=== PATIENT | female | born 1940 | race Caucasian/White ===

== ENCOUNTER 2021-02-10 08:44 | Emergency (ER) | payer MEDICARE, SELFPAY ==
--- NOTE | ~2021-02-10 | XR_ITS ---
EXAMINATION: XR CHEST CLINICAL INFORMATION: Diffuse myalgia COMPARISON: None TECHNIQUE: Frontal view of the chest was obtained. FINDINGS: The cardiac and mediastinal contours are normal. The lungs are clear. There is no pleural effusion or pneumothorax. There is a stent in the left upper arm. 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 There are degenerative changes of the spine. XR/XR chest 1V IMPRESSION: No evidence for acute disease in the chest.
[2021-02-10 08:51] VITALS: BP 113/39; BP 138/72; PULSE 72; PULSE 81; RESP 18; TEMP 36.9; O2SAT 99; BMI 31.6
--- NOTE | 2021-02-10 09:43 | ECG_ITS ---
Test Reason : WEAKNESS Blood Pressure : / mmHG Vent. Rate : 079 BPM Atrial Rate : 079 BPM P-R Int : 182 ms QRS Dur : 120 ms QT Int : 442 ms P-R-T Axes : 065 -13 -12 degrees QTc Int : 506 ms Normal sinus rhythm Right bundle branch block Possible Lateral infarct , age undetermined Abnormal ECG When compared with ECG of 21-AUG-2009 14:21, Borderline criteria for Lateral infarct are now Present Minimal criteria for Inferior infarct are no longer Present Referred By: Ana Duenas Electronically Signed By:Luis Durant
--- NOTE | 2021-02-10 10:01 | ED_ITS ---
HPI - Weakness General Chief complaint: Weakness Stated complaint: WEAKNESS Time Seen by Provider: 02/10/21 08:57 Source: patient and EMS Mode of arrival: EMS History of Present Illness HPI Narrative: 80-year-old female with a past medical history of diabetes, HTN, CKD on HD (/Mon/Mon) last received HD yesterday, presenting to the ED c omplaining of diffuse myalgias, generalized fatigue/weakness, and acute on chronic right buttock pain radiating down RLE x weeks. Patient was discharged from [facility] yesterday after rehabbing for this pain. At baseline patient ambulates with walker, reports this pain is unchanged since original onset just unbearable, took prescribed oxycodone this morning without relief. Denies new injury/fall or trauma. Also reports bilateral lower extremity wounds x months. Denies fever, chills, CP/SOB, abdominal pain, nausea/vomiting, tingling, urinary incontinence/retention, fever/chills. MD Complaint: generalized weakness and lack of energy Related Data Home Medications Medication Instructions Recorded Confirmed acetaminophen 325 mg tablet 325 mg PO TID PRN 02/10/21 02/10/21 diclofenac sodium 1 % topical gel 2 g TOPICAL 0900,1300,199902/10/21 02/10/21 furosemide 40 mg tablet 1 tab PO 0900,1300,199902/10/21 02/10/21 gabapentin 100 mg capsule 100 mg PO BID@0900,1700 02/10/21 02/10/21 insulin NPH isoph U-100 human 100 16 unit SUBCUT BEDTIME 02/10/21 02/10/21 unit/mL subcutaneous suspension (Novolin N NPH U-100 Insulin isophane) levothyroxine 88 mcg tablet 1 tab PO DAILY@0600 02/10/21 02/10/21 metoprolol tartrate 25 mg tablet 1 tab PO BID 02/10/21 02/10/21 omeprazole 20 mg capsule,delayed 1 cap PO DAILY@0600 02/10/21 02/10/21 release ondansetron 4 mg disintegrating 4 mg PO Q6H PRN MDD N 02/10/21 02/10/21 tablet oxycodone 10 mg tablet 1 tab PO QID PRN 02/10/21 02/10/21 polyethylene glycol 3350 17 gram 17 g PO DAILY 02/10/21 02/10/21 oral powder packet (Miralax) pravastatin 40 mg tablet 1 tab PO BEDTIME 02/10/21 02/10/21 sertraline 50 mg tablet 1 tab PO DAILY 02/10/21 02/10/21 Previous Rx's Medication Instructions Recorded oxycodone 5 mg tablet 5 mg PO Q8H PRN #9 tab 02/10/21 Allergies Allergy/AdvReac Type Severity Reaction Status Date / Time Sulfa (Sulfonamide Allergy Unknown RASH Unverified 03/26/20 16:06 Antibiotics) Review of Systems Review of Systems: Constitutional: No Fever, No Chills, No Night Sweats, + Fatigue, + Malaise ENT/Mouth: No Ear Pain, No Nasal Congestion, No Hoarseness, No sore throat, No Swallowing Difficulty Eyes: No Eye Pain, No Vision Changes Cardiovascular: No Chest Pain, No SOB, No Edema, No Palpitations Respiratory: No Cough, No Sputum, No Dyspnea Gastrointestinal: No Nausea, No Vomiting, No Diarrhea, No Abdominal pain Genitourinary: No Dysuria, No Urinary Frequency, No Hematuria, No Flank Pain Musculoskeletal: + joint pain, + Myalgias, No Joint Swelling Skin: No Skin Lesions, No rash Neuro: + Weakness, No Numbness, No Paresthesias, No Dizziness, No Headache Yes all other systems are reviewed and are negative [facility] Past Medical History Attestation statement: The following information was validated with the patient. Medical History (Updated 02/10/21 @ 15:50 by YULI Lu) Diabetes mellitus Hypertension Kidney disease Physical Exam Vital Signs: Vital Signs: Last Vital Signs Temp 98.4 F 02/10/21 08:51 Pulse 86 02/10/21 14:35 Resp 16 02/10/21 14:35 BP 150/47 H 02/10/21 14:35 Pulse Ox 99 02/10/21 14:35 Body Mass Index 31.6 Const: General: cooperative, alert and awake Limitations: no limitations HENMT: Head: Yes normal to inspection and Yes atraumatic Ears: hearing delvin ssly normal bilaterally General nose exam: Normal external nose present Face and sinus: Yes normal facial exam Eyes: General: appearance normal, both eyes and all related structures EOM: EOMs intact bilaterally Neck: Neck: Yes normal visual inspection and Yes no meningeal signs Resp: Effort & Inspection: normal respiratory effort Auscultation: clear to auscultation bilaterally, no rhonchi and no wheezes Cardio: Rate: regular rate Heart sounds: S1 normal heart sound present and S2 normal heart sound present GI: Inspection: Yes normal to inspection Palpation (GI): Soft to palpation, nontender, no guarding and not rigid Back/Spine/Pelvis: Other: No midline thoracic/lumbar spinous tenderness or st ep-offs/deformity. + right-sided lower lumbar/buttock tenderness to palpation Skin: Other: RLE: 2 open dry wounds with scaling and surrounding erythema extending up to mid tib-fib. Warm to touch. No streaking. NV intact. LLE: 1 bullous blister noted to volar aspect of left foot. No surrounding erythema/cellulitis, no streaking Neuro: General: tone normal, moves all extremities, no meningeal signs and no focal motor deficits Extrem: General: Yes normal to inspection Course Course Course Narrative: Received records/progress notes from Matt Moran patient was admitted for abdominal pain/back pain noted to have UTI & CT brain, abdomen/pelvis that were unremarkable was treated with IV Rocephin. Right hip j oint pain consulted for hip injections for pain and patient was receiving gabapentin/topical diclofenac. Venous stasis ulcers to bilateral lower extremities were being assessed/treated with moist to dry dressings and dry protective dressing >> no need for repeat imaging at this time as patient denies new or recent falls since original complaint just constant/unremitting pain -no leukocytosis. H&H at patient's baseline (chronic anemia from CKD), renal dysfunction at patient's baseline, BNP 262 XR chest 1V IMPRESSION: No evidence for acute disease in the chest -UA infected >> initiated Keflex 500 p.o. daily and Doxy 100 p.o. q.12 for RLE cellulitis and UTI (Keflex should be given after dialysis on dialysis days) -patient placed in physician observation as needs more time for case management placement, physical therapy evaluated patient and recommends STR -patient will be going to [facility] for STR at 6PM MDM - Weakness MDM Narrative Medical decision making narrative: 80-year-old female with a past medical history of diabetes, HTN, CKD on HD (/Mon/Mon) last received HD yesterday, presenting to the ED complaining of diffuse myalgias, generalized fatigue/weakness, and acute on chronic right buttock pain radiating down RLE x weeks. On exam VSS, NAD/well-appearing, physical exam as above. Concern for acute on chronic pain/deconditioning. Rule out metabolic/infectious etiology. RLE consistent with early onset cellulitis. Low concern for severe sepsis at this time. Low concern for cauda equina/cord compression or intra-abdominal pathology Plan: EKG, labs, UA, CXR, lactic/blood cultures, PT/CM consult Medical Records Attestation: I reviewed the patient's medical records. Lab Data Attestation: I reviewed the patient's lab results. Result diagrams: 02/10/21 10:55 02/10/21 10:55 Labs: Lab Results 02/10/21 02/10/21 02/10/21 Range/Units 10:14 10:55 10:55 WBC 9.1 (4.8-10.8) X10*3/uL RBC 2.39 L (4.20-5.50) X10*6/uL Hgb 7.8 L (12.0-16.0) g/dl Hct 24.3 L (37-47) % MCV 101.7 H (80-98) fL MCH 32.6 (27.0-33.0) pg MCHC 32.1 (31.0-35.0) g/dl RDW 13.5 (11.0-16.0) % Plt Count 299 (160-400) X10*3/uL MPV 9.0 L (9.4-12.3) fL Immature Gran % (Auto) 1.6 H (0.0-0.4) % Neut % (Auto) 73.4 H (45-73) % Lymph % (Auto) 10.1 L (20-40) % [place] % (Auto) 10.3 (2-11) % Eos % (Auto) 4.2 H (0-4) % Baso % (Auto) 0.4 (0-2) % Lymph # (Auto) 0.9 L (1.2-4.9) X10*3/uL [place] # (Auto) 0.9 (0.1-1.2) X10*3/uL Eos # (Auto) 0.4 (0.0-0.4) X10*3/uL Baso # (Auto) 0.0 (0.0-0.2) X10*3/uL Abs Immat Gran (auto) 0.15 H (0.00-0.03) X10*3/uL Absolute Neuts (auto) 6.7 (2.0-8.3) X10*3/uL Absolute Nucleated RBC 0.000 (0.0-0.012) X10*3/uL Nucleated RBC % (auto) 0.0 (0.0-0.2) /100WBC Sodium 139 (135-145) mmol/L Potassium 4.4 (3.3-5.1) mmol/L Chloride 94 L (96-108) mmol/L Carbon Dioxide 32 H (22-29) mmol/L Anion Gap 17 (12-20) BUN 32 H (9-16) mg/dL Creatinine 4.51 H* (0.5-1.4) mg/dL Estim Creat Clear Calc 9.3 Estimated GFR 9 Random Glucose 104 D (60-115) mg/dL Lactic Acid (0.5-2.0) mmol/L Calcium 8.7 (8.4-10.2) mg/dL Magnesium 1.9 (1.6-2.6) mg/dL Total Bilirubin 0.5 (0.0-1.0) mg/dL Direct Bilirubin 0.2 (0.0-0.5) mg/dL AST 10 (5-31) U/L ALT 8 (0-31) U/L Alkaline Phosphatase 95 D (39-117) U/L Total Creatine Kinase 61 (26-140) U/L B-Natriuretic Peptide (<100) pg/mL Total Protein 5.8 L (6.5-8.0) g/dL Albumin 3.6 (3.5-5.0) g/dL Urine Color Urine Appearance Urine pH (5.0-8.0) Ur Specific [place] (1.005-1.025) Urine Protein (NEG-TRACE) MG/DL Urine Glucose (UA) (NEG) MG/DL Urine Ketones (NEG) MG/DL Urine Blood (NEG) Urine Nitrite (NEG) Ur Leukocyte Esterase (NEG) Urine RBC (0) /HPF Urine WBC (0-4) /HPF Ur Squamous Epith Cells /LPF Urine Bacteria /LPF COVID-19 (YANNA) Negative (Negative) COVID-19 Clin Com See Note 02/10/21 02/10/21 02/10/21 Range/Units 10:55 10:55 15:05 WBC (4.8-10.8) X10*3/uL RBC (4.20-5.50) X10*6/uL Hgb (12.0-16.0) g/dl Hct (37-47) % MCV (80-98) fL MCH (27.0-33.0) pg MCHC (31.0-35.0) g/dl RDW (11.0-16.0) % Plt Count (160-400) X10*3/uL MPV (9.4-12.3) fL Immature Gran % (Auto) (0.0-0.4) % Neut % (Auto) (45-73) % Lymph % (Auto) (20-40) % [place] % (Auto) (2-11) % Eos % (Auto) (0-4) % Baso % (Auto) (0-2) % Lymph # (Auto) (1.2-4.9) X10*3/uL [place] # (Auto) (0.1-1.2) X10*3/uL Eos # (Auto) (0.0-0.4) X10*3/uL Baso # (Auto) (0.0-0.2) X10*3/uL Abs Immat Gran (auto) (0.00-0.03) X10*3/uL Absolute Neuts (auto) (2.0-8.3) X10*3/uL Absolute Nucleated RBC (0.0-0.012) X10*3/uL Nucleated RBC % (auto) (0.0-0.2) /100WBC Sodium (135-145) mmol/L Potassium (3.3-5.1) mmol/L Chloride (96-108) mmol/L Carbon Dioxide (22-29) mmol/L Anion Gap (12-20) BUN (9-16) mg/dL Creatinine (0.5-1.4) mg/dL Estim Creat Clear Calc Estimated GFR Random Glucose (60-115) mg/dL Lactic Acid 1.7 (0.5-2.0) mmol/L Calcium (8.4-10.2) mg/dL Magnesium (1.6-2.6) mg/dL Total Bilirubin (0.0-1.0) mg/dL Direct Bilirubin (0.0-0.5) mg/dL AST (5-31) U/L ALT (0-31) U/L Alkaline Phosphatase (39-117) U/L Total Creatine Kinase (26-140) U/L B-Natriuretic Peptide 262 H (<100) pg/mL Total Protein (6.5-8.0) g/dL Albumin (3.5-5.0) g/dL Urine Color YELLOW Urine Appearance HAZY Urine pH 7.0 (5.0-8.0) Ur Specific [place] <= 1.005 (1.005-1.025) Urine Protein 1+ H (NEG-TRACE) MG/DL Urine Glucose (UA) NEG (NEG) MG/DL Urine Ketones NEG (NEG) MG/DL Urine Blood NEG (NEG) Urine Nitrite NEG (NEG) Ur Leukocyte Esterase 3+ H (NEG) Urine RBC 0-2 (0) /HPF Urine WBC 5-9 H (0-4) /HPF Ur Squamous Epith Cells TRACE /LPF Urine Bacteria 2+ /LPF COVID-19 (YANNA) (Negative) COVID-19 Clin Com ECG Data Attestation: I personally reviewed and interpreted this ECG as follows: ECG interpretation date: 02/10/21 ECG interpretation time: 10:45 Interpretation: EKG normal sinus rhythm with RBBB. Nonischemic/no STEMI Discharge Plan Discharge Clinical Impression: Cellulitis of right lower extremity, Myalgia, Acute UTI Patient Disposition: Xfer [facility] Instructions: Cellulitis (ED), Urinary Tract Infection in Older Adults (ED) Additional Instructions: You have an infection to right lower leg, dressings and to be changed daily You also have a urinary tract infection Keflex and doxycycline should treat both of these infections You to continue on her dialysis Follow-up with her doctor Oxycodone will help with severe pain, take as needed Prescriptions: New oxycodone 5 mg tablet 5 mg PO Q8H PRN (Reason: pain) Qty: 9 RF: 0 No Action furosemide 40 mg tablet 1 tab PO 0900,1300,2000 RF: 0 pravastatin 40 mg tablet 1 tab PO BEDTIME RF: 0 levothyroxine 88 mcg tablet 1 tab PO DAILY@0600 RF: 0 Novolin N NPH U-100 Insulin 100 unit/mL suspension 16 unit subcut BEDTIME RF: 0 omeprazole 20 mg capsule,delayed release(DR/EC) 1 cap PO DAILY@0600 RF: 0 sertraline 50 mg tablet 1 tab PO DAILY RF: 0 metoprolol tartrate 25 mg tablet 1 tab PO BID RF: 0 oxycodone 10 mg tablet 1 tab PO QID PRN (Reason: pain) RF: 0 polyethylene glycol 3350 [Miralax] 17 gram Powder In Packet 17 g PO DAILY RF: 0 gabapentin 100 mg Capsule 100 mg PO BID@0900,1700 RF: 0 ondansetron [Zofran ODT] 4 mg Tablet,Disintegrating 4 mg PO Q6H MDD N PRN (Reason: Nausea And Vomiting) RF: 0 diclofenac sodium 1 % Gel 2 g TOPICAL 0900,1300,2000 RF: 0 acetaminophen 325 mg Tablet 325 mg PO TID PRN (Reason: Pain) RF: 0 Referrals: [facility] [Outside] - 2 days
[2021-02-10 10:41] LABS: COVID-19 Test Negative (Negative)
[2021-02-10 11:07] LABS: MANUAL DIFF FLAG NO
[2021-02-10 11:08] LABS: Basophils Percent Auto 0.4 % (0-2); Eosinophils Absolute Auto 0.4 X10*3/uL (0.0-0.4); Eosinophils Percent Auto 4.2 % (0-4); Hematocrit 24.3 % (37-47); Hemoglobin 7.8 g/dl (12.0-16.0); Imm Gran Abs Auto 0.15 X10*3/uL (0.00-0.03); Imm Gran Pct Auto 1.6 % (0.0-0.4); Lymphocytes Absolute Auto 0.9 X10*3/uL (1.2-4.9); Lymphocytes Percent Auto 10.1 % (20-40); Mean Corpuscular HGB Conc 32.1 g/dl (31.0-35.0); Mean Corpuscular Hemoglobin 32.6 pg (27.0-33.0); Mean Corpuscular Volume 101.7 fL (80-98); Monocytes Absolute Auto 0.9 X10*3/uL (0.1-1.2); Monocytes Percent Auto 10.3 % (2-11); Neutrophils Absolute Auto 6.7 X10*3/uL (2.0-8.3); Neutrophils Percent Auto 73.4 % (45-73); Platelet Count 299 X10*3/uL (160-400); Red Blood Count 2.39 X10*6/uL (4.20-5.50); Red Cell Distribution Width 13.5 % (11.0-16.0); White Blood Count 9.1 X10*3/uL (4.8-10.8)
[2021-02-10 11:25] LABS: Lactic Acid 1.7 mmol/L (0.5-2.0)
[2021-02-10] MEDS: Lidocaine 4 % Patch ADH..PATCH 1 PATCH TRANSDERMA (11:25)
[2021-02-10] MEDS: traMADoL HCL 50 MG TABLET PO (11:34)
[2021-02-10 11:40] LABS: B Type Natriuretic Peptide 262 pg/mL (<100)
[2021-02-10] MEDS: oxyCODONE HCl Immed Release 5 MG TABLET PO (12:06)
[2021-02-10 12:27] LABS: Alanine Aminotransferase 8 U/L (0-31); Albumin Level 3.6 g/dL (3.5-5.0); Alkaline Phosphatase 95 U/L (39-117); Anion Gap 17 (12-20); Aspartate Amino Transferase 10 U/L (5-31); Bilirubin Direct 0.2 mg/dL (0.0-0.5); Bilirubin Total 0.5 mg/dL (0.0-1.0); Blood Urea Nitrogen 32 mg/dL (9-16); Calcium 8.7 mg/dL (8.4-10.2); Carbon Dioxide 32 mmol/L (22-29); Chloride 94 mmol/L (96-108); Creatinine Clr Calc Pharmacy 9.3; Estimated Glomerular Filt Rate 9; Glucose Random 104 mg/dL (60-115); Magnesium 1.9 mg/dL (1.6-2.6); Potassium 4.4 mmol/L (3.3-5.1); Sodium 139 mmol/L (135-145); Total Protein 5.8 g/dL (6.5-8.0)
--- NOTE | 2021-02-10 13:00 | PC.NURSE ---
Per family members, they believe patient is unsafe at home due to pain and would benefit from short term rehab.
--- NOTE | 2021-02-10 13:07 | PC.NURSE ---
Patient moved to hospital bed. PT at bedside for eval.
--- NOTE | 2021-02-10 13:32 | HE.PHANOTE ---
Med Rec has been completed based on list from [facility].
[2021-02-10 13:38] VITALS: BP 113/39; PULSE 81; O2SAT 99
[2021-02-10] MEDS: oxyCODONE HCl Immed Release 5 MG TABLET 10 MG PO (14:32)
[2021-02-10 14:35] VITALS: BP 150/47; PULSE 86; RESP 16; O2SAT 99
[2021-02-10] MEDS: Doxycycline Hyclate 100 MG in 0.9 % Sodium Chloride 250 ML 166.67 MG IV (14:59)
[2021-02-10 15:16] LABS: Glucose Urine UA NEG (NEG); Leukocyte Esterase Urine 3+ (NEG); Nitrite Urine NEG (NEG); Specific Gravity - Urine <= 1.005 (1.005-1.025); UACC Culture Trigger YES; Urine Blood NEG (NEG); Urine Ketones NEG (NEG); Urine Protein 1+ MG/DL (NEG-TRACE)
[2021-02-10 15:17] LABS: Appearance Urine HAZY; Color Urine YELLOW
--- NOTE | 2021-02-10 15:23 | MHC.CM.ED ---
Addendum entered by Tamara Suarez 02/10/21 15:26: Patient received 2nd Moderna vaccine. Original Note: Received case management consult from Ana ROLDAN. Patient was d/c'd from [facility] last night. Brad HERRING was supposed to visit today. However patient was too weak and came to the ER. Patient hoes to dialysis , and Monday. Work up essentially negative. Physical therapy eval completed and short term rehab is recommended. Patient agreeable to return to [facility] because of the need for HD. Per [facility], patient can leave at 6pm. [facility] BLS booked. Med nec with chart. Patient and Ana ROLDAN aware. Continue to monitor for d/c needs.
[2021-02-10 15:41] LABS: Bacteria Urine 2+ /LPF; RBC Urine 0-2 /HPF (0); Squamous Epithelial Cell Urine TRACE /LPF
[2021-02-10] MEDS: cephALEXin 500 MG CAPSULE PO (16:34)
[2021-02-10] MEDS: Gabapentin 100 MG CAPSULE PO (16:37)
--- NOTE | 2021-02-10 17:00 | PC.NURSE ---
Report given to [facility]. Patient to be transferred at 1800.
== END 2021-02-10 18:48 | disposition skilled nursing facility (03) ==
PROVIDERS: Physician Assistant; Emergency Provider Emergency Medicine; PCP Internal Medicine Endocrinology, Diabetes & Metabolism
DX: N39.0 Urinary tract infection, site not specified (principal); L03.115 Cellulitis of right lower limb; M79.10 Myalgia, unspecified site; Z20.822 Contact with and (suspected) exposure to COVID-19; R53.1 Weakness; E11.22 Type 2 diabetes mellitus with diabetic chronic kidney disease; I12.0 Hypertensive chronic kidney disease with stage 5 chronic kidney disease or end stage renal disease; N18.6 End stage renal disease; Z99.2 Dependence on renal dialysis; D63.1 Anemia in chronic kidney disease; Z79.4 Long term (current) use of insulin; Z79.899 Other long term (current) drug therapy
CPT/HCPCS: 36415; 71045; 80048; 80076; 81001; 82550; 83605; 83735; 83880; 85025; 87040; 87086; 87635; 93005; 96374; 97162; 99285

== ENCOUNTER 2021-03-11 05:47 | Outpatient (REF) | payer MEDICARE, SELFPAY ==
[2021-03-11 05:52] LABS: MANUAL DIFF FLAG NO
[2021-03-11 06:01] LABS: Basophils Absolute Auto 0.1 X10*3/uL (0.0-0.2); Basophils Percent Auto 0.5 % (0-2); Eosinophils Absolute Auto 0.6 X10*3/uL (0.0-0.4); Eosinophils Percent Auto 6.3 % (0-4); Hematocrit 23.5 % (37-47); Hemoglobin 7.4 g/dl (12.0-16.0); Imm Gran Abs Auto 0.12 X10*3/uL (0.00-0.03); Imm Gran Pct Auto 1.2 % (0.0-0.4); Lymphocytes Absolute Auto 1.1 X10*3/uL (1.2-4.9); Lymphocytes Percent Auto 11.2 % (20-40); Mean Corpuscular HGB Conc 31.5 g/dl (31.0-35.0); Mean Corpuscular Hemoglobin 31.5 pg (27.0-33.0); Mean Platelet Volume 9.2 fL (9.4-12.3); Monocytes Percent Auto 10.6 % (2-11); NRBC Pct Auto 0.2 /100WBC (0.0-0.2); Neutrophils Absolute Auto 6.7 X10*3/uL (2.0-8.3); Neutrophils Percent Auto 70.2 % (45-73); Platelet Count 243 X10*3/uL (160-400); Red Blood Count 2.35 X10*6/uL (4.20-5.50); Red Cell Distribution Width 18.5 % (11.0-16.0); White Blood Count 9.6 X10*3/uL (4.8-10.8)
[2021-03-11 06:40] LABS: Alanine Aminotransferase 9 U/L (0-31); Albumin Level 2.8 g/dL (3.5-5.0); Alkaline Phosphatase 72 U/L (39-117); Anion Gap 14 (12-20); Aspartate Amino Transferase 13 U/L (5-31); Bilirubin Total 0.5 mg/dL (0.0-1.0); Blood Urea Nitrogen 38 mg/dL (9-16); Calcium 7.8 mg/dL (8.4-10.2); Carbon Dioxide 28 mmol/L (22-29); Chloride 97 mmol/L (96-108); Estimated Glomerular Filt Rate 7; Glucose Random 61 mg/dL (60-115); Sodium 135 mmol/L (135-145); Total Protein 4.5 g/dL (6.5-8.0)
== END 2021-03-11 05:48 | disposition home or self-care (01) ==
LOC: HO.MMNH2L 05:47
PROVIDERS: Visit Provider Family Medicine
DX: Z02.2 Encounter for examination for admission to residential institution (principal)
CPT/HCPCS: 36415; 80053; 85025

== ENCOUNTER 2021-03-24 06:36 | Outpatient (REF) | payer SELFPAY ==
[2021-03-24 06:58] LABS: Hematocrit 21.1 % (37-47); Mean Corpuscular HGB Conc 32.2 g/dl (31.0-35.0); Mean Corpuscular Hemoglobin 30.9 pg (27.0-33.0); Mean Corpuscular Volume 95.9 fL (80-98); Mean Platelet Volume 10.2 fL (9.4-12.3); Platelet Count 159 X10*3/uL (160-400); Red Cell Distribution Width 16.4 % (11.0-16.0); White Blood Count 7.6 X10*3/uL (4.8-10.8)
[2021-03-24 07:26] LABS: Alanine Aminotransferase < 6 U/L (0-31); Albumin Level 2.9 g/dL (3.5-5.0); Alkaline Phosphatase 65 U/L (39-117); Anion Gap 15 (12-20); Aspartate Amino Transferase 16 U/L (5-31); Bilirubin Total 2.4 mg/dL (0.0-1.0); Blood Urea Nitrogen 27 mg/dL (9-16); Carbon Dioxide 25 mmol/L (22-29); Chloride 104 mmol/L (96-108); Estimated Glomerular Filt Rate 10; Glucose Random 97 mg/dL (60-115); Potassium 4.1 mmol/L (3.3-5.1); Sodium 140 mmol/L (135-145); Total Protein 4.6 g/dL (6.5-8.0)
[2021-03-24 07:28] LABS: Hemoglobin 6.8 g/dl (12.0-16.0)
== END 2021-03-24 06:37 | disposition home or self-care (01) ==
LOC: HO.MMNH2L 06:36
PROVIDERS: Visit Provider Family Medicine
DX: R41.82 Altered mental status, unspecified (principal)
CPT/HCPCS: 36415; 80053; 85027

== ENCOUNTER 2021-05-03 00:17 | Outpatient (REF) | payer MEDICARE, SELFPAY ==
[2021-05-03 06:57] LABS: Hematocrit 26.5 % (37-47); Hemoglobin 8.1 g/dl (12.0-16.0); Mean Corpuscular HGB Conc 30.6 g/dl (31.0-35.0); Mean Corpuscular Hemoglobin 31.3 pg (27.0-33.0); Mean Corpuscular Volume 102.3 fL (80-98); Mean Platelet Volume 10.4 fL (9.4-12.3); Platelet Count 218 X10*3/uL (160-400); Red Blood Count 2.59 X10*6/uL (4.20-5.50); White Blood Count 5.7 X10*3/uL (4.8-10.8)
[2021-05-03 07:53] LABS: Anion Gap 15 (12-20); Blood Urea Nitrogen 26 mg/dL (9-16); Calcium 8.3 mg/dL (8.4-10.2); Carbon Dioxide 31 mmol/L (22-29); Chloride 101 mmol/L (96-108); Estimated Glomerular Filt Rate 10; Glucose Random 71 mg/dL (60-115); Potassium 4.8 mmol/L (3.3-5.1); Sodium 142 mmol/L (135-145)
== END 2021-05-03 00:18 | disposition home or self-care (01) ==
LOC: HO.MMNH2L 00:17
PROVIDERS: Visit Provider Family Medicine
DX: I50.9 Heart failure, unspecified (principal); N18.6 End stage renal disease; M62.511 Muscle wasting and atrophy, not elsewhere classified, right shoulder
CPT/HCPCS: 36415; 80048; 85027

== ENCOUNTER 2021-05-10 07:50 | Outpatient (REF) | payer MEDICARE, SELFPAY ==
[2021-05-10 07:23] LABS: Hematocrit 27.3 % (37.0-47.0); Hemoglobin 8.5 g/dl (12.0-16.0); Mean Corpuscular HGB Conc 31.1 g/dl (31.0-35.0); Mean Corpuscular Hemoglobin 30.8 pg (27.0-33.0); Mean Corpuscular Volume 98.9 fL (80.0-98.0); Mean Platelet Volume 10.2 fL (9.4-12.3); Platelet Count 237 X10*3/uL (160-400); Red Blood Count 2.76 X10*6/uL (4.20-5.50); Red Cell Distribution Width 15.6 % (11.0-16.0); White Blood Count 6.6 X10*3/uL (4.8-10.8)
[2021-05-10 07:53] LABS: Anion Gap 19 (12-20); Blood Urea Nitrogen 27 mg/dL (9-16); Calcium 8.2 mg/dL (8.4-10.2); Carbon Dioxide 28 mmol/L (22-29); Chloride 99 mmol/L (96-108); Glucose Random 62 mg/dL (60-115); Potassium 3.8 mmol/L (3.3-5.1); Sodium 142 mmol/L (135-145)
[2021-05-10 08:09] LABS: Estimated Glomerular Filt Rate 10
== END 2021-05-10 07:51 | disposition home or self-care (01) ==
LOC: HO.MMNH2L 07:50
PROVIDERS: Visit Provider Family Medicine
DX: I50.9 Heart failure, unspecified (principal); N18.6 End stage renal disease; M62.511 Muscle wasting and atrophy, not elsewhere classified, right shoulder
CPT/HCPCS: 36415; 80048; 85027

== ENCOUNTER 2021-05-17 00:34 | Outpatient (REF) | payer MEDICARE, SELFPAY ==
[2021-05-17 06:53] LABS: Hematocrit 26.7 % (37.0-47.0); Hemoglobin 8.4 g/dl (12.0-16.0); Mean Corpuscular HGB Conc 31.5 g/dl (31.0-35.0); Mean Corpuscular Volume 98.5 fL (80.0-98.0); Mean Platelet Volume 10.2 fL (9.4-12.3); Platelet Count 231 X10*3/uL (160-400); Red Blood Count 2.71 X10*6/uL (4.20-5.50); Red Cell Distribution Width 15.6 % (11.0-16.0); White Blood Count 6.5 X10*3/uL (4.8-10.8)
[2021-05-17 07:54] LABS: Anion Gap 16 (12-20); Blood Urea Nitrogen 25 mg/dL (9-16); Calcium 8.1 mg/dL (8.4-10.2); Carbon Dioxide 33 mmol/L (22-29); Chloride 98 mmol/L (96-108); Estimated Glomerular Filt Rate 9; Glucose Random 61 mg/dL (60-115); Potassium 3.3 mmol/L (3.3-5.1); Sodium 144 mmol/L (135-145)
== END 2021-05-17 00:35 | disposition home or self-care (01) ==
LOC: HO.MMNH2L 00:34
PROVIDERS: Visit Provider Family Medicine
DX: I50.9 Heart failure, unspecified (principal); N18.6 End stage renal disease; M62.511 Muscle wasting and atrophy, not elsewhere classified, right shoulder
CPT/HCPCS: 36415; 80048; 85027

== ENCOUNTER 2021-05-24 00:34 | Outpatient (REF) | payer MEDICARE, SELFPAY ==
[2021-05-24 07:33] LABS: Hematocrit 29.2 % (37.0-47.0); Mean Corpuscular HGB Conc 30.8 g/dl (31.0-35.0); Mean Corpuscular Hemoglobin 30.6 pg (27.0-33.0); Mean Corpuscular Volume 99.3 fL (80.0-98.0); Mean Platelet Volume 10.4 fL (9.4-12.3); Platelet Count 174 X10*3/uL (160-400); Red Blood Count 2.94 X10*6/uL (4.20-5.50); Red Cell Distribution Width 16.1 % (11.0-16.0); White Blood Count 6.1 X10*3/uL (4.8-10.8)
[2021-05-24 08:57] LABS: Anion Gap 15 (12-20); Blood Urea Nitrogen 24 mg/dL (9-16); Calcium 8.1 mg/dL (8.4-10.2); Carbon Dioxide 33 mmol/L (22-29); Chloride 97 mmol/L (96-108); Estimated Glomerular Filt Rate 9; Glucose Random 106 mg/dL (60-115); Potassium 3.7 mmol/L (3.3-5.1); Sodium 141 mmol/L (135-145)
== END 2021-05-24 00:35 | disposition home or self-care (01) ==
LOC: HO.MMNH2L 00:34
PROVIDERS: Visit Provider Family Medicine
DX: I50.9 Heart failure, unspecified (principal); N18.6 End stage renal disease; M62.511 Muscle wasting and atrophy, not elsewhere classified, right shoulder
CPT/HCPCS: 36415; 80048; 85027

== ENCOUNTER 2021-05-31 22:08 | Outpatient (REF) | payer MEDICARE, SELFPAY ==
[2021-05-31 07:09] LABS: Hemoglobin 10.3 g/dl (12.0-16.0); Mean Corpuscular HGB Conc 31.2 g/dl (31.0-35.0); Mean Corpuscular Hemoglobin 30.8 pg (27.0-33.0); Mean Corpuscular Volume 98.8 fL (80.0-98.0); Mean Platelet Volume 10.2 fL (9.4-12.3); Platelet Count 256 X10*3/uL (160-400); Red Blood Count 3.34 X10*6/uL (4.20-5.50); Red Cell Distribution Width 15.6 % (11.0-16.0); White Blood Count 6.5 X10*3/uL (4.8-10.8)
[2021-05-31 07:33] LABS: Anion Gap 18 (12-20); Blood Urea Nitrogen 18 mg/dL (9-16); Calcium 8.5 mg/dL (8.4-10.2); Carbon Dioxide 30 mmol/L (22-29); Chloride 98 mmol/L (96-108); Glucose Random 121 mg/dL (60-115); Potassium 3.7 mmol/L (3.3-5.1); Sodium 142 mmol/L (135-145)
[2021-05-31 08:07] LABS: Estimated Glomerular Filt Rate 10
== END 2021-05-31 22:09 | disposition home or self-care (01) ==
LOC: HO.MMNH2L 22:08
PROVIDERS: Visit Provider Family Medicine
DX: I50.9 Heart failure, unspecified (principal); N18.6 End stage renal disease; M62.511 Muscle wasting and atrophy, not elsewhere classified, right shoulder
CPT/HCPCS: 36415; 80048; 85027

== ENCOUNTER 2021-06-07 00:58 | Outpatient (REF) | payer MEDICARE, SELFPAY ==
[2021-06-07 07:00] LABS: Hematocrit 33.9 % (37.0-47.0); Hemoglobin 10.5 g/dl (12.0-16.0); Mean Corpuscular Hemoglobin 30.5 pg (27.0-33.0); Mean Corpuscular Volume 98.5 fL (80.0-98.0); Mean Platelet Volume 10.2 fL (9.4-12.3); Platelet Count 216 X10*3/uL (160-400); Red Blood Count 3.44 X10*6/uL (4.20-5.50); Red Cell Distribution Width 15.8 % (11.0-16.0); White Blood Count 7.4 X10*3/uL (4.8-10.8)
[2021-06-07 07:56] LABS: Anion Gap 19 (12-20); Blood Urea Nitrogen 24 mg/dL (9-16); Calcium 8.4 mg/dL (8.4-10.2); Carbon Dioxide 31 mmol/L (22-29); Chloride 95 mmol/L (96-108); Estimated Glomerular Filt Rate 8; Glucose Random 84 mg/dL (60-115); Potassium 3.8 mmol/L (3.3-5.1); Sodium 141 mmol/L (135-145)
== END 2021-06-07 00:59 | disposition home or self-care (01) ==
LOC: HO.MMNH2L 00:58
PROVIDERS: Visit Provider Family Medicine
DX: M62.511 Muscle wasting and atrophy, not elsewhere classified, right shoulder (principal); I50.9 Heart failure, unspecified; N18.6 End stage renal disease
CPT/HCPCS: 36415; 80048; 85027

== ENCOUNTER 2021-06-14 00:21 | Outpatient (REF) | payer MEDICARE, SELFPAY ==
[2021-06-14 08:01] LABS: Mean Corpuscular HGB Conc 30.3 g/dl (31.0-35.0); Mean Corpuscular Hemoglobin 29.2 pg (27.0-33.0); Mean Corpuscular Volume 96.5 fL (80.0-98.0); Mean Platelet Volume 10.5 fL (9.4-12.3); Platelet Count 226 X10*3/uL (160-400); Red Blood Count 3.42 X10*6/uL (4.20-5.50); Red Cell Distribution Width 14.8 % (11.0-16.0); White Blood Count 6.3 X10*3/uL (4.8-10.8)
[2021-06-14 08:52] LABS: Anion Gap 16 (12-20); Blood Urea Nitrogen 31 mg/dL (9-16); Calcium 8.3 mg/dL (8.4-10.2); Carbon Dioxide 30 mmol/L (22-29); Chloride 100 mmol/L (96-108); Estimated Glomerular Filt Rate 10; Glucose Random 48 mg/dL (60-115); Potassium 3.6 mmol/L (3.3-5.1); Sodium 142 mmol/L (135-145)
== END 2021-06-14 00:22 | disposition home or self-care (01) ==
LOC: HO.MMNH2L 00:21
PROVIDERS: Visit Provider Family Medicine
DX: I50.9 Heart failure, unspecified (principal); N18.6 End stage renal disease; M62.511 Muscle wasting and atrophy, not elsewhere classified, right shoulder
CPT/HCPCS: 36415; 80048; 85027

== ENCOUNTER 2021-06-21 00:18 | Outpatient (REF) | payer MEDICARE, SELFPAY ==
[2021-06-21 07:03] LABS: Hematocrit 31.6 % (37.0-47.0); Hemoglobin 9.8 g/dl (12.0-16.0); Mean Corpuscular Hemoglobin 29.6 pg (27.0-33.0); Mean Corpuscular Volume 95.5 fL (80.0-98.0); Mean Platelet Volume 10.7 fL (9.4-12.3); Platelet Count 211 X10*3/uL (160-400); Red Blood Count 3.31 X10*6/uL (4.20-5.50); Red Cell Distribution Width 14.6 % (11.0-16.0); White Blood Count 6.3 X10*3/uL (4.8-10.8)
[2021-06-21 07:38] LABS: Anion Gap 14 (12-20); Blood Urea Nitrogen 25 mg/dL (9-16); Calcium 8.7 mg/dL (8.4-10.2); Carbon Dioxide 31 mmol/L (22-29); Chloride 99 mmol/L (96-108); Glucose Random 70 mg/dL (60-115); Sodium 140 mmol/L (135-145)
[2021-06-21 08:04] LABS: Estimated Glomerular Filt Rate 9
== END 2021-06-21 00:19 | disposition home or self-care (01) ==
LOC: HO.MMNH2L 00:18
PROVIDERS: Visit Provider Family Medicine
DX: I50.9 Heart failure, unspecified (principal); N18.9 Chronic kidney disease, unspecified; M62.511 Muscle wasting and atrophy, not elsewhere classified, right shoulder
CPT/HCPCS: 36415; 80048; 85027

== ENCOUNTER 2021-06-28 01:29 | Outpatient (REF) | payer MEDICARE, SELFPAY ==
[2021-06-28 07:56] LABS: Anion Gap 14 (12-20); Blood Urea Nitrogen 26 mg/dL (9-16); Calcium 8.6 mg/dL (8.4-10.2); Carbon Dioxide 33 mmol/L (22-29); Chloride 99 mmol/L (96-108); Estimated Glomerular Filt Rate 8; Glucose Random 67 mg/dL (60-115); Potassium 4.1 mmol/L (3.3-5.1); Sodium 142 mmol/L (135-145)
[2021-06-28 08:51] LABS: Hematocrit 31.6 % (37.0-47.0); Hemoglobin 9.9 g/dl (12.0-16.0); Mean Corpuscular HGB Conc 31.3 g/dl (31.0-35.0); Mean Corpuscular Hemoglobin 29.7 pg (27.0-33.0); Mean Corpuscular Volume 94.9 fL (80.0-98.0); Mean Platelet Volume 11.1 fL (9.4-12.3); Platelet Count 215 X10*3/uL (160-400); Red Blood Count 3.33 X10*6/uL (4.20-5.50); Red Cell Distribution Width 14.6 % (11.0-16.0); White Blood Count 6.9 X10*3/uL (4.8-10.8)
== END 2021-06-28 01:30 | disposition home or self-care (01) ==
LOC: HO.MMNH2L 01:29
PROVIDERS: Visit Provider Family Medicine
DX: I50.9 Heart failure, unspecified (principal); N18.6 End stage renal disease; M62.511 Muscle wasting and atrophy, not elsewhere classified, right shoulder
CPT/HCPCS: 36415; 80048; 85027

== ENCOUNTER 2021-07-05 00:51 | Outpatient (REF) | payer MEDICARE, SELFPAY ==
[2021-07-05 07:24] LABS: Hematocrit 36.8 % (37.0-47.0); Hemoglobin 11.1 g/dl (12.0-16.0); Mean Corpuscular HGB Conc 30.2 g/dl (31.0-35.0); Mean Corpuscular Hemoglobin 29.4 pg (27.0-33.0); Mean Corpuscular Volume 97.6 fL (80.0-98.0); Mean Platelet Volume 11.1 fL (9.4-12.3); Platelet Count 202 X10*3/uL (160-400); Red Blood Count 3.77 X10*6/uL (4.20-5.50); White Blood Count 8.2 X10*3/uL (4.8-10.8)
[2021-07-05 08:10] LABS: Anion Gap 17 (12-20); Blood Urea Nitrogen 16 mg/dL (9-16); Calcium 8.9 mg/dL (8.4-10.2); Carbon Dioxide 28 mmol/L (22-29); Chloride 99 mmol/L (96-108); Estimated Glomerular Filt Rate 12; Glucose Random 41 mg/dL (60-115); Potassium 4.9 mmol/L (3.3-5.1); Sodium 139 mmol/L (135-145)
== END 2021-07-05 00:52 | disposition home or self-care (01) ==
LOC: HO.MMNH2L 00:51
PROVIDERS: Visit Provider Family Medicine
DX: M62.511 Muscle wasting and atrophy, not elsewhere classified, right shoulder (principal); I50.9 Heart failure, unspecified; N18.6 End stage renal disease
CPT/HCPCS: 36415; 80048; 85027

== ENCOUNTER 2021-07-12 00:22 | Outpatient (REF) | payer MEDICARE, SELFPAY ==
[2021-07-12 07:17] LABS: Mean Corpuscular Hemoglobin 30.1 pg (27.0-33.0); Mean Corpuscular Volume 94.1 fL (80.0-98.0); Mean Platelet Volume 10.8 fL (9.4-12.3); Platelet Count 188 X10*3/uL (160-400); Red Blood Count 2.86 X10*6/uL (4.20-5.50); Red Cell Distribution Width 14.9 % (11.0-16.0); White Blood Count 7.1 X10*3/uL (4.8-10.8)
[2021-07-12 07:34] LABS: Hematocrit 26.9 % (37.0-47.0); Hemoglobin 8.6 g/dl (12.0-16.0)
[2021-07-12 07:40] LABS: Anion Gap 15 (12-20); Carbon Dioxide 30 mmol/L (22-29); Chloride 99 mmol/L (96-108); Glucose Random 75 mg/dL (60-115); Potassium 3.9 mmol/L (3.3-5.1); Sodium 140 mmol/L (135-145)
[2021-07-12 07:41] LABS: Blood Urea Nitrogen 24 mg/dL (9-16); Calcium 8.3 mg/dL (8.4-10.2)
[2021-07-12 08:13] LABS: Estimated Glomerular Filt Rate 9
== END 2021-07-12 00:23 | disposition home or self-care (01) ==
LOC: HO.MMNH2L 00:22
PROVIDERS: Visit Provider Family Medicine
DX: M62.511 Muscle wasting and atrophy, not elsewhere classified, right shoulder (principal); N18.6 End stage renal disease; I50.9 Heart failure, unspecified
CPT/HCPCS: 36415; 80048; 85027

== ENCOUNTER 2021-07-19 00:51 | Outpatient (REF) | payer MEDICARE, SELFPAY ==
[2021-07-19 07:14] LABS: Hematocrit 27.7 % (37.0-47.0); Hemoglobin 8.8 g/dl (12.0-16.0); Mean Corpuscular HGB Conc 31.8 g/dl (31.0-35.0); Mean Corpuscular Volume 94.5 fL (80.0-98.0); Mean Platelet Volume 10.9 fL (9.4-12.3); Platelet Count 184 X10*3/uL (160-400); Red Blood Count 2.93 X10*6/uL (4.20-5.50); Red Cell Distribution Width 15.2 % (11.0-16.0); White Blood Count 7.2 X10*3/uL (4.8-10.8)
[2021-07-19 07:40] LABS: Anion Gap 14 (12-20); Blood Urea Nitrogen 31 mg/dL (9-16); Calcium 8.7 mg/dL (8.4-10.2); Carbon Dioxide 33 mmol/L (22-29); Chloride 97 mmol/L (96-108); Estimated Glomerular Filt Rate 9; Glucose Random 61 mg/dL (60-115); Potassium 4.2 mmol/L (3.3-5.1); Sodium 140 mmol/L (135-145)
== END 2021-07-19 00:52 | disposition home or self-care (01) ==
LOC: HO.MMNH2L 00:51
PROVIDERS: Visit Provider Family Medicine
DX: I50.9 Heart failure, unspecified (principal); N18.6 End stage renal disease; M62.511 Muscle wasting and atrophy, not elsewhere classified, right shoulder
CPT/HCPCS: 36415; 80048; 85027

== ENCOUNTER 2021-07-26 | Outpatient (REF) | payer MEDICARE, SELFPAY ==
[2021-07-26 07:53] LABS: Hematocrit 25.6 % (37.0-47.0); Hemoglobin 8.1 g/dl (12.0-16.0); Mean Corpuscular HGB Conc 31.6 g/dl (31.0-35.0); Mean Corpuscular Hemoglobin 29.8 pg (27.0-33.0); Mean Corpuscular Volume 94.1 fL (80.0-98.0); Mean Platelet Volume 10.3 fL (9.4-12.3); Platelet Count 242 X10*3/uL (160-400); Red Blood Count 2.72 X10*6/uL (4.20-5.50); Red Cell Distribution Width 15.6 % (11.0-16.0); White Blood Count 14.2 X10*3/uL (4.8-10.8)
[2021-07-26 08:40] LABS: Anion Gap 24 (12-20); Blood Urea Nitrogen 81 mg/dL (9-16); Calcium 7.5 mg/dL (8.4-10.2); Carbon Dioxide 22 mmol/L (22-29); Chloride 98 mmol/L (96-108); Estimated Glomerular Filt Rate 4; Glucose Random 112 mg/dL (60-115); Potassium 6.4 mmol/L (3.3-5.1); Sodium 138 mmol/L (135-145)
== END 2021-07-26 00:01 | disposition home or self-care (01) ==
LOC: HO.MMNH2L
PROVIDERS: Visit Provider Family Medicine
DX: I50.9 Heart failure, unspecified (principal); N18.6 End stage renal disease; M62.511 Muscle wasting and atrophy, not elsewhere classified, right shoulder
CPT/HCPCS: 36415; 80048; 85027

== ENCOUNTER 2021-07-30 06:21 | Outpatient (REF) | payer MEDICARE, SELFPAY ==
[2021-07-30 06:25] LABS: MANUAL DIFF FLAG NO
[2021-07-30 06:48] LABS: Basophils Percent Auto 0.6 % (0-2); Eosinophils Absolute Auto 0.4 X10*3/uL (0.0-0.4); Eosinophils Percent Auto 6.3 % (0-4); Hematocrit 22.4 % (37.0-47.0); Hemoglobin 7.1 g/dl (12.0-16.0); Imm Gran Abs Auto 0.07 X10*3/uL (0.00-0.03); Imm Gran Pct Auto 1.1 % (0.0-0.4); Lymphocytes Absolute Auto 0.6 X10*3/uL (1.2-4.9); Lymphocytes Percent Auto 10.1 % (20-40); Mean Corpuscular HGB Conc 31.7 g/dl (31.0-35.0); Mean Corpuscular Volume 94.5 fL (80.0-98.0); Mean Platelet Volume 10.5 fL (9.4-12.3); Monocytes Absolute Auto 0.8 X10*3/uL (0.1-1.2); Monocytes Percent Auto 12.8 % (2-11); Neutrophils Absolute Auto 4.3 x10*3/uL (2.0-8.3); Neutrophils Percent Auto 69.1 % (45-73); Platelet Count 201 X10*3/uL (160-400); Red Blood Count 2.37 X10*6/uL (4.20-5.50); Red Cell Distribution Width 15.9 % (11.0-16.0); White Blood Count 6.2 X10*3/uL (4.8-10.8)
[2021-07-30 07:05] LABS: Alanine Aminotransferase < 6 U/L (0-31); Albumin Level 3.3 g/dL (3.5-5.0); Alkaline Phosphatase 64 U/L (39-117); Anion Gap 15 (12-20); Aspartate Amino Transferase 10 U/L (5-31); Bilirubin Total 0.5 mg/dL (0.0-1.0); Blood Urea Nitrogen 21 mg/dL (9-16); Calcium 7.8 mg/dL (8.4-10.2); Carbon Dioxide 28 mmol/L (22-29); Chloride 99 mmol/L (96-108); Estimated Glomerular Filt Rate 11; Glucose Random 123 mg/dL (60-115); Potassium 3.9 mmol/L (3.3-5.1); Sodium 138 mmol/L (135-145); Total Protein 5.3 g/dL (6.5-8.0)
== END 2021-07-30 06:22 | disposition home or self-care (01) ==
LOC: HO.MMNH1L 06:21
PROVIDERS: Visit Provider Family Medicine
DX: N18.9 Chronic kidney disease, unspecified (principal)
CPT/HCPCS: 36415; 80053; 85025

== ENCOUNTER 2021-08-02 01:04 | Outpatient (REF) | payer SELFPAY ==
[2021-08-02 06:55] LABS: Hematocrit 22.9 % (37.0-47.0); Hemoglobin 7.4 g/dl (12.0-16.0); Mean Corpuscular HGB Conc 32.3 g/dl (31.0-35.0); Mean Corpuscular Hemoglobin 31.2 pg (27.0-33.0); Mean Corpuscular Volume 96.6 fL (80.0-98.0); Mean Platelet Volume 10.2 fL (9.4-12.3); Platelet Count 230 X10*3/uL (160-400); Red Blood Count 2.37 X10*6/uL (4.20-5.50); Red Cell Distribution Width 16.5 % (11.0-16.0); White Blood Count 7.7 X10*3/uL (4.8-10.8)
[2021-08-02 07:26] LABS: Anion Gap 15 (12-20); Blood Urea Nitrogen 22 mg/dL (9-16); Calcium 7.8 mg/dL (8.4-10.2); Carbon Dioxide 31 mmol/L (22-29); Chloride 97 mmol/L (96-108); Glucose Random 74 mg/dL (60-115); Potassium 3.6 mmol/L (3.3-5.1); Sodium 139 mmol/L (135-145)
[2021-08-02 07:50] LABS: Estimated Glomerular Filt Rate 9
== END 2021-08-02 01:05 | disposition home or self-care (01) ==
LOC: HO.MMNH2L 01:04
PROVIDERS: Visit Provider Family Medicine
DX: I50.9 Heart failure, unspecified (principal); N18.6 End stage renal disease; M62.511 Muscle wasting and atrophy, not elsewhere classified, right shoulder
CPT/HCPCS: 36415; 80048; 85027

== ENCOUNTER 2021-08-09 00:42 | Outpatient (REF) | payer MEDICARE, SELFPAY ==
[2021-08-09 07:55] LABS: Hematocrit 23.8 % (37.0-47.0); Hemoglobin 7.2 g/dl (12.0-16.0); Mean Corpuscular HGB Conc 30.3 g/dl (31.0-35.0); Mean Corpuscular Hemoglobin 29.3 pg (27.0-33.0); Mean Corpuscular Volume 96.7 fL (80.0-98.0); Platelet Count 224 X10*3/uL (160-400); Red Blood Count 2.46 X10*6/uL (4.20-5.50); Red Cell Distribution Width 16.5 % (11.0-16.0); White Blood Count 7.3 X10*3/uL (4.8-10.8)
[2021-08-09 08:33] LABS: Anion Gap 18 (12-20); Blood Urea Nitrogen 20 mg/dL (9-16); Carbon Dioxide 29 mmol/L (22-29); Chloride 98 mmol/L (96-108); Estimated Glomerular Filt Rate 9; Glucose Random 81 mg/dL (60-115); Potassium 3.7 mmol/L (3.3-5.1); Sodium 141 mmol/L (135-145)
== END 2021-08-09 00:43 | disposition home or self-care (01) ==
LOC: HO.MMNH2L 00:42
PROVIDERS: Visit Provider Family Medicine
DX: I50.9 Heart failure, unspecified (principal); N18.6 End stage renal disease; M62.511 Muscle wasting and atrophy, not elsewhere classified, right shoulder
CPT/HCPCS: 36415; 80048; 85027

== ENCOUNTER 2021-08-16 | Outpatient (REF) | payer SELFPAY ==
[2021-08-16 07:36] LABS: Hematocrit 23.3 % (37.0-47.0); Hemoglobin 7.2 g/dl (12.0-16.0); Mean Corpuscular HGB Conc 30.9 g/dl (31.0-35.0); Mean Corpuscular Hemoglobin 30.4 pg (27.0-33.0); Mean Corpuscular Volume 98.3 fL (80.0-98.0); Mean Platelet Volume 10.1 fL (9.4-12.3); Platelet Count 258 X10*3/uL (160-400); Red Blood Count 2.37 X10*6/uL (4.20-5.50); Red Cell Distribution Width 16.2 % (11.0-16.0); White Blood Count 6.9 X10*3/uL (4.8-10.8)
[2021-08-16 08:49] LABS: Anion Gap 15 (12-20); Blood Urea Nitrogen 25 mg/dL (9-16); Calcium 8.1 mg/dL (8.4-10.2); Carbon Dioxide 33 mmol/L (22-29); Chloride 98 mmol/L (96-108); Estimated Glomerular Filt Rate 10; Glucose Random 68 mg/dL (60-115); Potassium 3.9 mmol/L (3.3-5.1); Sodium 142 mmol/L (135-145)
== END 2021-08-16 00:01 | disposition home or self-care (01) ==
LOC: HO.MMNH2L
PROVIDERS: Visit Provider Family Medicine
DX: I50.9 Heart failure, unspecified (principal); N18.6 End stage renal disease; M62.511 Muscle wasting and atrophy, not elsewhere classified, right shoulder
CPT/HCPCS: 36415; 80048; 85027

== ENCOUNTER 2021-08-23 | Outpatient (REF) | payer MEDICARE, SELFPAY ==
[2021-08-23 07:47] LABS: Mean Corpuscular HGB Conc 31.1 g/dl (31.0-35.0); Mean Corpuscular Hemoglobin 31.3 pg (27.0-33.0); Mean Corpuscular Volume 100.5 fL (80.0-98.0); Mean Platelet Volume 10.3 fL (9.4-12.3); NRBC Pct Auto 0.6 /100WBC (0.0-0.2); Platelet Count 260 X10*3/uL (160-400); Red Blood Count 1.92 X10*6/uL (4.20-5.50); Red Cell Distribution Width 16.7 % (11.0-16.0); White Blood Count 6.4 X10*3/uL (4.8-10.8)
[2021-08-23 08:14] LABS: Anion Gap 15 (12-20); Blood Urea Nitrogen 22 mg/dL (9-16); Calcium 8.3 mg/dL (8.4-10.2); Carbon Dioxide 32 mmol/L (22-29); Chloride 97 mmol/L (96-108); Estimated Glomerular Filt Rate 10; Glucose Random 101 mg/dL (60-115); Potassium 3.6 mmol/L (3.3-5.1); Sodium 140 mmol/L (135-145)
[2021-08-23 08:23] LABS: Hematocrit 19.3 % (37.0-47.0)
[2021-08-23 08:55] LABS: OBS Int Ctl Valid YES; OBS1 POSITIVE (NEGATIVE)
== END 2021-08-23 00:01 | disposition home or self-care (01) ==
LOC: HO.MMNH2L
PROVIDERS: Family Medicine; Visit Provider Family Medicine
DX: I50.9 Heart failure, unspecified (principal); N18.6 End stage renal disease; M62.511 Muscle wasting and atrophy, not elsewhere classified, right shoulder
CPT/HCPCS: 36415; 80048; 82272; 85027

== ENCOUNTER 2021-08-26 07:13 | Outpatient (REF) | payer MEDICARE, SELFPAY ==
[2021-08-26 07:17] LABS: MANUAL DIFF FLAG NO
[2021-08-26 07:38] LABS: Basophils Percent Auto 0.3 % (0-2); Eosinophils Absolute Auto 0.2 X10*3/uL (0.0-0.4); Eosinophils Percent Auto 2.1 % (0-4); Hemoglobin 7.5 g/dl (12.0-16.0); Imm Gran Abs Auto 0.05 X10*3/uL (0.00-0.03); Imm Gran Pct Auto 0.6 % (0.0-0.4); Lymphocytes Absolute Auto 0.7 X10*3/uL (1.2-4.9); Lymphocytes Percent Auto 8.4 % (20-40); Mean Corpuscular HGB Conc 31.3 g/dl (31.0-35.0); Mean Platelet Volume 9.9 fL (9.4-12.3); Monocytes Absolute Auto 0.6 X10*3/uL (0.1-1.2); Monocytes Percent Auto 7.3 % (2-11); NRBC Pct Auto 0.3 /100WBC (0.0-0.2); Neutrophils Absolute Auto 6.3 x10*3/uL (2.0-8.3); Neutrophils Percent Auto 81.3 % (45-73); Platelet Count 200 X10*3/uL (160-400); Red Cell Distribution Width 20.8 % (11.0-16.0); White Blood Count 7.8 X10*3/uL (4.8-10.8)
[2021-08-26 08:17] LABS: Alanine Aminotransferase < 6 U/L (0-31); Albumin Level 3.5 g/dL (3.5-5.0); Alkaline Phosphatase 233 U/L (39-117); Anion Gap 15 (12-20); Aspartate Amino Transferase 9 U/L (5-31); Bilirubin Total 0.5 mg/dL (0.0-1.0); Blood Urea Nitrogen 34 mg/dL (9-16); Calcium 8.4 mg/dL (8.4-10.2); Carbon Dioxide 28 mmol/L (22-29); Chloride 99 mmol/L (96-108); Estimated Glomerular Filt Rate 7; Glucose Random 164 mg/dL (60-115); Potassium 5.3 mmol/L (3.3-5.1); Sodium 137 mmol/L (135-145); Total Protein 5.5 g/dL (6.5-8.0)
== END 2021-08-26 07:14 | disposition home or self-care (01) ==
LOC: HO.MMNH2L 07:13
PROVIDERS: Visit Provider Family Medicine
DX: D64.9 Anemia, unspecified (principal)
CPT/HCPCS: 36415; 80053; 85025

== ENCOUNTER 2021-08-30 | Outpatient (REF) | payer MEDICARE, SELFPAY ==
[2021-08-30 07:04] LABS: Hematocrit 26.6 % (37.0-47.0); Hemoglobin 8.1 g/dl (12.0-16.0); Mean Corpuscular HGB Conc 30.5 g/dl (31.0-35.0); Mean Corpuscular Hemoglobin 30.2 pg (27.0-33.0); Mean Corpuscular Volume 99.3 fL (80.0-98.0); Mean Platelet Volume 10.5 fL (9.4-12.3); Platelet Count 160 X10*3/uL (160-400); Red Blood Count 2.68 X10*6/uL (4.20-5.50); Red Cell Distribution Width 21.1 % (11.0-16.0); White Blood Count 6.8 X10*3/uL (4.8-10.8)
[2021-08-30 07:28] LABS: Anion Gap 17 (12-20); Blood Urea Nitrogen 37 mg/dL (9-16); Calcium 7.9 mg/dL (8.4-10.2); Carbon Dioxide 31 mmol/L (22-29); Chloride 97 mmol/L (96-108); Estimated Glomerular Filt Rate 9; Glucose Fasting 127 mg/dL (60-99); Potassium 4.7 mmol/L (3.3-5.1); Sodium 140 mmol/L (135-145)
== END 2021-08-30 00:01 | disposition home or self-care (01) ==
LOC: HO.MMNH2L
PROVIDERS: Visit Provider Family Medicine
DX: D64.9 Anemia, unspecified (principal)
CPT/HCPCS: 36415; 80048; 85027

== ENCOUNTER 2021-09-06 05:39 | Outpatient (REF) | payer MEDICARE, SELFPAY ==
[2021-09-06 07:27] LABS: Hematocrit 31.4 % (37.0-47.0); Hemoglobin 9.5 g/dl (12.0-16.0); Mean Corpuscular HGB Conc 30.3 g/dl (31.0-35.0); Mean Corpuscular Hemoglobin 31.3 pg (27.0-33.0); Mean Corpuscular Volume 103.3 fL (80.0-98.0); Mean Platelet Volume 10.1 fL (9.4-12.3); NRBC Pct Auto 0.2 /100WBC (0.0-0.2); Platelet Count 203 X10*3/uL (160-400); Red Blood Count 3.04 X10*6/uL (4.20-5.50); Red Cell Distribution Width 20.7 % (11.0-16.0); White Blood Count 8.3 X10*3/uL (4.8-10.8)
[2021-09-06 07:35] LABS: Anion Gap 19 (12-20); Blood Urea Nitrogen 37 mg/dL (9-16); Calcium 7.5 mg/dL (8.4-10.2); Carbon Dioxide 31 mmol/L (22-29); Chloride 97 mmol/L (96-108); Estimated Glomerular Filt Rate 9; Glucose Random 123 mg/dL (60-115); Potassium 4.6 mmol/L (3.3-5.1); Sodium 142 mmol/L (135-145)
== END 2021-09-06 05:40 | disposition home or self-care (01) ==
LOC: HO.MMNH2L 05:39
PROVIDERS: Visit Provider Family Medicine
DX: D64.9 Anemia, unspecified (principal)
CPT/HCPCS: 36415; 80048; 85027

== ENCOUNTER 2021-09-13 21:33 | Outpatient (REF) | payer MEDICARE, SELFPAY ==
[2021-09-13 07:03] LABS: Hematocrit 32.3 % (37.0-47.0); Hemoglobin 9.5 g/dl (12.0-16.0); Mean Corpuscular HGB Conc 29.4 g/dl (31.0-35.0); Mean Corpuscular Hemoglobin 31.1 pg (27.0-33.0); Mean Corpuscular Volume 105.9 fL (80.0-98.0); Red Blood Count 3.05 X10*6/uL (4.20-5.50); Red Cell Distribution Width 19.9 % (11.0-16.0); White Blood Count 6.3 X10*3/uL (4.8-10.8)
[2021-09-13 07:22] LABS: Anion Gap 21 (12-20); Blood Urea Nitrogen 45 mg/dL (9-16); Calcium 7.1 mg/dL (8.4-10.2); Carbon Dioxide 28 mmol/L (22-29); Chloride 99 mmol/L (96-108); Estimated Glomerular Filt Rate 8; Glucose Random 75 mg/dL (60-115); Potassium 5.2 mmol/L (3.3-5.1); Sodium 143 mmol/L (135-145)
[2021-09-13 07:26] LABS: Platelet Count 134 X10*3/uL (160-400)
== END 2021-09-13 21:34 | disposition home or self-care (01) ==
LOC: HO.MMNH2L 21:33
PROVIDERS: Visit Provider Family Medicine
DX: D64.9 Anemia, unspecified (principal)
CPT/HCPCS: 36415; 80048; 85027

== ENCOUNTER 2021-09-20 00:43 | Outpatient (REF) | payer MEDICARE, SELFPAY ==
[2021-09-20 07:09] LABS: Hematocrit 36.9 % (37.0-47.0); Mean Corpuscular HGB Conc 29.8 g/dl (31.0-35.0); Mean Corpuscular Volume 103.9 fL (80.0-98.0); Mean Platelet Volume 10.1 fL (9.4-12.3); Platelet Count 172 X10*3/uL (160-400); Red Blood Count 3.55 X10*6/uL (4.20-5.50); Red Cell Distribution Width 17.9 % (11.0-16.0); White Blood Count 5.9 X10*3/uL (4.8-10.8)
[2021-09-20 07:25] LABS: Anion Gap 21 (12-20); Blood Urea Nitrogen 40 mg/dL (9-16); Calcium 7.5 mg/dL (8.4-10.2); Carbon Dioxide 30 mmol/L (22-29); Chloride 97 mmol/L (96-108); Estimated Glomerular Filt Rate 9; Glucose Random 77 mg/dL (60-115); Potassium 5.5 mmol/L (3.3-5.1); Sodium 142 mmol/L (135-145)
== END 2021-09-20 00:44 | disposition home or self-care (01) ==
LOC: HO.MMNH2L 00:43
PROVIDERS: Visit Provider Family Medicine
DX: D64.9 Anemia, unspecified (principal)
CPT/HCPCS: 36415; 80048; 85027

== ENCOUNTER 2021-09-27 00:35 | Outpatient (REF) | payer MEDICARE, SELFPAY ==
[2021-09-27 07:12] LABS: Hematocrit 40.3 % (37.0-47.0); Hemoglobin 11.9 g/dl (12.0-16.0); Mean Corpuscular HGB Conc 29.5 g/dl (31.0-35.0); Mean Corpuscular Hemoglobin 30.3 pg (27.0-33.0); Mean Corpuscular Volume 102.5 fL (80.0-98.0); Mean Platelet Volume 10.2 fL (9.4-12.3); Platelet Count 155 X10*3/uL (160-400); Red Blood Count 3.93 X10*6/uL (4.20-5.50); Red Cell Distribution Width 17.2 % (11.0-16.0)
[2021-09-27 08:29] LABS: Anion Gap 22 (12-20); Blood Urea Nitrogen 61 mg/dL (9-16); Calcium 7.6 mg/dL (8.4-10.2); Carbon Dioxide 25 mmol/L (22-29); Chloride 95 mmol/L (96-108); Estimated Glomerular Filt Rate 8; Glucose Random 57 mg/dL (60-115); Potassium 5.5 mmol/L (3.3-5.1); Sodium 136 mmol/L (135-145)
== END 2021-09-27 00:36 | disposition home or self-care (01) ==
LOC: HO.MMNH2L 00:35
PROVIDERS: Visit Provider Family Medicine
DX: D64.9 Anemia, unspecified (principal)
CPT/HCPCS: 36415; 80048; 85027

== ENCOUNTER 2021-10-04 00:38 | Outpatient (REF) | payer MEDICARE, SELFPAY ==
[2021-10-04 07:00] LABS: Hematocrit 41.4 % (37.0-47.0); Hemoglobin 12.4 g/dl (12.0-16.0); Mean Corpuscular Hemoglobin 30.5 pg (27.0-33.0); Mean Corpuscular Volume 101.7 fL (80.0-98.0); Mean Platelet Volume 10.5 fL (9.4-12.3); Platelet Count 178 X10*3/uL (160-400); Red Blood Count 4.07 X10*6/uL (4.20-5.50); Red Cell Distribution Width 16.9 % (11.0-16.0); White Blood Count 6.9 X10*3/uL (4.8-10.8)
[2021-10-04 07:26] LABS: Anion Gap 19 (12-20); Blood Urea Nitrogen 54 mg/dL (9-16); Calcium 8.1 mg/dL (8.4-10.2); Carbon Dioxide 28 mmol/L (22-29); Chloride 98 mmol/L (96-108); Estimated Glomerular Filt Rate 7; Glucose Random 96 mg/dL (60-115); Potassium 5.2 mmol/L (3.3-5.1); Sodium 140 mmol/L (135-145)
== END 2021-10-04 00:39 | disposition home or self-care (01) ==
LOC: HO.MMNH2L 00:38
PROVIDERS: Visit Provider Family Medicine
DX: D64.9 Anemia, unspecified (principal)
CPT/HCPCS: 36415; 80048; 85027

== ENCOUNTER 2021-10-11 | Outpatient (REF) | payer MEDICARE, SELFPAY ==
[2021-10-11 06:56] LABS: Hematocrit 43.5 % (37.0-47.0); Mean Corpuscular HGB Conc 29.9 g/dl (31.0-35.0); Mean Corpuscular Hemoglobin 30.7 pg (27.0-33.0); Mean Corpuscular Volume 102.6 fL (80.0-98.0); Mean Platelet Volume 9.7 fL (9.4-12.3); Platelet Count 147 X10*3/uL (160-400); Red Blood Count 4.24 X10*6/uL (4.20-5.50); Red Cell Distribution Width 17.2 % (11.0-16.0); White Blood Count 6.6 X10*3/uL (4.8-10.8)
[2021-10-11 07:26] LABS: Anion Gap 23 (12-20); Blood Urea Nitrogen 64 mg/dL (9-16); Calcium 7.8 mg/dL (8.4-10.2); Carbon Dioxide 24 mmol/L (22-29); Chloride 97 mmol/L (96-108); Estimated Glomerular Filt Rate 7; Glucose Random 60 mg/dL (60-115); Potassium 5.8 mmol/L (3.3-5.1); Sodium 138 mmol/L (135-145)
== END 2021-10-11 00:01 ==
LOC: HO.MMNH2L
PROVIDERS: Visit Provider Family Medicine
DX: D64.9 Anemia, unspecified (principal)
CPT/HCPCS: 36415; 80048; 85027

== ENCOUNTER 2021-10-18 | Outpatient (REF) | payer MEDICARE, MEDICAID, SELFPAY ==
[2021-10-18 06:46] LABS: Hematocrit 41.8 % (37.0-47.0); Hemoglobin 12.5 g/dl (12.0-16.0); Mean Corpuscular HGB Conc 29.9 g/dl (31.0-35.0); Mean Corpuscular Hemoglobin 30.1 pg (27.0-33.0); Mean Corpuscular Volume 100.7 fL (80.0-98.0); Mean Platelet Volume 10.9 fL (9.4-12.3); Platelet Count 129 X10*3/uL (160-400); Red Blood Count 4.15 X10*6/uL (4.20-5.50); Red Cell Distribution Width 16.4 % (11.0-16.0); White Blood Count 5.5 X10*3/uL (4.8-10.8)
[2021-10-18 07:52] LABS: Anion Gap 21 (12-20); Blood Urea Nitrogen 56 mg/dL (9-16); Calcium 7.4 mg/dL (8.4-10.2); Carbon Dioxide 28 mmol/L (22-29); Chloride 95 mmol/L (96-108); Estimated Glomerular Filt Rate 7; Glucose Random 85 mg/dL (60-115); Potassium 6.1 mmol/L (3.3-5.1); Sodium 138 mmol/L (135-145)
== END 2021-10-18 00:01 | disposition home or self-care (01) ==
LOC: HO.MMNH2L
PROVIDERS: Visit Provider Family Medicine
DX: D64.9 Anemia, unspecified (principal)
CPT/HCPCS: 36415; 80048; 85027

== ENCOUNTER 2021-10-25 | Outpatient (REF) | payer MEDICARE, MEDICAID, SELFPAY ==
[2021-10-25 06:55] LABS: MANUAL DIFF FLAG NO
[2021-10-25 07:06] LABS: Basophils Absolute Auto 0.1 X10*3/uL (0.0-0.2); Basophils Percent Auto 0.9 % (0-2); Eosinophils Absolute Auto 0.6 X10*3/uL (0.0-0.4); Eosinophils Percent Auto 8.7 % (0-4); Hematocrit 40.5 % (37.0-47.0); Hemoglobin 12.2 g/dl (12.0-16.0); Imm Gran Abs Auto 0.05 X10*3/uL (0.00-0.03); Imm Gran Pct Auto 0.8 % (0.0-0.4); Lymphocytes Absolute Auto 0.8 X10*3/uL (1.2-4.9); Lymphocytes Percent Auto 11.9 % (20-40); Mean Corpuscular HGB Conc 30.1 g/dl (31.0-35.0); Mean Corpuscular Hemoglobin 29.6 pg (27.0-33.0); Mean Corpuscular Volume 98.3 fL (80.0-98.0); Mean Platelet Volume 10.8 fL (9.4-12.3); Monocytes Absolute Auto 0.9 X10*3/uL (0.1-1.2); Monocytes Percent Auto 13.9 % (2-11); Neutrophils Absolute Auto 4.1 x10*3/uL (2.0-8.3); Neutrophils Percent Auto 63.8 % (45-73); Platelet Count 147 X10*3/uL (160-400); Red Blood Count 4.12 X10*6/uL (4.20-5.50); Red Cell Distribution Width 15.5 % (11.0-16.0); White Blood Count 6.4 X10*3/uL (4.8-10.8)
[2021-10-25 07:30] LABS: Anion Gap 23 (12-20); Blood Urea Nitrogen 68 mg/dL (9-16); Calcium 7.5 mg/dL (8.4-10.2); Carbon Dioxide 26 mmol/L (22-29); Chloride 95 mmol/L (96-108); Estimated Glomerular Filt Rate 7; Glucose Random 79 mg/dL (60-115); Potassium 4.7 mmol/L (3.3-5.1); Sodium 139 mmol/L (135-145)
== END 2021-10-25 00:01 | disposition home or self-care (01) ==
LOC: HO.MMNH2L
PROVIDERS: Visit Provider Family Medicine
DX: D64.9 Anemia, unspecified (principal)
CPT/HCPCS: 36415; 80048; 85025

== ENCOUNTER 2021-11-01 | Outpatient (REF) | payer MEDICARE, MEDICAID, SELFPAY ==
[2021-11-01 07:07] LABS: MANUAL DIFF FLAG NO
[2021-11-01 07:26] LABS: Basophils Absolute Auto 0.1 X10*3/uL (0.0-0.2); Basophils Percent Auto 1.1 % (0-2); Eosinophils Percent Auto 13.4 % (0-4); Hematocrit 41.5 % (37.0-47.0); Hemoglobin 12.6 g/dl (12.0-16.0); Imm Gran Abs Auto 0.05 X10*3/uL (0.00-0.03); Imm Gran Pct Auto 0.7 % (0.0-0.4); Lymphocytes Absolute Auto 1.1 X10*3/uL (1.2-4.9); Lymphocytes Percent Auto 14.5 % (20-40); Mean Corpuscular HGB Conc 30.4 g/dl (31.0-35.0); Mean Corpuscular Hemoglobin 29.7 pg (27.0-33.0); Mean Corpuscular Volume 97.9 fL (80.0-98.0); Mean Platelet Volume 10.6 fL (9.4-12.3); Monocytes Absolute Auto 0.9 X10*3/uL (0.1-1.2); Monocytes Percent Auto 11.7 % (2-11); Neutrophils Absolute Auto 4.3 x10*3/uL (2.0-8.3); Neutrophils Percent Auto 58.6 % (45-73); Platelet Count 173 X10*3/uL (160-400); Red Blood Count 4.24 X10*6/uL (4.20-5.50); Red Cell Distribution Width 15.1 % (11.0-16.0); White Blood Count 7.3 X10*3/uL (4.8-10.8)
[2021-11-01 07:38] LABS: Blood Urea Nitrogen 70 mg/dL (9-16); Calcium 7.8 mg/dL (8.4-10.2); Estimated Glomerular Filt Rate 7; Glucose Random 80 mg/dL (60-115)
[2021-11-01 08:03] LABS: Anion Gap 22 (12-20); Carbon Dioxide 29 mmol/L (22-29); Chloride 95 mmol/L (96-108); Potassium 6.1 mmol/L (3.3-5.1); Sodium 140 mmol/L (135-145)
== END 2021-11-01 00:01 | disposition home or self-care (01) ==
LOC: HO.MMNH2L
PROVIDERS: Visit Provider Family Medicine
DX: D64.9 Anemia, unspecified (principal)
CPT/HCPCS: 36415; 80048; 85025

== ENCOUNTER 2021-11-08 | Outpatient (REF) | payer MEDICARE, MEDICAID, SELFPAY ==
[2021-11-08 06:59] LABS: Hematocrit 36.1 % (37.0-47.0); Hemoglobin 11.2 g/dl (12.0-16.0); Mean Corpuscular Hemoglobin 29.9 pg (27.0-33.0); Mean Corpuscular Volume 96.3 fL (80.0-98.0); Mean Platelet Volume 10.4 fL (9.4-12.3); Platelet Count 147 X10*3/uL (160-400); Red Blood Count 3.75 X10*6/uL (4.20-5.50); Red Cell Distribution Width 14.7 % (11.0-16.0); White Blood Count 7.2 X10*3/uL (4.8-10.8)
[2021-11-08 07:26] LABS: Anion Gap 22 (12-20); Blood Urea Nitrogen 82 mg/dL (9-16); Calcium 7.5 mg/dL (8.4-10.2); Carbon Dioxide 23 mmol/L (22-29); Chloride 97 mmol/L (96-108); Estimated Glomerular Filt Rate 7; Glucose Random 79 mg/dL (60-115); Potassium 5.4 mmol/L (3.3-5.1); Sodium 137 mmol/L (135-145)
== END 2021-11-08 00:01 ==
LOC: HO.MMNH2L
PROVIDERS: Visit Provider Family Medicine
DX: D64.9 Anemia, unspecified (principal)
CPT/HCPCS: 36415; 80048; 85027

== ENCOUNTER 2021-11-15 | Outpatient (REF) | payer MEDICARE, MEDICAID, SELFPAY ==
[2021-11-15 04:40] LABS: MANUAL DIFF FLAG NO
[2021-11-15 04:55] LABS: Basophils Percent Auto 0.3 % (0-2); Eosinophils Absolute Auto 0.2 X10*3/uL (0.0-0.4); Eosinophils Percent Auto 1.8 % (0-4); Hematocrit 25.4 % (37.0-47.0); Imm Gran Abs Auto 0.09 X10*3/uL (0.00-0.03); Imm Gran Pct Auto 0.8 % (0.0-0.4); Lymphocytes Absolute Auto 0.8 X10*3/uL (1.2-4.9); Lymphocytes Percent Auto 6.7 % (20-40); Mean Corpuscular HGB Conc 31.9 g/dl (31.0-35.0); Mean Corpuscular Hemoglobin 29.9 pg (27.0-33.0); Mean Corpuscular Volume 93.7 fL (80.0-98.0); Mean Platelet Volume 10.6 fL (9.4-12.3); Monocytes Absolute Auto 0.9 X10*3/uL (0.1-1.2); Monocytes Percent Auto 7.8 % (2-11); Neutrophils Absolute Auto 9.4 x10*3/uL (2.0-8.3); Neutrophils Percent Auto 82.6 % (45-73); Platelet Count 182 X10*3/uL (160-400); Red Blood Count 2.71 X10*6/uL (4.20-5.50); Red Cell Distribution Width 14.7 % (11.0-16.0); White Blood Count 11.4 X10*3/uL (4.8-10.8)
[2021-11-15 05:05] LABS: Anion Gap 23 (12-20); Blood Urea Nitrogen 66 mg/dL (9-16); Calcium 7.4 mg/dL (8.4-10.2); Carbon Dioxide 21 mmol/L (22-29); Chloride 98 mmol/L (96-108); Estimated Glomerular Filt Rate 7; Glucose Random 154 mg/dL (60-115); Potassium 4.5 mmol/L (3.3-5.1); Sodium 137 mmol/L (135-145)
[2021-11-15 05:22] LABS: Hemoglobin 8.1 g/dl (12.0-16.0)
== END 2021-11-15 00:01 ==
LOC: HO.MMNH2L
PROVIDERS: Visit Provider Family Medicine
DX: N18.6 End stage renal disease (principal)
CPT/HCPCS: 36415; 80048; 85025

== ENCOUNTER 2021-11-22 | Outpatient (REF) | payer MEDICARE, MEDICAID, SELFPAY ==
[2021-11-22 07:13] LABS: MANUAL DIFF FLAG NO
[2021-11-22 07:27] LABS: Basophils Percent Auto 0.4 % (0-2); Eosinophils Absolute Auto 0.3 X10*3/uL (0.0-0.4); Eosinophils Percent Auto 3.2 % (0-4); Hematocrit 24.1 % (37.0-47.0); Hemoglobin 7.5 g/dl (12.0-16.0); Imm Gran Abs Auto 0.18 X10*3/uL (0.00-0.03); Imm Gran Pct Auto 2.1 % (0.0-0.4); Lymphocytes Absolute Auto 0.8 X10*3/uL (1.2-4.9); Mean Corpuscular HGB Conc 31.1 g/dl (31.0-35.0); Mean Corpuscular Hemoglobin 30.2 pg (27.0-33.0); Mean Corpuscular Volume 97.2 fL (80.0-98.0); Mean Platelet Volume 10.6 fL (9.4-12.3); Monocytes Absolute Auto 0.9 X10*3/uL (0.1-1.2); Monocytes Percent Auto 10.2 % (2-11); Neutrophils Absolute Auto 6.4 x10*3/uL (2.0-8.3); Neutrophils Percent Auto 75.1 % (45-73); Platelet Count 182 X10*3/uL (160-400); Red Blood Count 2.48 X10*6/uL (4.20-5.50); Red Cell Distribution Width 15.3 % (11.0-16.0); White Blood Count 8.5 X10*3/uL (4.8-10.8)
[2021-11-22 08:04] LABS: Anion Gap 20 (12-20); Blood Urea Nitrogen 68 mg/dL (9-16); Calcium 7.6 mg/dL (8.4-10.2); Carbon Dioxide 24 mmol/L (22-29); Chloride 96 mmol/L (96-108); Estimated Glomerular Filt Rate 8; Glucose Random 151 mg/dL (60-115); Potassium 5.2 mmol/L (3.3-5.1); Sodium 135 mmol/L (135-145)
== END 2021-11-22 00:01 | disposition home or self-care (01) ==
LOC: HO.MMNH2L
PROVIDERS: Visit Provider Family Medicine
DX: N18.6 End stage renal disease (principal)
CPT/HCPCS: 36415; 80048; 85025

== ENCOUNTER 2021-11-30 06:16 | Outpatient (REF) | payer MEDICARE, MEDICAID, SELFPAY ==
[2021-11-30 06:20] LABS: MANUAL DIFF FLAG NO
[2021-11-30 06:46] LABS: Basophils Percent Auto 0.3 % (0-2); Eosinophils Absolute Auto 0.4 X10*3/uL (0.0-0.4); Eosinophils Percent Auto 4.3 % (0-4); Imm Gran Abs Auto 0.07 X10*3/uL (0.00-0.03); Imm Gran Pct Auto 0.8 % (0.0-0.4); Lymphocytes Percent Auto 10.7 % (20-40); Mean Corpuscular HGB Conc 30.4 g/dl (31.0-35.0); Mean Corpuscular Hemoglobin 30.7 pg (27.0-33.0); Mean Corpuscular Volume 100.9 fL (80.0-98.0); Mean Platelet Volume 9.5 fL (9.4-12.3); Monocytes Absolute Auto 0.8 X10*3/uL (0.1-1.2); Monocytes Percent Auto 8.8 % (2-11); Neutrophils Absolute Auto 6.9 x10*3/uL (2.0-8.3); Neutrophils Percent Auto 75.1 % (45-73); Platelet Count 175 X10*3/uL (160-400); Red Blood Count 2.28 X10*6/uL (4.20-5.50); Red Cell Distribution Width 16.9 % (11.0-16.0); White Blood Count 9.1 X10*3/uL (4.8-10.8)
== END 2021-11-30 06:17 | disposition home or self-care (01) ==
LOC: HO.MMNH2L 06:16
PROVIDERS: Visit Provider Family Medicine
DX: E11.9 Type 2 diabetes mellitus without complications (principal); N18.6 End stage renal disease; Z91.81 History of falling
CPT/HCPCS: 36415; 85025

== ENCOUNTER 2021-12-01 05:45 | Outpatient (REF) | payer MEDICARE, MEDICAID, SELFPAY ==
[2021-12-01 05:56] LABS: Hemoglobin 7.8 g/dl (12.0-16.0)
== END 2021-12-01 05:46 | disposition home or self-care (01) ==
LOC: HO.MMNH2L 05:45
PROVIDERS: Visit Provider Family Medicine
DX: N18.6 End stage renal disease (principal); I50.30 Unspecified diastolic (congestive) heart failure; Z99.2 Dependence on renal dialysis
CPT/HCPCS: 36415; 85018

== ENCOUNTER 2021-12-09 11:06 | Outpatient (REF) | payer MEDICARE, SELFPAY ==
[2021-12-07 06:31] LABS: MANUAL DIFF FLAG NO
[2021-12-07 06:47] LABS: Basophils Percent Auto 0.3 % (0-2); Eosinophils Absolute Auto 0.3 X10*3/uL (0.0-0.4); Eosinophils Percent Auto 4.4 % (0-4); Hematocrit 23.3 % (37.0-47.0); Hemoglobin 7.2 g/dl (12.0-16.0); Imm Gran Abs Auto 0.05 X10*3/uL (0.00-0.03); Imm Gran Pct Auto 0.8 % (0.0-0.4); Lymphocytes Absolute Auto 0.7 X10*3/uL (1.2-4.9); Lymphocytes Percent Auto 11.3 % (20-40); Mean Corpuscular HGB Conc 30.9 g/dl (31.0-35.0); Mean Corpuscular Hemoglobin 30.8 pg (27.0-33.0); Mean Corpuscular Volume 99.6 fL (80.0-98.0); Mean Platelet Volume 9.7 fL (9.4-12.3); Monocytes Absolute Auto 0.6 X10*3/uL (0.1-1.2); Monocytes Percent Auto 9.7 % (2-11); Neutrophils Absolute Auto 4.5 x10*3/uL (2.0-8.3); Neutrophils Percent Auto 73.5 % (45-73); Platelet Count 170 X10*3/uL (160-400); Red Blood Count 2.34 X10*6/uL (4.20-5.50); White Blood Count 6.1 X10*3/uL (4.8-10.8)
[2021-12-07 07:46] LABS: Anion Gap 20 (12-20); Blood Urea Nitrogen 74 mg/dL (9-16); Calcium 6.9 mg/dL (8.4-10.2); Carbon Dioxide 25 mmol/L (22-29); Chloride 96 mmol/L (96-108); Estimated Glomerular Filt Rate 7; Glucose Random 79 mg/dL (60-115); Potassium 5.1 mmol/L (3.3-5.1); Sodium 136 mmol/L (135-145)
== END 2021-12-09 11:07 | disposition home or self-care (01) ==
LOC: HO.MMNH2L 11:06
PROVIDERS: Visit Provider Family Medicine
DX: Z13.89 Encounter for screening for other disorder (principal)
CPT/HCPCS: 36415; 80048; 85025

== ENCOUNTER 2021-12-09 11:22 | Outpatient (REF) | payer MEDICARE, MEDICAID, SELFPAY ==
[2021-11-29 06:47] LABS: MANUAL DIFF FLAG NO
[2021-11-29 06:50] LABS: Basophils Percent Auto 0.2 % (0-2); Eosinophils Absolute Auto 0.3 X10*3/uL (0.0-0.4); Eosinophils Percent Auto 3.8 % (0-4); Hematocrit 24.3 % (37.0-47.0); Hemoglobin 7.4 g/dl (12.0-16.0); Imm Gran Abs Auto 0.12 X10*3/uL (0.00-0.03); Imm Gran Pct Auto 1.4 % (0.0-0.4); Lymphocytes Absolute Auto 0.9 X10*3/uL (1.2-4.9); Lymphocytes Percent Auto 10.7 % (20-40); Mean Corpuscular HGB Conc 30.5 g/dl (31.0-35.0); Mean Corpuscular Hemoglobin 30.3 pg (27.0-33.0); Mean Corpuscular Volume 99.6 fL (80.0-98.0); Mean Platelet Volume 9.9 fL (9.4-12.3); Monocytes Absolute Auto 0.9 X10*3/uL (0.1-1.2); Monocytes Percent Auto 9.9 % (2-11); Neutrophils Absolute Auto 6.5 x10*3/uL (2.0-8.3); Platelet Count 201 X10*3/uL (160-400); Red Blood Count 2.44 X10*6/uL (4.20-5.50); Red Cell Distribution Width 16.2 % (11.0-16.0); White Blood Count 8.7 X10*3/uL (4.8-10.8)
[2021-11-29 07:20] LABS: Anion Gap 18 (12-20); Blood Urea Nitrogen 50 mg/dL (9-16); Calcium 7.8 mg/dL (8.4-10.2); Carbon Dioxide 29 mmol/L (22-29); Chloride 97 mmol/L (96-108); Estimated Glomerular Filt Rate 9; Glucose Random 87 mg/dL (60-115); Potassium 4.7 mmol/L (3.3-5.1); Sodium 139 mmol/L (135-145)
== END 2021-12-09 11:23 | disposition home or self-care (01) ==
LOC: HO.MMNH2L 11:22
PROVIDERS: Visit Provider Family Medicine
DX: N18.6 End stage renal disease (principal)
CPT/HCPCS: 36415; 80048; 85025

== ENCOUNTER 2021-12-13 06:36 | Outpatient (REF) | payer MEDICARE, MEDICAID, SELFPAY ==
[2021-12-13 06:32] LABS: MANUAL DIFF FLAG NO
[2021-12-13 07:21] LABS: Basophils Percent Auto 0.6 % (0-2); Eosinophils Absolute Auto 0.3 X10*3/uL (0.0-0.4); Eosinophils Percent Auto 4.5 % (0-4); Hematocrit 28.8 % (37.0-47.0); Hemoglobin 8.7 g/dl (12.0-16.0); Imm Gran Pct Auto 1.5 % (0.0-0.4); Lymphocytes Percent Auto 14.5 % (20-40); Mean Corpuscular HGB Conc 30.2 g/dl (31.0-35.0); Mean Corpuscular Hemoglobin 30.9 pg (27.0-33.0); Mean Corpuscular Volume 102.1 fL (80.0-98.0); Mean Platelet Volume 9.4 fL (9.4-12.3); Monocytes Absolute Auto 0.7 X10*3/uL (0.1-1.2); Monocytes Percent Auto 10.5 % (2-11); Neutrophils Absolute Auto 4.6 x10*3/uL (2.0-8.3); Neutrophils Percent Auto 68.4 % (45-73); Platelet Count 234 X10*3/uL (160-400); Red Blood Count 2.82 X10*6/uL (4.20-5.50); Red Cell Distribution Width 17.2 % (11.0-16.0); White Blood Count 6.7 X10*3/uL (4.8-10.8)
[2021-12-13 07:59] LABS: Anion Gap 23 (12-20); Blood Urea Nitrogen 49 mg/dL (9-16); Calcium 7.9 mg/dL (8.4-10.2); Carbon Dioxide 25 mmol/L (22-29); Chloride 96 mmol/L (96-108); Estimated Glomerular Filt Rate 9; Glucose Random 101 mg/dL (60-115); Potassium 5.3 mmol/L (3.3-5.1); Sodium 139 mmol/L (135-145)
== END 2021-12-13 06:37 | disposition home or self-care (01) ==
LOC: HO.MMNH2L 06:36
PROVIDERS: Visit Provider Family Medicine
DX: N18.6 End stage renal disease (principal)
CPT/HCPCS: 36415; 80048; 85025

== ENCOUNTER 2021-12-20 06:19 | Outpatient (REF) | payer MEDICARE, MEDICAID, SELFPAY ==
[2021-12-20 06:22] LABS: MANUAL DIFF FLAG NO
[2021-12-20 07:23] LABS: Anion Gap 21 (12-20); Blood Urea Nitrogen 57 mg/dL (9-16); Calcium 7.4 mg/dL (8.4-10.2); Carbon Dioxide 27 mmol/L (22-29); Chloride 96 mmol/L (96-108); Estimated Glomerular Filt Rate 8; Glucose Random 85 mg/dL (60-115); Potassium 5.4 mmol/L (3.3-5.1); Sodium 139 mmol/L (135-145)
[2021-12-20 07:45] LABS: Basophils Percent Auto 0.6 % (0-2); Eosinophils Absolute Auto 0.3 X10*3/uL (0.0-0.4); Eosinophils Percent Auto 4.6 % (0-4); Hematocrit 28.2 % (37.0-47.0); Hemoglobin 8.5 g/dl (12.0-16.0); Imm Gran Abs Auto 0.07 X10*3/uL (0.00-0.03); Imm Gran Pct Auto 1.3 % (0.0-0.4); Lymphocytes Absolute Auto 0.8 X10*3/uL (1.2-4.9); Lymphocytes Percent Auto 14.7 % (20-40); Mean Corpuscular HGB Conc 30.1 g/dl (31.0-35.0); Mean Corpuscular Hemoglobin 30.9 pg (27.0-33.0); Mean Corpuscular Volume 102.5 fL (80.0-98.0); Mean Platelet Volume 9.9 fL (9.4-12.3); Monocytes Absolute Auto 0.7 X10*3/uL (0.1-1.2); Monocytes Percent Auto 13.4 % (2-11); Neutrophils Absolute Auto 3.5 x10*3/uL (2.0-8.3); Neutrophils Percent Auto 65.4 % (45-73); Platelet Count 171 X10*3/uL (160-400); Red Blood Count 2.75 X10*6/uL (4.20-5.50); Red Cell Distribution Width 17.1 % (11.0-16.0); White Blood Count 5.4 X10*3/uL (4.8-10.8)
== END 2021-12-20 06:20 | disposition home or self-care (01) ==
LOC: HO.MMNH2L 06:19
PROVIDERS: Visit Provider Family Medicine
DX: N18.6 End stage renal disease (principal)
CPT/HCPCS: 36415; 80048; 85025

== ENCOUNTER 2021-12-24 05:49 | Outpatient (REF) | payer MEDICARE, MEDICAID, SELFPAY ==
[2021-12-24 06:57] LABS: Free T4 (Free Thyroxine) 0.86 ng/dL (0.71-1.85); Thyroid Stimulating Hormone 1.67 uIU/mL (0.32-4.0)
== END 2021-12-24 05:50 | disposition home or self-care (01) ==
LOC: HO.MMNH2L 05:49
PROVIDERS: Visit Provider Family Medicine
DX: E03.9 Hypothyroidism, unspecified (principal)
CPT/HCPCS: 36415; 84439; 84443

== ENCOUNTER 2021-12-27 08:59 | Outpatient (REF) | payer MEDICARE, MEDICAID, SELFPAY ==
[2021-12-27 06:52] LABS: Hematocrit 29.9 % (37.0-47.0); Hemoglobin 9.2 g/dl (12.0-16.0); Mean Corpuscular HGB Conc 30.8 g/dl (31.0-35.0); Mean Corpuscular Hemoglobin 31.5 pg (27.0-33.0); Mean Corpuscular Volume 102.4 fL (80.0-98.0); Mean Platelet Volume 10.1 fL (9.4-12.3); NRBC Pct Auto 0.7 /100WBC (0.0-0.2); Platelet Count 228 X10*3/uL (160-400); Red Blood Count 2.92 X10*6/uL (4.20-5.50); Red Cell Distribution Width 16.5 % (11.0-16.0); White Blood Count 6.8 X10*3/uL (4.8-10.8)
[2021-12-27 07:21] LABS: Anion Gap 20 (12-20); Blood Urea Nitrogen 57 mg/dL (9-16); Carbon Dioxide 25 mmol/L (22-29); Chloride 98 mmol/L (96-108); Estimated Glomerular Filt Rate 8; Glucose Random 97 mg/dL (60-115); Potassium 5.4 mmol/L (3.3-5.1); Sodium 138 mmol/L (135-145)
== END 2021-12-27 09:00 | disposition home or self-care (01) ==
LOC: HO.MMNH2L 08:59
PROVIDERS: Visit Provider Family Medicine
DX: N18.6 End stage renal disease (principal)
CPT/HCPCS: 36415; 80048; 85027

== ENCOUNTER 2022-01-03 06:27 | Outpatient (REF) | payer MEDICARE, MEDICAID, SELFPAY ==
[2022-01-03 06:50] LABS: Hematocrit 30.3 % (37.0-47.0); Hemoglobin 9.3 g/dl (12.0-16.0); Mean Corpuscular HGB Conc 30.7 g/dl (31.0-35.0); Mean Corpuscular Hemoglobin 31.5 pg (27.0-33.0); Mean Corpuscular Volume 102.7 fL (80.0-98.0); Mean Platelet Volume 10.4 fL (9.4-12.3); Platelet Count 166 X10*3/uL (160-400); Red Blood Count 2.95 X10*6/uL (4.20-5.50); Red Cell Distribution Width 17.2 % (11.0-16.0); White Blood Count 6.2 X10*3/uL (4.8-10.8)
[2022-01-03 07:24] LABS: Anion Gap 22 (12-20); Blood Urea Nitrogen 53 mg/dL (9-16); Calcium 7.8 mg/dL (8.4-10.2); Carbon Dioxide 23 mmol/L (22-29); Chloride 98 mmol/L (96-108); Estimated Glomerular Filt Rate 7; Glucose Random 72 mg/dL (60-115); Potassium 5.8 mmol/L (3.3-5.1); Sodium 137 mmol/L (135-145)
== END 2022-01-03 06:28 | disposition home or self-care (01) ==
LOC: HO.MMNH2L 06:27
PROVIDERS: Visit Provider Family Medicine
DX: N18.6 End stage renal disease (principal)
CPT/HCPCS: 36415; 80048; 85027

== ENCOUNTER 2022-01-11 06:47 | Outpatient (REF) | payer MEDICARE, MEDICAID, SELFPAY ==
[2022-01-11 06:37] LABS: MANUAL DIFF FLAG NO
[2022-01-11 06:50] LABS: Basophils Absolute Auto 0.1 X10*3/uL (0.0-0.2); Basophils Percent Auto 0.7 % (0-2); Eosinophils Absolute Auto 0.7 X10*3/uL (0.0-0.4); Eosinophils Percent Auto 8.8 % (0-4); Hematocrit 31.2 % (37.0-47.0); Hemoglobin 9.6 g/dl (12.0-16.0); Imm Gran Abs Auto 0.21 X10*3/uL (0.00-0.03); Imm Gran Pct Auto 2.5 % (0.0-0.4); Lymphocytes Absolute Auto 1.2 X10*3/uL (1.2-4.9); Lymphocytes Percent Auto 14.3 % (20-40); Mean Corpuscular HGB Conc 30.8 g/dl (31.0-35.0); Mean Corpuscular Hemoglobin 31.8 pg (27.0-33.0); Mean Corpuscular Volume 103.3 fL (80.0-98.0); Monocytes Absolute Auto 0.8 X10*3/uL (0.1-1.2); Monocytes Percent Auto 9.2 % (2-11); NRBC Pct Auto 0.4 /100WBC (0.0-0.2); Neutrophils Absolute Auto 5.3 x10*3/uL (2.0-8.3); Neutrophils Percent Auto 64.5 % (45-73); Platelet Count 211 X10*3/uL (160-400); Red Blood Count 3.02 X10*6/uL (4.20-5.50); Red Cell Distribution Width 16.6 % (11.0-16.0); White Blood Count 8.3 X10*3/uL (4.8-10.8)
[2022-01-11 07:39] LABS: Anion Gap 22 (12-20); Blood Urea Nitrogen 78 mg/dL (9-16); Calcium 7.1 mg/dL (8.4-10.2); Carbon Dioxide 24 mmol/L (22-29); Chloride 94 mmol/L (96-108); Estimated Glomerular Filt Rate 6; Glucose Random 84 mg/dL (60-115); Potassium 5.2 mmol/L (3.3-5.1); Sodium 135 mmol/L (135-145)
== END 2022-01-11 06:48 | disposition home or self-care (01) ==
LOC: HO.MMNH2L 06:47
PROVIDERS: Visit Provider Family Medicine
DX: N18.6 End stage renal disease (principal)
CPT/HCPCS: 36415; 80048; 85025

== ENCOUNTER 2022-01-17 06:29 | Outpatient (REF) | payer MEDICARE, MEDICAID, SELFPAY ==
[2022-01-17 06:30] LABS: MANUAL DIFF FLAG NO
[2022-01-17 06:49] LABS: Basophils Percent Auto 0.5 % (0-2); Eosinophils Absolute Auto 0.6 X10*3/uL (0.0-0.4); Eosinophils Percent Auto 9.5 % (0-4); Hematocrit 32.8 % (37.0-47.0); Hemoglobin 10.3 g/dl (12.0-16.0); Imm Gran Abs Auto 0.05 X10*3/uL (0.00-0.03); Imm Gran Pct Auto 0.8 % (0.0-0.4); Lymphocytes Absolute Auto 0.8 X10*3/uL (1.2-4.9); Lymphocytes Percent Auto 12.3 % (20-40); Mean Corpuscular HGB Conc 31.4 g/dl (31.0-35.0); Mean Corpuscular Hemoglobin 32.5 pg (27.0-33.0); Mean Corpuscular Volume 103.5 fL (80.0-98.0); Mean Platelet Volume 10.1 fL (9.4-12.3); Monocytes Absolute Auto 0.7 X10*3/uL (0.1-1.2); Monocytes Percent Auto 11.4 % (2-11); Neutrophils Absolute Auto 4.2 x10*3/uL (2.0-8.3); Neutrophils Percent Auto 65.5 % (45-73); Platelet Count 146 X10*3/uL (160-400); Red Blood Count 3.17 X10*6/uL (4.20-5.50); Red Cell Distribution Width 16.4 % (11.0-16.0); White Blood Count 6.4 X10*3/uL (4.8-10.8)
[2022-01-17 07:35] LABS: Anion Gap 19 (12-20); Blood Urea Nitrogen 54 mg/dL (9-16); Calcium 7.5 mg/dL (8.4-10.2); Carbon Dioxide 25 mmol/L (22-29); Chloride 98 mmol/L (96-108); Estimated Glomerular Filt Rate 7; Glucose Random 62 mg/dL (60-115); Potassium 4.9 mmol/L (3.3-5.1); Sodium 137 mmol/L (135-145)
== END 2022-01-17 06:30 | disposition home or self-care (01) ==
LOC: HO.MMNH2L 06:29
PROVIDERS: Visit Provider Family Medicine
DX: N18.6 End stage renal disease (principal)
CPT/HCPCS: 36415; 80048; 85025

== ENCOUNTER 2022-01-24 06:47 | Outpatient (REF) | payer MEDICARE, SELFPAY ==
[2022-01-24 06:36] LABS: Hematocrit 37.6 % (37.0-47.0); Hemoglobin 11.4 g/dl (12.0-16.0); Mean Corpuscular HGB Conc 30.3 g/dl (31.0-35.0); Mean Corpuscular Hemoglobin 31.4 pg (27.0-33.0); Mean Corpuscular Volume 103.6 fL (80.0-98.0); Mean Platelet Volume 10.3 fL (9.4-12.3); NRBC Pct Auto 0.3 /100WBC (0.0-0.2); Platelet Count 221 X10*3/uL (160-400); Red Blood Count 3.63 X10*6/uL (4.20-5.50); Red Cell Distribution Width 15.7 % (11.0-16.0); White Blood Count 9.2 X10*3/uL (4.8-10.8)
[2022-01-24 07:42] LABS: Anion Gap 23 (12-20); Blood Urea Nitrogen 72 mg/dL (9-16); Calcium 7.2 mg/dL (8.4-10.2); Carbon Dioxide 25 mmol/L (22-29); Chloride 96 mmol/L (96-108); Estimated Glomerular Filt Rate 7; Glucose Random 55 mg/dL (60-115); Potassium 5.5 mmol/L (3.3-5.1); Sodium 138 mmol/L (135-145)
== END 2022-01-24 06:48 | disposition home or self-care (01) ==
LOC: HO.MMNH2L 06:47
PROVIDERS: Visit Provider Family Medicine
DX: N18.6 End stage renal disease (principal)
CPT/HCPCS: 36415; 80048; 85027

== ENCOUNTER 2022-01-31 06:15 | Outpatient (REF) | payer MEDICARE, SELFPAY ==
[2022-01-31 06:24] LABS: MANUAL DIFF FLAG NO
[2022-01-31 06:43] LABS: Basophils Percent Auto 0.5 % (0-2); Eosinophils Absolute Auto 0.4 X10*3/uL (0.0-0.4); Eosinophils Percent Auto 5.2 % (0-4); Hematocrit 36.8 % (37.0-47.0); Hemoglobin 11.4 g/dl (12.0-16.0); Imm Gran Abs Auto 0.07 X10*3/uL (0.00-0.03); Imm Gran Pct Auto 0.9 % (0.0-0.4); Lymphocytes Absolute Auto 0.8 X10*3/uL (1.2-4.9); Lymphocytes Percent Auto 10.1 % (20-40); Mean Corpuscular Hemoglobin 32.3 pg (27.0-33.0); Mean Corpuscular Volume 104.2 fL (80.0-98.0); Mean Platelet Volume 9.8 fL (9.4-12.3); Monocytes Absolute Auto 0.8 X10*3/uL (0.1-1.2); Monocytes Percent Auto 9.8 % (2-11); Neutrophils Absolute Auto 5.8 x10*3/uL (2.0-8.3); Neutrophils Percent Auto 73.5 % (45-73); Platelet Count 151 X10*3/uL (160-400); Red Blood Count 3.53 X10*6/uL (4.20-5.50); Red Cell Distribution Width 16.8 % (11.0-16.0); White Blood Count 7.8 X10*3/uL (4.8-10.8)
[2022-01-31 07:34] LABS: Anion Gap 19 (12-20); Blood Urea Nitrogen 81 mg/dL (9-16); Calcium 7.1 mg/dL (8.4-10.2); Carbon Dioxide 24 mmol/L (22-29); Chloride 99 mmol/L (96-108); Estimated Glomerular Filt Rate 7; Glucose Random 75 mg/dL (60-115); Potassium 5.4 mmol/L (3.3-5.1); Sodium 137 mmol/L (135-145)
== END 2022-01-31 06:16 | disposition home or self-care (01) ==
LOC: HO.MMNH2L 06:15
PROVIDERS: Visit Provider Family Medicine
DX: N18.6 End stage renal disease (principal)
CPT/HCPCS: 36415; 80048; 85025

== ENCOUNTER 2022-02-07 06:39 | Outpatient (REF) | payer MEDICARE, MEDICAID, SELFPAY ==
[2022-02-07 06:31] LABS: MANUAL DIFF FLAG NO
[2022-02-07 07:00] LABS: Basophils Percent Auto 0.5 % (0-2); Eosinophils Absolute Auto 0.3 X10*3/uL (0.0-0.4); Eosinophils Percent Auto 5.4 % (0-4); Hematocrit 36.8 % (37.0-47.0); Hemoglobin 11.6 g/dl (12.0-16.0); Imm Gran Abs Auto 0.03 X10*3/uL (0.00-0.03); Imm Gran Pct Auto 0.5 % (0.0-0.4); Lymphocytes Absolute Auto 0.7 X10*3/uL (1.2-4.9); Lymphocytes Percent Auto 11.7 % (20-40); Mean Corpuscular HGB Conc 31.5 g/dl (31.0-35.0); Mean Corpuscular Volume 101.4 fL (80.0-98.0); Mean Platelet Volume 10.6 fL (9.4-12.3); Monocytes Absolute Auto 0.7 X10*3/uL (0.1-1.2); Monocytes Percent Auto 10.4 % (2-11); Neutrophils Absolute Auto 4.5 x10*3/uL (2.0-8.3); Neutrophils Percent Auto 71.5 % (45-73); Platelet Count 144 X10*3/uL (160-400); Red Blood Count 3.63 X10*6/uL (4.20-5.50); Red Cell Distribution Width 15.3 % (11.0-16.0); White Blood Count 6.3 X10*3/uL (4.8-10.8)
[2022-02-07 07:35] LABS: Anion Gap 25 (12-20); Blood Urea Nitrogen 85 mg/dL (9-16); Calcium 7.2 mg/dL (8.4-10.2); Carbon Dioxide 24 mmol/L (22-29); Chloride 96 mmol/L (96-108); Estimated Glomerular Filt Rate 7; Glucose Random 89 mg/dL (60-115); Potassium 5.7 mmol/L (3.3-5.1); Sodium 139 mmol/L (135-145)
== END 2022-02-07 06:40 | disposition home or self-care (01) ==
LOC: HO.MMNH2L 06:39
PROVIDERS: Visit Provider Family Medicine
DX: N18.6 End stage renal disease (principal)
CPT/HCPCS: 36415; 80048; 85025

== ENCOUNTER 2022-02-14 06:29 | Outpatient (REF) | payer MEDICARE, MEDICAID, SELFPAY ==
[2022-02-14 06:25] LABS: MANUAL DIFF FLAG NO
[2022-02-14 07:11] LABS: Basophils Percent Auto 0.5 % (0-2); Eosinophils Absolute Auto 0.4 X10*3/uL (0.0-0.4); Eosinophils Percent Auto 4.3 % (0-4); Hematocrit 37.6 % (37.0-47.0); Imm Gran Abs Auto 0.08 X10*3/uL (0.00-0.03); Mean Corpuscular HGB Conc 31.9 g/dl (31.0-35.0); Mean Corpuscular Hemoglobin 32.1 pg (27.0-33.0); Mean Corpuscular Volume 100.5 fL (80.0-98.0); Mean Platelet Volume 10.3 fL (9.4-12.3); Monocytes Absolute Auto 0.8 X10*3/uL (0.1-1.2); Monocytes Percent Auto 9.4 % (2-11); Neutrophils Absolute Auto 6.1 x10*3/uL (2.0-8.3); Neutrophils Percent Auto 72.8 % (45-73); Platelet Count 155 X10*3/uL (160-400); Red Blood Count 3.74 X10*6/uL (4.20-5.50); White Blood Count 8.3 X10*3/uL (4.8-10.8)
[2022-02-14 07:24] LABS: Anion Gap 25 (12-20); Blood Urea Nitrogen 78 mg/dL (9-16); Calcium 7.2 mg/dL (8.4-10.2); Carbon Dioxide 22 mmol/L (22-29); Chloride 96 mmol/L (96-108); Estimated Glomerular Filt Rate 6; Glucose Random 94 mg/dL (60-115); Sodium 138 mmol/L (135-145)
== END 2022-02-14 06:30 | disposition home or self-care (01) ==
LOC: HO.MMNH2L 06:29
PROVIDERS: Visit Provider Family Medicine
DX: N18.6 End stage renal disease (principal)
CPT/HCPCS: 36415; 80048; 85025

== ENCOUNTER 2022-02-21 06:27 | Outpatient (REF) | payer MEDICARE, MEDICAID, SELFPAY ==
[2022-02-21 06:14] LABS: MANUAL DIFF FLAG NO
[2022-02-21 06:22] LABS: Basophils Percent Auto 0.6 % (0-2); Eosinophils Absolute Auto 0.3 X10*3/uL (0.0-0.4); Eosinophils Percent Auto 4.3 % (0-4); Hematocrit 35.1 % (37.0-47.0); Hemoglobin 10.9 g/dl (12.0-16.0); Imm Gran Pct Auto 1.6 % (0.0-0.4); Lymphocytes Absolute Auto 0.9 X10*3/uL (1.2-4.9); Lymphocytes Percent Auto 13.9 % (20-40); Mean Corpuscular HGB Conc 31.1 g/dl (31.0-35.0); Mean Corpuscular Hemoglobin 31.5 pg (27.0-33.0); Mean Corpuscular Volume 101.4 fL (80.0-98.0); Mean Platelet Volume 10.2 fL (9.4-12.3); Monocytes Absolute Auto 0.7 X10*3/uL (0.1-1.2); Monocytes Percent Auto 11.8 % (2-11); Neutrophils Absolute Auto 4.3 x10*3/uL (2.0-8.3); Neutrophils Percent Auto 67.8 % (45-73); Platelet Count 133 X10*3/uL (160-400); Red Blood Count 3.46 X10*6/uL (4.20-5.50); Red Cell Distribution Width 14.7 % (11.0-16.0); White Blood Count 6.3 X10*3/uL (4.8-10.8)
[2022-02-21 07:30] LABS: Anion Gap 22 (12-20); Blood Urea Nitrogen 50 mg/dL (9-16); Calcium 7.2 mg/dL (8.4-10.2); Carbon Dioxide 25 mmol/L (22-29); Chloride 97 mmol/L (96-108); Estimated Glomerular Filt Rate 7; Glucose Random 95 mg/dL (60-115); Sodium 139 mmol/L (135-145)
== END 2022-02-21 06:28 | disposition home or self-care (01) ==
LOC: HO.MMNH2L 06:27
PROVIDERS: Visit Provider Family Medicine
DX: N18.6 End stage renal disease (principal)
CPT/HCPCS: 36415; 80048; 85025

== ENCOUNTER 2022-02-28 06:21 | Outpatient (REF) | payer MEDICARE, MEDICAID, SELFPAY ==
[2022-02-28 06:17] LABS: MANUAL DIFF FLAG NO
[2022-02-28 06:57] LABS: Basophils Absolute Auto 0.1 X10*3/uL (0.0-0.2); Basophils Percent Auto 0.6 % (0-2); Eosinophils Absolute Auto 0.3 X10*3/uL (0.0-0.4); Eosinophils Percent Auto 3.6 % (0-4); Hematocrit 31.8 % (37.0-47.0); Hemoglobin 9.9 g/dl (12.0-16.0); Imm Gran Abs Auto 0.18 X10*3/uL (0.00-0.03); Imm Gran Pct Auto 2.3 % (0.0-0.4); Lymphocytes Absolute Auto 0.9 X10*3/uL (1.2-4.9); Lymphocytes Percent Auto 11.7 % (20-40); Mean Corpuscular HGB Conc 31.1 g/dl (31.0-35.0); Mean Corpuscular Hemoglobin 31.9 pg (27.0-33.0); Mean Corpuscular Volume 102.6 fL (80.0-98.0); Monocytes Absolute Auto 0.8 X10*3/uL (0.1-1.2); Monocytes Percent Auto 9.5 % (2-11); Neutrophils Absolute Auto 5.8 x10*3/uL (2.0-8.3); Neutrophils Percent Auto 72.3 % (45-73); Platelet Count 151 X10*3/uL (160-400); Red Cell Distribution Width 14.6 % (11.0-16.0)
[2022-02-28 07:44] LABS: Anion Gap 25 (12-20); Blood Urea Nitrogen 80 mg/dL (9-16); Calcium 7.4 mg/dL (8.4-10.2); Carbon Dioxide 23 mmol/L (22-29); Chloride 98 mmol/L (96-108); Estimated Glomerular Filt Rate 6; Glucose Random 87 mg/dL (60-115); Potassium 5.9 mmol/L (3.3-5.1); Sodium 140 mmol/L (135-145)
== END 2022-02-28 06:22 | disposition home or self-care (01) ==
LOC: HO.MMNH2L 06:21
PROVIDERS: Visit Provider Family Medicine
DX: N18.6 End stage renal disease (principal)
CPT/HCPCS: 36415; 80048; 85025

== ENCOUNTER 2022-03-07 06:36 | Outpatient (REF) | payer MEDICARE, MEDICAID, SELFPAY ==
[2022-03-07 06:31] LABS: MANUAL DIFF FLAG NO
[2022-03-07 06:34] LABS: Basophils Absolute Auto 0.1 X10*3/uL (0.0-0.2); Basophils Percent Auto 0.6 % (0-2); Eosinophils Absolute Auto 0.4 X10*3/uL (0.0-0.4); Eosinophils Percent Auto 4.5 % (0-4); Hematocrit 29.1 % (37.0-47.0); Hemoglobin 9.2 g/dl (12.0-16.0); Imm Gran Abs Auto 0.28 X10*3/uL (0.00-0.03); Imm Gran Pct Auto 3.5 % (0.0-0.4); Lymphocytes Percent Auto 12.2 % (20-40); Mean Corpuscular HGB Conc 31.6 g/dl (31.0-35.0); Mean Corpuscular Hemoglobin 31.4 pg (27.0-33.0); Mean Corpuscular Volume 99.3 fL (80.0-98.0); Mean Platelet Volume 10.4 fL (9.4-12.3); Monocytes Absolute Auto 0.9 X10*3/uL (0.1-1.2); Monocytes Percent Auto 11.8 % (2-11); Neutrophils Absolute Auto 5.3 x10*3/uL (2.0-8.3); Neutrophils Percent Auto 67.4 % (45-73); Platelet Count 162 X10*3/uL (160-400); Red Blood Count 2.93 X10*6/uL (4.20-5.50); Red Cell Distribution Width 14.6 % (11.0-16.0); White Blood Count 7.9 X10*3/uL (4.8-10.8)
[2022-03-07 07:09] LABS: Anion Gap 23 (12-20); Blood Urea Nitrogen 65 mg/dL (9-16); Calcium 6.8 mg/dL (8.4-10.2); Carbon Dioxide 24 mmol/L (22-29); Chloride 94 mmol/L (96-108); Estimated Glomerular Filt Rate 7; Glucose Random 94 mg/dL (60-115); Potassium 5.3 mmol/L (3.3-5.1); Sodium 136 mmol/L (135-145)
== END 2022-03-07 06:37 | disposition home or self-care (01) ==
LOC: HO.MMNH2L 06:36
PROVIDERS: Visit Provider Family Medicine
DX: N18.6 End stage renal disease (principal)
CPT/HCPCS: 36415; 80048; 85025

== ENCOUNTER 2022-03-11 17:56 | Emergency (ER) | payer MEDICARE, MEDICAID, SELFPAY ==
--- NOTE | ~2022-03-11 | XR_ITS ---
EXAMINATION: XR CHEST CLINICAL INFORMATION: Left-sided chest pain COMPARISON: 02/10/2021 TECHNIQUE: 2 views of the chest were obtained. FINDINGS: Catheter tip overlying superior vena cava. There is no evidence for a pneumothorax. Lung rae are grossly clear. No failure or infiltrate is felt to be present. There is no effusion. The cardiac silhouette is comparable to previous. Hilar regions are comparable. XR/XR chest 2V IMPRESSION: No acute finding.
[2022-03-11 18:09] VITALS: BP 137/67; BP 138/74; PULSE 63; PULSE 66; RESP 20; TEMP 37; O2SAT 97; O2SAT 99; BMI 32.1
--- NOTE | 2022-03-11 18:25 | ECG_ITS ---
Test Reason : CHEST PAIN Blood Pressure : / mmHG Vent. Rate : 062 BPM Atrial Rate : 062 BPM P-R Int : 176 ms QRS Dur : 126 ms QT Int : 460 ms P-R-T Axes : 074 -14 -15 degrees QTc Int : 466 ms Sinus rhythm with Sinus Arrhythmia Right bundle branch block Abnormal ECG When compared with ECG of 10-FEB-2021 10:04, Borderline criteria for Lateral infarct are no longer Present Referred By: Tatum Smith Electronically Signed By:MARIVEL GARVEY
--- NOTE | 2022-03-11 18:27 | ED.GENADULT ---
HPI - General Adult General Chief complaint: General Medical <YULI Velazquez - Last Filed: 03/11/22 21:21> Stated complaint: Pain at chest port <YULI Velazquez - Last Filed: 03/11/22 21:21> Time Seen by Provider: 03/11/22 18:05 <YULI Velazquez - Last Filed: 03/11/22 21:21> Source: patient, EMS and old records reviewed <YULI Velazquez - Last Filed: 03/11/22 21:21> Mode of arrival: EMS <YULI Velazquez - Last Filed: 03/11/22 21:21> Limitations: no limitations <YULI Velazquez - Last Filed: 03/11/22 21:21> History of Present Illness HPI narrative: 81-year-old female with history of end-stage renal disease on dialysis Monday, , Monday via left chest PermCath, history of type 2 diabetes, HTN, chronic pain on chronic opiates, osteoarthritis, hypothyroidism who presents to the ER via EMS from [facility] for evaluation of pain in her left upper chest at the site of her dialysis catheter. She reports the catheter has been in place for the last 3 or 4 months, she has exhausted her dialysis options in her left upper extremity and is in the process of getting vein mapping and ultrasound doing of the right upper extremity for possible fistula there. She reports yesterday during dialysis the machine cap stopping and starting, unclear if it is related to her pain today. She reports the pain is in her left upper chest and extends into the left shoulder. She reports chronic shoulder pain. The pain is worse with palpation and movement. She denies any shortness of breath. She has been taking her oxycodone 10 mg t.i.d. with minimal relief today. She denies any redness or drainage at the site of the dialysis catheter. <YULI Velazquez - Last Filed: 03/11/22 21:21> MD complaint: Left upper chest wall pain and left shoulder pain <YULI Velazquez - Last Filed: 03/11/22 21:21> Onset (ago): hour(s) (10) <YULI Velazquez - Last Filed: 03/11/22 21:21> Location: chest <YULI Velazquez - Last Filed: 03/11/22 21:21> Radiation: extremity <YULI Velazquez - Last Filed: 03/11/22 21:21> Severity: severe <YULI Velazquez - Last Filed: 03/11/22 21:21> Severity scale (1-10): 9 <YULI Velazquez - Last Filed: 03/11/22 21:21> Quality: stabbing and aching <YULI Velazquez - Last Filed: 03/11/22 21:21> Pain Consistency: constant <YULI Velazquez - Last Filed: 03/11/22 21:21> Relieving factors: none <YULI Velazquez - Last Filed: 03/11/22 21:21> Exacerbating factors: movement <YULI Velazquez - Last Filed: 03/11/22 21:21> Treatments prior to arrival: other ( oxycodone and Tylenol) <YULI Velazquez - Last Filed: 03/11/22 21:21> Related Data Home medications: Home Medications Medication Instructions Recorded Confirmed acetaminophen 325 mg tablet 325 mg PO TID PRN Pain 02/10/21 02/10/21 diclofenac sodium 1 % topical gel 2 g topical 0900,1300,199902/10/21 02/10/21 furosemide 40 mg tablet 1 tab PO 0900,1300,199902/10/21 02/10/21 gabapentin 100 mg capsule 100 mg PO BID@0900,1700 02/10/21 02/10/21 insulin NPH isoph U-100 human 100 16 unit subcut BEDTIME 02/10/21 02/10/21 unit/mL subcutaneous suspension (Novolin N NPH U-100 Insulin isophane) levothyroxine 88 mcg tablet 1 tab PO DAILY@0600 02/10/21 02/10/21 metoprolol tartrate 25 mg tablet 1 tab PO BID 02/10/21 02/10/21 omeprazole 20 mg capsule,delayed 1 cap PO DAILY@0600 02/10/21 02/10/21 release ondansetron 4 mg disintegrating 4 mg PO Q6H PRN Nausea And Vomiting 02/10/21 02/10/21 tablet oxycodone 10 mg tablet 1 tab PO QID PRN pain 02/10/21 02/10/21 polyethylene glycol 3350 17 gram 17 g PO DAILY 02/10/21 02/10/21 oral powder packet (Miralax) pravastatin 40 mg tablet 1 tab PO BEDTIME 02/10/21 02/10/21 sertraline 50 mg tablet 1 tab PO DAILY 02/10/21 02/10/21 Previous Rx's Medication Instructions Recorded oxycodone 5 mg tablet 5 mg PO Q8H PRN pain #9 tabs 02/10/21 <YULI Velazquez - Last Filed: 03/11/22 21:21> Allergies/adverse reactions: Allergies Allergy/AdvReac Type Severity Reaction Status Date / Time Sulfa (Sulfonamide Allergy Unknown RASH Unverified 03/26/20 16:06 Antibiotics) <YULI Velazquez - Last Filed: 03/11/22 21:21> Review of Systems Review of Systems: Constitutional: No Fever, No Chills ENT/Mouth: No sore throat, No Rhinorrhea, No Swallowing Difficulty Eyes: No Eye Pain, No Swelling, No Redness Cardiovascular: + Chest Pain, No SOB, No Orthopnea, No Edema Respiratory: No Cough, No Sputum, No Wheezing, No dyspnea Gastrointestinal: No Nausea, No Vomiting, No Diarrhea, No abdominal Pain, No Hematochezia, No Melena Genitourinary: No Dysuria, No Urinary Frequency, No Hematuria Musculoskeletal: + joint pain, + Myalgias Skin: No Skin Lesions, No rash Neuro: No Weakness, No Numbness, No Dizziness, No Headache Psych: No Anxiety/Panic, No Depression Heme/Lymph: No Bruising, No Lymphadenopathy Endocrine: No Polyuria, No Polydipsia <YULI Velazquez - Last Filed: 03/11/22 21:21> [facility] Past Medical History Medical History: Medical History (Updated 03/11/22 @ 20:23 by YULI Velazquez) Diabetes mellitus Hypertension Kidney disease <YULI Velazquez - Last Filed: 03/11/22 21:21> Social History Social History: Social History Patient Tobacco Use Status: Never used Tobacco Use of substances other than those prescribed or required for medical reasons: No Advance Directives: Yes Advance Directives on File: Yes Advance Directives Date on File: 02/10/21 <YULI Velazquez - Last Filed: 03/11/22 21:21> Physical Exam ED Vital Signs: Vital Signs - 24 hr 03/11/22 18:09 03/11/22 19:40 03/11/22 20:46 Temperature 98.6 F 98.6 F 98.4 F Pulse Rate 63 65 62 Respiratory Rate 20 20 16 Blood Pressure 137/67 200/74 H 152/54 H Pulse Oximetry 97 94 98 Oxygen Delivery Method Room Air Room Air Room Air BMI result Body Mass Index 32.1 <YULI Velazquez - Last Filed: 03/11/22 21:21> Vital Signs - 24 hr 03/11/22 18:09 03/11/22 19:40 03/11/22 20:46 Temperature 98.6 F 98.6 F 98.4 F Pulse Rate 63 65 62 Respiratory Rate 20 20 16 Blood Pressure 137/67 200/74 H 152/54 H Pulse Oximetry 97 94 98 Oxygen Delivery Method Room Air Room Air Room Air BMI result Body Mass Index 32.1 <YULI Hodge - Last Filed: 03/11/22 21:52> Appearance: Alert. Oriented X3. No acute distress. Eyes: Pupils equal, round and reactive to light. ENT: Pharynx normal. Neck: Normal inspection. Neck supple. CVS: Normal heart rate and rhythm. Pulses normal. left chest wall with a PermCath in place, tender around the site without any surrounding erythema or drainage. Dressing is clean and dry. Respiratory: No respiratory distress. Breath sounds normal. Abdomen: Soft and nontender. +BS x4 Skin: Skin warm and dry. Normal skin color. Normal skin turgor. No rashes. Extremities: No lower extremity edema. Diffuse tenderness of the bilateral shoulder joints with limited range of motion bilaterally due to pain. Neurovascularly intact distally. Equal wing scorer strength bilaterally. Neuro: Oriented X 3. No motor deficit. No sensory deficit. <YULI Velazquez - Last Filed: 03/11/22 21:21> Course Course Course Narrative: 81-year-old female with history of ESRD on HD who presents to the ER for evaluation of left upper chest wall pain at the site of her dialysis catheter that started today. This is in the setting of possible issues with dialysis yesterday. She reports the machine was on and off, on and off. on examination she has reproducible pain. Doubt ACS but will get cardiac workup. Will also check blood cultures although it does not appear infected. Will give her a dose of oxycodone 15 mg x 1 (home dose is 10mg) and reassess. <YULI Velazquez - Last Filed: 03/11/22 21:21> Reevaluation(s) Reevaluation #1: initial troponin is 8.6. Her EKG did not have any new ischemic changes. No peaked T-waves. Her potassium is elevated at 5.8 but this is chronic for her and she is due for dialysis tomorrow. No EKG changes associated with this. She continues to have left chest wall pain that is reproducible on examination. Her lactic acid is normal with no leukocytosis. Doubt infection of the hemodialysis catheter. blood pressure is elevated at 200 systolic. She is on Lopressor 25 mg b.i.d. at home, will give her 25 mg now. Will give a dose of IM Dilaudid as well, given her ongoing pain. 2nd troponin is ordered but doubt cardiac etiology. signed out to yoselin rubalcava pa-c who will assume care. anticipate d/c back to [facility]. <YULI Velazquez - Last Filed: 03/11/22 21:21> initial troponin is 8.6. Her EKG did not have any new ischemic changes. No peaked T-waves. Her potassium is elevated at 5.8 but this is chronic for her and she is due for dialysis tomorrow. No EKG changes associated with this. She continues to have left chest wall pain that is reproducible on examination. Her lactic acid is normal with no leukocytosis. Doubt infection of the hemodialysis catheter. blood pressure is elevated at 200 systolic. She is on Lopressor 25 mg b.i.d. at home, will give her 25 mg now. Will give a dose of IM Dilaudid as well, given her ongoing pain. 2nd troponin is ordered but doubt cardiac etiology. signed out to yoselin rubalcava pa-c who will assume care. anticipate d/c back to [facility]. Patient's repeat troponin was negative. Patient to be discharged back to [facility] and should dialyze tomorrow as scheduled. <YULI Hodge - Last Filed: 03/11/22 21:52> Medical Decision Making Lab Data Result diagrams: : 03/11/22 18:59 03/11/22 18:59 <YULI Velazquez - Last Filed: 03/11/22 21:21> Labs: Lab Results 03/11/22 03/11/22 03/11/22 Range/Units 18:59 18:59 18:59 WBC 9.6 (4.8-10.8) X10*3/uL RBC 2.98 L (4.20-5.50) X10*6/uL Hgb 9.4 L (12.0-16.0) g/dl Hct 29.8 L (37.0-47.0) % MCV 100.0 H (80.0-98.0) fL MCH 31.5 (27.0-33.0) pg MCHC 31.5 (31.0-35.0) g/dl RDW 14.7 (11.0-16.0) % Plt Count 194 (160-400) X10*3/uL MPV 9.7 (9.4-12.3) fL Immature Gran % (Auto) 3.6 H (0.0-0.4) % Neut % (Auto) 68.9 (45-73) % Lymph % (Auto) 10.0 L (20-40) % [place] % (Auto) 12.7 H (2-11) % Eos % (Auto) 4.3 H (0-4) % Baso % (Auto) 0.5 (0-2) % Lymph # (Auto) 1.0 L (1.2-4.9) X10*3/uL [place] # (Auto) 1.2 (0.1-1.2) X10*3/uL Eos # (Auto) 0.4 (0.0-0.4) X10*3/uL Baso # (Auto) 0.1 (0.0-0.2) X10*3/uL Abs Immat Gran (auto) 0.35 H (0.00-0.03) X10*3/uL Absolute Neuts (auto) 6.7 (2.0-8.3) x10*3/uL Absolute Nucleated RBC 0.000 (0.0-0.012) X10*3/uL Nucleated RBC % (auto) 0.0 (0.0-0.2) /100WBC Sodium 136 (135-145) mmol/L Potassium 5.8 H (3.3-5.1) mmol/L Chloride 96 (96-108) mmol/L Carbon Dioxide 23 (22-29) mmol/L Anion Gap 23 H (12-20) BUN 59 H (9-16) mg/dL Creatinine 5.38 H* (0.5-1.4) mg/dL Estim Creat Clear Calc 7.7 Estimated GFR 8 Random Glucose 110 (60-115) mg/dL Lactic Acid (0.5-2.0) mmol/L Calcium 7.4 L D (8.4-10.2) mg/dL Magnesium 1.9 (1.6-2.6) mg/dL Total Bilirubin 0.4 (0.0-1.0) mg/dL Direct Bilirubin 0.2 (0.0-0.5) mg/dL AST 11 (5-31) U/L ALT 11 (0-31) U/L Alkaline Phosphatase 108 D (39-117) U/L Troponin I High Sens (<3.5-17.0) ng/L Total Protein 6.0 L (6.5-8.0) g/dL Albumin 3.8 (3.5-5.0) g/dL COVID-19 (YANNA) Negative (Negative) COVID-19 Clin Com See Note 03/11/22 03/11/22 03/11/22 Range/Units 18:59 18:59 21:18 WBC (4.8-10.8) X10*3/uL RBC (4.20-5.50) X10*6/uL Hgb (12.0-16.0) g/dl Hct (37.0-47.0) % MCV (80.0-98.0) fL MCH (27.0-33.0) pg MCHC (31.0-35.0) g/dl RDW (11.0-16.0) % Plt Count (160-400) X10*3/uL MPV (9.4-12.3) fL Immature Gran % (Auto) (0.0-0.4) % Neut % (Auto) (45-73) % Lymph % (Auto) (20-40) % [place] % (Auto) (2-11) % Eos % (Auto) (0-4) % Baso % (Auto) (0-2) % Lymph # (Auto) (1.2-4.9) X10*3/uL [place] # (Auto) (0.1-1.2) X10*3/uL Eos # (Auto) (0.0-0.4) X10*3/uL Baso # (Auto) (0.0-0.2) X10*3/uL Abs Immat Gran (auto) (0.00-0.03) X10*3/uL Absolute Neuts (auto) (2.0-8.3) x10*3/uL Absolute Nucleated RBC (0.0-0.012) X10*3/uL Nucleated RBC % (auto) (0.0-0.2) /100WBC Sodium (135-145) mmol/L Potassium (3.3-5.1) mmol/L Chloride (96-108) mmol/L Carbon Dioxide (22-29) mmol/L Anion Gap (12-20) BUN (9-16) mg/dL Creatinine (0.5-1.4) mg/dL Estim Creat Clear Calc Estimated GFR Random Glucose (60-115) mg/dL Lactic Acid 1.0 (0.5-2.0) mmol/L Calcium (8.4-10.2) mg/dL Magnesium (1.6-2.6) mg/dL Total Bilirubin (0.0-1.0) mg/dL Direct Bilirubin (0.0-0.5) mg/dL AST (5-31) U/L ALT (0-31) U/L Alkaline Phosphatase (39-117) U/L Troponin I High Sens 8.4 9.8 (<3.5-17.0) ng/L Total Protein (6.5-8.0) g/dL Albumin (3.5-5.0) g/dL COVID-19 (YANNA) (Negative) COVID-19 Clin Com <YULI Velazquez - Last Filed: 03/11/22 21:21> Lab Results 03/11/22 03/11/22 03/11/22 Range/Units 18:59 18:59 18:59 WBC 9.6 (4.8-10.8) X10*3/uL RBC 2.98 L (4.20-5.50) X10*6/uL Hgb 9.4 L (12.0-16.0) g/dl Hct 29.8 L (37.0-47.0) % MCV 100.0 H (80.0-98.0) fL MCH 31.5 (27.0-33.0) pg MCHC 31.5 (31.0-35.0) g/dl RDW 14.7 (11.0-16.0) % Plt Count 194 (160-400) X10*3/uL MPV 9.7 (9.4-12.3) fL Immature Gran % (Auto) 3.6 H (0.0-0.4) % Neut % (Auto) 68.9 (45-73) % Lymph % (Auto) 10.0 L (20-40) % [place] % (Auto) 12.7 H (2-11) % Eos % (Auto) 4.3 H (0-4) % Baso % (Auto) 0.5 (0-2) % Lymph # (Auto) 1.0 L (1.2-4.9) X10*3/uL [place] # (Auto) 1.2 (0.1-1.2) X10*3/uL Eos # (Auto) 0.4 (0.0-0.4) X10*3/uL Baso # (Auto) 0.1 (0.0-0.2) X10*3/uL Abs Immat Gran (auto) 0.35 H (0.00-0.03) X10*3/uL Absolute Neuts (auto) 6.7 (2.0-8.3) x10*3/uL Absolute Nucleated RBC 0.000 (0.0-0.012) X10*3/uL Nucleated RBC % (auto) 0.0 (0.0-0.2) /100WBC Sodium 136 (135-145) mmol/L Potassium 5.8 H (3.3-5.1) mmol/L Chloride 96 (96-108) mmol/L Carbon Dioxide 23 (22-29) mmol/L Anion Gap 23 H (12-20) BUN 59 H (9-16) mg/dL Creatinine 5.38 H* (0.5-1.4) mg/dL Estim Creat Clear Calc 7.7 Estimated GFR 8 Random Glucose 110 (60-115) mg/dL Lactic Acid (0.5-2.0) mmol/L Calcium 7.4 L D (8.4-10.2) mg/dL Magnesium 1.9 (1.6-2.6) mg/dL Total Bilirubin 0.4 (0.0-1.0) mg/dL Direct Bilirubin 0.2 (0.0-0.5) mg/dL AST 11 (5-31) U/L ALT 11 (0-31) U/L Alkaline Phosphatase 108 D (39-117) U/L Troponin I High Sens (<3.5-17.0) ng/L Total Protein 6.0 L (6.5-8.0) g/dL Albumin 3.8 (3.5-5.0) g/dL COVID-19 (YANNA) Negative (Negative) COVID-19 Clin Com See Note 03/11/22 03/11/22 03/11/22 Range/Units 18:59 18:59 21:18 WBC (4.8-10.8) X10*3/uL RBC (4.20-5.50) X10*6/uL Hgb (12.0-16.0) g/dl Hct (37.0-47.0) % MCV (80.0-98.0) fL MCH (27.0-33.0) pg MCHC (31.0-35.0) g/dl RDW (11.0-16.0) % Plt Count (160-400) X10*3/uL MPV (9.4-12.3) fL Immature Gran % (Auto) (0.0-0.4) % Neut % (Auto) (45-73) % Lymph % (Auto) (20-40) % [place] % (Auto) (2-11) % Eos % (Auto) (0-4) % Baso % (Auto) (0-2) % Lymph # (Auto) (1.2-4.9) X10*3/uL [place] # (Auto) (0.1-1.2) X10*3/uL Eos # (Auto) (0.0-0.4) X10*3/uL Baso # (Auto) (0.0-0.2) X10*3/uL Abs Immat Gran (auto) (0.00-0.03) X10*3/uL Absolute Neuts (auto) (2.0-8.3) x10*3/uL Absolute Nucleated RBC (0.0-0.012) X10*3/uL Nucleated RBC % (auto) (0.0-0.2) /100WBC Sodium (135-145) mmol/L Potassium (3.3-5.1) mmol/L Chloride (96-108) mmol/L Carbon Dioxide (22-29) mmol/L Anion Gap (12-20) BUN (9-16) mg/dL Creatinine (0.5-1.4) mg/dL Estim Creat Clear Calc Estimated GFR Random Glucose (60-115) mg/dL Lactic Acid 1.0 (0.5-2.0) mmol/L Calcium (8.4-10.2) mg/dL Magnesium (1.6-2.6) mg/dL Total Bilirubin (0.0-1.0) mg/dL Direct Bilirubin (0.0-0.5) mg/dL AST (5-31) U/L ALT (0-31) U/L Alkaline Phosphatase (39-117) U/L Troponin I High Sens 8.4 9.8 (<3.5-17.0) ng/L Total Protein (6.5-8.0) g/dL Albumin (3.5-5.0) g/dL COVID-19 (YANNA) (Negative) COVID-19 Clin Com <YULI Hodge - Last Filed: 03/11/22 21:52> ECG Data Attestation: I personally reviewed and interpreted this ECG as follows: <YULI Velazquez - Last Filed: 03/11/22 21:21> Prior ECG tracings: available for review <YULI Velazquez - Last Filed: 03/11/22 21:21> Interpretation: Sinus rhythm, T-wave inversions in leads 3, AVF, V1, all of which are old. Right bundle-branch block. Heart rate 62 beats per minute, <YULI Velazquez - Last Filed: 03/11/22 21:21> Discharge Plan Discharge Clinical Impression: Acute chest wall pain <YULI Velazquez - Last Filed: 03/11/22 21:21> Patient Disposition: Home, Self-Care <YULI Velazquez - Last Filed: 03/11/22 21:21> Instructions: Chest Wall Pain (ED) <YULI Velazquez - Last Filed: 03/11/22 21:21> Additional Instructions: Follow up with your primary care provider and your spinning frame tender. Return to the emergency department immediately if your symptoms worsen or if you develop any dizziness, shortness of breath, difficulty breathing, chest pain, blurry vision, loss of vision, nausea, vomiting, abdominal pain, fever, chills, back pain, or any other complaints. <YULI Velazquez - Last Filed: 03/11/22 21:21> Prescriptions: No [facility] furosemide 40 mg tablet 1 tab PO 0900,1300,2000 pravastatin 40 mg tablet 1 tab PO BEDTIME levothyroxine 88 mcg tablet 1 tab PO DAILY@0600 Novolin N NPH U-100 Insulin 100 unit/mL suspension 16 unit subcut BEDTIME omeprazole 20 mg capsule,delayed release(DR/EC) 1 cap PO DAILY@0600 sertraline 50 mg tablet 1 tab PO DAILY metoprolol tartrate 25 mg tablet 1 tab PO BID oxycodone 10 mg tablet 1 tab PO QID PRN (Reason: pain) polyethylene glycol 3350 [Miralax] 17 gram Powder In Packet 17 g PO DAILY gabapentin 100 mg Capsule 100 mg PO BID@0900,1700 ondansetron [Zofran ODT] 4 mg Tablet,Disintegrating 4 mg PO Q6H MDD N PRN (Reason: Nausea And Vomiting) diclofenac sodium 1 % Gel 2 g TOPICAL 0900,1300,2000 acetaminophen 325 mg Tablet 325 mg PO TID PRN (Reason: Pain) oxycodone 5 mg tablet 5 mg PO Q8H PRN (Reason: pain) Qty: 9 0RF <YULI Velazquez - Last Filed: 03/11/22 21:21> Referrals: [facility] [Provider Group] [facility] [place] [facility] [Provider Group] [facility] [place] Primary Care,Brad [Provider Group] <YULI Velazquez - Last Filed: 03/11/22 21:21> Print Language: [place] Islander <YULI Velazquez - Last Filed: 03/11/22 21:21>
[2022-03-11 19:05] LABS: MANUAL DIFF FLAG NO
[2022-03-11 19:22] LABS: Basophils Absolute Auto 0.1 X10*3/uL (0.0-0.2); Basophils Percent Auto 0.5 % (0-2); Eosinophils Absolute Auto 0.4 X10*3/uL (0.0-0.4); Eosinophils Percent Auto 4.3 % (0-4); Hematocrit 29.8 % (37.0-47.0); Hemoglobin 9.4 g/dl (12.0-16.0); Imm Gran Abs Auto 0.35 X10*3/uL (0.00-0.03); Imm Gran Pct Auto 3.6 % (0.0-0.4); Mean Corpuscular HGB Conc 31.5 g/dl (31.0-35.0); Mean Corpuscular Hemoglobin 31.5 pg (27.0-33.0); Mean Platelet Volume 9.7 fL (9.4-12.3); Monocytes Absolute Auto 1.2 X10*3/uL (0.1-1.2); Monocytes Percent Auto 12.7 % (2-11); Neutrophils Absolute Auto 6.7 x10*3/uL (2.0-8.3); Neutrophils Percent Auto 68.9 % (45-73); Platelet Count 194 X10*3/uL (160-400); Red Blood Count 2.98 X10*6/uL (4.20-5.50); Red Cell Distribution Width 14.7 % (11.0-16.0); White Blood Count 9.6 X10*3/uL (4.8-10.8)
[2022-03-11 19:32] LABS: Alanine Aminotransferase 11 U/L (0-31); Albumin Level 3.8 g/dL (3.5-5.0); Alkaline Phosphatase 108 U/L (39-117); Anion Gap 23 (12-20); Aspartate Amino Transferase 11 U/L (5-31); Bilirubin Direct 0.2 mg/dL (0.0-0.5); Bilirubin Total 0.4 mg/dL (0.0-1.0); Blood Urea Nitrogen 59 mg/dL (9-16); Calcium 7.4 mg/dL (8.4-10.2); Carbon Dioxide 23 mmol/L (22-29); Chloride 96 mmol/L (96-108); Creatinine Clr Calc Pharmacy 7.7; Estimated Glomerular Filt Rate 8; Glucose Random 110 mg/dL (60-115); Magnesium 1.9 mg/dL (1.6-2.6); Potassium 5.8 mmol/L (3.3-5.1); Sodium 136 mmol/L (135-145)
[2022-03-11 19:34] LABS: Troponin-I High Sensitivity 8.4 ng/L (<3.5-17.0)
[2022-03-11 19:40] VITALS: BP 200/74; PULSE 65; RESP 20; TEMP 37; O2SAT 94
[2022-03-11] MEDS: oxyCODONE HCl Immed Release 15 MG TABLET PO (19:40)
[2022-03-11 19:42] LABS: COVID-19 Test Negative (Negative)
[2022-03-11] MEDS: Metoprolol Tartrate 25 MG TABLET PO (20:37)
[2022-03-11] MEDS: HYDROmorphone HCl 0.5 MG/0.5 ML SYRINGE IM (20:37)
--- NOTE | 2022-03-11 20:45 | PC.NURSE ---
patient a&ox3, pt previously medicated for pain without relief, pt remedicated for pain, cardiac exercise specialist sinus chavez 60s, vitals stable, pt medicated per order, call amaro within reach, will continue to monitor.
[2022-03-11 20:46] VITALS: BP 152/54; PULSE 62; RESP 16; TEMP 36.9; O2SAT 98
[2022-03-11] MEDS: Acetaminophen 325 MG TABLET 975 MG PO (21:36)
--- NOTE | 2022-03-11 21:38 | PC.NURSE ---
Patient was given pain med by doc order.
[2022-03-11 21:46] LABS: Troponin-I High Sensitivity 9.8 ng/L (<3.5-17.0)
[2022-03-11 22:00] VITALS: BP 130/84; PULSE 62; RESP 18; TEMP 36.8; O2SAT 96
--- NOTE | 2022-03-11 22:59 | PC.NURSE ---
patient a&ox3, pt states her pain has decreased to a 3-4/10, vss, call amaro within reach, will continue to monitor.
--- NOTE | 2022-03-12 01:34 | PC.NURSE ---
This [facility] called [facility] at 2306 spoke to Waqas for a BLS transfer back to [facility] per Mulu ROLDAN. Waqas stated unable to transport and will try to pass.At 2335 Waqas from [facility] called and stated he was not able to pass,Ems booked for 10:00AM Rn and Credit Collections Clerk aware.
[2022-03-12] MEDS: oxyCODONE HCl Immed Release 15 MG TABLET PO ×2 (02:02→23:51)
[2022-03-12 05:33] VITALS: BP 182/56; PULSE 62; O2SAT 99
[2022-03-12 07:42] VITALS: BP 186/59; PULSE 61; RESP 14; TEMP 36.4; O2SAT 98
[2022-03-12 07:57] VITALS: BP 113/71; PULSE 81; RESP 19; TEMP 36.8; O2SAT 93
[2022-03-12 09:23] VITALS: BP 181/70; PULSE 53; RESP 14; O2SAT 97
--- NOTE | 2022-03-12 09:25 | PC.NURSE ---
Pt is ao x 3. Reports left side chest pain, 510. Provider notified.
[2022-03-12] MEDS: oxyCODONE HCl Immed Release 5 MG TABLET 10 MG PO (09:55)
--- NOTE | 2022-03-12 10:16 | PC.NURSE ---
No transportation available until after 1800 tonight. Pt aware.
[2022-03-12 12:09] VITALS: BP 161/52; PULSE 53; RESP 16; TEMP 36.6; O2SAT 99
[2022-03-12 16:00] VITALS: BP 171/63; PULSE 57; RESP 12
--- NOTE | 2022-03-12 23:00 | PC.NURSE ---
Addendum entered by Danni Odonnell 03/13/22 00:23: at this time and stated she was going to try to pass. At 0020 [facility] called and spoke to Charley she stated they are unable to transport until the morning. RN and Charge Nurse aware. Original Note: This [facility] called [facility] at 1940 and at 2236 for an update on a transfer that was booked on 03/12. spoke with Khalida she stated there are no trucks available
[2022-03-13 02:32] VITALS: BP 161/74; PULSE 62; RESP 16; O2SAT 97
[2022-03-13 06:15] VITALS: BP 174/62; PULSE 63; RESP 16; O2SAT 96
--- NOTE | 2022-03-13 08:29 | PC.NURSE ---
Handoff received. Pt currenlty sleeping. Breaths are even and unlabored. Will continue to monitor.
== END 2022-03-13 11:26 | disposition home or self-care (01) ==
PROVIDERS: Physician Assistant; Emergency Provider Emergency Medicine Emergency Medical Services
DX: R07.89 Other chest pain (principal); I12.0 Hypertensive chronic kidney disease with stage 5 chronic kidney disease or end stage renal disease; E11.22 Type 2 diabetes mellitus with diabetic chronic kidney disease; N18.6 End stage renal disease; Z79.4 Long term (current) use of insulin; Z79.899 Other long term (current) drug therapy; Z20.822 Contact with and (suspected) exposure to COVID-19
CPT/HCPCS: 36415; 71046; 80048; 80076; 83605; 83735; 84484; 85025; 87040; 87635; 93005; 96372; 99285; J1170

== ENCOUNTER 2022-04-11 07:32 | Outpatient (REF) | payer MEDICARE, MEDICAID, SELFPAY ==
[2022-04-11 07:28] LABS: MANUAL DIFF FLAG NO
[2022-04-11 08:07] LABS: Basophils Percent Auto 0.5 % (0-2); Eosinophils Absolute Auto 0.3 X10*3/uL (0.0-0.4); Eosinophils Percent Auto 5.3 % (0-4); Hematocrit 28.6 % (37.0-47.0); Hemoglobin 8.7 g/dl (12.0-16.0); Imm Gran Abs Auto 0.07 X10*3/uL (0.00-0.03); Imm Gran Pct Auto 1.2 % (0.0-0.4); Lymphocytes Absolute Auto 0.7 X10*3/uL (1.2-4.9); Lymphocytes Percent Auto 11.4 % (20-40); Mean Corpuscular HGB Conc 30.4 g/dl (31.0-35.0); Mean Corpuscular Hemoglobin 30.5 pg (27.0-33.0); Mean Corpuscular Volume 100.4 fL (80.0-98.0); Mean Platelet Volume 9.9 fL (9.4-12.3); Monocytes Absolute Auto 0.7 X10*3/uL (0.1-1.2); Monocytes Percent Auto 11.9 % (2-11); Neutrophils Absolute Auto 4.2 x10*3/uL (2.0-8.3); Neutrophils Percent Auto 69.7 % (45-73); Platelet Count 183 X10*3/uL (160-400); Red Blood Count 2.85 X10*6/uL (4.20-5.50); Red Cell Distribution Width 21.7 % (11.0-16.0)
[2022-04-11 08:35] LABS: Anion Gap 23 (12-20); Blood Urea Nitrogen 53 mg/dL (9-16); Calcium 7.4 mg/dL (8.4-10.2); Carbon Dioxide 21 mmol/L (22-29); Chloride 99 mmol/L (96-108); Estimated Glomerular Filt Rate 8; Glucose Random 128 mg/dL (60-115); Potassium 5.4 mmol/L (3.3-5.1); Sodium 138 mmol/L (135-145)
== END 2022-04-11 07:33 | disposition home or self-care (01) ==
LOC: HO.MMNH2L 07:32
PROVIDERS: Visit Provider Family Medicine
DX: N18.6 End stage renal disease (principal); Z99.2 Dependence on renal dialysis
CPT/HCPCS: 36415; 80048; 85025

== ENCOUNTER 2022-05-03 15:00 | Inpatient (IN) | payer MEDICARE, MEDICAID, SELFPAY ==
--- NOTE | 2022-05-03 | ECG_ITS ---
Test Reason : sepsis Blood Pressure : / mmHG Vent. Rate : 077 BPM Atrial Rate : 077 BPM P-R Int : 148 ms QRS Dur : 110 ms QT Int : 438 ms P-R-T Axes : 046 -11 -17 degrees QTc Int : 495 ms Sinus rhythm with Premature atrial complexes Right bundle branch block Abnormal ECG When compared with ECG of 11-MAR-2022 18:26, Premature atrial complexes are now Present Inverted T waves have replaced nonspecific T wave abnormality in Anterior leads Referred By: Generic ED Physician Electronically Signed By:IRVING BENDER MD
--- NOTE | ~2022-05-03 | XR_ITS ---
EXAMINATION: XR CHEST CLINICAL INFORMATION: Fever cough COMPARISON: 03/11/2022 TECHNIQUE: Frontal view of the chest was obtained. FINDINGS: Again seen is heart size mildly enlarged. No evidence of CHF. No infiltrates, effusions or lung masses are seen. Tunneled left jugular permacath with tip in SVC. Vascular stents noted in the left upper arm. Severe degenerative changes both shoulders. XR/XR chest 1V IMPRESSION: No acute intrathoracic disease.
--- NOTE | ~2022-05-03 | CT_ITS ---
EXAMINATION: CT ABDOMEN AND PELVIS WITHOUT CONTRAST CLINICAL INFORMATION: Right upper quadrant pain and fever. COMPARISON: No similar priors. TECHNIQUE: Multidetector volumetric imaging was performed from the superior aspect of the liver through the pubic symphysis. Sagittal and coronal reformatted images were obtained on the technologist's workstation. This CT examination was performed using dose optimization techniques as appropriate, variously including the following: *Automated exposure control *Adjustment of mA and/or kV according to patient size (this includes techniques or standardized protocols for targeted exams where dose is matched to indication/reason for exam; i.e. extremities or head) *Use of iterative reconstruction technique DLP: 798 mGy-cm FINDINGS: LUNG BASES: Query cylindrical bronchiectasis in the lung bases with subtle focal patchy airspace opacities in the left lower lobe (4:24). There is a punctate nodule in the right middle lobe (4:41). Coronary calcifications are partially imaged. LIVER, GALLBLADDER, AND BILIARY TREE: Limited noncontrast evaluation of the liver without discrete focal lesions. The liver is normal in size, shape and attenuation. There is hyperdense material layering the gallbladder, likely representing sludge or stones. Evaluation of gallbladder wall thickening is limited due to motion. No evidence of pericholecystic inflammatory changes. No biliary duct dilatation. PANCREAS: Limited noncontrast examination. Atrophic pancreas. The main pancreatic duct is nondilated. No significant peripancreatic fat stranding. SPLEEN: Limited noncontrast examination, unremarkable. ADRENAL GLANDS: There is a 2.5 cm left adrenal lesion measuring 19.5 Hounsfield units (3:23). Normal right adrenal gland. KIDNEYS AND URETERS: Atrophic kidneys with cortical thinning suggesting chronic underlying renal medical disease. There are multiple water density cysts bilaterally. Scattered vascular calcifications are noted. No hydronephrosis. There is mild bilateral symmetric perinephric fat stranding. BLADDER: Underdistended and partially obscured by streak artifacts from the left hip arthroplasty. GASTROINTESTINAL TRACT: Small hiatal hernia. The stomach and the small bowel are nondilated. Duodenal diverticulum along the second/third portion. The appendix is not identified, however there are no regional inflammatory changes to suspect acute appendicitis. Severe sigmoid diverticulosis with wall thickening (3:56) but no significant pericolic fat stranding. No evidence of bowel obstruction. ABDOMINAL WALL: Postsurgical changes in the right inguinal region with soft tissue thickening, correlate with prior surgical history. No significant hernia. Calcified granulomas in the left greater than right gluteal regions. Soft tissue nodules in the right lower abdominal wall (3:41) likely reflecting injection sites. LYMPH NODES: A few prominent but subcentimeter retroperitoneal and pelvic lymph nodes are nonspecific. No lymphadenopathy by size criteria. VASCULAR: Limited noncontrast examination. IVC filter noted. Extensive atherosclerotic disease. The abdominal aorta is of normal caliber. PELVIC VISCERA: Hysterectomy. No pelvic mass. Indeterminate mild presacral soft tissue stranding and free fluid, for instance image 469, series 4 and image 506, series 4. OSSEOUS STRUCTURES: There is a 0.8 cm anterolisthesis of L4 on L5 with bilateral L4 pars defects. Multilevel degenerative change of the spine, with significant endplate sclerosis and disc space narrowing at L4-L5. Partially imaged left hip arthroplasty. Age indeterminate superior compression deformity at L4, but likely degenerative in nature in the absence of associated soft tissue swelling/hematoma and background of extensive degenerative changes. Chronic appearing fractures of the right anterior acetabulum and right inferior pubic rami fracture with callus formation and osseous bridging. Subtle heterogeneity of the right sacral alae, raising the possibility of insufficiency fracture. CT/CT abdomen pelvis wo IV con IMPRESSION: 1. Limited noncontrast examination. 2. Severe sigmoid diverticulosis with wall thickening but no significant pericolic fat stranding. This could be seen in the setting of chronic muscular hyperplasia or mild acute diverticulitis. If not recently obtained, correlation with a colonoscopy is recommended as well to rule out underlying lesions. 3. Cholelithiasis but no evidence of acute cholecystitis. 4. Indeterminate 2.5 cm left adrenal lesion. Recommend correlation with prior examinations to ensure stability, and if none available, recommend correlation with a dynamic adrenal CT or MR protocol. 5. Nonspecific mild presacral soft tissue stranding and free fluid. 6. Query cylindrical bronchiectasis in the lung bases with subtle focal airspace opacities in the left lower lobe. Correlate clinically for an infectious or inflammatory process, and if indicated, further evaluation with an elective chest CT. 7. Possible right sacral alae insufficiency fracture.
--- NOTE | ~2022-05-03 | CT_ITS ---
EXAMINATION: CT HEAD WITHOUT CONTRAST CLINICAL INFORMATION: Altered mental status COMPARISON: None TECHNIQUE: Contiguous axial imaging was performed from the skull base to vertex without intravenous administration of contrast. This CT examination was performed using dose optimization techniques as appropriate, variously including the following: *Automated exposure control *Adjustment of mA and/or kV according to patient size (this includes techniques or standardized protocols for targeted exams where dose is matched to indication/reason for exam; i.e. extremities or head) *Use of iterative reconstruction technique DLP: 101 mGy-cm FINDINGS: CT examination shows age-related involutional changes with atrophy and mild ventriculomegaly. Periventricular white matter disease is present, likely on the basis of microvascular ischemic change. No acute hemorrhage, mass effect or shift is detected. In the posterior fossa, the brainstem and cerebellum image normally. In the right posterior parietal convexity, there is a well-circumscribed 15 x 8 mm intramedullary bone lesion with a groundglass appearance. The inner and outer tables of the bony calvarium are intact. There is no epidural extension. No other bone lesions are detected. Both orbits are aphakic. The paranasal sinuses and mastoid air cells image normally. CT/CT head/brain wo IV con IMPRESSION: 1. No acute hemorrhage, mass effect or shift. 2. Age-related involutional changes and microvascular ischemic disease. 3. Right parietal calvarium well-circumscribed intramedullary lytic bone lesion. Differential diagnosis includes benign processes including intraosseous hemangioma. In this age group, solitary metastasis and myeloma are also to be considered, though the appearance is more suggestive of a benign lesion. If the patient has had prior outside imaging of the head (MRI or CT), comparison with prior studies would be recommended. If the patient has an underlying neoplasm, whole-body bone scan might be considered.
[2022-05-03 15:19] VITALS: BP 151/101; PULSE 88; RESP 18; TEMP 37.7; O2SAT 97; BMI 31.2
[2022-05-03 15:58] VITALS: TEMP 38.8
--- NOTE | 2022-05-03 16:13 | ED.AMS ---
HPI - Altered Mental Status General Chief Complaint: Nausea/Vomiting/Diarrhea Stated Complaint: N/V S/P DIALYSIS,+COVID Time Seen by Provider: 05/03/22 16:03 Source: patient and old records reviewed Mode of arrival: EMS Limitations: altered mental status History of Present Illness HPI narrative: 81 yo female with hx of HTN, DM, ESRD on HD T Th S, PE with IVC filter due to hx of anemia requiring transfusions, chronic pain on oxycodone. Hx obtained from nurses and SNF records. Reportedly felt unwell and since this AM but completed dialysis and vomited. Patient checked into ED with a fever. When asked what's wrong she states I don't know and moans. complaint: altered mental status (fever) Onset (ago): day(s) (this AM) Timing confirmed by: caregiver Severity: moderate Consistency of symptoms: constant Context: other (permacath) Associated symptoms: fever and nausea/vomiting Related Data Home Medications Medication Instructions Recorded Confirmed acetaminophen 325 mg tablet 325 mg PO TID PRN Pain 02/10/21 05/03/22 insulin NPH isoph U-100 human 100 16 unit subcut BEDTIME 02/10/21 05/03/22 unit/mL subcutaneous suspension (Novolin N NPH U-100 Insulin isophane) levothyroxine 88 mcg tablet 1 tab PO DAILY@0600 02/10/21 05/03/22 metoprolol tartrate 25 mg tablet 1 tab PO BID 02/10/21 05/03/22 ondansetron 4 mg disintegrating 4 mg PO Q6H PRN Nausea And Vomiting 02/10/21 05/03/22 tablet oxycodone 10 mg tablet 1 tab PO QID PRN pain 02/10/21 05/03/22 polyethylene glycol 3350 17 gram 17 g PO DAILY 02/10/21 05/03/22 oral powder packet (Miralax) pravastatin 40 mg tablet 1 tab PO BEDTIME 02/10/21 05/03/22 sertraline 50 mg tablet 1 tab PO DAILY 02/10/21 05/03/22 ascorbic acid (vitamin C) 500 mg 500 mg PO DAILY 05/03/22 05/03/22 tablet (Vitamin C) aspirin 325 mg tablet 325 mg PO DAILY 05/03/22 05/03/22 bisacodyl 10 mg rectal suppository 10 mg SD DAILY PRN Constipation 05/03/22 05/03/22 ferrous fumarate 325 mg (106 mg 325 mg PO DAILY 05/03/22 05/03/22 iron) tablet lactulose 10 gram/15 mL oral 30 ml PO DAILY PRN Constipation 05/03/22 05/03/22 solution latanoprost 0.005 % eye drops 1 drp ophthalmic (eye) BEDTIME 05/03/22 05/03/22 melatonin 3 mg tablet 3 mg PO BEDTIME PRN Insomnia 05/03/22 05/03/22 midodrine 2.5 mg tablet 1 tab PO TUTHSA 05/03/22 05/03/22 nitroglycerin 0.4 mg sublingual 0.4 mg sublingual Q5M PRN Chest 05/03/22 05/03/22 tablet Pain nystatin 100,000 unit/gram topical 1 appl topical BID 05/03/22 05/03/22 powder omeprazole 40 mg capsule,delayed 40 mg PO DAILY 05/03/22 05/03/22 release sennosides 8.6 mg tablet (senna) 8.6 mg PO BEDTIME PRN Constipation 05/03/22 05/03/22 Allergies Allergy/AdvReac Type Severity Reaction Status Date / Time Sulfa (Sulfonamide Allergy Unknown RASH Verified 05/03/22 19:57 Antibiotics) Review of Systems Review of Systems: ROS unable to be obtained due to altered mental status PMFSH Past Medical History Attestation statement: The following information was validated with the patient. Medical History Anemia Diabetes mellitus GERD (gastroesophageal reflux disease) HTN (hypertension) Hypertension Kidney disease Pulmonary embolus Social History Social History Patient Tobacco Use Status: Never used Tobacco Advance Directives: Yes Advance Directives on File: Yes Advance Directives Date on File: 02/10/21 Physical Exam ED Vital Signs: Vital Signs - 24 hr 05/03/22 15:19 05/03/22 15:58 05/03/22 17:01 Temperature 99.8 F 102 F H Pulse Rate 88 76 Respiratory Rate 18 18 Blood Pressure 151/101 H 122/53 L Pulse Oximetry 97 98 Oxygen Delivery Method Room Air Room Air 05/03/22 18:25 Temperature 98.9 F Pulse Rate 75 Respiratory Rate 18 Blood Pressure 117/47 L Pulse Oximetry 96 Oxygen Delivery Method Room Air BMI result Body Mass Index 31.2 Appearance: Alert. Confused not really answering questions Mild acute distress. Eyes: Pupils equal, round and reactive to light. ENT: Pharynx normal. Neck: Normal inspection. Neck supple. CVS: Normal heart rate and rhythm. Pulses normal. Respiratory: No respiratory distress. Breath sounds diminished left lower base, very coarse bases. Abdomen: Soft and mild diffuse ttp Skin: Skin warm and dry. Normal skin color. Normal skin turgor. perma cath site c/d/i no signs of infection Extremities: No lower extremity edema. Neuro: will not participate in exam but does respond to voice and commands, moves all extremities. Course Course Course Narrative: patinet more awake and appropriate, states she does make urine. she cannot tell me what happened today. she is upset she is here. COVID 19 - no hypoxia , call to [facility] to obtain vaccine information. UA pending CT scans pending + COVID as of 04/30 s/p 4 covid vaccines [employer]. SNF states patient progressively worsening with vomiting and AMS MDM - Altered Mental Status MDM Narrative Medical decision making narrative: 81 yo female with hx of HTN, DM, ESRD on HD T Th S, PE with IVC filter due to hx of anemia requiring transfusions, chronic pain on oxycodone now presents with fever and AMS - undifferented in HD patient at this time will need infectious workup including labs, cultures, lactic acid, CXR for pneumonia, UA if patient makes urine though she cannot answer that question for me. CT head for ICH/mass lesion. CT abdomen for any signs of biliary pathology as well given she c/o mild upper abdominal pain. Empiric antibiotics ordered given HD status and fever of 102. Likely admit pending workup in ED. Lab Data Result diagrams: 05/03/22 16:35 05/03/22 16:58 Labs: Lab Results 05/03/22 05/03/22 05/03/22 Range/Units 16:35 16:58 16:58 WBC 16.3 H (4.8-10.8) X10*3/uL RBC 3.84 L D (4.20-5.50) X10*6/uL Hgb 11.8 L D (12.0-16.0) g/dl Hct 38.0 D (37.0-47.0) % MCV 99.0 H (80.0-98.0) fL MCH 30.7 (27.0-33.0) pg MCHC 31.1 (31.0-35.0) g/dl RDW 19.4 H (11.0-16.0) % Plt Count 221 (160-400) X10*3/uL MPV 10.1 (9.4-12.3) fL Immature Gran % (Auto) 1.4 H (0.0-0.4) % Neut % (Auto) 89.8 H (45-73) % Lymph % (Auto) 2.6 L (20-40) % [place] % (Auto) 4.4 (2-11) % Eos % (Auto) 1.6 (0-4) % Baso % (Auto) 0.2 (0-2) % Lymph # (Auto) 0.4 L (1.2-4.9) X10*3/uL [place] # (Auto) 0.7 (0.1-1.2) X10*3/uL Eos # (Auto) 0.3 (0.0-0.4) X10*3/uL Baso # (Auto) 0.0 (0.0-0.2) X10*3/uL Abs Immat Gran (auto) 0.22 H (0.00-0.03) X10*3/uL Absolute Neuts (auto) 14.6 H (2.0-8.3) x10*3/uL Absolute Nucleated RBC 0.030 H (0.0-0.012) X10*3/uL Nucleated RBC % (auto) 0.2 (0.0-0.2) /100WBC Sodium 137 (135-145) mmol/L Potassium 3.9 D (3.3-5.1) mmol/L Chloride 92 L (96-108) mmol/L Carbon Dioxide 28 (22-29) mmol/L Anion Gap 21 H (12-20) BUN 31 H (9-16) mg/dL Creatinine 4.29 H* (0.5-1.4) mg/dL Estim Creat Clear Calc 9.9 Estimated GFR 10 Random Glucose 115 (60-115) mg/dL Lactic Acid 2.0 (0.5-2.0) mmol/L Calcium 8.2 L D (8.4-10.2) mg/dL Magnesium 1.6 (1.6-2.6) mg/dL Total Bilirubin 0.4 (0.0-1.0) mg/dL AST 14 (5-31) U/L ALT 9 (0-31) U/L Alkaline Phosphatase 111 (39-117) U/L Total Protein 6.1 L (6.5-8.0) g/dL Albumin 3.8 (3.5-5.0) g/dL Urine Color Urine Appearance Urine pH (5.0-9.0) Ur Specific [place] (1.005-1.025) Urine Protein (Neg-Trace) mg/dL Urine Glucose (UA) (Negative) mg/dL Urine Ketones (Negative) mg/dL Urine Blood (Negative) Urine Nitrite (Negative) Ur Leukocyte Esterase (Negative) Influenza Type A (PCR) (Negative) Influenza Type B (PCR) (Negative) RSV RNA Qual (PCR) (Negative) SARS-CoV-2 RNA (RT-PCR) (Negative) 05/03/22 05/03/22 Range/Units 16:58 19:39 WBC (4.8-10.8) X10*3/uL RBC (4.20-5.50) X10*6/uL Hgb (12.0-16.0) g/dl Hct (37.0-47.0) % MCV (80.0-98.0) fL MCH (27.0-33.0) pg MCHC (31.0-35.0) g/dl RDW (11.0-16.0) % Plt Count (160-400) X10*3/uL MPV (9.4-12.3) fL Immature Gran % (Auto) (0.0-0.4) % Neut % (Auto) (45-73) % Lymph % (Auto) (20-40) % [place] % (Auto) (2-11) % Eos % (Auto) (0-4) % Baso % (Auto) (0-2) % Lymph # (Auto) (1.2-4.9) X10*3/uL [place] # (Auto) (0.1-1.2) X10*3/uL Eos # (Auto) (0.0-0.4) X10*3/uL Baso # (Auto) (0.0-0.2) X10*3/uL Abs Immat Gran (auto) (0.00-0.03) X10*3/uL Absolute Neuts (auto) (2.0-8.3) x10*3/uL Absolute Nucleated RBC (0.0-0.012) X10*3/uL Nucleated RBC % (auto) (0.0-0.2) /100WBC Sodium (135-145) mmol/L Potassium (3.3-5.1) mmol/L Chloride (96-108) mmol/L Carbon Dioxide (22-29) mmol/L Anion Gap (12-20) BUN (9-16) mg/dL Creatinine (0.5-1.4) mg/dL Estim Creat Clear Calc Estimated GFR Random Glucose (60-115) mg/dL Lactic Acid (0.5-2.0) mmol/L Calcium (8.4-10.2) mg/dL Magnesium (1.6-2.6) mg/dL Total Bilirubin (0.0-1.0) mg/dL AST (5-31) U/L ALT (0-31) U/L Alkaline Phosphatase (39-117) U/L Total Protein (6.5-8.0) g/dL Albumin (3.5-5.0) g/dL Urine Color Yellow Urine Appearance Turbid Urine pH 7.0 (5.0-9.0) Ur Specific [place] 1.015 (1.005-1.025) Urine Protein 300 (3+) H (Neg-Trace) mg/dL Urine Glucose (UA) Negative (Negative) mg/dL Urine Ketones Trace (Negative) mg/dL Urine Blood Trace H (Negative) Urine Nitrite Negative (Negative) Ur Leukocyte Esterase Large (3+) H (Negative) Influenza Type A (PCR) NEGATIVE (Negative) Influenza Type B (PCR) NEGATIVE (Negative) RSV RNA Qual (PCR) NEGATIVE (Negative) SARS-CoV-2 RNA (RT-PCR) POSITIVE A (Negative) ECG Data ECG #1: Attestation: I personally reviewed and interpreted this ECG as follows: ECG interpretation date: 05/03/22 ECG interpretation time: 16:26 Interpretation: Rate: 77 Rhythm: NSR [place]: left Normal P waves. Normal GEOFFREY. Normal QRS complex. ST T wave : no ELYSE, inverted t waves in V1-V2 but discordant with RBBB no ischemia qTC: normal prior studies: prior inf infarct noted no change mar 2022 The study has been interpreted contemporaneously by me. . Discharge Plan Discharge Clinical Impression: Fever, Leukocytosis, COVID-19, Encephalopathy acute, Acute UTI Patient Disposition: Admitted As Inpatient
[2022-05-03] MEDS: Acetaminophen 325 MG TABLET 650 MG PO (16:21)
[2022-05-03] MEDS: ondansetron HCL 4 MG/2 ML VIAL IVPUSH (16:22)
[2022-05-03 16:38] LABS: MANUAL DIFF FLAG NO
[2022-05-03 16:41] LABS: Basophils Percent Auto 0.2 % (0-2); Eosinophils Absolute Auto 0.3 X10*3/uL (0.0-0.4); Eosinophils Percent Auto 1.6 % (0-4); Hemoglobin 11.8 g/dl (12.0-16.0); Imm Gran Abs Auto 0.22 X10*3/uL (0.00-0.03); Imm Gran Pct Auto 1.4 % (0.0-0.4); Lymphocytes Absolute Auto 0.4 X10*3/uL (1.2-4.9); Lymphocytes Percent Auto 2.6 % (20-40); Mean Corpuscular HGB Conc 31.1 g/dl (31.0-35.0); Mean Corpuscular Hemoglobin 30.7 pg (27.0-33.0); Mean Platelet Volume 10.1 fL (9.4-12.3); Monocytes Absolute Auto 0.7 X10*3/uL (0.1-1.2); Monocytes Percent Auto 4.4 % (2-11); NRBC Pct Auto 0.2 /100WBC (0.0-0.2); Neutrophils Absolute Auto 14.6 x10*3/uL (2.0-8.3); Neutrophils Percent Auto 89.8 % (45-73); Platelet Count 221 X10*3/uL (160-400); Red Blood Count 3.84 X10*6/uL (4.20-5.50); Red Cell Distribution Width 19.4 % (11.0-16.0); White Blood Count 16.3 X10*3/uL (4.8-10.8)
[2022-05-03] MEDS: cefEPime HCl 1 GM in 0.9 % Sodium Chloride 50 ML IV (16:58)
[2022-05-03 17:01] VITALS: BP 122/53; PULSE 76; RESP 18; O2SAT 98
[2022-05-03 17:41] LABS: Alanine Aminotransferase 9 U/L (0-31); Albumin Level 3.8 g/dL (3.5-5.0); Alkaline Phosphatase 111 U/L (39-117); Anion Gap 21 (12-20); Aspartate Amino Transferase 14 U/L (5-31); Bilirubin Total 0.4 mg/dL (0.0-1.0); Blood Urea Nitrogen 31 mg/dL (9-16); Calcium 8.2 mg/dL (8.4-10.2); Carbon Dioxide 28 mmol/L (22-29); Chloride 92 mmol/L (96-108); Creatinine Clr Calc Pharmacy 9.9; Estimated Glomerular Filt Rate 10; Glucose Random 115 mg/dL (60-115); Magnesium 1.6 mg/dL (1.6-2.6); Potassium 3.9 mmol/L (3.3-5.1); Sodium 137 mmol/L (135-145); Total Protein 6.1 g/dL (6.5-8.0)
--- NOTE | 2022-05-03 17:41 | PHA.MEDREC ---
Pharmacy Consult ? Medication Reconciliation Pharmacy has completed the medication reconciliation. Used list from [facility].
[2022-05-03 17:49] LABS: Influenza A PCR NEGATIVE (Negative); Influenza B PCR NEGATIVE (Negative); Resp Syncy Virus RNA Qual PCR NEGATIVE (Negative); SARS COV2 PCR INHOUSE POSITIVE (Negative)
[2022-05-03] MEDS: vancomycin HCL 1,500 MG in 0.9 % Sodium Chloride 500 ML 333.33 MG IV (18:17)
[2022-05-03 18:25] VITALS: BP 117/47; PULSE 75; RESP 18; TEMP 37.2; O2SAT 96
[2022-05-03 19:53] LABS: Appearance Urine Turbid; Color Urine Yellow; Glucose Urine UA Negative (Negative); Leukocyte Esterase Urine Large (3+) (Negative); Nitrite Urine Negative (Negative); Specific Gravity - Urine 1.015 (1.005-1.025); UMIC TRIGGER UACC YES; Urine Blood Trace (Negative); Urine Ketones Trace mg/dL (Negative); Urine Protein 300 (3+) mg/dL (Neg-Trace)
[2022-05-03 20:06] LABS: Bacteria Urine 1+ (None Seen); UACC Culture Trigger YES; WBC Urine >50 /HPF (0-5)
--- NOTE | 2022-05-03 20:06 | PC.NURSE ---
Pt is AMS, straight cath completed and sent to the lab.
--- NOTE | 2022-05-03 20:45 | P.HPHOSP_ITS ---
History of Present Illness Date of Service: 05/03/22 Chief Complaint: Altered mentation This is a 81-year-old female with a pertinent history of ESRD on hemodialysis Monday//Monday, insulin-dependent diabetes mellitus, history of PVC with IVC filter, chronic opioid use due to chronic pain, mood disorder, mixed hyperlipidemia, gastroesophageal reflux disease, hypothyroidism who was sent to the ER after she was found altered. At the time of my examination, patient is disoriented to place and does not know when she is. She is only complaining of feeling cold. Unable to obtain any history from the patient. As per chart review, patient was feeling unwell since a.m. but went for dialysis. Soon after she had episodes of nonbloody emesis. In the ER patient was found to be febrile with a temp of 102 degrees and had leukocytosis. She is not at baseline and is unable to answer questions. Review of Systems Review of Systems: Yes Unobtainable due to mental status [facility] Medical History (Updated 05/03/22 @ 21:00 by Filomena Mejia MD) Anemia Diabetes mellitus GERD (gastroesophageal reflux disease) HTN (hypertension) Hypertension Kidney disease Pulmonary embolus Social History Patient Tobacco Use Status: Never used Tobacco Advance Directives: Yes Advance Directives on File: Yes Advance Directives Date on File: 02/10/21 Meds Allergies Allergy/AdvReac Type Severity Reaction Status Date / Time Sulfa (Sulfonamide Allergy Unknown RASH Verified 05/03/22 19:57 Antibiotics) Active Medications: Current Medications Acetaminophen (Acetaminophen 325 Mg Tablet) 650 mg PO Q6H PRN PRN Reason: Pain, Mild (Pain Scale 1-3) Ascorbic Acid (Ascorbic Acid 500 Mg Tablet) 500 mg PO DAILY [place] Aspirin (Aspirin 325 Mg Tablet) 325 mg PO DAILY [place] Bisacodyl (Bisacodyl 10 Mg Supp.Rect) 10 mg ND DAILY PRN PRN Reason: Constipation Enoxaparin Sodium (Enoxaparin Sodium 30 Mg/0.3 Ml Syringe) 30 mg SUBCUT Q24H [place]IE Ceftriaxone Sodium 1 gm/ (Sodium Chloride) 50 mls @ 100 mls/hr IV DAILY ONE Stop: 05/03/22 21:11 Lactulose (Lactulose 20 Gm/30 Ml Solution) 20 gm PO DAILY PRN PRN Reason: Constipation Latanoprost (Latanoprost 0.005 % Ophth [place] 2.5 Ml Drops) 1 drop EYE-BOTH BEDTIME [facility] Levothyroxine Sodium (Levothyroxine Sodium 88 Mcg Tablet) 88 mcg PO DAILY@0600 [facility] Melatonin (Melatonin 3 Mg Tablet) 6 mg PO BEDTIME PRN PRN Reason: Insomnia Midodrine (Midodrine Hcl 2.5 Mg Tablet) 2.5 mg PO TUTHSA [facility] Nitroglycerin (Nitroglycerin 0.4 Mg Tab.Subl) 0.4 mg SUBLINGUAL Q5M PRN PRN Reason: Chest Pain Non-Formulary Medication (Ferrous Fumarate) 325 mg PO DAILY [facility] Non-Formulary Medication (Insulin Nph Isoph U-100 Human [Novolin N Nph U-100 Insulin]) 10 unit SUBCUT BEDTIME [facility] Omeprazole (Omeprazole 40 Mg Capsule.Dr) 40 mg PO DAILY [facility] Ondansetron HCl (Ondansetron Hcl 4 Mg/2 Ml Vial) 4 mg IVPUSH Q8H PRN PRN Reason: Nausea and Vomiting Oxycodone HCl (Oxycodone Hcl Immed Release 5 Mg Tablet) 10 mg PO QID PRN PRN Reason: Pain, Severe (Pain Scale 7-10) Pharmacy Consult (Consult Rx Perform Med Rec) 1 each MISCELLANE ONCE PRN PRN Reason: Consult order Polyethylene Glycol (Polyethylene Glycol 3350 17 Gm Powd.Pack) 17 gm PO DAILY [facility] Pravastatin Sodium (Pravastatin Sodium 40 Mg Tablet) 40 mg PO BEDTIME [facility] Senna (Sennosides 8.6 Mg Tablet) 8.6 mg PO BEDTIME PRN PRN Reason: Constipation Sertraline HCl (Sertraline Hcl 50 Mg Tablet) 50 mg PO DAILY [facility] Sodium Chloride (0.9 % Sodium Chloride Flush 3 Ml Syringe) 3 ml IVFLUSH QSHIFT [facility] Home Medications Medication Instructions Recorded Confirmed Last Taken Type acetaminophen 325 mg tablet 325 mg PO TID PRN Pain 02/10/21 05/03/22 Unknown History insulin NPH isoph U-100 human 100 16 unit subcut BEDTIME 02/10/21 05/03/22 Unknown History unit/mL subcutaneous suspension (Novolin N NPH U-100 Insulin isophane) levothyroxine 88 mcg tablet 1 tab PO DAILY@0600 02/10/21 05/03/22 Unknown History metoprolol tartrate 25 mg tablet 1 tab PO BID 02/10/21 05/03/22 Unknown History ondansetron 4 mg disintegrating 4 mg PO Q6H PRN Nausea And Vomiting 02/10/21 05/03/22 Unknown History tablet oxycodone 10 mg tablet 1 tab PO QID PRN pain 02/10/21 05/03/22 Unknown History polyethylene glycol 3350 17 gram 17 g PO DAILY 02/10/21 05/03/22 Unknown History oral powder packet (Miralax) pravastatin 40 mg tablet 1 tab PO BEDTIME 02/10/21 05/03/22 Unknown History sertraline 50 mg tablet 1 tab PO DAILY 02/10/21 05/03/22 Unknown History ascorbic acid (vitamin C) 500 mg 500 mg PO DAILY 05/03/22 05/03/22 Unknown History tablet (Vitamin C) aspirin 325 mg tablet 325 mg PO DAILY 05/03/22 05/03/22 Unknown History bisacodyl 10 mg rectal suppository 10 mg ND DAILY PRN Constipation 05/03/22 05/03/22 Unknown History ferrous fumarate 325 mg (106 mg 325 mg PO DAILY 05/03/22 05/03/22 Unknown History iron) tablet lactulose 10 gram/15 mL oral 30 ml PO DAILY PRN Constipation 05/03/22 05/03/22 Unknown History solution latanoprost 0.005 % eye drops 1 drp ophthalmic (eye) BEDTIME 05/03/22 05/03/22 Unknown History melatonin 3 mg tablet 3 mg PO BEDTIME PRN Insomnia 05/03/22 05/03/22 Unknown History midodrine 2.5 mg tablet 1 tab PO TUTHSA 05/03/22 05/03/22 Unknown History nitroglycerin 0.4 mg sublingual 0.4 mg sublingual Q5M PRN Chest 05/03/22 05/03/22 Unknown History tablet Pain nystatin 100,000 unit/gram topical 1 appl topical BID 05/03/22 05/03/22 Unknown History powder omeprazole 40 mg capsule,delayed 40 mg PO DAILY 05/03/22 05/03/22 Unknown History release sennosides 8.6 mg tablet (senna) 8.6 mg PO BEDTIME PRN Constipation 05/03/22 05/03/22 Unknown History Physical Exam Vital Signs and Narrative: Vital Signs: Last Vital Signs Temp 98.9 F 05/03/22 18:25 Pulse 75 05/03/22 18:25 Resp 18 05/03/22 18:25 BP 117/47 L 05/03/22 18:25 Pulse Ox 96 05/03/22 18:25 O2 Del Method 05/03/22 18:25 BMI result Body Mass Index 31.2 Elderly female lying in bed in no distress Neck supple, no JVD, catheter site clean without drainage Regular rate and rhythm, S1-S2 heard Decreased breath sound at bases Abdomen soft nontender, no guarding, no rigidity Patient is awake, alert and oriented to self, disoriented to place, time and person ; no focal motor deficit Psych: Normal mood No pedal edema Results Labs CBC and Chem 7: 05/03/22 16:35 05/03/22 16:58 Labs: Laboratory Results - last 24 hr 05/03/22 05/03/22 05/03/22 16:35 16:58 16:58 MCV 99.0 H MCH 30.7 MCHC 31.1 RDW 19.4 H Plt Count 221 MPV 10.1 Immature Gran % (Auto) 1.4 H Neut % (Auto) 89.8 H Lymph % (Auto) 2.6 L [place] % (Auto) 4.4 Eos % (Auto) 1.6 Baso % (Auto) 0.2 Lymph # (Auto) 0.4 L [place] # (Auto) 0.7 Eos # (Auto) 0.3 Baso # (Auto) 0.0 Abs Immat Gran (auto) 0.22 H Absolute Neuts (auto) 14.6 H Absolute Nucleated RBC 0.030 H Nucleated RBC % (auto) 0.2 Anion Gap 21 H Estim Creat Clear Calc 9.9 Estimated GFR 10 Random Glucose 115 Lactic Acid 2.0 Calcium 8.2 L D Magnesium 1.6 Total Bilirubin 0.4 AST 14 ALT 9 Alkaline Phosphatase 111 Total Protein 6.1 L Albumin 3.8 Urine Color Urine Appearance Urine pH Ur Specific [place] Urine Protein Urine Glucose (UA) Urine Ketones Urine Blood Urine Nitrite Ur Leukocyte Esterase Urine RBC Urine WBC Ur Squamous Epith Cells Urine Bacteria Hyaline Casts Influenza Type A (PCR) Influenza Type B (PCR) RSV RNA Qual (PCR) SARS-CoV-2 RNA (RT-PCR) 05/03/22 05/03/22 16:58 19:39 MCV MCH MCHC RDW Plt Count MPV Immature Gran % (Auto) Neut % (Auto) Lymph % (Auto) [place] % (Auto) Eos % (Auto) Baso % (Auto) Lymph # (Auto) [place] # (Auto) Eos # (Auto) Baso # (Auto) Abs Immat Gran (auto) Absolute Neuts (auto) Absolute Nucleated RBC Nucleated RBC % (auto) Anion Gap Estim Creat Clear Calc Estimated GFR Random Glucose Lactic Acid Calcium Magnesium Total Bilirubin AST ALT Alkaline Phosphatase Total Protein Albumin Urine Color Yellow Urine Appearance Turbid Urine pH 7.0 Ur Specific [place] 1.015 Urine Protein 300 (3+) H Urine Glucose (UA) Negative Urine Ketones Trace Urine Blood Trace H Urine Nitrite Negative Ur Leukocyte Esterase Large (3+) H Urine RBC 6-10 H Urine WBC >50 H Ur Squamous Epith Cells 3-5 Urine Bacteria 1+ Hyaline Casts 3-5 Influenza Type A (PCR) NEGATIVE Influenza Type B (PCR) NEGATIVE RSV RNA Qual (PCR) NEGATIVE SARS-CoV-2 RNA (RT-PCR) POSITIVE A Imaging Radiologist's Impressions: Impressions Chest X-Ray 05/03/22 17:14 IMPRESSION: No acute intrathoracic disease. Head CT 05/03/22 19:14 IMPRESSION: 1. No acute hemorrhage, mass effect or shift. 2. Age-related involutional changes and microvascular ischemic disease. 3. Right parietal calvarium well-circumscribed intramedullary lytic bone lesion. Differential diagnosis includes benign processes including intraosseous hemangioma. In this age group, solitary metastasis and myeloma are also to be considered, though the appearance is more suggestive of a benign lesion. If the patient has had prior outside imaging of the head (MRI or CT), comparison with prior studies would be recommended. If the patient has an underlying neoplasm, whole-body bone scan might be considered. Abdomen/Pelvis CT 05/03/22 19:16 IMPRESSION: 1. Limited noncontrast examination. 2. Severe sigmoid diverticulosis with wall thickening but no significant pericolic fat stranding. This could be seen in the setting of chronic muscular hyperplasia or mild acute diverticulitis. If not recently obtained, correlation with a colonoscopy is recommended as well to rule out underlying lesions. 3. Cholelithiasis but no evidence of acute cholecystitis. 4. Indeterminate 2.5 cm left adrenal lesion. Recommend correlation with prior examinations to ensure stability, and if none available, recommend correlation with a dynamic adrenal CT or MR protocol. 5. Nonspecific mild presacral soft tissue stranding and free fluid. 6. Query cylindrical bronchiectasis in the lung bases with subtle focal airspace opacities in the left lower lobe. Correlate clinically for an infectious or inflammatory process, and if indicated, further evaluation with an elective chest CT. 7. Possible right sacral alae insufficiency fracture. Assessment and Plan (1) Acute UTI: Status: Acute (2) Encephalopathy acute: Status: Acute (3) COVID-19: Status: Acute (4) ESRD on dialysis: Status: Acute (5) Diabetes mellitus: Status: Acute (6) HTN (hypertension): Status: Acute (7) GERD (gastroesophageal reflux disease): Status: Acute Plan This is a 81-year-old female with a pertinent history of ESRD on hemodialysis Monday//Monday, insulin-dependent diabetes mellitus, history of PVC with IVC filter, chronic opioid use due to chronic pain, mood disorder, mixed hyperlipidemia, gastroesophageal reflux disease, hypothyroidism who was sent to the ER after she was found altered. #. Acute metabolic encephalopathy in the setting of: #. Sepsis due to acute complicated cystitis -will admit patient and initiate IV Rocephin. No previous urine cultures. Blood cultures and urine culture obtained in the ER. Lactic acid within normal limits. Holding sepsis protocol IV fluid resuscitation as patient is ESRD. #. COVID-19 positive test date: 04/30/2022 -COVID isolation precautions. Maintaining normal oxygen saturation on room air so no indication for Decadron #. ESRD on hemodialysis -catheter site looks clean. Patient undergoes hemodialysis Monday//Monday. Consulted Nephrology #. Insulin-dependent diabetes mellitus -reduce basal insulin while in the hospital. Initiating Accu-Cheks with sliding insulin before meal and at bedtime #. Possible right sacral ala fracture -consulting Physical therapy to evaluate and treat #. Essential hypertension -hold metoprolol due to sepsis #. Gastroesophageal reflux disease -on omeprazole #. Mood disorder -on sertraline #. Chronic opioid use due to chronic pain -oxycodone p.r.n. #. Hypothyroidism -On levothyroxine DVT prophylaxis: Lovenox 30 mg daily Diet: Cardiac diet Full code Patient will require two night minimum hospital stay for need for IV antibiotics. Monitor mentation and follow cultures. Quality Stroke Does the patient have a stroke diagnosis?: No VTE Prior VTE?: Yes VTE Risk Level:: Medical - moderate - high VTE Device Contraindication: Treatment Not Indicated VTE Drug Contraindication: N/A - Med Ordered
[2022-05-03 21:11] LABS: Glucose, Whole Blood 101 mg/dL (60-115)
[2022-05-03 21:13] VITALS: BP 149/55; PULSE 85; RESP 20; TEMP 36.9; O2SAT 96
--- NOTE | 2022-05-03 21:22 | PC.NURSE ---
Pt. due for 21:00 dose Insulin Novolin. Not stocked in the hospital. Reached out to Hospitalist MD Roberto to see if there is anything else he can give in lieu.
--- NOTE | 2022-05-03 21:26 | PC.NURSE ---
Still awaiting pharmacy verification for dose of Ceftriaxone at this time.
--- NOTE | 2022-05-03 21:28 | PC.NURSE ---
MD Roberto states that he is changing Novolin order to Lantus. This RN awaiting order at this time.
--- NOTE | 2022-05-03 21:39 | PC.NURSE ---
Pharmacy sending up dose Latanoprost at this time
[2022-05-03] MEDS: Pravastatin Sodium 40 MG TABLET PO (21:43)
[2022-05-03] MEDS: cefTRIAXone sodium 1 GM in 0.9 % Sodium Chloride 50 ML IV (22:11)
[2022-05-03] MEDS: Insulin Glargine,Hum.rec.anlog 100 UNIT/ML 10 ML VIAL 8 UNIT SUBCUT (22:11)
[2022-05-03] MEDS: Enoxaparin Sodium 30 MG/0.3 ML SYRINGE SUBCUT (22:11)
[2022-05-03] MEDS: Latanoprost 0.005 % Ophth Sol 2.5 ML DROPS 1 DROP EYE-BOTH (23:29)
[2022-05-03] MEDS: 0.9 % Sodium Chloride Flush 3 ML SYRINGE IVFLUSH (23:29)
--- NOTE | 2022-05-03 23:33 | PC.NURSE ---
pt incontinent of urine, cleaned and repositioned on left side, medicated per provider order.
[2022-05-04] VITALS (8 sets, daily range): BP systolic 110–155; BP diastolic 47–75; PULSE 67–74; RESP 9–18; TEMP 36.3–37.4; O2SAT 93–100; BMI 31.2
[2022-05-04 05:18] LABS: Estimated Average Glucose 85 mg/dL; Hemoglobin A1c % 4.6 %
[2022-05-04] MEDS: oxyCODONE HCl Immed Release 5 MG TABLET 10 MG PO (05:36)
[2022-05-04] MEDS: Omeprazole 40 MG CAPSULE.DR PO (05:36)
[2022-05-04] MEDS: Levothyroxine Sodium 88 MCG TABLET PO (05:36)
[2022-05-04 07:05] LABS: MANUAL DIFF FLAG NO
[2022-05-04 07:09] LABS: Basophils Percent Auto 0.2 % (0-2); Eosinophils Absolute Auto 0.1 X10*3/uL (0.0-0.4); Eosinophils Percent Auto 0.5 % (0-4); Hematocrit 32.5 % (37.0-47.0); Hemoglobin 10.2 g/dl (12.0-16.0); Imm Gran Abs Auto 0.07 X10*3/uL (0.00-0.03); Imm Gran Pct Auto 0.6 % (0.0-0.4); Lymphocytes Absolute Auto 0.5 X10*3/uL (1.2-4.9); Lymphocytes Percent Auto 4.9 % (20-40); Mean Corpuscular HGB Conc 31.4 g/dl (31.0-35.0); Mean Corpuscular Hemoglobin 30.7 pg (27.0-33.0); Mean Corpuscular Volume 97.9 fL (80.0-98.0); Mean Platelet Volume 9.7 fL (9.4-12.3); Monocytes Absolute Auto 0.6 X10*3/uL (0.1-1.2); Monocytes Percent Auto 5.6 % (2-11); NRBC Pct Auto 0.2 /100WBC (0.0-0.2); Neutrophils Absolute Auto 9.5 x10*3/uL (2.0-8.3); Neutrophils Percent Auto 88.2 % (45-73); Platelet Count 180 X10*3/uL (160-400); Red Blood Count 3.32 X10*6/uL (4.20-5.50); Red Cell Distribution Width 19.2 % (11.0-16.0); White Blood Count 10.8 X10*3/uL (4.8-10.8)
[2022-05-04 07:25] LABS: Anion Gap 21 (12-20); Blood Urea Nitrogen 39 mg/dL (9-16); Calcium 7.4 mg/dL (8.4-10.2); Carbon Dioxide 26 mmol/L (22-29); Chloride 95 mmol/L (96-108); Creatinine Clr Calc Pharmacy 8.4; Estimated Glomerular Filt Rate 8; Glucose Random 101 mg/dL (60-115); Potassium 4.5 mmol/L (3.3-5.1); Sodium 137 mmol/L (135-145)
[2022-05-04] MEDS: Ascorbic Acid 500 MG TABLET PO (07:36)
[2022-05-04] MEDS: polyethylene glycoL 3350 17 GM POWD.PACK PO (07:36)
[2022-05-04] MEDS: Ferrous Sulfate 324 MG TABLET.DR PO (07:37)
[2022-05-04] MEDS: Aspirin 325 MG TABLET PO (07:37)
[2022-05-04] MEDS: Sertraline HCL 50 MG TABLET PO (07:37)
[2022-05-04] MEDS: 0.9 % Sodium Chloride Flush 3 ML SYRINGE IVFLUSH ×3 (07:37→22:12)
--- NOTE | 2022-05-04 07:40 | PC.NURSE ---
PT ALERT AND ORENTX3, TOLERATED AM MEDICATIONS. PT CURRENTLY AT BEDSIDE DOING EVAL
--- NOTE | 2022-05-04 10:23 | MHC.CM.PN ---
Addendum entered by Jia Gilliam RN 05/04/22 10:26: HD ON CAMPUS T--MON Original Note: PATIENT IS IN FROM [facility] HCP ON FILE AND VERIFIED. HCP [facility] [phone] PLAN IS RETURN. IMM 05/04 SENT TO [facility]. CASE MANAGEMENT FOLLOWING
[2022-05-04 11:26] LABS: Glucose, Whole Blood 231 mg/dL (60-115)
--- NOTE | 2022-05-04 11:30 | PM.CNNEP ---
History of Present Illness Reason for Consult Consult date: 05/04/22 Reason for consult: ESRD Chief Complaint Chief complaint: altered mental status History of Present Illness Narrative: 81-year-old female with ESRD on hemodialysis Monday//Monday presented to ER with AMS.? At presentation patient was disoriented to place.? She was complaining of feeling cold.? Unable to obtain any history from the patient.?She was feeling unwell since yesterday a.m. but went for dialysis.? Soon after she had episodes of nonbloody emesis.? In the ER patient was found to be febrile with a temp of 102 degrees and had leukocytosis.? She was not at baseline and is unable to answer questions and was admitted for further management. Nephrology has been consulted to assist in his clinical care during her current hospital stay Review of Systems Review of Systems Yes all other systems are reviewed and are negative PMFSH Past Medical History Medical History Anemia Diabetes mellitus GERD (gastroesophageal reflux disease) HTN (hypertension) Hypertension Kidney disease Pulmonary embolus Social History Social History Patient Tobacco Use Status: Never used Tobacco Advance Directives: Yes Advance Directives on File: Yes Advance Directives Date on File: 02/10/21 service: No Current occupational status: retired Meds Allergies Allergy/AdvReac Type Severity Reaction Status Date / Time Sulfa (Sulfonamide Allergy Unknown RASH Verified 05/03/22 19:57 Antibiotics) Active Medications: Current Medications Acetaminophen (Acetaminophen 325 Mg Tablet) 650 mg PO Q6H PRN PRN Reason: Pain, Mild (Pain Scale 1-3) Ascorbic Acid (Ascorbic Acid 500 Mg Tablet) 500 mg PO DAILY [facility] Last Admin: 05/04/22 07:36 Dose: 500 mg Aspirin (Aspirin 325 Mg Tablet) 325 mg PO DAILY [facility] Last Admin: 05/04/22 07:37 Dose: 325 mg Bisacodyl (Bisacodyl 10 Mg Supp.Rect) 10 mg MT DAILY PRN PRN Reason: Constipation Dextrose (Dextrose 50 % 25 Gm/50 Ml Syringe) 25 gm IVPUSH Q15M PRN; Protocol PRN Reason: per Hypoglycemia Standing Ord. Enoxaparin Sodium (Enoxaparin Sodium 30 Mg/0.3 Ml Syringe) 30 mg SUBCUT Q24H [facility] Last Admin: 05/03/22 22:11 Dose: 30 mg Ferrous Sulfate (Ferrous Sulfate 324 Mg Tablet.) 324 mg PO DAILY [facility] Last Admin: 05/04/22 07:37 Dose: 324 mg Glucose (Glucose Gel 15 Gm Gel..Gram.) 15 gm PO Q15M PRN; Protocol PRN Reason: per Hypoglycemia Standing Ord. Heparin Sodium (Porcine) (Heparin Sodium,Porcine 5,000 Unit/Ml Vial) 5,000 unit INTRACATH TUTHSA@1645 [facility] Ceftriaxone Sodium 1 gm/ (Sodium Chloride) 50 mls @ 100 mls/hr IV Q24H [facility] Last Infusion: 05/03/22 23:55 Dose: Infused Insulin Glargine (Insulin Glargine,Hum.Rec.Anlog 100 Unit/Ml 10 Ml Vial) 8 unit SUBCUT BEDTIME [facility] Last Admin: 05/03/22 22:11 Dose: 8 unit Insulin Human Lispro (Insulin Lispro 100 Unit/Ml 3 Ml Vial) 0 unit SUBCUT QIDACHS [facility]; Protocol Stop: 05/04/22 20:46 Last Admin: 05/04/22 07:46 Dose: Not Given Lactulose (Lactulose 20 Gm/30 Ml Solution) 20 gm PO DAILY PRN PRN Reason: Constipation Latanoprost (Latanoprost 0.005 % Ophth Linda 2.5 Ml Drops) 1 drop EYE-BOTH BEDTIME [facility] Last Admin: 05/03/22 23:29 Dose: 1 drop Levothyroxine Sodium (Levothyroxine Sodium 88 Mcg Tablet) 88 mcg PO DAILY@0600 [facility] Last Admin: 05/04/22 05:36 Dose: 88 mcg Melatonin (Melatonin 3 Mg Tablet) 6 mg PO BEDTIME PRN PRN Reason: Insomnia Midodrine (Midodrine Hcl 2.5 Mg Tablet) 2.5 mg PO TuThSa@0900 [facility] Nitroglycerin (Nitroglycerin 0.4 Mg Tab.Subl) 0.4 mg SUBLINGUAL Q5M PRN PRN Reason: Chest Pain Omeprazole (Omeprazole 40 Mg Capsule.) 40 mg PO DAILY@0630 [facility] Last Admin: 05/04/22 05:36 Dose: 40 mg Ondansetron HCl (Ondansetron Hcl 4 Mg/2 Ml Vial) 4 mg IVPUSH Q8H PRN PRN Reason: Nausea and Vomiting Oxycodone HCl (Oxycodone Hcl Immed Release 5 Mg Tablet) 10 mg PO QID PRN PRN Reason: Pain, Severe (Pain Scale 7-10) Last Admin: 05/04/22 05:36 Dose: 10 mg Pharmacy Consult (Consult Rx Perform Med Rec) 1 each MISCELLANE ONCE PRN PRN Reason: Consult order Polyethylene Glycol (Polyethylene Glycol 3350 17 Gm Powd.Pack) 17 gm PO DAILY [facility] Last Admin: 05/04/22 07:36 Dose: 17 gm Pravastatin Sodium (Pravastatin Sodium 40 Mg Tablet) 40 mg PO BEDTIME [facility] Last Admin: 05/03/22 21:43 Dose: 40 mg Senna (Sennosides 8.6 Mg Tablet) 8.6 mg PO BEDTIME PRN PRN Reason: Constipation Sertraline HCl (Sertraline Hcl 50 Mg Tablet) 50 mg PO DAILY [facility] Last Admin: 05/04/22 07:37 Dose: 50 mg Sodium Chloride (0.9 % Sodium Chloride Flush 3 Ml Syringe) 3 ml IVFLUSH QSHIFT [facility] Last Admin: 05/04/22 07:37 Dose: 3 ml Home Medications Medication Instructions Recorded Confirmed Last Taken Type acetaminophen 325 mg tablet 325 mg PO TID PRN Pain 02/10/21 05/03/22 Unknown History insulin NPH isoph U-100 human 100 16 unit subcut BEDTIME 02/10/21 05/03/22 Unknown History unit/mL subcutaneous suspension (Novolin N NPH U-100 Insulin isophane) levothyroxine 88 mcg tablet 1 tab PO DAILY@0600 02/10/21 05/03/22 Unknown History metoprolol tartrate 25 mg tablet 1 tab PO BID 02/10/21 05/03/22 Unknown History ondansetron 4 mg disintegrating 4 mg PO Q6H PRN Nausea And Vomiting 02/10/21 05/03/22 Unknown History tablet oxycodone 10 mg tablet 1 tab PO QID PRN pain 02/10/21 05/03/22 Unknown History polyethylene glycol 3350 17 gram 17 g PO DAILY 02/10/21 05/03/22 Unknown History oral powder packet (Miralax) pravastatin 40 mg tablet 1 tab PO BEDTIME 02/10/21 05/03/22 Unknown History sertraline 50 mg tablet 1 tab PO DAILY 02/10/21 05/03/22 Unknown History ascorbic acid (vitamin C) 500 mg 500 mg PO DAILY 05/03/22 05/03/22 Unknown History tablet (Vitamin C) aspirin 325 mg tablet 325 mg PO DAILY 05/03/22 05/03/22 Unknown History bisacodyl 10 mg rectal suppository 10 mg MT DAILY PRN Constipation 05/03/22 05/03/22 Unknown History ferrous fumarate 325 mg (106 mg 325 mg PO DAILY 05/03/22 05/03/22 Unknown History iron) tablet lactulose 10 gram/15 mL oral 30 ml PO DAILY PRN Constipation 05/03/22 05/03/22 Unknown History solution latanoprost 0.005 % eye drops 1 drp ophthalmic (eye) BEDTIME 05/03/22 05/03/22 Unknown History melatonin 3 mg tablet 3 mg PO BEDTIME PRN Insomnia 05/03/22 05/03/22 Unknown History midodrine 2.5 mg tablet 1 tab PO TUTHSA 05/03/22 05/03/22 Unknown History nitroglycerin 0.4 mg sublingual 0.4 mg sublingual Q5M PRN Chest 05/03/22 05/03/22 Unknown History tablet Pain nystatin 100,000 unit/gram topical 1 appl topical BID 05/03/22 05/03/22 Unknown History powder omeprazole 40 mg capsule,delayed 40 mg PO DAILY 05/03/22 05/03/22 Unknown History release sennosides 8.6 mg tablet (senna) 8.6 mg PO BEDTIME PRN Constipation 05/03/22 05/03/22 Unknown History Physical Exam Vital Signs: Last Vital Signs Temp 99.3 F 05/04/22 08:00 Pulse 70 05/04/22 08:09 Resp 16 05/04/22 08:00 BP 155/69 H 05/04/22 08:09 Pulse Ox 100 05/04/22 08:09 O2 Del Method 05/04/22 08:00 BMI result Body Mass Index 31.2 Const General: no acute distress Neck Neck: Yes supple Resp Auscultation: diminished lung sounds Cardio Rate: regular rate GI Palpation (GI): Soft to palpation Skin General skin exam: no rashes or lesions noted Neuro General: moves all extremities Results Lab Results Result Diagrams: 05/04/22 06:55 05/04/22 06:55 Lab results: Chemistry 05/03/22 05/04/22 16:58 06:55 Sodium 137 137 Potassium 3.9 D 4.5 Carbon Dioxide 28 26 BUN 31 H 39 H Creatinine 4.29 H* 5.05 H* Calcium 8.2 L D 7.4 L D Hematology 05/03/22 05/04/22 16:35 06:55 WBC 16.3 H 10.8 Hgb 11.8 L D 10.2 L Plt Count 221 180 Urinalysis 05/03/22 19:39 Urine Color Yellow Urine Appearance Turbid Urine pH 7.0 Ur Specific [place] 1.015 Urine Protein 300 (3+) H Urine Glucose (UA) Negative Urine Ketones Trace Urine Blood Trace H Urine Nitrite Negative Ur Leukocyte Esterase Large (3+) H Urine RBC 6-10 H Urine WBC >50 H Ur Squamous Epith Cells 3-5 Hyaline Casts 3-5 Assessment and Plan (1) ESRD on dialysis: Status: Acute Plan Usually gets HD on TTS ( Due HD tomorrow- ordered- HD RN aware) Has a functioning HD access; Renal Diet Phos binders with meals; Antibiotic dosed for GFR Concur with rest of current management; Shall F/U Procedures Date of Service Date of Service: 05/04/22
[2022-05-04] MEDS: Insulin Lispro 100 UNIT/ML 3 ML VIAL SUBCUT ×2 (12:32→18:31)
--- NOTE | 2022-05-04 15:03 | PC.NURSE ---
CONTINUES WITH O2 ABLE TO GET OOB TO COMMODE. TOLERATING PO NEEDS BEING MET
--- NOTE | 2022-05-04 15:48 | PC.NURSE ---
ASSUMED CARE OF PATIENT AT 1500 ,VS TAKEN ,PT RESTING AND PT IS DRY .
--- NOTE | 2022-05-04 16:00 | P.PNIM_ITS ---
Subjective Subjective Date of Service: 05/04/22 Interval History: No acute issues overnight. More alert this a.m. Review of Systems Denies chest pain Denies nausea vomiting diarrhea Denies shortness of breath Denies fevers to Physical Exam Vital Signs: Vital Signs: Last Vital Signs Temp 98.2 F 05/04/22 15:51 Pulse 67 05/04/22 15:51 Resp 13 05/04/22 15:51 BP 110/51 L 05/04/22 15:51 Pulse Ox 100 05/04/22 15:51 O2 Del Method 05/04/22 15:51 BMI result Body Mass Index 31.2 Const: Other: Awake alert mild confusion easily reoriented Resp: Other: Clear to auscultation bilaterally no rales rhonchi or wheezes Cardio: Other: No S4; positive S1-S2; no S3 murmurs rubs or gallops GI: Other: Soft nontender nondistended normoactive bowel sounds Extrem: Other: No edema Objective Data Active Medications Acetaminophen (Acetaminophen 325 Mg Tablet) 650 mg PO Q6H PRN PRN Reason: Pain, Mild (Pain Scale 1-3) Ascorbic Acid (Ascorbic Acid 500 Mg Tablet) 500 mg PO DAILY [facility] Last Admin: 05/04/22 07:36 Dose: 500 mg Documented By: CHARLES Aspirin (Aspirin 325 Mg Tablet) 325 mg PO DAILY [facility] Last Admin: 05/04/22 07:37 Dose: 325 mg Documented By: CHARELS Bisacodyl (Bisacodyl 10 Mg Supp.Rect) 10 mg PA DAILY PRN PRN Reason: Constipation Dextrose (Dextrose 50 % 25 Gm/50 Ml Syringe) 25 gm IVPUSH Q15M PRN; Protocol PRN Reason: per Hypoglycemia Standing Ord. Enoxaparin Sodium (Enoxaparin Sodium 30 Mg/0.3 Ml Syringe) 30 mg SUBCUT Q24H [facility] Last Admin: 05/03/22 22:11 Dose: 30 mg Documented By: ESE Ferrous Sulfate (Ferrous Sulfate 324 Mg Tablet.Dr) 324 mg PO DAILY [facility] Last Admin: 05/04/22 07:37 Dose: 324 mg Documented By: CHARLES Glucose (Glucose Gel 15 Gm Gel..Gram.) 15 gm PO Q15M PRN; Protocol PRN Reason: per Hypoglycemia Standing Ord. Heparin Sodium (Porcine) (Heparin Sodium,Porcine 5,000 Unit/Ml Vial) 5,000 unit INTRACATH TUTHSA@1645 [facility] Ceftriaxone Sodium 1 gm/ (Sodium Chloride) 50 mls @ 100 mls/hr IV Q24H [facility] Last Infusion: 05/03/22 23:55 Dose: 0 mls/hr Documented By: AARON Insulin Glargine (Insulin Glargine,Hum.Rec.Anlog 100 Unit/Ml 10 Ml Vial) 8 unit SUBCUT BEDTIME [facility] Last Admin: 05/03/22 22:11 Dose: 8 unit Documented By: ESE Insulin Human Lispro (Insulin Lispro 100 Unit/Ml 3 Ml Vial) 0 unit SUBCUT QIDACHS [facility]; Protocol Stop: 05/04/22 20:46 Last Admin: 05/04/22 12:32 Dose: 2 unit Documented By: CHARLES Lactulose (Lactulose 20 Gm/30 Ml Solution) 20 gm PO DAILY PRN PRN Reason: Constipation Latanoprost (Latanoprost 0.005 % Ophth [place] 2.5 Ml Drops) 1 drop EYE-BOTH BEDTIME [facility] Last Admin: 05/03/22 23:29 Dose: 1 drop Documented By: AARON Levothyroxine Sodium (Levothyroxine Sodium 88 Mcg Tablet) 88 mcg PO DAILY@0600 [facility] Last Admin: 05/04/22 05:36 Dose: 88 mcg Documented By: FOREST Melatonin (Melatonin 3 Mg Tablet) 6 mg PO BEDTIME PRN PRN Reason: Insomnia Midodrine (Midodrine Hcl 2.5 Mg Tablet) 2.5 mg PO TuThSa@0900 [facility] Nitroglycerin (Nitroglycerin 0.4 Mg Tab.Subl) 0.4 mg SUBLINGUAL Q5M PRN PRN Reason: Chest Pain Omeprazole (Omeprazole 40 Mg Capsule.Dr) 40 mg PO DAILY@0630 [facility] Last Admin: 05/04/22 05:36 Dose: 40 mg Documented By: FOREST Ondansetron HCl (Ondansetron Hcl 4 Mg/2 Ml Vial) 4 mg IVPUSH Q8H PRN PRN Reason: Nausea and Vomiting Oxycodone HCl (Oxycodone Hcl Immed Release 5 Mg Tablet) 10 mg PO QID PRN PRN Reason: Pain, Severe (Pain Scale 7-10) Last Admin: 05/04/22 05:36 Dose: 10 mg Documented By: FOREST Pharmacy Consult (Consult Rx Perform Med Rec) 1 each MISCELLANE ONCE PRN PRN Reason: Consult order Polyethylene Glycol (Polyethylene Glycol 3350 17 Gm Powd.Pack) 17 gm PO DAILY [facility] Last Admin: 05/04/22 07:36 Dose: 17 gm Documented By: CHARLES Pravastatin Sodium (Pravastatin Sodium 40 Mg Tablet) 40 mg PO BEDTIME [facility] Last Admin: 05/03/22 21:43 Dose: 40 mg Documented By: ESE Senna (Sennosides 8.6 Mg Tablet) 8.6 mg PO BEDTIME PRN PRN Reason: Constipation Sertraline HCl (Sertraline Hcl 50 Mg Tablet) 50 mg PO DAILY [facility] Last Admin: 05/04/22 07:37 Dose: 50 mg Documented By: CHARLES Sodium Chloride (0.9 % Sodium Chloride Flush 3 Ml Syringe) 3 ml IVFLUSH QSHIFT [facility] Last Admin: 05/04/22 07:37 Dose: 3 ml Documented By: CHARLES Labs CBC & Chem 7: 05/04/22 06:55 05/04/22 06:55 Labs: Laboratory Results - last 24 hr 05/03/22 05/03/22 05/03/22 16:35 16:35 16:58 MCV 99.0 H MCH 30.7 MCHC 31.1 RDW 19.4 H Plt Count 221 MPV 10.1 Immature Gran % (Auto) 1.4 H Neut % (Auto) 89.8 H Lymph % (Auto) 2.6 L [place] % (Auto) 4.4 Eos % (Auto) 1.6 Baso % (Auto) 0.2 Lymph # (Auto) 0.4 L [place] # (Auto) 0.7 Eos # (Auto) 0.3 Baso # (Auto) 0.0 Abs Immat Gran (auto) 0.22 H Absolute Neuts (auto) 14.6 H Absolute Nucleated RBC 0.030 H Nucleated RBC % (auto) 0.2 Anion Gap 21 H Estim Creat Clear Calc 9.9 Estimated GFR 10 POC Glucose Random Glucose 115 Estimat Average Glucose 85 Hemoglobin A1c % 4.6 Lactic Acid Calcium 8.2 L D Magnesium 1.6 Total Bilirubin 0.4 AST 14 ALT 9 Alkaline Phosphatase 111 Total Protein 6.1 L Albumin 3.8 Urine Color Urine Appearance Urine pH Ur Specific [place] Urine Protein Urine Glucose (UA) Urine Ketones Urine Blood Urine Nitrite Ur Leukocyte Esterase Urine RBC Urine WBC Ur Squamous Epith Cells Urine Bacteria Hyaline Casts Influenza Type A (PCR) Influenza Type B (PCR) RSV RNA Qual (PCR) SARS-CoV-2 RNA (RT-PCR) 05/03/22 05/03/22 05/03/22 16:58 16:58 19:39 MCV MCH MCHC RDW Plt Count MPV Immature Gran % (Auto) Neut % (Auto) Lymph % (Auto) [place] % (Auto) Eos % (Auto) Baso % (Auto) Lymph # (Auto) [place] # (Auto) Eos # (Auto) Baso # (Auto) Abs Immat Gran (auto) Absolute Neuts (auto) Absolute Nucleated RBC Nucleated RBC % (auto) Anion Gap Estim Creat Clear Calc Estimated GFR POC Glucose Random Glucose Estimat Average Glucose Hemoglobin A1c % Lactic Acid 2.0 Calcium Magnesium Total Bilirubin AST ALT Alkaline Phosphatase Total Protein Albumin Urine Color Yellow Urine Appearance Turbid Urine pH 7.0 Ur Specific [place] 1.015 Urine Protein 300 (3+) H Urine Glucose (UA) Negative Urine Ketones Trace Urine Blood Trace H Urine Nitrite Negative Ur Leukocyte Esterase Large (3+) H Urine RBC 6-10 H Urine WBC >50 H Ur Squamous Epith Cells 3-5 Urine Bacteria 1+ Hyaline Casts 3-5 Influenza Type A (PCR) NEGATIVE Influenza Type B (PCR) NEGATIVE RSV RNA Qual (PCR) NEGATIVE SARS-CoV-2 RNA (RT-PCR) POSITIVE A 05/03/22 05/04/22 05/04/22 21:07 06:55 06:55 MCV 97.9 MCH 30.7 MCHC 31.4 RDW 19.2 H Plt Count 180 MPV 9.7 Immature Gran % (Auto) 0.6 H Neut % (Auto) 88.2 H Lymph % (Auto) 4.9 L [place] % (Auto) 5.6 Eos % (Auto) 0.5 Baso % (Auto) 0.2 Lymph # (Auto) 0.5 L [place] # (Auto) 0.6 Eos # (Auto) 0.1 Baso # (Auto) 0.0 Abs Immat Gran (auto) 0.07 H Absolute Neuts (auto) 9.5 H Absolute Nucleated RBC 0.020 H Nucleated RBC % (auto) 0.2 Anion Gap 21 H Estim Creat Clear Calc 8.4 Estimated GFR 8 POC Glucose 101 Random Glucose 101 Estimat Average Glucose Hemoglobin A1c % Lactic Acid Calcium 7.4 L D Magnesium Total Bilirubin AST ALT Alkaline Phosphatase Total Protein Albumin Urine Color Urine Appearance Urine pH Ur Specific [place] Urine Protein Urine Glucose (UA) Urine Ketones Urine Blood Urine Nitrite Ur Leukocyte Esterase Urine RBC Urine WBC Ur Squamous Epith Cells Urine Bacteria Hyaline Casts Influenza Type A (PCR) Influenza Type B (PCR) RSV RNA Qual (PCR) SARS-CoV-2 RNA (RT-PCR) 05/04/22 11:19 MCV MCH MCHC RDW Plt Count MPV Immature Gran % (Auto) Neut % (Auto) Lymph % (Auto) [place] % (Auto) Eos % (Auto) Baso % (Auto) Lymph # (Auto) [place] # (Auto) Eos # (Auto) Baso # (Auto) Abs Immat Gran (auto) Absolute Neuts (auto) Absolute Nucleated RBC Nucleated RBC % (auto) Anion Gap Estim Creat Clear Calc Estimated GFR POC Glucose 231 H Random Glucose Estimat Average Glucose Hemoglobin A1c % Lactic Acid Calcium Magnesium Total Bilirubin AST ALT Alkaline Phosphatase Total Protein Albumin Urine Color Urine Appearance Urine pH Ur Specific [place] Urine Protein Urine Glucose (UA) Urine Ketones Urine Blood Urine Nitrite Ur Leukocyte Esterase Urine RBC Urine WBC Ur Squamous Epith Cells Urine Bacteria Hyaline Casts Influenza Type A (PCR) Influenza Type B (PCR) RSV RNA Qual (PCR) SARS-CoV-2 RNA (RT-PCR) Microbiology Microbiology Results: Microbiology 05/03/22 20:17 Urine Culture - Preliminary Urine clean catch - Urine che top Culture too young to evaluate. 05/03/22 16:58 Blood Culture - Preliminary Blood - Venous Prelim: GNR Gram Stain only 05/03/22 16:56 Blood Culture - Preliminary Blood - Venous Prelim: GNR Gram Stain only Assessment and Plan (1) Acute UTI: Status: Acute (2) Encephalopathy acute: Status: Acute (3) COVID-19: Status: Acute (4) ESRD on dialysis: Status: Acute (5) Diabetes mellitus: Status: Acute Plan This is a 81-year-old female with a pertinent history of ESRD on hemodialysis Monday//Monday, insulin-dependent diabetes mellitus, history of PVC with IVC filter, chronic opioid use due to chronic pain, mood disorder, mixed hyperlipidemia, gastroesophageal reflux disease, hypothyroidism who was sent to the ER after she was found altered. Improved today with treatment 1.Acute metabolic encephalopathy -likely multifactorial in backdrop of UTI and missed HD -treat underlying causes and follow response 2.COVID-19 positive test date: 04/30/2022 -COVID isolation precautions. 3.UTI -IV CTX 4.ESRD on hemodialysis -seen by Renal -HD in a.m. -follow renals/divalents 5. Insulin-dependent diabetes mellitus -titrate basal insulin as indicated -ADA diet-lispro correctional scale 6.HTN -acceptable control off therapies -add back outpatient therapies as appropriate DVT prophylaxis: Lovenox 30 mg daily Full code Patient will require ongoing hospitalization for IV antibiotics to treat urinary tract infection and hemodialysis Quality Stroke Does the patient have a stroke diagnosis?: No VTE Prior VTE?: Yes VTE Risk Level:: Medical - moderate - high VTE Device Contraindication: Treatment Not Indicated VTE Drug Contraindication: N/A - Med Ordered
--- NOTE | 2022-05-04 16:11 | PC.NURSE ---
attempted to call in report to [facility], no answer.
[2022-05-04 16:32] LABS: Glucose, Whole Blood 157 mg/dL (60-115)
[2022-05-04 17:54] LABS: Glucose, Whole Blood 155 mg/dL (60-115)
[2022-05-04 20:00] LABS: Glucose, Whole Blood 169 mg/dL (60-115)
[2022-05-04] MEDS: Insulin Glargine,Hum.rec.anlog 100 UNIT/ML 10 ML VIAL 8 UNIT SUBCUT (22:11)
[2022-05-04] MEDS: Enoxaparin Sodium 30 MG/0.3 ML SYRINGE SUBCUT (22:11)
[2022-05-04] MEDS: cefTRIAXone sodium 1 GM in 0.9 % Sodium Chloride 50 ML IV (22:12)
[2022-05-04] MEDS: Pravastatin Sodium 40 MG TABLET PO (22:12)
[2022-05-05 03:05] VITALS: BP 145/80; PULSE 76; RESP 14; TEMP 36.6; O2SAT 98
[2022-05-05] MEDS: Omeprazole 40 MG CAPSULE.DR PO (06:20)
[2022-05-05] MEDS: Levothyroxine Sodium 88 MCG TABLET PO (06:20)
[2022-05-05 07:26] VITALS: BP 142/64; PULSE 67; RESP 20; TEMP 36.1; O2SAT 99
[2022-05-05 07:26] LABS: MANUAL DIFF FLAG NO
[2022-05-05 07:29] LABS: Basophils Percent Auto 0.3 % (0-2); Eosinophils Absolute Auto 0.1 X10*3/uL (0.0-0.4); Eosinophils Percent Auto 1.5 % (0-4); Hematocrit 28.9 % (37.0-47.0); Imm Gran Abs Auto 0.14 X10*3/uL (0.00-0.03); Imm Gran Pct Auto 1.8 % (0.0-0.4); Lymphocytes Absolute Auto 0.6 X10*3/uL (1.2-4.9); Lymphocytes Percent Auto 6.9 % (20-40); Mean Corpuscular HGB Conc 31.1 g/dl (31.0-35.0); Mean Corpuscular Hemoglobin 30.5 pg (27.0-33.0); Mean Platelet Volume 9.1 fL (9.4-12.3); Monocytes Absolute Auto 0.6 X10*3/uL (0.1-1.2); NRBC Pct Auto 0.3 /100WBC (0.0-0.2); Neutrophils Absolute Auto 6.6 x10*3/uL (2.0-8.3); Neutrophils Percent Auto 82.5 % (45-73); Platelet Count 158 X10*3/uL (160-400); Red Blood Count 2.95 X10*6/uL (4.20-5.50)
[2022-05-05 07:48] LABS: Glucose, Whole Blood 132 mg/dL (60-115)
[2022-05-05 07:56] LABS: Alanine Aminotransferase 6 U/L (0-31); Alkaline Phosphatase 105 U/L (39-117); Anion Gap 22 (12-20); Aspartate Amino Transferase 9 U/L (5-31); Bilirubin Total 0.2 mg/dL (0.0-1.0); Blood Urea Nitrogen 60 mg/dL (9-16); Calcium 6.9 mg/dL (8.4-10.2); Carbon Dioxide 24 mmol/L (22-29); Chloride 95 mmol/L (96-108); Creatinine Clr Calc Pharmacy 6.6; Estimated Glomerular Filt Rate 6; Glucose Fasting 141 mg/dL (60-99); Potassium 5.3 mmol/L (3.3-5.1); Sodium 136 mmol/L (135-145); Total Protein 5.2 g/dL (6.5-8.0)
[2022-05-05] MEDS: Aspirin 325 MG TABLET PO (08:53)
[2022-05-05] MEDS: Ascorbic Acid 500 MG TABLET PO (08:54)
[2022-05-05] MEDS: Ferrous Sulfate 324 MG TABLET.DR PO (08:54)
[2022-05-05] MEDS: 0.9 % Sodium Chloride Flush 3 ML SYRINGE IVFLUSH ×2 (08:54→22:06)
[2022-05-05] MEDS: polyethylene glycoL 3350 17 GM POWD.PACK PO (08:54)
[2022-05-05] MEDS: Sertraline HCL 50 MG TABLET PO (08:54)
[2022-05-05 11:05] VITALS: BP 112/79; PULSE 67; RESP 20; TEMP 36.7; O2SAT 97
--- NOTE | 2022-05-05 11:06 | P.PNNP_ITS ---
Subjective Subjective Date of Service: 05/05/22 Interval history: Events noted. All recent data reviewed; Due HD today Physical Exam Vital Signs: Vital Signs: Last Vital Signs Temp 96.9 F 05/05/22 07:26 Pulse 67 05/05/22 07:26 Resp 20 05/05/22 07:26 BP 142/64 H 05/05/22 07:26 Pulse Ox 99 05/05/22 07:26 O2 Del Method 05/05/22 07:26 BMI result Body Mass Index 31.2 Const: General: no acute distress Neck: Neck: Yes supple Resp: Auscultation: diminished lung sounds Cardio: Rate: regular rate GI: Palpation (GI): Soft to palpation Neuro: General: moves all extremities Objective Data Labs CBC & Chem 7: 05/05/22 07:20 05/05/22 07:20 Labs: Laboratory Results - last 24 hr 05/04/22 05/04/22 05/04/22 11:19 16:16 17:50 WBC RBC Hgb Hct MCV MCH MCHC RDW Plt Count MPV Immature Gran % (Auto) Neut % (Auto) Lymph % (Auto) [place] % (Auto) Eos % (Auto) Baso % (Auto) Lymph # (Auto) [place] # (Auto) Eos # (Auto) Baso # (Auto) Abs Immat Gran (auto) Absolute Neuts (auto) Absolute Nucleated RBC Nucleated RBC % (auto) Sodium Potassium Chloride Carbon Dioxide Anion Gap BUN Creatinine Estim Creat Clear Calc Estimated GFR POC Glucose 231 H 157 H 155 H Fasting Glucose Calcium Total Bilirubin AST ALT Alkaline Phosphatase Total Protein Albumin 05/04/22 05/05/22 05/05/22 19:40 07:20 07:20 WBC 8.0 RBC 2.95 L Hgb 9.0 L Hct 28.9 L MCV 98.0 MCH 30.5 MCHC 31.1 RDW 19.0 H Plt Count 158 L MPV 9.1 L Immature Gran % (Auto) 1.8 H Neut % (Auto) 82.5 H Lymph % (Auto) 6.9 L [place] % (Auto) 7.0 Eos % (Auto) 1.5 Baso % (Auto) 0.3 Lymph # (Auto) 0.6 L [place] # (Auto) 0.6 Eos # (Auto) 0.1 Baso # (Auto) 0.0 Abs Immat Gran (auto) 0.14 H Absolute Neuts (auto) 6.6 Absolute Nucleated RBC 0.020 H Nucleated RBC % (auto) 0.3 H Sodium 136 Potassium 5.3 H Chloride 95 L Carbon Dioxide 24 Anion Gap 22 H BUN 60 H D Creatinine 6.40 H* Estim Creat Clear Calc 6.6 Estimated GFR 6 POC Glucose 169 H Fasting Glucose 141 H Calcium 6.9 L D Total Bilirubin 0.2 AST 9 ALT 6 Alkaline Phosphatase 105 Total Protein 5.2 L Albumin 3.0 L D 05/05/22 07:30 WBC RBC Hgb Hct MCV MCH MCHC RDW Plt Count MPV Immature Gran % (Auto) Neut % (Auto) Lymph % (Auto) [place] % (Auto) Eos % (Auto) Baso % (Auto) Lymph # (Auto) [place] # (Auto) Eos # (Auto) Baso # (Auto) Abs Immat Gran (auto) Absolute Neuts (auto) Absolute Nucleated RBC Nucleated RBC % (auto) Sodium Potassium Chloride Carbon Dioxide Anion Gap BUN Creatinine Estim Creat Clear Calc Estimated GFR POC Glucose 132 H Fasting Glucose Calcium Total Bilirubin AST ALT Alkaline Phosphatase Total Protein Albumin Microbiology Microbiology Results: Microbiology 05/03/22 16:58 Blood - Venous Blood Culture - Preliminary Gram negative ping 05/03/22 16:56 Blood - Venous Blood Culture - Preliminary Gram negative ping 05/03/22 20:17 Urine clean catch - Urine che top Urine Culture - Preliminary Culture too young to evaluate. Procedures Date of Service Date of Service: 05/05/22 Assessment & Plan Assessment and plan (1) ESRD on dialysis: Status: Acute Assessment and Plan: Usually gets HD on TTS ( Due HD today) Has a functioning HD access; Renal Diet Phos binders with meals; Antibiotic dosed for GFR Concur with rest of current management; Shall F/U Time Spent With Patient Time: Total time spent is greater than 50% in coordination of care (as documented) at patient's floor/unit and/or counseling patient: Progress Note: Quality Stroke Does the patient have a stroke diagnosis?: No
[2022-05-05 11:24] LABS: Glucose, Whole Blood 114 mg/dL (60-115)
--- NOTE | 2022-05-05 13:53 | HO.PM.IMPN ---
Subjective Subjective Date of Service: 05/05/22 Interval History: Still feels ?lousy? with COVID. No acute issues Review of Systems Denies chest pain Denies nausea vomiting diarrhea Denies shortness of breath Denies fevers to Physical Exam Vital Signs: Vital Signs: Last Vital Signs Temp 98.1 F 05/05/22 11:05 Pulse 67 05/05/22 11:05 Resp 20 05/05/22 11:05 BP 112/79 05/05/22 11:05 Pulse Ox 97 05/05/22 11:05 O2 Del Method 05/05/22 11:05 BMI result Body Mass Index 31.2 Const: Other: Awake alert mild confusion easily reoriented Resp: Other: Clear to auscultation bilaterally no rales rhonchi or wheezes Cardio: Other: No S4; positive S1-S2; no S3 murmurs rubs or gallops GI: Other: Soft nontender nondistended normoactive bowel sounds Extrem: Other: No edema Objective Data Active Medications Acetaminophen (Acetaminophen 325 Mg Tablet) 650 mg PO Q6H PRN PRN Reason: Pain, Mild (Pain Scale 1-3) Ascorbic Acid (Ascorbic Acid 500 Mg Tablet) 500 mg PO DAILY [facility] Last Admin: 05/05/22 08:54 Dose: 500 mg Documented By: LUKE Aspirin (Aspirin 325 Mg Tablet) 325 mg PO DAILY [facility] Last Admin: 05/05/22 08:53 Dose: 325 mg Documented By: LUKE Bisacodyl (Bisacodyl 10 Mg Supp.Rect) 10 mg [place] DAILY PRN PRN Reason: Constipation Dextrose (Dextrose 50 % 25 Gm/50 Ml Syringe) 25 gm IVPUSH Q15M PRN; Protocol PRN Reason: per Hypoglycemia Standing Ord. Enoxaparin Sodium (Enoxaparin Sodium 30 Mg/0.3 Ml Syringe) 30 mg SUBCUT Q24H [facility] Last Admin: 05/04/22 22:11 Dose: 30 mg Documented By: HUNG Ferrous Sulfate (Ferrous Sulfate 324 Mg Tablet.Dr) 324 mg PO DAILY [facility] Last Admin: 05/05/22 08:54 Dose: 324 mg Documented By: LUKE Glucose (Glucose Gel 15 Gm Gel..Gram.) 15 gm PO Q15M PRN; Protocol PRN Reason: per Hypoglycemia Standing Ord. Heparin Sodium (Porcine) (Heparin Sodium,Porcine 5,000 Unit/Ml Vial) 5,000 unit INTRACATH TUTA@1645 [facility] Ceftriaxone Sodium 1 gm/ (Sodium Chloride) 50 mls @ 100 mls/hr IV Q24H [facility] Last Infusion: 05/04/22 22:57 Dose: 0 mls/hr Documented By: HUNG Insulin Glargine (Insulin Glargine,Hum.Rec.Anlog 100 Unit/Ml 10 Ml Vial) 8 unit SUBCUT BEDTIME [facility] Last Admin: 05/04/22 22:11 Dose: 8 unit Documented By: HUNG Lactulose (Lactulose 20 Gm/30 Ml Solution) 20 gm PO DAILY PRN PRN Reason: Constipation Latanoprost (Latanoprost 0.005 % Ophth [place] 2.5 Ml Drops) 1 drop EYE-BOTH BEDTIME [facility] Last Admin: 05/04/22 22:18 Dose: Not Given Documented By: HUNG Non-Admin Reason: Med Not Available Levothyroxine Sodium (Levothyroxine Sodium 88 Mcg Tablet) 88 mcg PO DAILY@0600 [facility] Last Admin: 05/05/22 06:20 Dose: 88 mcg Documented By: HUNG Melatonin (Melatonin 3 Mg Tablet) 6 mg PO BEDTIME PRN PRN Reason: Insomnia Midodrine (Midodrine Hcl 2.5 Mg Tablet) 2.5 mg PO TuThSa@0900 [facility] Last Admin: 05/05/22 12:45 Dose: Not Given Documented By: CTORRZ Non-Admin Reason: Elevated Blood Pressure Nitroglycerin (Nitroglycerin 0.4 Mg Tab.Subl) 0.4 mg SUBLINGUAL Q5M PRN PRN Reason: Chest Pain Omeprazole (Omeprazole 40 Mg Capsule.Dr) 40 mg PO DAILY@0630 [facility] Last Admin: 05/05/22 06:20 Dose: 40 mg Documented By: HUNG Ondansetron HCl (Ondansetron Hcl 4 Mg/2 Ml Vial) 4 mg IVPUSH Q8H PRN PRN Reason: Nausea and Vomiting Oxycodone HCl (Oxycodone Hcl Immed Release 5 Mg Tablet) 10 mg PO QID PRN PRN Reason: Pain, Severe (Pain Scale 7-10) Last Admin: 05/04/22 05:36 Dose: 10 mg Documented By: FOREST Pharmacy Consult (Consult Rx Perform Med Rec) 1 each MISCELLANE ONCE PRN PRN Reason: Consult order Polyethylene Glycol (Polyethylene Glycol 3350 17 Gm Powd.Pack) 17 gm PO DAILY [facility] Last Admin: 05/05/22 08:54 Dose: 17 gm Documented By: LUKE Pravastatin Sodium (Pravastatin Sodium 40 Mg Tablet) 40 mg PO BEDTIME [facility] Last Admin: 05/04/22 22:12 Dose: 40 mg Documented By: HUNG Senna (Sennosides 8.6 Mg Tablet) 8.6 mg PO BEDTIME PRN PRN Reason: Constipation Sertraline HCl (Sertraline Hcl 50 Mg Tablet) 50 mg PO DAILY [facility] Last Admin: 05/05/22 08:54 Dose: 50 mg Documented By: LUKE Sodium Chloride (0.9 % Sodium Chloride Flush 3 Ml Syringe) 3 ml IVFLUSH QSHIFT [facility] Last Admin: 05/05/22 08:54 Dose: 3 ml Documented By: LUKE Labs CBC & Chem 7: 05/05/22 07:20 05/05/22 07:20 Labs: Laboratory Results - last 24 hr 05/04/22 05/04/22 05/04/22 16:16 17:50 19:40 MCV MCH MCHC RDW Plt Count MPV Immature Gran % (Auto) Neut % (Auto) Lymph % (Auto) [place] % (Auto) Eos % (Auto) Baso % (Auto) Lymph # (Auto) [place] # (Auto) Eos # (Auto) Baso # (Auto) Abs Immat Gran (auto) Absolute Neuts (auto) Absolute Nucleated RBC Nucleated RBC % (auto) Anion Gap Estim Creat Clear Calc Estimated GFR POC Glucose 157 H 155 H 169 H Fasting Glucose Calcium Total Bilirubin AST ALT Alkaline Phosphatase Total Protein Albumin 05/05/22 05/05/22 05/05/22 07:20 07:20 07:30 MCV 98.0 MCH 30.5 MCHC 31.1 RDW 19.0 H Plt Count 158 L MPV 9.1 L Immature Gran % (Auto) 1.8 H Neut % (Auto) 82.5 H Lymph % (Auto) 6.9 L [place] % (Auto) 7.0 Eos % (Auto) 1.5 Baso % (Auto) 0.3 Lymph # (Auto) 0.6 L [place] # (Auto) 0.6 Eos # (Auto) 0.1 Baso # (Auto) 0.0 Abs Immat Gran (auto) 0.14 H Absolute Neuts (auto) 6.6 Absolute Nucleated RBC 0.020 H Nucleated RBC % (auto) 0.3 H Anion Gap 22 H Estim Creat Clear Calc 6.6 Estimated GFR 6 POC Glucose 132 H Fasting Glucose 141 H Calcium 6.9 L D Total Bilirubin 0.2 AST 9 ALT 6 Alkaline Phosphatase 105 Total Protein 5.2 L Albumin 3.0 L D 05/05/22 11:06 MCV MCH MCHC RDW Plt Count MPV Immature Gran % (Auto) Neut % (Auto) Lymph % (Auto) [place] % (Auto) Eos % (Auto) Baso % (Auto) Lymph # (Auto) [place] # (Auto) Eos # (Auto) Baso # (Auto) Abs Immat Gran (auto) Absolute Neuts (auto) Absolute Nucleated RBC Nucleated RBC % (auto) Anion Gap Estim Creat Clear Calc Estimated GFR POC Glucose 114 Fasting Glucose Calcium Total Bilirubin AST ALT Alkaline Phosphatase Total Protein Albumin Microbiology Microbiology Results: Microbiology 05/03/22 20:17 Urine Culture - Preliminary Urine clean catch - Urine che top Enterococcus/Streptococcus sp Viridans streptococcus group 05/03/22 16:58 Blood Culture - Preliminary Blood - Venous Gram negative ping 05/03/22 16:56 Blood Culture - Preliminary Blood - Venous Gram negative ping Assessment and Plan (1) Encephalopathy acute: Status: Acute (2) COVID-19: Status: Acute (3) ESRD on dialysis: Status: Acute (4) Bacteremia: Status: Acute Plan This is a 81-year-old female with a pertinent history of ESRD on hemodialysis Monday//Monday, insulin-dependent diabetes mellitus, history of PVC with IVC filter, chronic opioid use due to chronic pain, mood disorder, mixed hyperlipidemia, gastroesophageal reflux disease, hypothyroidism who was sent to the ER after she was found altered. Improved today with treatment 1.Acute metabolic encephalopathy -likely related to Gram-negative bacteremia/COVID 2.COVID-19 positive test date: 04/30/2022 -COVID isolation precautions. -currently no oxygen requirement 3.UTI/GNR bacteremia -IV CTX -await sensitivities 4.ESRD on hemodialysis -seen by Renal -HD in a.m. -follow renals/divalents 5. Insulin-dependent diabetes mellitus -titrate basal insulin as indicated -ADA diet-lispro correctional scale 6.HTN -acceptable control off therapies -add back outpatient therapies as appropriate DVT prophylaxis: Lovenox 30 mg daily Full code Patient will require ongoing hospitalization for IV antibiotics to treat urinary tract infection and hemodialysis Quality Stroke Does the patient have a stroke diagnosis?: No VTE Prior VTE?: Yes VTE Risk Level:: Medical - moderate - high VTE Device Contraindication: Treatment Not Indicated VTE Drug Contraindication: N/A - Med Ordered
[2022-05-05 18:13] LABS: Glucose, Whole Blood 162 mg/dL (60-115)
[2022-05-05] MEDS: Heparin Sodium,Porcine 5,000 UNIT/ML VIAL 5000 UNIT INTRACATH (18:18)
[2022-05-05 19:22] VITALS: BP 124/48; PULSE 78; RESP 19; TEMP 37.1
[2022-05-05 19:47] LABS: Glucose, Whole Blood 212 mg/dL (60-115)
[2022-05-05] MEDS: Pravastatin Sodium 40 MG TABLET PO (21:16)
[2022-05-05] MEDS: Latanoprost 0.005 % Ophth Sol 2.5 ML DROPS 1 DROP EYE-BOTH (21:16)
[2022-05-05] MEDS: oxyCODONE HCl Immed Release 5 MG TABLET 10 MG PO (21:16)
[2022-05-05] MEDS: Insulin Glargine,Hum.rec.anlog 100 UNIT/ML 10 ML VIAL 8 UNIT SUBCUT (21:17)
[2022-05-05] MEDS: cefTRIAXone sodium 1 GM in 0.9 % Sodium Chloride 50 ML IV (22:05)
[2022-05-05] MEDS: Enoxaparin Sodium 30 MG/0.3 ML SYRINGE SUBCUT (22:06)
[2022-05-06] VITALS: BP 185/72; PULSE 80; RESP 16; TEMP 36.8; O2SAT 95
[2022-05-06 03:51] VITALS: BP 151/70; PULSE 71; RESP 16; TEMP 36.7; O2SAT 98
[2022-05-06] MEDS: Omeprazole 40 MG CAPSULE.DR PO (06:08)
[2022-05-06] MEDS: Levothyroxine Sodium 88 MCG TABLET PO (06:08)
[2022-05-06 07:06] LABS: MANUAL DIFF FLAG NO
[2022-05-06 07:07] LABS: Basophils Percent Auto 0.3 % (0-2); Eosinophils Absolute Auto 0.1 X10*3/uL (0.0-0.4); Hematocrit 32.1 % (37.0-47.0); Hemoglobin 9.8 g/dl (12.0-16.0); Imm Gran Abs Auto 0.24 X10*3/uL (0.00-0.03); Imm Gran Pct Auto 3.5 % (0.0-0.4); Lymphocytes Absolute Auto 0.4 X10*3/uL (1.2-4.9); Lymphocytes Percent Auto 6.3 % (20-40); Mean Corpuscular HGB Conc 30.5 g/dl (31.0-35.0); Mean Corpuscular Hemoglobin 30.2 pg (27.0-33.0); Mean Corpuscular Volume 98.8 fL (80.0-98.0); Mean Platelet Volume 9.4 fL (9.4-12.3); Monocytes Absolute Auto 0.5 X10*3/uL (0.1-1.2); Monocytes Percent Auto 6.9 % (2-11); NRBC Pct Auto 0.3 /100WBC (0.0-0.2); Neutrophils Absolute Auto 5.5 x10*3/uL (2.0-8.3); Platelet Count 160 X10*3/uL (160-400); Red Blood Count 3.25 X10*6/uL (4.20-5.50); Red Cell Distribution Width 18.7 % (11.0-16.0); White Blood Count 6.8 X10*3/uL (4.8-10.8)
[2022-05-06 07:25] LABS: Alanine Aminotransferase 10 U/L (0-31); Albumin Level 3.3 g/dL (3.5-5.0); Alkaline Phosphatase 97 U/L (39-117); Anion Gap 20 (12-20); Aspartate Amino Transferase 13 U/L (5-31); Bilirubin Total 0.2 mg/dL (0.0-1.0); Blood Urea Nitrogen 27 mg/dL (9-16); Calcium 7.4 mg/dL (8.4-10.2); Carbon Dioxide 26 mmol/L (22-29); Chloride 97 mmol/L (96-108); Creatinine Clr Calc Pharmacy 10.5; Estimated Glomerular Filt Rate 11; Glucose Fasting 113 mg/dL (60-99); Potassium 4.4 mmol/L (3.3-5.1); Sodium 139 mmol/L (135-145); Total Protein 5.7 g/dL (6.5-8.0)
[2022-05-06 07:55] VITALS: BP 193/99; PULSE 68; RESP 16; TEMP 36.6; O2SAT 100
[2022-05-06 08:09] LABS: Glucose, Whole Blood 117 mg/dL (60-115)
[2022-05-06] MEDS: 0.9 % Sodium Chloride Flush 3 ML SYRINGE IVFLUSH ×2 (09:10→15:07)
[2022-05-06] MEDS: Sertraline HCL 50 MG TABLET PO (09:11)
[2022-05-06] MEDS: Aspirin 325 MG TABLET PO (09:11)
[2022-05-06] MEDS: Ferrous Sulfate 324 MG TABLET.DR PO (09:11)
[2022-05-06] MEDS: Ascorbic Acid 500 MG TABLET PO (09:11)
[2022-05-06] MEDS: polyethylene glycoL 3350 17 GM POWD.PACK PO (09:12)
--- NOTE | 2022-05-06 09:52 | P.PNNP_ITS ---
Subjective Subjective Date of Service: 05/06/22 Interval history: did well on dialysis yesterday VSS Physical Exam Vital Signs: Vital Signs: Last Vital Signs Temp 97.9 F 05/06/22 07:55 Pulse 68 05/06/22 07:55 Resp 16 05/06/22 07:55 BP 193/99 H 05/06/22 07:55 Pulse Ox 100 05/06/22 07:55 O2 Del Method 05/06/22 07:55 FiO2 99 05/05/22 19:22 BMI result Body Mass Index 31.2 Const: Other: Awake alert mild confusion easily reoriented General: no acute distress Neck: Neck: Yes supple Resp: Other: Clear to auscultation bilaterally no rales rhonchi or wheezes Auscultation: diminished lung sounds Cardio: Other: No S4; positive S1-S2; no S3 murmurs rubs or gallops Rate: regular rate GI: Other: Soft nontender nondistended normoactive bowel sounds Palpation (GI): Soft to palpation Skin: General skin exam: no rashes or lesions noted Neuro: General: moves all extremities Extrem: Other: No edema Objective Data Labs CBC & Chem 7: 05/06/22 06:58 05/06/22 06:58 Labs: Laboratory Results - last 24 hr 05/05/22 05/05/22 05/05/22 11:06 18:09 19:43 WBC RBC Hgb Hct MCV MCH MCHC RDW Plt Count MPV Immature Gran % (Auto) Neut % (Auto) Lymph % (Auto) [place] % (Auto) Eos % (Auto) Baso % (Auto) Lymph # (Auto) [place] # (Auto) Eos # (Auto) Baso # (Auto) Abs Immat Gran (auto) Absolute Neuts (auto) Absolute Nucleated RBC Nucleated RBC % (auto) Sodium Potassium Chloride Carbon Dioxide Anion Gap BUN Creatinine Estim Creat Clear Calc Estimated GFR POC Glucose 114 162 H 212 H Fasting Glucose Calcium Total Bilirubin AST ALT Alkaline Phosphatase Total Protein Albumin 05/06/22 05/06/22 05/06/22 06:58 06:58 07:54 WBC 6.8 RBC 3.25 L Hgb 9.8 L Hct 32.1 L MCV 98.8 H MCH 30.2 MCHC 30.5 L RDW 18.7 H Plt Count 160 MPV 9.4 Immature Gran % (Auto) 3.5 H Neut % (Auto) 81.0 H Lymph % (Auto) 6.3 L [place] % (Auto) 6.9 Eos % (Auto) 2.0 Baso % (Auto) 0.3 Lymph # (Auto) 0.4 L [place] # (Auto) 0.5 Eos # (Auto) 0.1 Baso # (Auto) 0.0 Abs Immat Gran (auto) 0.24 H Absolute Neuts (auto) 5.5 Absolute Nucleated RBC 0.020 H Nucleated RBC % (auto) 0.3 H Sodium 139 Potassium 4.4 Chloride 97 Carbon Dioxide 26 Anion Gap 20 BUN 27 H D Creatinine 4.02 H* Estim Creat Clear Calc 10.5 Estimated GFR 11 POC Glucose 117 H Fasting Glucose 113 H Calcium 7.4 L D Total Bilirubin 0.2 AST 13 D ALT 10 Alkaline Phosphatase 97 Total Protein 5.7 L Albumin 3.3 L Microbiology Microbiology Results: Microbiology 05/03/22 16:58 Blood - Venous Blood Culture - Final Klebsiella pneumoniae 05/03/22 16:56 Blood - Venous Blood Culture - Final Klebsiella pneumoniae 05/03/22 20:17 Urine clean catch - Urine che top Urine Culture - Final Enterococcus faecalis Viridans streptococcus group Procedures Date of Service Date of Service: 05/06/22 Assessment & Plan Assessment and plan (1) Encephalopathy acute: Status: Acute (2) COVID-19: Status: Acute (3) ESRD on dialysis: Status: Acute (4) Bacteremia: Status: Acute Plan This is a 81-year-old female with a pertinent history of ESRD on hemodialysis Monday//Monday, insulin-dependent diabetes mellitus, history of PVC with IVC filter, chronic opioid use due to chronic pain, mood disorder, mixed hy perlipidemia, gastroesophageal reflux disease, hypothyroidism who was sent to the ER after she was found altered. Improved today with treatment 1.Acute metabolic encephalopathy -likely related to Gram-negative bacteremia/COVID 2.COVID-19 positive test date: 04/30/2022 -COVID isolation precautions. -currently no oxygen requirement 3.UTI/GNR bacteremia -IV CTX -await sensitivities 4.ESRD on hemodialysis -next treatment in am Time Spent With Patient Time: Total time spent is greater than 50% in coordination of care (as documented) at patient's floor/unit and/or counseling patient: Progress Note: Quality Stroke Does the patient have a stroke diagnosis?: No
--- NOTE | 2022-05-06 10:47 | HO.PM.IMPN ---
Subjective Subjective Date of Service: 05/06/22 Interval History: cc: ams interval history: feeling lousy Cardiovascular Cardiovascular: Reports no additional cardiovascular complaints Respiratory Respiratory: Reports no additional respiratory complaints Physical Exam Vital Signs: Vital Signs: Last Vital Signs Temp 97.9 F 05/06/22 07:55 Pulse 68 05/06/22 07:55 Resp 16 05/06/22 07:55 BP 193/99 H 05/06/22 07:55 Pulse Ox 100 05/06/22 07:55 O2 Del Method 05/06/22 07:55 FiO2 99 05/05/22 19:22 BMI result Body Mass Index 31.2 General: AO X 3, no acute distress Resp: CTA bilateral, no accessory muscles used CVS: S1,S2,RRR GI: soft, non tender, non distended Neuro: motor grossly intact, alert Psych: appropriate affect, appropriate insight Objective Data Active Medications Acetaminophen (Acetaminophen 325 Mg Tablet) 650 mg PO Q6H PRN PRN Reason: Pain, Mild (Pain Scale 1-3) Ascorbic Acid (Ascorbic Acid 500 Mg Tablet) 500 mg PO DAILY [facility] Last Admin: 05/06/22 09:11 Dose: 500 mg Documented By: LUKE Aspirin (Aspirin 325 Mg Tablet) 325 mg PO DAILY [facility] Last Admin: 05/06/22 09:11 Dose: 325 mg Documented By: LUKE Bisacodyl (Bisacodyl 10 Mg Supp.Rect) 10 mg [place] DAILY PRN PRN Reason: Constipation Dextrose (Dextrose 50 % 25 Gm/50 Ml Syringe) 25 gm IVPUSH Q15M PRN; Protocol PRN Reason: per Hypoglycemia Standing Ord. Enoxaparin Sodium (Enoxaparin Sodium 30 Mg/0.3 Ml Syringe) 30 mg SUBCUT Q24H [facility] Last Admin: 05/05/22 22:06 Dose: 30 mg Documented By: MARGARETTELM Ferrous Sulfate (Ferrous Sulfate 324 Mg Tablet.Dr) 324 mg PO DAILY [facility] Last Admin: 05/06/22 09:11 Dose: 324 mg Documented By: LUKE Glucose (Glucose Gel 15 Gm Gel..Gram.) 15 gm PO Q15M PRN; Protocol PRN Reason: per Hypoglycemia Standing Ord. Heparin Sodium (Porcine) (Heparin Sodium,Porcine 5,000 Unit/Ml Vial) 5,000 unit INTRACATH TUTHSA@1865 [facility] Last Admin: 05/05/22 18:18 Dose: 5,000 unit Documented By: LUKE Ceftriaxone Sodium 1 gm/ (Sodium Chloride) 50 mls @ 100 mls/hr IV Q24H [facility] Last Infusion: 05/05/22 22:50 Dose: 0 mls/hr Documented By: HUNG Insulin Glargine (Insulin Glargine,Hum.Rec.Anlog 100 Unit/Ml 10 Ml Vial) 8 unit SUBCUT BEDTIME [facility] Last Admin: 05/05/22 21:17 Dose: 8 unit Documented By: HUNG Lactulose (Lactulose 20 Gm/30 Ml Solution) 20 gm PO DAILY PRN PRN Reason: Constipation Latanoprost (Latanoprost 0.005 % Ophth [place] 2.5 Ml Drops) 1 drop EYE-BOTH BEDTIME [facility] Last Admin: 05/05/22 21:16 Dose: 1 drop Documented By: HUNG Levothyroxine Sodium (Levothyroxine Sodium 88 Mcg Tablet) 88 mcg PO DAILY@0600 [facility] Last Admin: 05/06/22 06:08 Dose: 88 mcg Documented By: HUNG Melatonin (Melatonin 3 Mg Tablet) 6 mg PO BEDTIME PRN PRN Reason: Insomnia Midodrine (Midodrine Hcl 2.5 Mg Tablet) 2.5 mg PO TuThSa@0900 [facility] Last Admin: 05/05/22 12:45 Dose: Not Given Documented By: LUKE Non-Admin Reason: Elevated Blood Pressure Nitroglycerin (Nitroglycerin 0.4 Mg Tab.Subl) 0.4 mg SUBLINGUAL Q5M PRN PRN Reason: Chest Pain Omeprazole (Omeprazole 40 Mg Capsule.Dr) 40 mg PO DAILY@0630 [facility] Last Admin: 05/06/22 06:08 Dose: 40 mg Documented By: HUNG Ondansetron HCl (Ondansetron Hcl 4 Mg/2 Ml Vial) 4 mg IVPUSH Q8H PRN PRN Reason: Nausea and Vomiting Oxycodone HCl (Oxycodone Hcl Immed Release 5 Mg Tablet) 10 mg PO QID PRN PRN Reason: Pain, Severe (Pain Scale 7-10) Last Admin: 05/05/22 21:16 Dose: 10 mg Documented By: HUNG Pharmacy Consult (Consult Rx Perform Med Rec) 1 each MISCELLANE ONCE PRN PRN Reason: Consult order Polyethylene Glycol (Polyethylene Glycol 3350 17 Gm Powd.Pack) 17 gm PO DAILY [facility] Last Admin: 05/06/22 09:12 Dose: 17 gm Documented By: LUKE Pravastatin Sodium (Pravastatin Sodium 40 Mg Tablet) 40 mg PO BEDTIME [facility] Last Admin: 05/05/22 21:16 Dose: 40 mg Documented By: HUNG Senna (Sennosides 8.6 Mg Tablet) 8.6 mg PO BEDTIME PRN PRN Reason: Constipation Sertraline HCl (Sertraline Hcl 50 Mg Tablet) 50 mg PO DAILY [facility] Last Admin: 05/06/22 09:11 Dose: 50 mg Documented By: LUKE Sodium Chloride (0.9 % Sodium Chloride Flush 3 Ml Syringe) 3 ml IVFLUSH QSHIFT [facility] Last Admin: 05/06/22 09:10 Dose: 3 ml Documented By: LUKE Labs CBC & Chem 7: 05/06/22 06:58 05/06/22 06:58 Labs: Laboratory Results - last 24 hr 05/05/22 05/05/22 05/05/22 11:06 18:09 19:43 MCV MCH MCHC RDW Plt Count MPV Immature Gran % (Auto) Neut % (Auto) Lymph % (Auto) [place] % (Auto) Eos % (Auto) Baso % (Auto) Lymph # (Auto) [place] # (Auto) Eos # (Auto) Baso # (Auto) Abs Immat Gran (auto) Absolute Neuts (auto) Absolute Nucleated RBC Nucleated RBC % (auto) Anion Gap Estim Creat Clear Calc Estimated GFR POC Glucose 114 162 H 212 H Fasting Glucose Calcium Total Bilirubin AST ALT Alkaline Phosphatase Total Protein Albumin 05/06/22 05/06/22 05/06/22 06:58 06:58 07:54 MCV 98.8 H MCH 30.2 MCHC 30.5 L RDW 18.7 H Plt Count 160 MPV 9.4 Immature Gran % (Auto) 3.5 H Neut % (Auto) 81.0 H Lymph % (Auto) 6.3 L [place] % (Auto) 6.9 Eos % (Auto) 2.0 Baso % (Auto) 0.3 Lymph # (Auto) 0.4 L [place] # (Auto) 0.5 Eos # (Auto) 0.1 Baso # (Auto) 0.0 Abs Immat Gran (auto) 0.24 H Absolute Neuts (auto) 5.5 Absolute Nucleated RBC 0.020 H Nucleated RBC % (auto) 0.3 H Anion Gap 20 Estim Creat Clear Calc 10.5 Estimated GFR 11 POC Glucose 117 H Fasting Glucose 113 H Calcium 7.4 L D Total Bilirubin 0.2 AST 13 D ALT 10 Alkaline Phosphatase 97 Total Protein 5.7 L Albumin 3.3 L Microbiology Microbiology Results: Microbiology 05/03/22 16:58 Blood Culture - Final Blood - Venous Klebsiella pneumoniae 05/03/22 16:56 Blood Culture - Final Blood - Venous Klebsiella pneumoniae 05/03/22 20:17 Urine Culture - Final Urine clean catch - Urine che top Enterococcus faecalis Viridans streptococcus group Assessment and Plan (1) Encephalopathy acute: Status: Acute (2) COVID-19: Status: Acute (3) ESRD on dialysis: Status: Acute (4) Bacteremia: Status: Acute Plan This is a 81-year-old female with a pertinent history of ESRD on hemodialysis Monday//Monday, insulin-dependent diabetes mellitus, history of PVC with IVC filter, chronic opioid use due to chronic pain, mood disorder, mixed hyperlipidemia, gastroesophageal reflux disease, hypothyroidism who was sent to the ER after she was found altered sepsis and Metabolic encephalopathy secondary to Klebsiella pneumonia bacteremia source possibly GI -CT with possible acute mild diverticulitis urine growing E faecalis and strep viridans continue ceftriaxone encephalopathy improving COVID-19 positive test date: 04/30/2022 COVID isolation precautions. currently no oxygen requirement UTI IV CTX ESRD on hemodialysis HD Insulin-dependent diabetes mellitus titrate basal insulin as indicated ADA diet-lispro correctional scale HTN metoprolol DVT prophylaxis: Lovenox 30 mg daily Full code reason for continued hospitalization:iv abx and close monitoring for sepsis with bacteremia Quality Stroke Does the patient have a stroke diagnosis?: No VTE Prior VTE?: Yes VTE Risk Level:: Medical - moderate - high VTE Device Contraindication: Treatment Not Indicated VTE Drug Contraindication: N/A - Med Ordered
[2022-05-06 11:28] LABS: Glucose, Whole Blood 108 mg/dL (60-115)
[2022-05-06 11:51] VITALS: BP 172/80; PULSE 69; RESP 16; TEMP 36.8; O2SAT 97
--- NOTE | 2022-05-06 14:23 | P.CONGS_ITS ---
History of Present Illness Consult details Consult date: 05/06/22 Requesting physician: Artis Blanco Narrative: 81-year-old female patient presenting with history of diabetes mellitus, hypertension, GERD, end-stage renal disease, admitted with complaints of right upper quadrant abdominal pain subsequent found to have positive blood cultures with 2 bottles positive for Klebsiella pneumoniae. This raise suspicion of an intra-abdominal source possibly a perforated bowel. Patient currently reports abdominal pain mainly in the lower quadrant left lower quadrant greater than right lower quadrant. She reports bowel movements on a daily basis and denies nausea or vomiting. Laboratory from today revealed a normal WBC of 6.8. CT of the abdomen and pelvis was reviewed. There is evidence of gallbladder sludge but no secondary evidence of acute cholecystitis including no wall thickening, pericholecystic fluid, or ductal dilatation. There are multiple diverticulum involving the sigmoid colon and left colon with associated wall thickening but no evidence of inflammation. No free air or free fluid collections are identified. Patient denies a prior history of diverticulitis. Review of Systems Review of Systems: Yes all other systems are reviewed and are negative Gastrointestinal: Gastrointestinal: Reports abdominal pain, Reports heartburn, Denies diarrhea, Denies nausea and Denies vomiting PMFSH Past Medical History Medical History Anemia Diabetes mellitus GERD (gastroesophageal reflux disease) HTN (hypertension) Hypertension Kidney disease Pulmonary embolus Social History Social History Household Members: None Housing: Intermediate Do you presently have visiting nurse or other home services: No Unable to assess alcohol history related to: Unknown Patient Tobacco Use Status: Never used Tobacco Advance Directives Date on File: 02/10/21 service: No Current occupational status: retired Meds Allergies Allergy/AdvReac Type Severity Reaction Status Date / Time Sulfa (Sulfonamide Allergy Unknown RASH Verified 05/03/22 19:57 Antibiotics) Active Medications: Current Medications Acetaminophen (Acetaminophen 325 Mg Tablet) 650 mg PO Q6H PRN PRN Reason: Pain, Mild (Pain Scale 1-3) Ascorbic Acid (Ascorbic Acid 500 Mg Tablet) 500 mg PO DAILY [facility] Last Admin: 05/06/22 09:11 Dose: 500 mg Aspirin (Aspirin 325 Mg Tablet) 325 mg PO DAILY [facility] Last Admin: 05/06/22 09:11 Dose: 325 mg Bisacodyl (Bisacodyl 10 Mg Supp.Rect) 10 mg [place] DAILY PRN PRN Reason: Constipation Dextrose (Dextrose 50 % 25 Gm/50 Ml Syringe) 25 gm IVPUSH Q15M PRN; Protocol PRN Reason: per Hypoglycemia Standing Ord. Enoxaparin Sodium (Enoxaparin Sodium 30 Mg/0.3 Ml Syringe) 30 mg SUBCUT Q24H [facility] Last Admin: 05/05/22 22:06 Dose: 30 mg Ferrous Sulfate (Ferrous Sulfate 324 Mg Tablet.Dr) 324 mg PO DAILY [facility] Last Admin: 05/06/22 09:11 Dose: 324 mg Glucose (Glucose Gel 15 Gm Gel..Gram.) 15 gm PO Q15M PRN; Protocol PRN Reason: per Hypoglycemia Standing Ord. Heparin Sodium (Porcine) (Heparin Sodium,Porcine 5,000 Unit/Ml Vial) 5,000 unit INTRACATH TUTHSA@1645 [facility] Last Admin: 05/05/22 18:18 Dose: 5,000 unit Piperacillin Sod/Tazobactam (Sod 2.25 gm/ Sodium Chloride) 50 mls @ 100 mls/hr IV Q6H [facility] Insulin Glargine (Insulin Glargine,Hum.Rec.Anlog 100 Unit/Ml 10 Ml Vial) 8 unit SUBCUT BEDTIME [facility] Last Admin: 05/05/22 21:17 Dose: 8 unit Lactulose (Lactulose 20 Gm/30 Ml Solution) 20 gm PO DAILY PRN PRN Reason: Constipation Latanoprost (Latanoprost 0.005 % Ophth [place] 2.5 Ml Drops) 1 drop EYE-BOTH BEDTIME [facility] Last Admin: 05/05/22 21:16 Dose: 1 drop Levothyroxine Sodium (Levothyroxine Sodium 88 Mcg Tablet) 88 mcg PO DAILY@0600 [facility] Last Admin: 05/06/22 06:08 Dose: 88 mcg Melatonin (Melatonin 3 Mg Tablet) 6 mg PO BEDTIME PRN PRN Reason: Insomnia Metoprolol Tartrate (Metoprolol Tartrate 25 Mg Tablet) 25 mg PO BID [facility]; Protocol Midodrine (Midodrine Hcl 2.5 Mg Tablet) 2.5 mg PO TuThSa@0900 [facility] Last Admin: 05/05/22 12:45 Dose: Not Given Nitroglycerin (Nitroglycerin 0.4 Mg Tab.Subl) 0.4 mg SUBLINGUAL Q5M PRN PRN Reason: Chest Pain Omeprazole (Omeprazole 40 Mg Capsule.Dr) 40 mg PO DAILY@0630 [facility] Last Admin: 05/06/22 06:08 Dose: 40 mg Ondansetron HCl (Ondansetron Hcl 4 Mg/2 Ml Vial) 4 mg IVPUSH Q8H PRN PRN Reason: Nausea and Vomiting Oxycodone HCl (Oxycodone Hcl Immed Release 5 Mg Tablet) 10 mg PO QID [facility] Pharmacy Consult (Consult Rx Perform Med Rec) 1 each MISCELLANE ONCE PRN PRN Reason: Consult order Polyethylene Glycol (Polyethylene Glycol 3350 17 Gm Powd.Pack) 17 gm PO DAILY [facility] Last Admin: 05/06/22 09:12 Dose: 17 gm Pravastatin Sodium (Pravastatin Sodium 40 Mg Tablet) 40 mg PO BEDTIME [facility] Last Admin: 05/05/22 21:16 Dose: 40 mg Senna (Sennosides 8.6 Mg Tablet) 8.6 mg PO BEDTIME PRN PRN Reason: Constipation Sertraline HCl (Sertraline Hcl 50 Mg Tablet) 50 mg PO DAILY [facility] Last Admin: 05/06/22 09:11 Dose: 50 mg Sodium Chloride (0.9 % Sodium Chloride Flush 3 Ml Syringe) 3 ml IVFLUSH QSHIFT [facility] Last Admin: 05/06/22 09:10 Dose: 3 ml Home Medications Medication Instructions Recorded Confirmed Last Taken Type acetaminophen 325 mg tablet 325 mg PO TID PRN Pain 02/10/21 05/03/22 Unknown History insulin NPH isoph U-100 human 100 16 unit subcut BEDTIME 02/10/21 05/03/22 Unknown History unit/mL subcutaneous suspension (Novolin N NPH U-100 Insulin isophane) levothyroxine 88 mcg tablet 1 tab PO DAILY@0600 02/10/21 05/03/22 Unknown History metoprolol tartrate 25 mg tablet 1 tab PO BID 02/10/21 05/03/22 Unknown History ondansetron 4 mg disintegrating 4 mg PO Q6H PRN Nausea And Vomiting 02/10/21 05/03/22 Unknown History tablet oxycodone 10 mg tablet 1 tab PO QID PRN pain 02/10/21 05/03/22 Unknown History polyethylene glycol 3350 17 gram 17 g PO DAILY 02/10/21 05/03/22 Unknown History oral powder packet (Miralax) pravastatin 40 mg tablet 1 tab PO BEDTIME 02/10/21 05/03/22 Unknown History sertraline 50 mg tablet 1 tab PO DAILY 02/10/21 05/03/22 Unknown History ascorbic acid (vitamin C) 500 mg 500 mg PO DAILY 05/03/22 05/03/22 Unknown History tablet (Vitamin C) aspirin 325 mg tablet 325 mg PO DAILY 05/03/22 05/03/22 Unknown History bisacodyl 10 mg rectal suppository 10 mg MD DAILY PRN Constipation 05/03/22 05/03/22 Unknown History ferrous fumarate 325 mg (106 mg 325 mg PO DAILY 05/03/22 05/03/22 Unknown History iron) tablet lactulose 10 gram/15 mL oral 30 ml PO DAILY PRN Constipation 05/03/22 05/03/22 Unknown History solution latanoprost 0.005 % eye drops 1 drp ophthalmic (eye) BEDTIME 05/03/22 05/03/22 Unknown History melatonin 3 mg tablet 3 mg PO BEDTIME PRN Insomnia 05/03/22 05/03/22 Unknown History midodrine 2.5 mg tablet 1 tab PO TUTHSA 05/03/22 05/03/22 Unknown History nitroglycerin 0.4 mg sublingual 0.4 mg sublingual Q5M PRN Chest 05/03/22 05/03/22 Unknown History tablet Pain nystatin 100,000 unit/gram topical 1 appl topical BID 05/03/22 05/03/22 Unknown History powder omeprazole 40 mg capsule,delayed 40 mg PO DAILY 05/03/22 05/03/22 Unknown History release sennosides 8.6 mg tablet (senna) 8.6 mg PO BEDTIME PRN Constipation 05/03/22 05/03/22 Unknown History Physical Exam Vital Signs: Vital Signs: Last Vital Signs Temp 98.3 F 05/06/22 11:51 Pulse 69 05/06/22 11:51 Resp 16 05/06/22 11:51 BP 172/80 H 05/06/22 11:51 Pulse Ox 97 05/06/22 11:51 O2 Del Method 05/06/22 11:51 FiO2 99 05/05/22 19:22 BMI result Body Mass Index 31.2 Const: General: no acute distress and alert Nutritional Appearance: well nourished Orientation/consciousness: patient oriented x3 Limitations: no limitations Eyes: Sclerae: sclerae normal EOM: EOMs intact bilaterally Resp: Other: Breathing comfortably, no respiratory distress GI: Other: Soft, mildly distended, tender in the lower quadrants especially left lower quadrant without rebound, guarding, or rigidity. Normal bowel sounds. No tympany to percussion. Negative Mcwilliams sign. Skin: Other: Warm, dry, no rash Neuro: General: patient oriented x3 Extrem: General: Yes no clubbing, cyanosis or edema Results Labs Result diagrams: 05/06/22 06:58 05/06/22 06:58 Labs: Abnormal lab results 05/05/22 05/05/22 05/06/22 Range/Units 18:09 19:43 06:58 RBC 3.25 L (4.20-5.50) X10*6/uL Hgb 9.8 L (12.0-16.0) g/dl Hct 32.1 L (37.0-47.0) % MCV 98.8 H (80.0-98.0) fL MCHC 30.5 L (31.0-35.0) g/dl RDW 18.7 H (11.0-16.0) % Immature Gran % (Auto) 3.5 H (0.0-0.4) % Neut % (Auto) 81.0 H (45-73) % Lymph % (Auto) 6.3 L (20-40) % Lymph # (Auto) 0.4 L (1.2-4.9) X10*3/uL Abs Immat Gran (auto) 0.24 H (0.00-0.03) X10*3/uL Absolute Nucleated RBC 0.020 H (0.0-0.012) X10*3/uL Nucleated RBC % (auto) 0.3 H (0.0-0.2) /100WBC BUN (9-16) mg/dL Creatinine (0.5-1.4) mg/dL POC Glucose 162 H 212 H (60-115) mg/dL Fasting Glucose (60-99) mg/dL Calcium (8.4-10.2) mg/dL Total Protein (6.5-8.0) g/dL Albumin (3.5-5.0) g/dL 05/06/22 05/06/22 Range/Units 06:58 07:54 RBC (4.20-5.50) X10*6/uL Hgb (12.0-16.0) g/dl Hct (37.0-47.0) % MCV (80.0-98.0) fL MCHC (31.0-35.0) g/dl RDW (11.0-16.0) % Immature Gran % (Auto) (0.0-0.4) % Neut % (Auto) (45-73) % Lymph % (Auto) (20-40) % Lymph # (Auto) (1.2-4.9) X10*3/uL Abs Immat Gran (auto) (0.00-0.03) X10*3/uL Absolute Nucleated RBC (0.0-0.012) X10*3/uL Nucleated RBC % (auto) (0.0-0.2) /100WBC BUN 27 H D (9-16) mg/dL Creatinine 4.02 H* (0.5-1.4) mg/dL POC Glucose 117 H (60-115) mg/dL Fasting Glucose 113 H (60-99) mg/dL Calcium 7.4 L D (8.4-10.2) mg/dL Total Protein 5.7 L (6.5-8.0) g/dL Albumin 3.3 L (3.5-5.0) g/dL Short CBC 05/06/22 Range/Units 06:58 WBC 6.8 (4.8-10.8) X10*3/uL Hgb 9.8 L (12.0-16.0) g/dl Hct 32.1 L (37.0-47.0) % Plt Count 160 (160-400) X10*3/uL BMP 05/06/22 06:58 Sodium 139 Potassium 4.4 Chloride 97 Carbon Dioxide 26 BUN 27 H D Creatinine 4.02 H* Calcium 7.4 L D Liver Function 05/06/22 Range/Units 06:58 Total Bilirubin 0.2 (0.0-1.0) mg/dL AST 13 D (5-31) U/L ALT 10 (0-31) U/L Alkaline Phosphatase 97 (39-117) U/L Albumin 3.3 L (3.5-5.0) g/dL Urine 05/03/22 Range/Units 19:39 Urine Color Yellow Urine Appearance Turbid Urine pH 7.0 (5.0-9.0) Ur Specific [place] 1.015 (1.005-1.025) Urine Protein 300 (3+) H (Neg-Trace) mg/dL Urine Glucose (UA) Negative (Negative) mg/dL All other labs normal. Assessment and Plan (1) Bacteremia: Status: Acute (2) Diverticulosis large intestine w/o perforation or abscess w/bleeding: Status: Acute Plan 81-year-old female patient with multiple medical problems presenting with complaints of abdominal pain found to have Klebsiella in 2 blood culture bottles. Findings are concerning for perforated bowel however on examination reveals only mild tenderness to deep palpation without peritoneal signs. Review of the CT abdomen and pelvis reveals some marked diverticular changes with wall thickening but without evidence of surrounding inflammation, abscess or free air. There is no evidence of a bowel perforation at this time. Agree with treating with IV antibiotics and monitor clinical examination. Recommend repeat CT abdomen and pelvis if the patient's clinical exam (abdominal examination) worsens. Procedures Date of Service Date of Service: 05/06/22
[2022-05-06] MEDS: oxyCODONE HCl Immed Release 5 MG TABLET 10 MG PO ×2 (15:04→20:51)
[2022-05-06] MEDS: Piperacillin Sodium/Tazobactam 2.25 GM in 0.9 % Sodium Chloride 50 ML IV ×2 (15:07→21:22)
[2022-05-06 15:26] VITALS: BP 132/72; PULSE 78; RESP 18; TEMP 36.4; O2SAT 97
[2022-05-06 16:48] LABS: Glucose, Whole Blood 135 mg/dL (60-115)
[2022-05-06 19:29] VITALS: BP 185/57; PULSE 72; RESP 18; TEMP 36.1; O2SAT 95
[2022-05-06 19:58] LABS: Glucose, Whole Blood 129 mg/dL (60-115)
[2022-05-06] MEDS: Metoprolol Tartrate 25 MG TABLET PO (20:30)
[2022-05-06] MEDS: Insulin Glargine,Hum.rec.anlog 100 UNIT/ML 10 ML VIAL 8 UNIT SUBCUT (20:30)
[2022-05-06] MEDS: Pravastatin Sodium 40 MG TABLET PO (20:30)
[2022-05-06] MEDS: Latanoprost 0.005 % Ophth Sol 2.5 ML DROPS 1 DROP EYE-BOTH (20:49)
[2022-05-06] MEDS: Enoxaparin Sodium 30 MG/0.3 ML SYRINGE SUBCUT (22:39)
[2022-05-07] VITALS (7 sets, daily range): BP systolic 134–178; BP diastolic 60–82; PULSE 58–77; RESP 16–18; TEMP 35.9–37.3; O2SAT 93–100
[2022-05-07] MEDS: Piperacillin Sodium/Tazobactam 2.25 GM in 0.9 % Sodium Chloride 50 ML IV ×4 (00:53→20:37)
[2022-05-07] MEDS: 0.9 % Sodium Chloride Flush 3 ML SYRINGE IVFLUSH ×4 (01:03→20:37)
[2022-05-07] MEDS: Melatonin 3 MG TABLET 6 MG PO (01:32)
[2022-05-07] MEDS: Levothyroxine Sodium 88 MCG TABLET PO (05:35)
[2022-05-07] MEDS: Omeprazole 40 MG CAPSULE.DR PO (05:35)
[2022-05-07 07:24] LABS: MANUAL DIFF FLAG NO
[2022-05-07 07:41] LABS: Basophils Percent Auto 0.6 % (0-2); Eosinophils Absolute Auto 0.2 X10*3/uL (0.0-0.4); Eosinophils Percent Auto 2.8 % (0-4); Hematocrit 30.8 % (37.0-47.0); Hemoglobin 9.4 g/dl (12.0-16.0); Imm Gran Abs Auto 0.32 X10*3/uL (0.00-0.03); Lymphocytes Absolute Auto 0.3 X10*3/uL (1.2-4.9); Mean Corpuscular HGB Conc 30.5 g/dl (31.0-35.0); Mean Corpuscular Hemoglobin 30.4 pg (27.0-33.0); Mean Corpuscular Volume 99.7 fL (80.0-98.0); Mean Platelet Volume 9.6 fL (9.4-12.3); Monocytes Absolute Auto 0.5 X10*3/uL (0.1-1.2); Monocytes Percent Auto 8.1 % (2-11); Neutrophils Absolute Auto 5.1 x10*3/uL (2.0-8.3); Neutrophils Percent Auto 78.5 % (45-73); Platelet Count 171 X10*3/uL (160-400); Red Blood Count 3.09 X10*6/uL (4.20-5.50); Red Cell Distribution Width 18.6 % (11.0-16.0); White Blood Count 6.5 X10*3/uL (4.8-10.8)
[2022-05-07 07:47] LABS: Alanine Aminotransferase 11 U/L (0-31); Albumin Level 3.1 g/dL (3.5-5.0); Alkaline Phosphatase 103 U/L (39-117); Anion Gap 25 (12-20); Aspartate Amino Transferase 15 U/L (5-31); Bilirubin Total 0.3 mg/dL (0.0-1.0); Blood Urea Nitrogen 47 mg/dL (9-16); Calcium 6.7 mg/dL (8.4-10.2); Carbon Dioxide 21 mmol/L (22-29); Chloride 100 mmol/L (96-108); Creatinine Clr Calc Pharmacy 7.7; Estimated Glomerular Filt Rate 7; Glucose Fasting 108 mg/dL (60-99); Sodium 141 mmol/L (135-145); Total Protein 5.4 g/dL (6.5-8.0)
[2022-05-07 07:52] LABS: Glucose, Whole Blood 109 mg/dL (60-115)
--- NOTE | 2022-05-07 08:37 | PM.PNNEP ---
Subjective Subjective Date of Service: 05/07/22 Interval history: no new events VSS Physical Exam Vital Signs: Vital Signs: Last Vital Signs Temp 99.1 F 05/07/22 07:40 Pulse 58 05/07/22 07:40 Resp 18 05/07/22 07:40 BP 150/68 H 05/07/22 07:40 Pulse Ox 99 05/07/22 07:40 O2 Del Method 05/07/22 07:40 FiO2 99 05/05/22 19:22 BMI result Body Mass Index 31.2 Const: Other: Awake alert mild confusion easily reoriented General: no acute distress and alert Nutritional Appearance: well nourished Orientation/consciousness: patient oriented x3 Limitations: no limitations Eyes: Sclerae: sclerae normal EOM: EOMs intact bilaterally Neck: Neck: Yes supple Resp: Other: Breathing comfortably, no respiratory distress Auscultation: diminished lung sounds Cardio: Other: No S4; positive S1-S2; no S3 murmurs rubs or gallops Rate: regular rate GI: Other: Soft, mildly distended, tender in the lower quadrants especially left lower quadrant without rebound, guarding, or rigidity. Normal bowel sounds. No tympany to percussion. Negative Mcwilliams sign. Palpation (GI): Soft to palpation Skin: Other: Warm, dry, no rash General skin exam: no rashes or lesions noted Neuro: General: patient oriented x3 and moves all extremities Extrem: Other: No edema General: Yes no clubbing, cyanosis or edema Objective Data Labs CBC & Chem 7: 05/07/22 06:35 05/07/22 06:35 Labs: Laboratory Results - last 24 hr 05/06/22 05/06/22 05/06/22 11:02 16:44 19:48 WBC RBC Hgb Hct MCV MCH MCHC RDW Plt Count MPV Immature Gran % (Auto) Neut % (Auto) Lymph % (Auto) [place] % (Auto) Eos % (Auto) Baso % (Auto) Lymph # (Auto) [place] # (Auto) Eos # (Auto) Baso # (Auto) Abs Immat Gran (auto) Absolute Neuts (auto) Absolute Nucleated RBC Nucleated RBC % (auto) Sodium Potassium Chloride Carbon Dioxide Anion Gap BUN Creatinine Estim Creat Clear Calc Estimated GFR POC Glucose 108 135 H 129 H Fasting Glucose Calcium Total Bilirubin AST ALT Alkaline Phosphatase Total Protein Albumin 05/07/22 05/07/22 05/07/22 06:35 06:35 06:35 WBC 6.5 Cancelled RBC 3.09 L Cancelled Hgb 9.4 L Cancelled Hct 30.8 L Cancelled MCV 99.7 H Cancelled MCH 30.4 Cancelled MCHC 30.5 L Cancelled RDW 18.6 H Cancelled Plt Count 171 Cancelled MPV 9.6 Cancelled Immature Gran % (Auto) 5.0 H Neut % (Auto) 78.5 H Lymph % (Auto) 5.0 L [place] % (Auto) 8.1 Eos % (Auto) 2.8 Baso % (Auto) 0.6 Lymph # (Auto) 0.3 L [place] # (Auto) 0.5 Eos # (Auto) 0.2 Baso # (Auto) 0.0 Abs Immat Gran (auto) 0.32 H Absolute Neuts (auto) 5.1 Absolute Nucleated RBC 0.000 Cancelled Nucleated RBC % (auto) 0.0 Cancelled Sodium 141 Potassium 5.0 Chloride 100 Carbon Dioxide 21 L Anion Gap 25 H BUN 47 H D Creatinine 5.49 H* Estim Creat Clear Calc 7.7 Estimated GFR 7 POC Glucose Fasting Glucose 108 H Calcium 6.7 L D Total Bilirubin 0.3 AST 15 ALT 11 Alkaline Phosphatase 103 Total Protein 5.4 L Albumin 3.1 L 05/07/22 07:42 WBC RBC Hgb Hct MCV MCH MCHC RDW Plt Count MPV Immature Gran % (Auto) Neut % (Auto) Lymph % (Auto) [place] % (Auto) Eos % (Auto) Baso % (Auto) Lymph # (Auto) [place] # (Auto) Eos # (Auto) Baso # (Auto) Abs Immat Gran (auto) Absolute Neuts (auto) Absolute Nucleated RBC Nucleated RBC % (auto) Sodium Potassium Chloride Carbon Dioxide Anion Gap BUN Creatinine Estim Creat Clear Calc Estimated GFR POC Glucose 109 Fasting Glucose Calcium Total Bilirubin AST ALT Alkaline Phosphatase Total Protein Albumin Microbiology Microbiology Results: Microbiology 05/03/22 16:58 Blood - Venous Blood Culture - Final Klebsiella pneumoniae 05/03/22 16:56 Blood - Venous Blood Culture - Final Klebsiella pneumoniae 05/03/22 20:17 Urine clean catch - Urine che top Urine Culture - Final Enterococcus faecalis Viridans streptococcus group Procedures Date of Service Date of Service: 05/07/22 Assessment & Plan Assessment and plan (1) Bacteremia: Status: Acute (2) Diverticulosis large intestine w/o perforation or abscess w/bleeding: Status: Acute (3) ESRD on dialysis: Status: Acute Assessment and Plan: seen on dialysis today 81-year-old female with? ESRD on hemodialysis Monday//Monday? Plan 81-year-old female patient with multiple medical problems presenting with complaints of abdominal pain found to have Klebsiella in 2 blood culture bottles. Progress Note: Quality Stroke Does the patient have a stroke diagnosis?: No
[2022-05-07] MEDS: oxyCODONE HCl Immed Release 5 MG TABLET 10 MG PO ×4 (08:43→20:35)
[2022-05-07] MEDS: Sertraline HCL 50 MG TABLET PO (08:44)
[2022-05-07] MEDS: Ferrous Sulfate 324 MG TABLET.DR PO (08:44)
[2022-05-07] MEDS: Ascorbic Acid 500 MG TABLET PO (08:44)
[2022-05-07] MEDS: Metoprolol Tartrate 25 MG TABLET PO ×2 (08:44→20:35)
[2022-05-07] MEDS: Aspirin 325 MG TABLET PO (08:44)
[2022-05-07] MEDS: Midodrine HCl 2.5 MG TABLET PO (08:44)
[2022-05-07] MEDS: polyethylene glycoL 3350 17 GM POWD.PACK PO (08:46)
--- NOTE | 2022-05-07 09:43 | P.PNIM_ITS ---
Subjective Subjective Date of Service: 05/07/22 Interval History: cc: ams interval history: feeling lousy Cardiovascular Cardiovascular: Reports no additional cardiovascular complaints Respiratory Respiratory: Reports no additional respiratory complaints Physical Exam Vital Signs: Vital Signs: Last Vital Signs Temp 99.1 F 05/07/22 07:40 Pulse 58 05/07/22 07:40 Resp 18 05/07/22 07:40 BP 150/68 H 05/07/22 07:40 Pulse Ox 99 05/07/22 07:40 O2 Del Method 05/07/22 07:40 FiO2 99 05/05/22 19:22 BMI result Body Mass Index 31.2 Const: General: no acute distress and alert Nutritional Appearance: well nourished Orientation/consciousness: patient oriented x3 Limitations: no limitations Eyes: Sclerae: sclerae normal EOM: EOMs intact bilaterally Resp: Other: Breathing comfortably, no respiratory distress GI: Other: Soft, mildly distended, tender in the lower quadrants especially left lower quadrant without rebound, guarding, or rigidity. Normal bowel sounds. No tympany to percussion. Negative Mcwilliams sign. Skin: Other: Warm, dry, no rash Neuro: General: patient oriented x3 Extrem: General: Yes no clubbing, cyanosis or edema Objective Data Active Medications Acetaminophen (Acetaminophen 325 Mg Tablet) 650 mg PO Q6H PRN PRN Reason: Pain, Mild (Pain Scale 1-3) Ascorbic Acid (Ascorbic Acid 500 Mg Tablet) 500 mg PO DAILY [facility] Last Admin: 05/07/22 08:44 Dose: 500 mg Documented By: VIOLETA Aspirin (Aspirin 325 Mg Tablet) 325 mg PO DAILY [facility] Last Admin: 05/07/22 08:44 Dose: 325 mg Documented By: VIOLETA Bisacodyl (Bisacodyl 10 Mg Supp.Rect) 10 mg [place] DAILY PRN PRN Reason: Constipation Dextrose (Dextrose 50 % 25 Gm/50 Ml Syringe) 25 gm IVPUSH Q15M PRN; Protocol PRN Reason: per Hypoglycemia Standing Ord. Enoxaparin Sodium (Enoxaparin Sodium 30 Mg/0.3 Ml Syringe) 30 mg SUBCUT Q24H [facility] Last Admin: 05/06/22 22:39 Dose: 30 mg Documented By: YANIQUE Ferrous Sulfate (Ferrous Sulfate 324 Mg Tablet.Dr) 324 mg PO DAILY [facility] Last Admin: 05/07/22 08:44 Dose: 324 mg Documented By: VIOLETA Glucose (Glucose Gel 15 Gm Gel..Gram.) 15 gm PO Q15M PRN; Protocol PRN Reason: per Hypoglycemia Standing Ord. Heparin Sodium (Porcine) (Heparin Sodium,Porcine 5,000 Unit/Ml Vial) 5,000 unit INTRACATH TUTHSA@1645 [facility] Last Admin: 05/05/22 18:18 Dose: 5,000 unit Documented By: LUKE Piperacillin Sod/Tazobactam (Sod 2.25 gm/ Sodium Chloride) 50 mls @ 100 mls/hr IV Q6H [facility] Last Infusion: 05/07/22 06:50 Dose: 0 mls/hr Documented By: YANIQUE Insulin Glargine (Insulin Glargine,Hum.Rec.Anlog 100 Unit/Ml 10 Ml Vial) 8 unit SUBCUT BEDTIME [facility] Last Admin: 05/06/22 20:30 Dose: 8 unit Documented By: YANIQUE Lactulose (Lactulose 20 Gm/30 Ml Solution) 20 gm PO DAILY PRN PRN Reason: Constipation Latanoprost (Latanoprost 0.005 % Ophth Linda 2.5 Ml Drops) 1 drop EYE-BOTH BEDTIME [facility] Last Admin: 05/06/22 20:49 Dose: 1 drop Documented By: YANIQUE Levothyroxine Sodium (Levothyroxine Sodium 88 Mcg Tablet) 88 mcg PO DAILY@0600 [facility] Last Admin: 05/07/22 05:35 Dose: 88 mcg Documented By: YANIQUE Melatonin (Melatonin 3 Mg Tablet) 6 mg PO BEDTIME PRN PRN Reason: Insomnia Last Admin: 05/07/22 01:32 Dose: 6 mg Documented By: YANIQUE Metoprolol Tartrate (Metoprolol Tartrate 25 Mg Tablet) 25 mg PO BID [facility]; Protocol Last Admin: 05/07/22 08:44 Dose: 25 mg Documented By: VIOLETA Midodrine (Midodrine Hcl 2.5 Mg Tablet) 2.5 mg PO TuThSa@0900 [facility] Last Admin: 05/07/22 08:44 Dose: 2.5 mg Documented By: VIOLETA Nitroglycerin (Nitroglycerin 0.4 Mg Tab.Subl) 0.4 mg SUBLINGUAL Q5M PRN PRN Reason: Chest Pain Omeprazole (Omeprazole 40 Mg Capsule.Dr) 40 mg PO DAILY@0630 [facility] Last Admin: 05/07/22 05:35 Dose: 40 mg Documented By: YANIQUE Ondansetron HCl (Ondansetron Hcl 4 Mg/2 Ml Vial) 4 mg IVPUSH Q8H PRN PRN Reason: Nausea and Vomiting Oxycodone HCl (Oxycodone Hcl Immed Release 5 Mg Tablet) 10 mg PO QID [facility] Last Admin: 05/07/22 08:43 Dose: 10 mg Documented By: VIOLETA Pharmacy Consult (Consult Rx Perform Med Rec) 1 each MISCELLANE ONCE PRN PRN Reason: Consult order Polyethylene Glycol (Polyethylene Glycol 3350 17 Gm Powd.Pack) 17 gm PO DAILY [facility] Last Admin: 05/07/22 08:46 Dose: 17 gm Documented By: VIOLETA Pravastatin Sodium (Pravastatin Sodium 40 Mg Tablet) 40 mg PO BEDTIME [facility] Last Admin: 05/06/22 20:30 Dose: 40 mg Documented By: YANIQUE Senna (Sennosides 8.6 Mg Tablet) 8.6 mg PO BEDTIME PRN PRN Reason: Constipation Sertraline HCl (Sertraline Hcl 50 Mg Tablet) 50 mg PO DAILY [facility] Last Admin: 05/07/22 08:44 Dose: 50 mg Documented By: VIOLETA Sodium Chloride (0.9 % Sodium Chloride Flush 3 Ml Syringe) 3 ml IVFLUSH QSHIFT [facility] Last Admin: 05/07/22 08:45 Dose: 3 ml Documented By: VIOLETA Labs CBC & Chem 7: 05/07/22 06:35 05/07/22 06:35 Labs: Laboratory Results - last 24 hr 05/06/22 05/06/22 05/06/22 11:02 16:44 19:48 MCV MCH MCHC RDW Plt Count MPV Immature Gran % (Auto) Neut % (Auto) Lymph % (Auto) [place] % (Auto) Eos % (Auto) Baso % (Auto) Lymph # (Auto) [place] # (Auto) Eos # (Auto) Baso # (Auto) Abs Immat Gran (auto) Absolute Neuts (auto) Absolute Nucleated RBC Nucleated RBC % (auto) Anion Gap Estim Creat Clear Calc Estimated GFR POC Glucose 108 135 H 129 H Fasting Glucose Calcium Total Bilirubin AST ALT Alkaline Phosphatase Total Protein Albumin 05/07/22 05/07/22 05/07/22 06:35 06:35 06:35 MCV 99.7 H Cancelled MCH 30.4 Cancelled MCHC 30.5 L Cancelled RDW 18.6 H Cancelled Plt Count 171 Cancelled MPV 9.6 Cancelled Immature Gran % (Auto) 5.0 H Neut % (Auto) 78.5 H Lymph % (Auto) 5.0 L [place] % (Auto) 8.1 Eos % (Auto) 2.8 Baso % (Auto) 0.6 Lymph # (Auto) 0.3 L [place] # (Auto) 0.5 Eos # (Auto) 0.2 Baso # (Auto) 0.0 Abs Immat Gran (auto) 0.32 H Absolute Neuts (auto) 5.1 Absolute Nucleated RBC 0.000 Cancelled Nucleated RBC % (auto) 0.0 Cancelled Anion Gap 25 H Estim Creat Clear Calc 7.7 Estimated GFR 7 POC Glucose Fasting Glucose 108 H Calcium 6.7 L D Total Bilirubin 0.3 AST 15 ALT 11 Alkaline Phosphatase 103 Total Protein 5.4 L Albumin 3.1 L 05/07/22 07:42 MCV MCH MCHC RDW Plt Count MPV Immature Gran % (Auto) Neut % (Auto) Lymph % (Auto) [place] % (Auto) Eos % (Auto) Baso % (Auto) Lymph # (Auto) [place] # (Auto) Eos # (Auto) Baso # (Auto) Abs Immat Gran (auto) Absolute Neuts (auto) Absolute Nucleated RBC Nucleated RBC % (auto) Anion Gap Estim Creat Clear Calc Estimated GFR POC Glucose 109 Fasting Glucose Calcium Total Bilirubin AST ALT Alkaline Phosphatase Total Protein Albumin Microbiology Microbiology Results: Microbiology 05/03/22 16:58 Blood Culture - Final Blood - Venous Klebsiella pneumoniae 05/03/22 16:56 Blood Culture - Final Blood - Venous Klebsiella pneumoniae 05/03/22 20:17 Urine Culture - Final Urine clean catch - Urine che top Enterococcus faecalis Viridans streptococcus group Assessment and Plan (1) Encephalopathy acute: Status: Acute (2) COVID-19: Status: Acute (3) ESRD on dialysis: Status: Acute (4) Bacteremia: Status: Acute Plan This is a 81-year-old female with a pertinent history of ESRD on hemodialysis Monday//Monday, insulin-dependent diabetes mellitus, history of PVC with IVC filter, chronic opioid use due to chronic pain, mood disorder, mixed h yperlipidemia, gastroesophageal reflux disease, hypothyroidism who was sent to the ER after she was found altered sepsis and Metabolic encephalopathy secondary to Klebsiella pneumonia bacteremia source possibly GI -CT with possible acute mild diverticulitis urine growing E faecalis and strep viridans continue ceftriaxone encephalopathy improving serial abd exam - no active complaints COVID-19 positive test date: 04/30/2022 COVID isolation precautions. currently no oxygen requirement UTI IV CTX ESRD on hemodialysis HD Insulin-dependent diabetes mellitus titrate basal insulin as indicated ADA diet-lispro correctional scale HTN metoprolol DVT prophylaxis: Lovenox 30 mg daily Full code reason for continued hospitalization:iv abx and close monitoring for sepsis with bacteremia Quality Stroke Does the patient have a stroke diagnosis?: No VTE Prior VTE?: Yes VTE Risk Level:: Medical - moderate - high VTE Device Contraindication: Treatment Not Indicated VTE Drug Contraindication: N/A - Med Ordered
[2022-05-07 14:09] LABS: Glucose, Whole Blood 194 mg/dL (60-115)
[2022-05-07 16:56] LABS: Glucose, Whole Blood 171 mg/dL (60-115)
[2022-05-07] MEDS: Insulin Lispro 100 UNIT/ML 3 ML VIAL SUBCUT (17:05)
[2022-05-07] MEDS: Heparin Sodium,Porcine 5,000 UNIT/ML VIAL 5000 UNIT INTRACATH (17:06)
--- NOTE | 2022-05-07 17:09 | HE.PHANOTE ---
Patient is on dialysis w/ Lovenox. Lovenox is recommended to be avoided in diaylsis patient since it is not diaylizable. Recommended to Dr. Blanco to switch to heparin [address] Blanco agreed and order was switched. In addition, dialysis dosing of Zosyn is 2.25g Q8H instead of Q6H. Bella aware, and order switched per doctor's orders. Libby Demarco, PharmD
[2022-05-07 20:25] LABS: Glucose, Whole Blood 146 mg/dL (60-115)
[2022-05-07] MEDS: Heparin Sodium,Porcine 5,000 UNIT/ML VIAL 5000 UNIT SUBCUT (20:33)
[2022-05-07] MEDS: Pravastatin Sodium 40 MG TABLET PO (20:36)
[2022-05-07] MEDS: Insulin Glargine,Hum.rec.anlog 100 UNIT/ML 10 ML VIAL 8 UNIT SUBCUT (20:36)
[2022-05-07] MEDS: Latanoprost 0.005 % Ophth Sol 2.5 ML DROPS 1 DROP EYE-BOTH (21:34)
--- NOTE | 2022-05-07 23:59 | P.CNID_ITS ---
History of Present Illness Data of Consult Service Date: 05/06/22 Requesting physician: Artis Blanco Primary Care Provider: James Briones MD HPI Reason for consult: bacteremia, bacteriuria She presents with Klebsiella blood and enterococc us urine when presenting fatigued She has been fatigued and tired for last week. Review of Systems Review of Systems: Yes all other systems are reviewed and are negative PMFSH Past Medical History Medical History Anemia Diabetes mellitus GERD (gastroesophageal reflux disease) HTN (hypertension) Hypertension Kidney disease Pulmonary embolus Social History Social History Household Members: None Housing: Long Term Do you presently have visiting nurse or other home services: No Unable to assess alcohol history related to: Unknown Patient Tobacco Use Status: Never used Tobacco Advance Directives Date on File: 02/10/21 service: No Current occupational status: retired Meds Allergies Allergy/AdvReac Type Severity Reaction Status Date / Time Sulfa (Sulfonamide Allergy Unknown RASH Verified 05/03/22 19:57 Antibiotics) Active Medications: Current Medications Acetaminophen (Acetaminophen 325 Mg Tablet) 650 mg PO Q6H PRN PRN Reason: Pain, Mild (Pain Scale 1-3) Ascorbic Acid (Ascorbic Acid 500 Mg Tablet) 500 mg PO DAILY [facility] Last Admin: 05/07/22 08:44 Dose: 500 mg Aspirin (Aspirin 325 Mg Tablet) 325 mg PO DAILY [facility] Last Admin: 05/07/22 08:44 Dose: 325 mg Bisacodyl (Bisacodyl 10 Mg Supp.Rect) 10 mg [place] DAILY PRN PRN Reason: Constipation Dextrose (Dextrose 50 % 25 Gm/50 Ml Syringe) 25 gm IVPUSH Q15M PRN; Protocol PRN Reason: per Hypoglycemia Standing Ord. Dextrose (Dextrose 50 % 25 Gm/50 Ml Syringe) 25 gm IVPUSH Q15M PRN; Protocol PRN Reason: per Hypoglycemia Standing Ord. Ferrous Sulfate (Ferrous Sulfate 324 Mg Tablet.Dr) 324 mg PO DAILY [facility] Last Admin: 05/07/22 08:44 Dose: 324 mg Glucose (Glucose Gel 15 Gm Gel..Gram.) 15 gm PO Q15M PRN; Protocol PRN Reason: per Hypoglycemia Standing Ord. Glucose (Glucose Gel 15 Gm Gel..Gram.) 15 gm PO Q15M PRN; Protocol PRN Reason: per Hypoglycemia Standing Ord. Heparin Sodium (Porcine) (Heparin Sodium,Porcine 5,000 Unit/Ml Vial) 5,000 unit INTRACATH TUTHSA@1645 [facility] Last Admin: 05/07/22 17:06 Dose: 5,000 unit Heparin Sodium (Porcine) (Heparin Sodium,Porcine 5,000 Unit/Ml Vial) 5,000 unit SUBCUT Q12H [facility] Last Admin: 05/07/22 20:33 Dose: 5,000 unit Piperacillin Sod/Tazobactam (Sod 2.25 gm/ Sodium Chloride) 50 mls @ 100 mls/hr IV Q8H [facility] Last Infusion: 05/07/22 21:39 Dose: Infused Insulin Glargine (Insulin Glargine,Hum.Rec.Anlog 100 Unit/Ml 10 Ml Vial) 8 unit SUBCUT BEDTIME [facility] Last Admin: 05/07/22 20:36 Dose: 8 unit Insulin Human Lispro (Insulin Lispro 100 Unit/Ml 3 Ml Vial) 0 unit SUBCUT QIDACHS [facility]; Protocol Last Admin: 05/07/22 21:39 Dose: Not Given Lactulose (Lactulose 20 Gm/30 Ml Solution) 20 gm PO DAILY PRN PRN Reason: Constipation Latanoprost (Latanoprost 0.005 % Ophth Linda 2.5 Ml Drops) 1 drop EYE-BOTH BEDTIME [facility] Last Admin: 05/07/22 21:34 Dose: 1 drop Levothyroxine Sodium (Levothyroxine Sodium 88 Mcg Tablet) 88 mcg PO DAILY@0600 [facility] Last Admin: 05/07/22 05:35 Dose: 88 mcg Melatonin (Melatonin 3 Mg Tablet) 6 mg PO BEDTIME PRN PRN Reason: Insomnia Last Admin: 05/07/22 01:32 Dose: 6 mg Metoprolol Tartrate (Metoprolol Tartrate 25 Mg Tablet) 25 mg PO BID [facility]; Protocol Last Admin: 05/07/22 20:35 Dose: 25 mg Midodrine (Midodrine Hcl 2.5 Mg Tablet) 2.5 mg PO TuThSa@0900 [facility] Last Admin: 05/07/22 08:44 Dose: 2.5 mg Nitroglycerin (Nitroglycerin 0.4 Mg Tab.Subl) 0.4 mg SUBLINGUAL Q5M PRN PRN Reason: Chest Pain Omeprazole (Omeprazole 40 Mg Capsule.Dr) 40 mg PO DAILY@0630 [facility] Last Admin: 05/07/22 05:35 Dose: 40 mg Ondansetron HCl (Ondansetron Hcl 4 Mg/2 Ml Vial) 4 mg IVPUSH Q8H PRN PRN Reason: Nausea and Vomiting Oxycodone HCl (Oxycodone Hcl Immed Release 5 Mg Tablet) 10 mg PO QID [facility] Last Admin: 05/07/22 20:35 Dose: 10 mg Pharmacy Consult (Consult Rx Perform Med Rec) 1 each MISCELLANE ONCE PRN PRN Reason: Consult order Polyethylene Glycol (Polyethylene Glycol 3350 17 Gm Powd.Pack) 17 gm PO DAILY [facility] Last Admin: 05/07/22 08:46 Dose: 17 gm Pravastatin Sodium (Pravastatin Sodium 40 Mg Tablet) 40 mg PO BEDTIME [facility] Last Admin: 05/07/22 20:36 Dose: 40 mg Senna (Sennosides 8.6 Mg Tablet) 8.6 mg PO BEDTIME PRN PRN Reason: Constipation Sertraline HCl (Sertraline Hcl 50 Mg Tablet) 50 mg PO DAILY [facility] Last Admin: 05/07/22 08:44 Dose: 50 mg Sodium Chloride (0.9 % Sodium Chloride Flush 3 Ml Syringe) 3 ml IVFLUSH QSHIFT [facility] Last Admin: 05/07/22 20:37 Dose: 3 ml Home Medications Medication Instructions Recorded Confirmed Last Taken Type acetaminophen 325 mg tablet 325 mg PO TID PRN Pain 02/10/21 05/03/22 Unknown Hi story insulin NPH isoph U-100 human 100 16 unit subcut BEDTIME 02/10/21 05/03/22 Unknown History unit/mL subcutaneous suspension (Novolin N NPH U-100 Insulin isophane) levothyroxine 88 mcg tablet 1 tab PO DAILY@0600 02/10/21 05/03/22 Unknown History metoprolol tartrate 25 mg tablet 1 tab PO BID 02/10/21 05/03/22 Unknown History ondansetron 4 mg disintegrating 4 mg PO Q6H PRN Nausea And Vomiting 02/10/21 05/03/22 Unknown History tablet oxycodone 10 mg tablet 1 tab PO QID PRN pain 02/10/21 05/03/22 Unknown History polyethylene glycol 3350 17 gram 17 g PO DAILY 02/10/21 05/03/22 Unknown History oral powder packet (Miralax) pravastatin 40 mg tablet 1 tab PO BEDTIME 02/10/21 05/03/22 Unknown History sertraline 50 mg tablet 1 tab PO DAILY 02/10/21 05/03/22 Unknown History ascorbic acid (vitamin C) 500 mg 500 mg PO DAILY 05/03/22 05/03/22 Unknown History tablet (Vitamin C) aspirin 325 mg tablet 325 mg PO DAILY 05/03/22 05/03/22 Unknown History bisacodyl 10 mg rectal suppository 10 mg [place] DAILY PRN Constipation 05/03/22 05/03/22 Unknown History ferrous fumarate 325 mg (106 mg 325 mg PO DAILY 05/03/22 05/03/22 Unknown History iron) tablet lactulose 10 gram/15 mL oral 30 ml PO DAILY PRN Constipation 05/03/22 05/03/22 Unknown History solution latanoprost 0.005 % eye drops 1 drp ophthalmic (eye) BEDTIME 05/03/22 05/03/22 Unknown History melatonin 3 mg tablet 3 mg PO BEDTIME PRN Insomnia 05/03/22 05/03/22 Unknown History midodrine 2.5 mg tablet 1 tab PO TUTHSA 05/03/22 05/03/22 Unknown History nitroglycerin 0.4 mg sublingual 0.4 mg sublingual Q5M PRN Chest 05/03/22 05/03/22 Unknown History tablet Pain nystatin 100,000 unit/gram topical 1 appl topical BID 05/03/22 05/03/22 Unknown History powder omeprazole 40 mg capsule,delayed 40 mg PO DAILY 05/03/22 05/03/22 Unknown History release sennosides 8.6 mg tablet (senna) 8.6 mg PO BEDTIME PRN Constipation 05/03/22 05/03/22 Unknown History Physical Exam Vital Signs: Vital Signs: Last Vital Signs Temp 98.7 F 05/07/22 23:52 Pulse 69 05/07/22 23:52 Resp 17 05/07/22 23:52 BP 137/60 05/07/22 23:52 Pulse Ox 97 05/07/22 23:52 O2 Del Method 05/07/22 23:52 FiO2 99 05/05/22 19:22 BMI result Body Mass Index 31.2 Const: General: cooperative HEENT: Head: Yes normal to inspection Face and sinus: Yes normal facial exam Mouth: Normal oral and palatal mucosa present Teeth and gingiva: dentition normal Eyes: General: appearance normal, both eyes and all related structures Pupils: Equal, round and reactive pupils present Resp: Effort & Inspection: normal respiratory effort Cardio: Rate: regular rate Rhythm: regular rhythm GI: Palpation (GI): Soft to palpation and nontender : General: Yes no CVA tenderness Back/Spine/Pelvis: Back: no CVA tenderness Skin: General skin exam: no rashes or lesions noted Neuro: General: moves all extremities Cranial nerves: Yes Equal, round and reactive pupils present Extrem: General: Yes normal to inspection Psych: Appearance: grossly normal Results Labs CBC & Chem 7: 05/07/22 06:35 05/07/22 06:35 Labs: Short CBC 05/07/22 05/07/22 Range/Units 06:35 06:35 WBC 6.5 Cancelled (4.8-10.8) X10*3/uL Hgb 9.4 L Cancelled (12.0-16.0) g/dl Hct 30.8 L Cancelled (37.0-47.0) % Plt Count 171 Cancelled (160-400) X10*3/uL BMP 05/07/22 06:35 Sodium 141 Potassium 5.0 Chloride 100 Carbon Dioxide 21 L BUN 47 H D Creatinine 5.49 H* Calcium 6.7 L D Liver Function 05/07/22 Range/Units 06:35 Total Bilirubin 0.3 (0.0-1.0) mg/dL AST 15 (5-31) U/L ALT 11 (0-31) U/L Alkaline Phosphatase 103 (39-117) U/L Albumin 3.1 L (3.5-5.0) g/dL Microbiology Microbiology Results: Microbiology 05/03/22 16:58 Blood - Venous Blood Culture - Final Klebsiella pneumoniae 05/03/22 16:56 Blood - Venous Blood Culture - Final Klebsiella pneumoniae 05/03/22 20:17 Urine clean catch - Urine che top Urine Culture - Final Enterococcus faecalis Viridans streptococcus group Assessment and Plan (1) ESRD on dialysis: Status: Acute (2) Fever: Qualifiers: Fever type: unspecified Qualified Code(s): R50.9 - Fever, unspecified Status: Acute (3) Leukocytosis: Qualifiers: Leukocytosis type: unspecified Qualified Code(s): D72.829 - Elevated white blood cell count, unspecified Status: Acute She has urine and blood cultures positive for organisms Plan Piperacillin/tazobactam for a weekk cover all. Surgery evaluate possible occult perforation
[2022-05-08] VITALS (9 sets, daily range): BP systolic 133–180; BP diastolic 53–109; PULSE 61–69; RESP 14–20; TEMP 36.5–36.9; O2SAT 97–100
[2022-05-08] MEDS: Piperacillin Sodium/Tazobactam 2.25 GM in 0.9 % Sodium Chloride 50 ML IV ×3 (06:02→22:21)
[2022-05-08] MEDS: Omeprazole 40 MG CAPSULE.DR PO (06:02)
[2022-05-08] MEDS: Levothyroxine Sodium 88 MCG TABLET PO (06:02)
[2022-05-08 07:28] LABS: Anion Gap 23 (12-20); Blood Urea Nitrogen 33 mg/dL (9-16); Calcium 7.3 mg/dL (8.4-10.2); Carbon Dioxide 19 mmol/L (22-29); Chloride 101 mmol/L (96-108); Estimated Glomerular Filt Rate 10; Glucose Fasting 111 mg/dL (60-99); Potassium 4.9 mmol/L (3.3-5.1); Sodium 138 mmol/L (135-145)
[2022-05-08 07:49] LABS: Glucose, Whole Blood 144 mg/dL (60-115)
[2022-05-08] MEDS: Aspirin 325 MG TABLET PO (08:28)
[2022-05-08] MEDS: oxyCODONE HCl Immed Release 5 MG TABLET 10 MG PO ×4 (08:28→22:20)
[2022-05-08] MEDS: Metoprolol Tartrate 25 MG TABLET PO ×2 (08:29→22:20)
[2022-05-08] MEDS: Sertraline HCL 50 MG TABLET PO (08:29)
[2022-05-08] MEDS: 0.9 % Sodium Chloride Flush 3 ML SYRINGE IVFLUSH ×2 (08:29→17:03)
[2022-05-08] MEDS: Ferrous Sulfate 324 MG TABLET.DR PO (08:29)
[2022-05-08] MEDS: Ascorbic Acid 500 MG TABLET PO (08:29)
[2022-05-08] MEDS: Heparin Sodium,Porcine 5,000 UNIT/ML VIAL 5000 UNIT SUBCUT ×2 (08:30→22:20)
[2022-05-08 09:01] LABS: Hematocrit 35.4 % (37.0-47.0); Hemoglobin 10.7 g/dl (12.0-16.0); Mean Corpuscular HGB Conc 30.2 g/dl (31.0-35.0); Mean Corpuscular Hemoglobin 30.1 pg (27.0-33.0); Mean Corpuscular Volume 99.7 fL (80.0-98.0); Mean Platelet Volume 9.4 fL (9.4-12.3); Platelet Count 183 X10*3/uL (160-400); Red Blood Count 3.55 X10*6/uL (4.20-5.50); Red Cell Distribution Width 18.1 % (11.0-16.0); White Blood Count 7.3 X10*3/uL (4.8-10.8)
--- NOTE | 2022-05-08 09:12 | HO.PM.IMPN ---
Subjective Subjective Date of Service: 05/08/22 Interval History: cc: ams interval history: feeling lousy Cardiovascular Cardiovascular: Reports no additional cardiovascular complaints Respiratory Respiratory: Reports no additional respiratory complaints Physical Exam Vital Signs: Vital Signs: Last Vital Signs Temp 98 F 05/08/22 08:00 Pulse 61 05/08/22 08:00 Resp 18 05/08/22 08:00 BP 180/109 H 05/08/22 08:27 Pulse Ox 100 05/08/22 08:00 O2 Del Method 05/08/22 04:00 FiO2 99 05/05/22 19:22 BMI result Body Mass Index 31.2 Const: General: cooperative HEENT: Head: Yes normal to inspection Face and sinus: Yes normal facial exam Mouth: Normal oral and palatal mucosa present Teeth and gingiva: dentition normal Eyes: General: appearance normal, both eyes and all related structures Pupils: Equal, round and reactive pupils present Resp: Effort & Inspection: normal respiratory effort Cardio: Rate: regular rate Rhythm: regular rhythm GI: Palpation (GI): Soft to palpation and nontender : General: Yes no CVA tenderness Back/Spine/Pelvis: Back: no CVA tenderness Skin: General skin exam: no rashes or lesions noted Neuro: General: moves all extremities Cranial nerves: Yes Equal, round and reactive pupils present Extrem: General: Yes normal to inspection Psych: Appearance: grossly normal Objective Data Active Medications Acetaminophen (Acetaminophen 325 Mg Tablet) 650 mg PO Q6H PRN PRN Reason: Pain, Mild (Pain Scale 1-3) Ascorbic Acid (Ascorbic Acid 500 Mg Tablet) 500 mg PO DAILY [facility] Last Admin: 05/08/22 08:29 Dose: 500 mg Documented By: VIOLETA Aspirin (Aspirin 325 Mg Tablet) 325 mg PO DAILY [facility] Last Admin: 05/08/22 08:28 Dose: 325 mg Documented By: VIOLETA Bisacodyl (Bisacodyl 10 Mg Supp.Rect) 10 mg IN DAILY PRN PRN Reason: Constipation Dextrose (Dextrose 50 % 25 Gm/50 Ml Syringe) 25 gm IVPUSH Q15M PRN; Protocol PRN Reason: per Hypoglycemia Standing Ord. Dextrose (Dextrose 50 % 25 Gm/50 Ml Syringe) 25 gm IVPUSH Q15M PRN; Protocol PRN Reason: per Hypoglycemia Standing Ord. Ferrous Sulfate (Ferrous Sulfate 324 Mg Tablet.) 324 mg PO DAILY [facility] Last Admin: 05/08/22 08:29 Dose: 324 mg Documented By: VIOLETA Glucose (Glucose Gel 15 Gm Gel..Gram.) 15 gm PO Q15M PRN; Protocol PRN Reason: per Hypoglycemia Standing Ord. Glucose (Glucose Gel 15 Gm Gel..Gram.) 15 gm PO Q15M PRN; Protocol PRN Reason: per Hypoglycemia Standing Ord. Heparin Sodium (Porcine) (Heparin Sodium,Porcine 5,000 Unit/Ml Vial) 5,000 unit INTRACATH TUTHSA@1645 [facility] Last Admin: 05/07/22 17:06 Dose: 5,000 unit Documented By: VIOLETA Heparin Sodium (Porcine) (Heparin Sodium,Porcine 5,000 Unit/Ml Vial) 5,000 unit SUBCUT Q12H [facility] Last Admin: 05/08/22 08:30 Dose: 5,000 unit Documented By: VIOLETA Piperacillin Sod/Tazobactam (Sod 2.25 gm/ Sodium Chloride) 50 mls @ 100 mls/hr IV Q8H [facility] Last Infusion: 05/08/22 06:46 Dose: 0 mls/hr Documented By: YANIQUE Insulin Glargine (Insulin Glargine,Hum.Rec.Anlog 100 Unit/Ml 10 Ml Vial) 8 unit SUBCUT BEDTIME [facility] Last Admin: 05/07/22 20:36 Dose: 8 unit Documented By: YANIQUE Insulin Human Lispro (Insulin Lispro 100 Unit/Ml 3 Ml Vial) 0 unit SUBCUT QIDACHS [facility]; Protocol Last Admin: 05/08/22 07:58 Dose: Not Given Documented By: VIOLETA Non-Admin Reason: No Insulin Coverage Lactulose (Lactulose 20 Gm/30 Ml Solution) 20 gm PO DAILY PRN PRN Reason: Constipation Latanoprost (Latanoprost 0.005 % Ophth Linda 2.5 Ml Drops) 1 drop EYE-BOTH BEDTIME [facility] Last Admin: 05/07/22 21:34 Dose: 1 drop Documented By: YANIQUE Levothyroxine Sodium (Levothyroxine Sodium 88 Mcg Tablet) 88 mcg PO DAILY@0600 [facility] Last Admin: 05/08/22 06:02 Dose: 88 mcg Documented By: YANIQUE Melatonin (Melatonin 3 Mg Tablet) 6 mg PO BEDTIME PRN PRN Reason: Insomnia Last Admin: 05/07/22 01:32 Dose: 6 mg Documented By: YANIQUE Metoprolol Tartrate (Metoprolol Tartrate 25 Mg Tablet) 25 mg PO BID [facility]; Protocol Last Admin: 05/08/22 08:29 Dose: 25 mg Documented By: VIOLETA Midodrine (Midodrine Hcl 2.5 Mg Tablet) 2.5 mg PO TuThSa@0900 [facility] Last Admin: 05/07/22 08:44 Dose: 2.5 mg Documented By: VIOLETA Nitroglycerin (Nitroglycerin 0.4 Mg Tab.Subl) 0.4 mg SUBLINGUAL Q5M PRN PRN Reason: Chest Pain Omeprazole (Omeprazole 40 Mg Capsule.Dr) 40 mg PO DAILY@0630 [facility] Last Admin: 05/08/22 06:02 Dose: 40 mg Documented By: YANIQUE Ondansetron HCl (Ondansetron Hcl 4 Mg/2 Ml Vial) 4 mg IVPUSH Q8H PRN PRN Reason: Nausea and Vomiting Oxycodone HCl (Oxycodone Hcl Immed Release 5 Mg Tablet) 10 mg PO QID [facility] Last Admin: 05/08/22 08:28 Dose: 10 mg Documented By: VIOLETA Pharmacy Consult (Consult Rx Perform Med Rec) 1 each MISCELLANE ONCE PRN PRN Reason: Consult order Polyethylene Glycol (Polyethylene Glycol 3350 17 Gm Powd.Pack) 17 gm PO DAILY [facility] Last Admin: 05/08/22 08:35 Dose: Not Given Documented By: VIOLETA Non-Admin Reason: Patient Refused Pravastatin Sodium (Pravastatin Sodium 40 Mg Tablet) 40 mg PO BEDTIME [facility] Last Admin: 05/07/22 20:36 Dose: 40 mg Documented By: YANIQUE Senna (Sennosides 8.6 Mg Tablet) 8.6 mg PO BEDTIME PRN PRN Reason: Constipation Sertraline HCl (Sertraline Hcl 50 Mg Tablet) 50 mg PO DAILY [facility] Last Admin: 05/08/22 08:29 Dose: 50 mg Documented By: VIOLETA Sodium Chloride (0.9 % Sodium Chloride Flush 3 Ml Syringe) 3 ml IVFLUSH QSHIFT [facility] Last Admin: 05/08/22 08:29 Dose: 3 ml Documented By: VIOLETA Labs CBC & Chem 7: 05/08/22 08:27 05/08/22 06:40 Labs: Laboratory Results - last 24 hr 05/07/22 05/07/22 05/07/22 14:02 16:51 20:19 MCV MCH MCHC RDW Plt Count MPV Absolute Nucleated RBC Nucleated RBC % (auto) Anion Gap Estim Creat Clear Calc Estimated GFR POC Glucose 194 H 171 H 146 H Fasting Glucose Calcium 05/08/22 05/08/22 05/08/22 06:40 07:41 08:27 MCV 99.7 H MCH 30.1 MCHC 30.2 L RDW 18.1 H Plt Count 183 MPV 9.4 Absolute Nucleated RBC 0.000 Nucleated RBC % (auto) 0.0 Anion Gap 23 H Estim Creat Clear Calc 10.0 Estimated GFR 10 POC Glucose 144 H Fasting Glucose 111 H Calcium 7.3 L D Assessment and Plan (1) Encephalopathy acute: Status: Acute (2) COVID-19: Status: Acute (3) ESRD on dialysis: Status: Acute (4) Bacteremia: Status: Acute Plan This is a 81-year-old female with a pertinent history of ESRD on hemodialysis Monday//Monday, insulin-dependent diabetes mellitus, history of PVC with IVC filter, chronic opioid use due to chronic pain, mood disorder, mixed hyperlipidemia, gastroesophageal reflux disease, hypothyroidism who was sent to the ER after she was found altered sepsis and Metabolic encephalopathy secondary to Klebsiella pneumonia bacteremia source possibly GI -CT with possible acute mild diverticulitis urine growing E faecalis and strep viridans continue zosyn iv encephalopathy improving serial abd exam - no active complaints COVID-19 positive test date: 04/30/2022 COVID isolation precautions. currently no oxygen requirement UTI IV zosyn ESRD on hemodialysis HD Insulin-dependent diabetes mellitus titrate basal insulin as indicated ADA diet-lispro correctional scale HTN metoprolol DVT prophylaxis: Lovenox 30 mg daily Full code reason for continued hospitalization:iv abx and close monitoring for sepsis with bacteremia Quality Stroke Does the patient have a stroke diagnosis?: No VTE Prior VTE?: Yes VTE Risk Level:: Medical - moderate - high VTE Device Contraindication: Treatment Not Indicated VTE Drug Contraindication: N/A - Med Ordered
[2022-05-08 11:14] LABS: Glucose, Whole Blood 172 mg/dL (60-115)
[2022-05-08] MEDS: Insulin Lispro 100 UNIT/ML 3 ML VIAL SUBCUT ×2 (12:19→22:20)
--- NOTE | 2022-05-08 13:30 | P.PNNP_ITS ---
Subjective Subjective Date of Service: 05/08/22 Interval history: cc: ams interval history: feeling lousy Physical Exam Vital Signs: Vital Signs: Last Vital Signs Temp 97.7 F 05/08/22 11:55 Pulse 69 05/08/22 11:55 Resp 18 05/08/22 11:55 BP 133/82 05/08/22 11:55 Pulse Ox 99 05/08/22 11:55 O2 Del Method 05/08/22 11:55 FiO2 99 05/05/22 19:22 BMI result Body Mass Index 31.2 Const: Other: Awake alert mild confusion easily reoriented General: cooperative, no acute distress and alert Nutritional Appearance: well nourished Orientation/consciousness: patient oriented x3 Limitations: no limitations HEENT: Head: Yes normal to inspection Face and sinus: Yes normal facial exam Mouth: Normal oral and palatal mucosa present Teeth and gingiva: dentition normal Eyes: General: appearance normal, both eyes and all related structures Sclerae: sclerae normal Pupils: Equal, round and reactive pupils present EOM: EOMs intact bilaterally Neck: Neck: Yes supple Resp: Other: Breathing comfortably, no respiratory distress Effort & Inspection: normal respiratory effort Auscultation: diminished lung sounds Cardio: Other: No S4; positive S1-S2; no S3 murmurs rubs or gallops Rate: regular rate Rhythm: regular rhythm GI: Other: Soft, mildly distended, tender in the lower quadrants especially left lower mark drant without rebound, guarding, or rigidity. Normal bowel sounds. No tympany to percussion. Negative Mcwilliams sign. Palpation (GI): Soft to palpation and nontender : General: Yes no CVA tenderness Back/Spine/Pelvis: Back: no CVA tenderness Skin: Other: Warm, dry, no rash General skin exam: no rashes or lesions noted Neuro: General: patient oriented x3 and moves all extremities Cranial nerves: Yes Equal, round and reactive pupils present Extrem: Other: No edema General: Yes normal to inspection and Yes no clubbing, cyanosis or edema Psych: Appearance: grossly normal Objective Data Labs CBC & Chem 7: 05/08/22 08:27 05/08/22 06:40 Labs: Laboratory Results - last 24 hr 05/07/22 05/07/22 05/07/22 14:02 16:51 20:19 WBC RBC Hgb Hct MCV MCH MCHC RDW Plt Count MPV Absolute Nucleated RBC Nucleated RBC % (auto) Sodium Potassium Chloride Carbon Dioxide Anion Gap BUN Creatinine Estim Creat Clear Calc Estimated GFR POC Glucose 194 H 171 H 146 H Fasting Glucose Calcium 05/08/22 05/08/22 05/08/22 06:40 07:41 08:27 WBC 7.3 RBC 3.55 L Hgb 10.7 L Hct 35.4 L MCV 99.7 H MCH 30.1 MCHC 30.2 L RDW 18.1 H Plt Count 183 MPV 9.4 Absolute Nucleated RBC 0.000 Nucleated RBC % (auto) 0.0 Sodium 138 Potassium 4.9 Chloride 101 Carbon Dioxide 19 L Anion Gap 23 H BUN 33 H Creatinine 4.24 H* Estim Creat Clear Calc 10.0 Estimated GFR 10 POC Glucose 144 H Fasting Glucose 111 H Calcium 7.3 L D 05/08/22 11:08 WBC RBC Hgb Hct MCV MCH MCHC RDW Plt Count MPV Absolute Nucleated RBC Nucleated RBC % (auto) Sodium Potassium Chloride Carbon Dioxide Anion Gap BUN Creatinine Estim Creat Clear Calc Estimated GFR POC Glucose 172 H Fasting Glucose Calcium Microbiology Microbiology Results: Microbiology 05/03/22 16:58 Blood - Venous Blood Culture - Final Klebsiella pneumoniae 05/03/22 16:56 Blood - Venous Blood Culture - Final Klebsiella pneumoniae 05/03/22 20:17 Urine clean catch - Urine che top Urine Culture - Final Enterococcus faecalis Viridans streptococcus group Procedures Date of Service Date of Service: 05/08/22 Assessment & Plan Assessment and plan (1) Encephalopathy acute: Status: Acute (2) COVID-19: Status: Acute (3) ESRD on dialysis: Status: Acute Assessment and Plan: stable treatment yesterday next rx (4) Bacteremia: Status: Acute Plan This is a 81-year-old female with a pertinent history of ESRD on hemodialysis Monday//Monday, insulin-dependent diabetes mellitus, history of PVC with IVC filter, chronic opioid use due to chronic pain, mood disorder, mixed hyperlipidemia, gastroesophageal reflux disease, hypothyroidism who was sent to the ER after she was found altered sepsis and Metabolic encephalopathy secondary to Klebsiella pneumonia bacteremia source possibly GI -CT with possible acute mild diverticulitis urine growing E faecalis and strep viridans continue zosyn iv encephalopathy improving serial abd exam - no active complaints COVID-19 positive test date: 04/30/2022 COVID isolation precautions. currently no oxygen requirement UTI IV zosyn ESRD on hemodialysis HD Insulin-dependent diabetes mellitus titrate basal insulin as indicated ADA diet-lispro correctional scale HTN metoprolol DVT prophylaxis: Lovenox 30 mg daily Full code reason for continued hospitalization:iv abx and close monitoring for sepsis with bacteremia Time Spent With Patient Time: Total time spent is greater than 50% in coordination of care (as documented) at patient's floor/unit and/or counseling patient: Progress Note: Quality Stroke Does the patient have a stroke diagnosis?: No
--- NOTE | 2022-05-08 14:07 | PM.PNGS ---
Subjective Subjective Date of Service: 05/08/22 Interval history: pt says feeling lousy, had bowel movement no fever, eating fine abdo - just genrally sore Physical Exam Vital Signs: Vital Signs: Last Vital Signs Temp 97.7 F 05/08/22 11:55 Pulse 69 05/08/22 11:55 Resp 18 05/08/22 11:55 BP 133/82 05/08/22 11:55 Pulse Ox 99 05/08/22 11:55 O2 Del Method 05/08/22 11:55 FiO2 99 05/05/22 19:22 BMI result Body Mass Index 31.2 GI: Other: soft diffusely mildly tender but no peritonitis active sounds Objective Data Active Medications Acetaminophen (Acetaminophen 325 Mg Tablet) 650 mg PO Q6H PRN PRN Reason: Pain, Mild (Pain Scale 1-3) Ascorbic Acid (Ascorbic Acid 500 Mg Tablet) 500 mg PO DAILY [facility] Last Admin: 05/08/22 08:29 Dose: 500 mg Documented By: VIOLETA Aspirin (Aspirin 325 Mg Tablet) 325 mg PO DAILY [facility] Last Admin: 05/08/22 08:28 Dose: 325 mg Documented By: VIOLETA Bisacodyl (Bisacodyl 10 Mg Supp.Rect) 10 mg OR DAILY PRN PRN Reason: Constipation Dextrose (Dextrose 50 % 25 Gm/50 Ml Syringe) 25 gm IVPUSH Q15M PRN; Protocol PRN Reason: per Hypoglycemia Standing Ord. Dextrose (Dextrose 50 % 25 Gm/50 Ml Syringe) 25 gm IVPUSH Q15M PRN; Protocol PRN Reason: per Hypoglycemia Standing Ord. Ferrous Sulfate (Ferrous Sulfate 324 Mg Marylou.) 324 mg PO DAILY [facility] Last Admin: 05/08/22 08:29 Dose: 324 mg Documented By: VIOLEAT Glucose (Glucose Gel 15 Gm Gel..Gram.) 15 gm PO Q15M PRN; Protocol PRN Reason: per Hypoglycemia Standing Ord. Glucose (Glucose Gel 15 Gm Gel..Gram.) 15 gm PO Q15M PRN; Protocol PRN Reason: per Hypoglycemia Standing Ord. Heparin Sodium (Porcine) (Heparin Sodium,Porcine 5,000 Unit/Ml Vial) 5,000 unit INTRACATH TUTHSA@2745 [facility] Last Admin: 05/07/22 17:06 Dose: 5,000 unit Documented By: VIOLETA Heparin Sodium (Porcine) (Heparin Sodium,Porcine 5,000 Unit/Ml Vial) 5,000 unit SUBCUT Q12H [facility] Last Admin: 05/08/22 08:30 Dose: 5,000 unit Documented By: VIOLETA Piperacillin Sod/Tazobactam (Sod 2.25 gm/ Sodium Chloride) 50 mls @ 100 mls/hr IV Q8H [facility] Last Admin: 05/08/22 13:39 Dose: 100 mls/hr Documented By: VIOLETA Insulin Glargine (Insulin Glargine,Hum.Rec.Anlog 100 Unit/Ml 10 Ml Vial) 8 unit SUBCUT BEDTIME [facility] Last Admin: 05/07/22 20:36 Dose: 8 unit Documented By: YANIQUE Insulin Human Lispro (Insulin Lispro 100 Unit/Ml 3 Ml Vial) 0 unit SUBCUT QIDACHS [facility]; Protocol Last Admin: 05/08/22 12:19 Dose: 2 unit Documented By: VIOLETA Lactulose (Lactulose 20 Gm/30 Ml Solution) 20 gm PO DAILY PRN PRN Reason: Constipation Latanoprost (Latanoprost 0.005 % Ophth Linda 2.5 Ml Drops) 1 drop EYE-BOTH BEDTIME [facility] Last Admin: 05/07/22 21:34 Dose: 1 drop Documented By: YANIQUE Levothyroxine Sodium (Levothyroxine Sodium 88 Mcg Tablet) 88 mcg PO DAILY@0600 [facility] Last Admin: 05/08/22 06:02 Dose: 88 mcg Documented By: YANIQUE Melatonin (Melatonin 3 Mg Tablet) 6 mg PO BEDTIME PRN PRN Reason: Insomnia Last Admin: 05/07/22 01:32 Dose: 6 mg Documented By: YANIQUE Metoprolol Tartrate (Metoprolol Tartrate 25 Mg Tablet) 25 mg PO BID [facility]; Protocol Last Admin: 05/08/22 08:29 Dose: 25 mg Documented By: VIOLETA Midodrine (Midodrine Hcl 2.5 Mg Tablet) 2.5 mg PO TuThSa@0900 [facility] Last Admin: 05/07/22 08:44 Dose: 2.5 mg Documented By: VIOLETA Nitroglycerin (Nitroglycerin 0.4 Mg Tab.Subl) 0.4 mg SUBLINGUAL Q5M PRN PRN Reason: Chest Pain Omeprazole (Omeprazole 40 Mg Capsule.Dr) 40 mg PO DAILY@0630 [facility] Last Admin: 05/08/22 06:02 Dose: 40 mg Documented By: YANIQUE Ondansetron HCl (Ondansetron Hcl 4 Mg/2 Ml Vial) 4 mg IVPUSH Q8H PRN PRN Reason: Nausea and Vomiting Oxycodone HCl (Oxycodone Hcl Immed Release 5 Mg Tablet) 10 mg PO QID [facility] Last Admin: 05/08/22 12:19 Dose: 10 mg Documented By: VIOLETA Pharmacy Consult (Consult Rx Perform Med Rec) 1 each MISCELLANE ONCE PRN PRN Reason: Consult order Polyethylene Glycol (Polyethylene Glycol 3350 17 Gm Powd.Pack) 17 gm PO DAILY [facility] Last Admin: 05/08/22 08:35 Dose: Not Given Documented By: VIOLETA Non-Admin Reason: Patient Refused Pravastatin Sodium (Pravastatin Sodium 40 Mg Tablet) 40 mg PO BEDTIME [facility] Last Admin: 05/07/22 20:36 Dose: 40 mg Documented By: YANIQUE Senna (Sennosides 8.6 Mg Tablet) 8.6 mg PO BEDTIME PRN PRN Reason: Constipation Sertraline HCl (Sertraline Hcl 50 Mg Tablet) 50 mg PO DAILY [facility] Last Admin: 05/08/22 08:29 Dose: 50 mg Documented By: VIOLETA Sodium Chloride (0.9 % Sodium Chloride Flush 3 Ml Syringe) 3 ml IVFLUSH QSHIFT [facility] Last Admin: 05/08/22 08:29 Dose: 3 ml Documented By: VIOLETA Labs CBC & Chem 7: 05/08/22 08:27 05/08/22 06:40 Labs: Laboratory Results - last 24 hr 05/07/22 05/07/22 05/07/22 14:02 16:51 20:19 MCV MCH MCHC RDW Plt Count MPV Absolute Nucleated RBC Nucleated RBC % (auto) Anion Gap Estim Creat Clear Calc Estimated GFR POC Glucose 194 H 171 H 146 H Fasting Glucose Calcium 05/08/22 05/08/22 05/08/22 06:40 07:41 08:27 MCV 99.7 H MCH 30.1 MCHC 30.2 L RDW 18.1 H Plt Count 183 MPV 9.4 Absolute Nucleated RBC 0.000 Nucleated RBC % (auto) 0.0 Anion Gap 23 H Estim Creat Clear Calc 10.0 Estimated GFR 10 POC Glucose 144 H Fasting Glucose 111 H Calcium 7.3 L D 05/08/22 11:08 MCV MCH MCHC RDW Plt Count MPV Absolute Nucleated RBC Nucleated RBC % (auto) Anion Gap Estim Creat Clear Calc Estimated GFR POC Glucose 172 H Fasting Glucose Calcium Procedures Date of Service Date of Service: 05/08/22 Progress Note: A&P Assessment and plan (1) Diverticulosis large intestine w/o perforation or abscess w/bleeding: Status: Acute Assessment and Plan: pt with ? intraabdo infection source but improving re vitals and labs and some clinical complaints - now just cont with iv antibx and conservative care bowel function normal with diet cont with med management of dialysis etc appreciate ID help no surgical intervention at this point (2) Bacteremia: Status: Acute Time Spent With Patient Time: Total time spent is greater than 50% in coordination of care (as documented) at patient's floor/unit and/or counseling patient: Quality Stroke Does the patient have a stroke diagnosis?: No VTE Prior VTE?: Yes VTE Risk Level:: Medical - moderate - high VTE Device Contraindication: Treatment Not Indicated VTE Drug Contraindication: N/A - Med Ordered
[2022-05-08 16:53] LABS: Glucose, Whole Blood 137 mg/dL (60-115)
[2022-05-08 19:45] LABS: Glucose, Whole Blood 230 mg/dL (60-115)
[2022-05-08] MEDS: Insulin Glargine,Hum.rec.anlog 100 UNIT/ML 10 ML VIAL 8 UNIT SUBCUT (22:20)
[2022-05-08] MEDS: Pravastatin Sodium 40 MG TABLET PO (22:20)
[2022-05-08] MEDS: Latanoprost 0.005 % Ophth Sol 2.5 ML DROPS 1 DROP EYE-BOTH (22:21)
[2022-05-09] MEDS: 0.9 % Sodium Chloride Flush 3 ML SYRINGE IVFLUSH ×2 (02:25→09:16)
[2022-05-09 03:31] VITALS: BP 142/78; PULSE 62; RESP 14; TEMP 36.8; O2SAT 98
[2022-05-09] MEDS: Omeprazole 40 MG CAPSULE.DR PO (06:01)
[2022-05-09] MEDS: Levothyroxine Sodium 88 MCG TABLET PO (06:02)
[2022-05-09] MEDS: Piperacillin Sodium/Tazobactam 2.25 GM in 0.9 % Sodium Chloride 50 ML IV ×2 (06:02→12:57)
[2022-05-09 07:10] LABS: Anion Gap 27 (12-20); Blood Urea Nitrogen 49 mg/dL (9-16); Calcium 6.6 mg/dL (8.4-10.2); Carbon Dioxide 14 mmol/L (22-29); Chloride 100 mmol/L (96-108); Creatinine Clr Calc Pharmacy 7.4; Estimated Glomerular Filt Rate 7; Glucose Fasting 159 mg/dL (60-99); Sodium 136 mmol/L (135-145)
[2022-05-09 07:30] VITALS: BP 179/62; PULSE 58; RESP 18; TEMP 36.7; O2SAT 99
[2022-05-09 07:35] LABS: Glucose, Whole Blood 139 mg/dL (60-115)
[2022-05-09] MEDS: Ascorbic Acid 500 MG TABLET PO (09:14)
[2022-05-09] MEDS: Heparin Sodium,Porcine 5,000 UNIT/ML VIAL 5000 UNIT SUBCUT (09:14)
[2022-05-09] MEDS: Sertraline HCL 50 MG TABLET PO (09:15)
[2022-05-09] MEDS: Metoprolol Tartrate 25 MG TABLET PO (09:15)
[2022-05-09] MEDS: Aspirin 325 MG TABLET PO (09:15)
[2022-05-09] MEDS: Ferrous Sulfate 324 MG TABLET.DR PO (09:15)
[2022-05-09] MEDS: oxyCODONE HCl Immed Release 5 MG TABLET 10 MG PO ×2 (09:15→12:57)
--- NOTE | 2022-05-09 11:07 | PM.PNNEP ---
Subjective Subjective Date of Service: 05/09/22 Interval history: Seen and examined, evetns noted Physical Exam Vital Signs: Vital Signs: Last Vital Signs Temp 98.1 F 05/09/22 07:30 Pulse 58 05/09/22 07:30 Resp 18 05/09/22 07:30 BP 179/62 H 05/09/22 07:30 Pulse Ox 99 05/09/22 07:30 O2 Del Method 05/09/22 07:30 FiO2 99 05/05/22 19:22 BMI result Body Mass Index 31.2 Const: Other: Awake alert mild confusion easily reoriented General: cooperative, no acute distress and alert Nutritional Appearance: well nourished Orientation/consciousness: patient oriented x3 Limitations: no limitations HEENT: Head: Yes normal to inspection Face and sinus: Yes normal facial exam Mouth: Normal oral and palatal mucosa present Teeth and gingiva: dentition normal Eyes: General: appearance normal, both eyes and all related structures Sclerae: sclerae normal Pupils: Equal, round and reactive pupils present EOM: EOMs intact bilaterally Neck: Neck: Yes supple Resp: Other: Breathing comfortably, no respiratory distress Effort & Inspection: normal respiratory effort Auscultation: diminished lung sounds Cardio: Other: No S4; positive S1-S2; no S3 murmurs rubs or gallops Rate: regular rate Rhythm: regular rhythm GI: Other: Soft, mildly distended, tender in the lower quadrants especially left lower quadrant without rebound, guarding, or rigidity. Normal bowel sounds. No tympany to percussion. Negative Mcwilliams sign. Palpation (GI): Soft to palpation and nontender : General: Yes no CVA tenderness Back/Spine/Pelvis: Back: no CVA tenderness Skin: Other: Warm, dry, no rash General skin exam: no rashes or lesions noted Neuro: General: patient oriented x3 and moves all extremities Cranial nerves: Yes Equal, round and reactive pupils present Extrem: Other: No edema General: Yes normal to inspection and Yes no clubbing, cyanosis or edema Psych: Appearance: grossly normal Objective Data Labs CBC & Chem 7: 05/08/22 08:27 05/09/22 05:38 Labs: Laboratory Results - last 24 hr 05/08/22 05/08/22 05/08/22 11:08 16:48 19:32 Sodium Potassium Chloride Carbon Dioxide Anion Gap BUN Creatinine Estim Creat Clear Calc Estimated GFR POC Glucose 172 H 137 H 230 H Fasting Glucose Calcium 05/09/22 05/09/22 05:38 07:28 Sodium 136 Potassium 5.0 Chloride 100 Carbon Dioxide 14 L Anion Gap 27 H BUN 49 H Creatinine 5.71 H* Estim Creat Clear Calc 7.4 Estimated GFR 7 POC Glucose 139 H Fasting Glucose 159 H Calcium 6.6 L D Microbiology Microbiology Results: Microbiology 05/03/22 16:58 Blood - Venous Blood Culture - Final Klebsiella pneumoniae 05/03/22 16:56 Blood - Venous Blood Culture - Final Klebsiella pneumoniae 05/03/22 20:17 Urine clean catch - Urine che top Urine Culture - Final Enterococcus faecalis Viridans streptococcus group Procedures Date of Service Date of Service: 05/09/22 Assessment & Plan Assessment and plan (1) Encephalopathy acute: Status: Acute (2) COVID-19: Status: Acute (3) ESRD on dialysis: Status: Acute Assessment and Plan: stable treatment yesterday next (4) Bacteremia: Status: Acute Plan 1. ESRD: TTS 2. GN bact: presumed GI/ source--responding to ABx 3. ANemia ad MBD of ESRD: meds as noted 4. COVID REC: cont HD TTS; ABx as noted Time Spent With Patient Time: Total time spent is greater than 50% in coordination of care (as documented) at patient's floor/unit and/or counseling patient: Progress Note: Quality Stroke Does the patient have a stroke diagnosis?: No
[2022-05-09 11:17] VITALS: BP 178/61; PULSE 56; RESP 18; TEMP 36.8; O2SAT 98
[2022-05-09 11:42] LABS: Glucose, Whole Blood 165 mg/dL (60-115)
--- NOTE | 2022-05-09 12:33 | P.DS_ITS ---
DS: Providers Provider Date of Service: 05/09/22 Date of admission: 05/03/22 20:37 Primary care physician: James Briones MD Consults: 05/03/22 20:44 Consult to Nephrology Routine Consulting Provider: Hal Perez Reason for consultation: ESRD Has provider been notified: No 05/05/22 14:45 Consult to Infectious Diseases Stat Consulting Provider: Bita Andujar Reason for consultation: GN Bacteremia Has provider been notified: No 05/06/22 13:00 Consult to General Surgery Routine Consulting Provider: Salas Rivera Reason for consultation: klebsiella in blood, ?gi source/microperf DS: Diagnosis Discharge Diagnosis (1) Encephalopathy acute: Status: Acute (2) COVID-19: Status: Acute (3) ESRD on dialysis: Status: Acute (4) Bacteremia: Status: Acute DS: Summary Hospital Course Hospital Course: from initial hpi: Chief Complaint: Altered mentation This is a 81-year-old female with a pertinent history of ESRD on hemodialysis Monday//Monday, insulin-dependent diabetes mellitus, history of PVC with IVC filter, chronic opioid use due to chronic pain, mood disorder, mixed hyperlipidemia, gastroesophageal reflux disease, hypothyroidism who was sent to the ER after she was found altered.? At the time of my examination, patient is disoriented to place and does not know when she is.? She is only complaining of feeling cold.? Unable to obtain any history from the patient.? As per chart review, patient was feeling unwell since a.m. but went for dialysis.? Soon after she had episodes of nonbloody emesis.? In the ER patient was found to be febrile with a temp of 102 degrees and had leukocytosis.? She is not at baseline and is unable to answer questions. hospital course: patient was admitted with sepsis and metabolic encephalopathy secondary to Klebsiella pneumonia bacteremia likely due to acute diverticulitis. Her urine also grew Enterococcus faecalis and strep viridans. She was treated with IV Zosyn and sepsis resolved. Her mental status and improved to baseline. Her abdomen was soft and she was seen by General surgery who recommended no surgical intervention. She was incidentally noted to be COVID positive but was asymptomatic. Plan is for 8 more days of cefuroxime. For end-stage renal disease who is continue hemodialysis. For her diabetes she was continue insulin. For hypertension shows continue metoprolol. Patient will be discharged back to [facility] facility. Time Spent with Patient Time attestation: Total time spent providing and/or coordinating discharge services: Discharge coordination time: Greater than 30 minutes Quality: Safe Use of Opioids Does Pt have an Active Cancer Diagnosis on the Problem List?: No Quality: Stroke Does the patient have a stroke diagnosis?: No Physical Exam Vital Signs: Vital Signs: Last Vital Signs Temp 98.3 F 05/09/22 11:17 Pulse 56 05/09/22 11:17 Resp 18 05/09/22 11:17 BP 178/61 H 05/09/22 11:17 Pulse Ox 98 05/09/22 11:17 O2 Del Method 05/09/22 11:17 FiO2 99 05/05/22 19:22 BMI result Body Mass Index 31.2 Const: Other: Awake alert mild confusion easily reoriented General: cooperative, no acute distress and alert Nutritional Appearance: well nourished Orientation /consciousness: patient oriented x3 Limitations: no limitations HEENT: Head: Yes normal to inspection Face and sinus: Yes normal facial exam Mouth: Normal oral and palatal mucosa present Teeth and gingiva: dentition normal Eyes: General: appearance normal, both eyes and all related structures Sclerae: sclerae normal Pupils: Equal, round and reactive pupils present EOM: EOMs intact bilaterally Neck: Neck: Yes supple Resp: Other: Breathing comfortably, no respiratory distress Effort & Inspection: normal respiratory effort Auscultation: diminished lung sounds Cardio: Other: No S4; positive S1-S2; no S3 murmurs rubs or gallops Rate: regular rate Rhythm: regular rhythm GI: Other: Soft, mildly distended, tender in the lower quadrants especially left lower quadrant without rebound, guarding, or rigidity. Normal bowel sounds. No tympany to percussion. Negative Mcwilliams sign. Palpation (GI): Soft to palpation and nontender : General: Yes no CVA tenderness Back/Spine/Pelvis: Back: no CVA tenderness Skin: Other: Warm, dry, no rash General skin exam: no rashes or lesions noted Neuro: General: patient oriented x3 and moves all extremities Cranial nerves: Yes Equal, round and reactive pupils present Extrem: Other: No edema General: Yes normal to inspection and Yes no clubbing, cyanosis or edema Psych: Appearance: grossly normal DS: Data Data Completed and Pending Labs on day of discharge: Laboratory Results - last 24 hr 05/08/22 05/08/22 05/09/22 16:48 19:32 05:38 Sodium 136 Potassium 5.0 Chloride 100 Carbon Dioxide 14 L Anion Gap 27 H BUN 49 H Creatinine 5.71 H* Estim Creat Clear Calc 7.4 Estimated GFR 7 POC Glucose 137 H 230 H Fasting Glucose 159 H Calcium 6.6 L D 05/09/22 05/09/22 07:28 11:15 Sodium Potassium Chloride Carbon Dioxide Anion Gap BUN Creatinine Estim Creat Clear Calc Estimated GFR POC Glucose 139 H 165 H Fasting Glucose Calcium Discharge Plan Discharge Anticipated Discharge Date/Time: 05/09/22 12:24 Patient Disposition: er [facility] Discharge Diagnosis: diverticulitis, bacteremia Referrals: James Briones MD [Primary Care Provider] - 1 Week Discharge Medications: New cefuroxime axetil 250 mg tablet 250 mg PO DAILY Qty: 8 0RF Continued pravastatin 40 mg tablet 1 tab PO BEDTIME levothyroxine 88 mcg tablet 1 tab PO DAILY@0600 Novolin N NPH U-100 Insulin 100 unit/mL suspension 16 unit subcut BEDTIME sertraline 50 mg tablet 1 tab PO DAILY metoprolol tartrate 25 mg tablet 1 tab PO BID oxycodone 10 mg tablet 1 tab PO QID PRN (Reason: pain) polyethylene glycol 3350 [Miralax] 17 gram Powder In Packet 17 g PO DAILY ondansetron 4 mg Tablet,Disintegrating 4 mg PO Q6H MDD N PRN (Reason: Nausea And Vomiting) acetaminophen 325 mg Tablet 325 mg PO TID PRN (Reason: Pain) latanoprost 0.005 % drops 1 drp ophthalmic (eye) BEDTIME Rx Instructions: both eyes sennosides [senna] 8.6 mg Tablet 8.6 mg PO BEDTIME PRN (Reason: Constipation) aspirin 325 mg Tablet 325 mg PO DAILY melatonin 3 mg Tablet 3 mg PO BEDTIME PRN (Reason: Insomnia) ascorbic acid (vitamin C) [Vitamin C] 500 mg Tablet 500 mg PO DAILY bisacodyl 10 mg Suppository 10 mg NC DAILY PRN (Reason: Constipation) nitroglycerin 0.4 mg Tablet, Sublingual 0.4 mg SUBLINGUAL Q5M PRN (Reason: Chest Pain) Rx Instructions: do not exceed 3 doses per episode midodrine 2.5 mg tablet 1 tab PO TUTHSA Rx Instructions: dailysis days nystatin 100,000 unit/gram Powder 1 appl TOPICAL BID Rx Instructions: to breasts lactulose 10 gram/15 mL Solution 30 ml PO DAILY PRN (Reason: Constipation) ferrous fumarate 325 mg (106 mg iron) Tablet 325 mg PO DAILY omeprazole 40 mg Capsule,Delayed Release(Dr/Ec) 40 mg PO DAILY Discharge Orders: Discharge Order (Routine); Ordered 05/09/22 Ordered By: Artis Blanco Activity on Discharge: As tolerated Stand Alone Forms: Patient Portal Discharge page Care Plan Goals: recovery Health Concerns: klebsiella bacteremia Plan of Treatment: ceftin for 8 more days Assessment: see above
[2022-05-09] MEDS: Insulin Lispro 100 UNIT/ML 3 ML VIAL SUBCUT (12:56)
== END 2022-05-09 14:44 | disposition skilled nursing facility (03) | DRG 871 ==
LOC: HO.ED 19:21 → HO.EDOVER 20:54 → HO.IMC 05-04 14:51
PROVIDERS: Hospitalist; Admitting Provider Student in an Organized Health Care Education/Training Program; Emergency Provider Emergency Medicine; PCP Family Medicine; Visit Provider Internal Medicine
DX: A41.4 Sepsis due to anaerobes (principal); G93.41 Metabolic encephalopathy; N18.6 End stage renal disease; U07.1 COVID-19; N39.0 Urinary tract infection, site not specified; I12.0 Hypertensive chronic kidney disease with stage 5 chronic kidney disease or end stage renal disease; K57.32 Diverticulitis of large intestine without perforation or abscess without bleeding; E11.22 Type 2 diabetes mellitus with diabetic chronic kidney disease; E78.2 Mixed hyperlipidemia; D63.1 Anemia in chronic kidney disease; K21.9 Gastro-esophageal reflux disease without esophagitis; N25.0 Renal osteodystrophy; E03.9 Hypothyroidism, unspecified; F39 Unspecified mood [affective] disorder; G89.29 Other chronic pain; B95.2 Enterococcus as the cause of diseases classified elsewhere; B95.4 Other streptococcus as the cause of diseases classified elsewhere; Z99.2 Dependence on renal dialysis; Z86.711 Personal history of pulmonary embolism; Z91.15 Patient's noncompliance with renal dialysis; Z88.2 Allergy status to sulfonamides; Z79.4 Long term (current) use of insulin; Z79.82 Long term (current) use of aspirin; Z79.891 Long term (current) use of opiate analgesic; Z79.890 Hormone replacement therapy; Z79.899 Other long term (current) drug therapy
CPT/HCPCS: 0241U; 36415; 70450; 71045; 74176; 80048; 80053; 81001; 82947; 83036; 83605; 83735; 85025; 85027; 87040; 87077; 87086; 87088; 87186; 87205; 90935; 93005; 97162; 99285; J0692; J0696; J1650; J2405; J2543; J3370

== ENCOUNTER 2022-06-13 07:23 | Outpatient (REF) | payer MEDICARE, MEDICAID, SELFPAY ==
[2022-06-13 08:12] LABS: Anion Gap 22 (12-20); Blood Urea Nitrogen 57 mg/dL (9-16); Calcium 7.2 mg/dL (8.4-10.2); Carbon Dioxide 25 mmol/L (22-29); Chloride 97 mmol/L (96-108); Estimated Glomerular Filt Rate 7; Glucose Random 106 mg/dL (60-115); Potassium 4.7 mmol/L (3.3-5.1); Sodium 139 mmol/L (135-145)
[2022-06-13 08:19] LABS: Basophils Absolute Auto 0.1 X10*3/uL (0.0-0.2); Basophils Percent Auto 0.7 % (0-2); Eosinophils Absolute Auto 0.4 X10*3/uL (0.0-0.4); Eosinophils Percent Auto 4.9 % (0-4); Hematocrit 30.8 % (37.0-47.0); Hemoglobin 9.8 g/dl (12.0-16.0); Imm Gran Abs Auto 0.15 X10*3/uL (0.00-0.03); Imm Gran Pct Auto 1.8 % (0.0-0.4); Lymphocytes Absolute Auto 0.9 X10*3/uL (1.2-4.9); Lymphocytes Percent Auto 11.1 % (20-40); MANUAL DIFF FLAG SCAN; Mean Corpuscular HGB Conc 31.8 g/dl (31.0-35.0); Mean Corpuscular Hemoglobin 31.7 pg (27.0-33.0); Mean Corpuscular Volume 99.7 fL (80.0-98.0); Monocytes Absolute Auto 0.9 X10*3/uL (0.1-1.2); Monocytes Percent Auto 10.4 % (2-11); Neutrophils Absolute Auto 5.8 x10*3/uL (2.0-8.3); Neutrophils Percent Auto 71.1 % (45-73); PLT CLUMP 1; Red Blood Count 3.09 X10*6/uL (4.20-5.50); Red Cell Distribution Width 15.6 % (11.0-16.0); SCAN SMEAR FLAG 1
[2022-06-13 09:02] LABS: Platelet Count 168 X10*3/uL (160-400); White Blood Count 8.2 X10*3/uL (4.8-10.8)
[2022-06-13 09:04] LABS: SLIDE REVIEW VERIFIED
== END 2022-06-13 07:24 | disposition home or self-care (01) ==
LOC: HO.MMNH2L 07:23
PROVIDERS: Visit Provider Family Medicine
DX: N18.6 End stage renal disease (principal); Z99.2 Dependence on renal dialysis
CPT/HCPCS: 36415; 80048; 85025

== ENCOUNTER 2022-07-11 06:14 | Outpatient (REF) | payer MEDICARE, MEDICAID, SELFPAY ==
[2022-07-11 06:21] LABS: MANUAL DIFF FLAG NO
[2022-07-11 06:44] LABS: Basophils Absolute Auto 0.1 X10*3/uL (0.0-0.2); Basophils Percent Auto 0.5 % (0-2); Eosinophils Absolute Auto 0.5 X10*3/uL (0.0-0.4); Eosinophils Percent Auto 5.5 % (0-4); Hematocrit 26.4 % (37.0-47.0); Hemoglobin 8.5 g/dl (12.0-16.0); Imm Gran Abs Auto 0.33 X10*3/uL (0.00-0.03); Imm Gran Pct Auto 3.4 % (0.0-0.4); Lymphocytes Absolute Auto 1.2 X10*3/uL (1.2-4.9); Lymphocytes Percent Auto 11.7 % (20-40); Mean Corpuscular HGB Conc 32.2 g/dl (31.0-35.0); Mean Corpuscular Hemoglobin 31.7 pg (27.0-33.0); Mean Corpuscular Volume 98.5 fL (80.0-98.0); Mean Platelet Volume 10.2 fL (9.4-12.3); Monocytes Absolute Auto 0.9 X10*3/uL (0.1-1.2); Monocytes Percent Auto 9.4 % (2-11); Neutrophils Absolute Auto 6.9 x10*3/uL (2.0-8.3); Neutrophils Percent Auto 69.5 % (45-73); Platelet Count 202 X10*3/uL (160-400); Red Blood Count 2.68 X10*6/uL (4.20-5.50); Red Cell Distribution Width 15.1 % (11.0-16.0); White Blood Count 9.9 X10*3/uL (4.8-10.8)
[2022-07-11 07:38] LABS: Anion Gap 20 (12-20); Blood Urea Nitrogen 46 mg/dL (9-16); Calcium 8.3 mg/dL (8.4-10.2); Carbon Dioxide 28 mmol/L (22-29); Chloride 96 mmol/L (96-108); Estimated Glomerular Filt Rate 7; Glucose Random 64 mg/dL (60-115); Potassium 4.5 mmol/L (3.3-5.1); Sodium 139 mmol/L (135-145)
== END 2022-07-11 06:15 | disposition home or self-care (01) ==
LOC: HO.MMNH2L 06:14
PROVIDERS: Visit Provider Family Medicine
DX: N18.6 End stage renal disease (principal); Z99.2 Dependence on renal dialysis
CPT/HCPCS: 36415; 80048; 85025

== ENCOUNTER 2022-08-13 14:18 | Emergency (ER) | payer MEDICARE, MEDICAID, SELFPAY ==
[2022-08-13 14:50] VITALS: BP 127/61; BP 134/72; PULSE 68; PULSE 69; RESP 18; TEMP 35.6; O2SAT 98; BMI 29.2
[2022-08-13 15:55] VITALS: BP 123/35; PULSE 67; RESP 18; TEMP 36.9; O2SAT 98
--- NOTE | 2022-08-13 16:36 | ED_ITS ---
HPI - General Adult General Chief complaint: General Medical <YULI Fowler - Last Filed: 08/13/22 17:33> Stated complaint: Fistula blocked per EMS <YULI Fowler - Last Filed: 08/13/22 17:33> Time Seen by Provider: 08/13/22 15:06 <YULI Fowler - Last Filed: 08/13/22 17:33> Source: patient and EMS <YULI Fowler Last Filed: 08/13/22 17:33> Mode of arrival: EMS <YULI Fowler Last Filed: 08/13/22 17:33> Limitations: no limitations <YULI Fowler Last Filed: 08/13/22 17:33> History of Present Illness HPI narrative: 82-year-old female with a past medical history of diabetes, HTN, CKD on HD (/Mon/Mon) with fistula to left chest/shoulder area presenting to the ED after being sent by dialysis due to block fistula for the past 2 attempts on Monday and today. Therefore they sent her here to unblock the fistula. Patient denies any complaints at this time. <YULI Fowler - Last Filed: 08/13/22 17:33> MD complaint: Block fistula for dialysis <YULI Fowler - Last Filed: 08/13/22 17:33> Onset (ago): day(s) (2) <YULI Fowler - Last Filed: 08/13/22 17:33> Related Data Home medications: Home Medications Medication Instructions Recorded Confirmed acetaminophen 325 mg tablet 325 mg PO TID PRN Pain 02/10/21 05/03/22 insulin NPH isoph U-100 human 100 16 unit subcut BEDTIME 02/10/21 05/03/22 unit/mL subcutaneous suspension (Novolin N NPH U-100 Insulin isophane) levothyroxine 88 mcg tablet 1 tab PO DAILY@0600 02/10/21 05/03/22 metoprolol tartrate 25 mg tablet 1 tab PO BID 02/10/21 05/03/22 ondansetron 4 mg disintegrating 4 mg PO Q6H PRN Nausea And Vomiting 02/10/21 05/03/22 tablet oxycodone 10 mg tablet 1 tab PO QID PRN pain 02/10/21 05/03/22 polyethylene glycol 3350 17 gram 17 g PO DAILY 02/10/21 05/03/22 oral powder packet (Miralax) pravastatin 40 mg tablet 1 tab PO BEDTIME 02/10/21 05/03/22 sertraline 50 mg tablet 1 tab PO DAILY 02/10/21 05/03/22 ascorbic acid (vitamin C) 500 mg 500 mg PO DAILY 05/03/22 05/03/22 tablet (Vitamin C) aspirin 325 mg tablet 325 mg PO DAILY 05/03/22 05/03/22 bisacodyl 10 mg rectal suppository 10 mg [place] DAILY PRN Constipation 05/03/22 05/03/22 ferrous fumarate 325 mg (106 mg 325 mg PO DAILY 05/03/22 05/03/22 iron) tablet lactulose 10 gram/15 mL oral 30 ml PO DAILY PRN Constipation 05/03/22 05/03/22 solution latanoprost 0.005 % eye drops 1 drp ophthalmic (eye) BEDTIME 05/03/22 05/03/22 melatonin 3 mg tablet 3 mg PO BEDTIME PRN Insomnia 05/03/22 05/03/22 midodrine 2.5 mg tablet 1 tab PO TUTHSA 05/03/22 05/03/22 nitroglycerin 0.4 mg sublingual 0.4 mg sublingual Q5M PRN Chest 05/03/22 05/03/22 tablet Pain nystatin 100,000 unit/gram topical 1 appl topical BID 05/03/22 05/03/22 powder omeprazole 40 mg capsule,delayed 40 mg PO DAILY 05/03/22 05/03/22 release sennosides 8.6 mg tablet (senna) 8.6 mg PO BEDTIME PRN Constipation 05/03/22 05/03/22 Previous Rx's Medication Instructions Recorded cefuroxime axetil 250 mg tablet 250 mg PO DAILY #8 tabs 05/09/22 <YULI Fowler - Last Filed: 08/13/22 17:33> Allergies/adverse reactions: Allergies Allergy/AdvReac Type Severity Reaction Status Date / Time Sulfa (Sulfonamide Allergy Unknown RASH Verified 05/03/22 19:57 Antibiotics) <YULI Fowler - Last Filed: 08/13/22 17:33> Review of Systems Review of Systems: Constitutional : No Weight loss, No Fever, No Chills, No Night Sweats, No Fatigue, No Malaise ENT/Mouth : No Hearing loss, No Ear Pain, No Nasal Congestion, No Sinus Pain, No Hoarseness, No sore throat, No Rhinorrhea, No Swallowing Difficulty Eyes: No Eye Pain, No Swelling, No Redness, No Foreign Body, No Discharge, No Vision Changes Cardiovascular : No Chest Pain, No SOB, No Dyspnea on Exertion, No Orthopnea, No Edema, No Palpitations Respiratory : No Cough, No Sputum, No Wheezing, No Smoke Exposure, No Dyspnea Gastrointestinal : No Nausea, No Vomiting, No Diarrhea, No Constipation, No abdominal Pain, No Hematochezia, No Melena Genitourinary : no irregular bleeding, No Dysuria, No Urinary Frequency, No Hematuria, No Urinary Incontinence, No Urgency, No Flank Pain, No Urinary Flow Changes, No Hesitancy Musculoskeletal : No joint pain, No Myalgias, No Joint Swelling Skin : No Skin Lesions, No rash Neuro : No Weakness, No Numbness, No Paresthesias, No Loss of Consciousness, No Dizziness, No Headache Psych : No Anxiety/Panic, No Depression, No SI/HI/AH/VH, No Social Issues, Heme/Lymph: No Bruising, No Bleeding,No Lymphadenopathy Endocrine : No Polyuria, No Polydipsia, No Temperature Intolerance <YULI Fowler - Last Filed: 08/13/22 17:33> Yes all other systems are reviewed and are negative <YULI Fowler - Last Filed: 08/13/22 17:33> [facility] Past Medical History Attestation statement: The following information was validated with the patient. <YULI Fowler - Last Filed: 08/13/22 17:33> Source: old records reviewed and nursing notes reviewed <YULI Fowler - Last Filed: 08/13/22 17:33> Medical History: Medical History Anemia Diabetes mellitus GERD (gastroesophageal reflux disease) HTN (hypertension) Hypertension Kidney disease Pulmonary embolus <YULI Fowler - Last Filed: 08/13/22 17:33> Social History Social History: Social History Household Members: None Housing: [facility] Do you presently have visiting nurse or other home services: No Unable to assess alcohol history related to: Unknown Alcohol intake: never Patient Tobacco Use Status: Never used Tobacco Use of substances other than those prescribed or required for medical reasons: No Advance Directives: Yes Advance Directives on File: Yes Advance Directives Date on File: 02/10/21 service: No Current occupational status: retired <YULI Fowler - Last Filed: 08/13/22 17:33> Physical Exam ED Vital Signs: Vital Signs - 24 hr 08/13/22 14:50 08/13/22 15:55 08/13/22 17:24 Temperature 96.1 F L 98.5 F Pulse Rate 69 67 61 Respiratory Rate 18 18 Blood Pressure 127/61 123/35 L 106/39 L Pulse Oximetry 98 98 96 Oxygen Delivery Method Room Air Room Air Room Air 08/13/22 18:22 Temperature Pulse Rate 68 Respiratory Rate Blood Pressure 107/45 L Pulse Oximetry Oxygen Delivery Method BMI result Body Mass Index 29.2 vital signs have been reviewed as normal and appeared to be correct. Blood pressure normal. Heart rate normal. Respiration rate normal. Temperature normal. Oxygen saturation normal. <YULI Fwoler - Last Filed: 08/13/22 17:33> Vital Signs - 24 hr 08/13/22 14:50 08/13/22 15:55 08/13/22 17:24 Temperature 96.1 F L 98.5 F Pulse Rate 69 67 61 Respiratory Rate 18 18 Blood Pressure 127/61 123/35 L 106/39 L Pulse Oximetry 98 98 96 Oxygen Delivery Method Room Air Room Air Room Air 08/13/22 18:22 Temperature Pulse Rate 68 Respiratory Rate Blood Pressure 107/45 L Pulse Oximetry Oxygen Delivery Method BMI result Body Mass Index 29.2 <Jacinto Russo MD - Last Filed: 08/13/22 18:43> Appearance: Alert. Oriented X3. No acute distress. Head: Normal external exam. Normocephalic. Atraumatic. Eyes: PERRLA. EOMI. Conjunctiva and sclera normal. Eyelids normal. ENT: Pharynx normal. Uvula midline. Moist mucous membranes. No lesions/ulcerations or masses noted on the tongue. Normal voice. No trismus noted. No drooling noted. No muffled voice noted. Neck: Normal inspection. Neck supple. FROM. No adenopathy. Thyroid Normal. No tracheal deviation noted. No crepitus is noted. No meningeal signs. No neck mass noted. No signs of trauma noted. CVS: Normal heart rate and rhythm. Heart sound normal. Pulses normal throughout. No murmurs/rales/gallops. Respiratory: No respiratory distress. Painless inspiration. Breath sounds normal. No wheezes/rales/rhonchi noted. Chest nontender. No crepitus is noted. No signs of trauma noted. No accessory muscle usage noted or decreased air movement noted. No signs of trauma. Abdomen: Soft and nontender. Bowel sounds normal in all 4 quadrants. No distention noted. No organomegaly noted. No visible injury noted. Back: No CVA tenderness. Full range of motion noted. Nontender. No signs of trauma. Patient neuro intact bilaterally and distally on all 4 extremities. Patient's reflexes intact bilaterally and distally on all 4 extremities. No rashes/lesion/induration/fluctuance or signs of infection noted. Skin: Skin warm and dry. Normal skin color. Normal skin turgor. No rashes/lesions/lacerations noted. Extremities: No lower extremity edema. No calf tenderness is noted. Extremities exhibit normal range of motion and nontender. Neuro: Oriented X 3. No motor deficit. No sensory deficit. Reflexes normal. Normal steady gait. No focal neuro deficits noted. CN's II-XII intact bilaterally? Vascular: + radial pulses. Normal cap refill. No cyanosis noted to upper extremity nails. <YULI Fowler - Last Filed: 08/13/22 17:33> Course Course Course Narrative: 15:30pm - 82-year-old female with a past medical history of diabetes, HTN, CKD on HD (/Mon/Mon) with fistula to left chest/shoulder area presenting to the ED after being sent by dialysis due to block fistula for the past 2 attempts on Monday and today. Therefore they sent her here to unblock the fistula. Patient denies any complaints at this time. Plan: I did speak to the dialysis nurses upstairs and they reported that the patient should have labs and depending on her labs if she needs emergent dialysis that I would need to consult with Nephrology who would have to recommend a fistula gram. Therefore Will obtain labs at this time. <YULI Fowler - Last Filed: 08/13/22 17:33> Reevaluation(s) Reevaluation #1: Labs reviewed - mild baseline anemia with an H&H of 8.9/28.2. - potassium 5.4. - anion gap 22 - BUN/creatinine 58/7.91 - random glucose 140. - calcium 7.6 - total protein 4.9 - albumin 2.9 - patient negative for COVID/RSV/flu Otherwise all other labs are within normal limits Therefore consulted with Nephrology at this time. Dr. Sandoval were discussed this case with them. <YULI Fowler - Last Filed: 08/13/22 17:33> Time: 17:08 <YULI Fowler - Last Filed: 08/13/22 17:33> Reevaluation #2: Dr. Sandoval will discussed this case with the shank cementer hand sign out to Dr. Sandoval. <YULI Fowler - Last Filed: 08/13/22 17:33> Time: 17:33 <YULI Fowler - Last Filed: 08/13/22 17:33> Reevaluation #3: case discussed with shank cementer hand Dr. Beck plan is patient to go back to [facility] after Lokelma and IV Lasix in the ER today , patient's potassium is 5.4 clinically stable with stable vital patient does make urine, patient will have new catheter placed on Monday has to be NPO after midnight <Jacinto Russo MD - Last Filed: 08/13/22 18:43> Time: 18:42 <Jacinto Russo MD - Last Filed: 08/13/22 18:43> Medications Administered Discontinued Medications Generic Name Dose Route Start Last Admin Trade Name Freq PRN Reason Stop Dose Admin Furosemide 20 mg 08/13/22 17:31 08/13/22 18:22 Furosemide 20 Mg/2 Ml Vial IVPUSH 08/13/22 17:32 20 mg ONCE ONE Administration Protocol <YULI Fowler - Last Filed: 08/13/22 17:33> Medications Administered Discontinued Medications Generic Name Dose Route Start Last Admin Trade Name Freq PRN Reason Stop Dose Admin Furosemide 20 mg 08/13/22 17:31 08/13/22 18:22 Furosemide 20 Mg/2 Ml Vial IVPUSH 08/13/22 17:32 20 mg ONCE ONE Administration Protocol <Jacinto Russo MD - Last Filed: 08/13/22 18:43> Medical Decision Making Lab Data [facility] Lab Attestation statement: I reviewed the patient's lab results. <YULI Fowler - Last Filed: 08/13/22 17:33> Result Diagrams: 08/13/22 16:16 08/13/22 16:16 <YULI Fowler - Last Filed: 08/13/22 17:33> Labs: Lab Results 08/13/22 08/13/22 08/13/22 Range/Units 16:16 16:16 16:16 WBC (4.8-10.8) X10*3/uL RBC (4.20-5.50) X10*6/uL Hgb (12.0-16.0) g/dl Hct (37.0-47.0) % MCV (80.0-98.0) fL MCH (27.0-33.0) pg MCHC (31.0-35.0) g/dl RDW (11.0-16.0) % Plt Count (160-400) X10*3/uL MPV (9.4-12.3) fL Immature Gran % (Auto) (0.0-0.4) % Neut % (Auto) (45-73) % Lymph % (Auto) (20-40) % [place] % (Auto) (2-11) % Eos % (Auto) (0-4) % Baso % (Auto) (0-2) % Lymph # (Auto) (1.2-4.9) X10*3/uL [place] # (Auto) (0.1-1.2) X10*3/uL Eos # (Auto) (0.0-0.4) X10*3/uL Baso # (Auto) (0.0-0.2) X10*3/uL Abs Immat Gran (auto) (0.00-0.03) X10*3/uL Absolute Neuts (auto) (2.0-8.3) x10*3/uL Absolute Nucleated RBC (0.0-0.012) X10*3/uL Nucleated RBC % (auto) (0.0-0.2) /100WBC PT 10.6 (10.0-13.1) SEC INR 0.9 (0.9-1.1) Sodium 139 (135-145) mmol/L Potassium 5.4 H (3.3-5.1) mmol/L Chloride 99 (96-108) mmol/L Carbon Dioxide 23 (22-29) mmol/L Anion Gap 22 H (12-20) BUN 58 H (9-16) mg/dL Creatinine 7.91 H* (0.5-1.4) mg/dL Estim Creat Clear Calc 5.4 Estimated GFR 5 POC Glucose (60-115) mg/dL Random Glucose 140 H (60-115) mg/dL Calcium 7.6 L D (8.4-10.2) mg/dL Magnesium 1.9 (1.6-2.6) mg/dL Total Bilirubin 0.5 (0.0-1.0) mg/dL AST 8 (5-31) U/L ALT < 6 (0-31) U/L Alkaline Phosphatase 83 (39-117) U/L Total Protein 4.9 L (6.5-8.0) g/dL Albumin 2.9 L (3.5-5.0) g/dL Influenza Type A (PCR) NEGATIVE (Negative) Influenza Type B (PCR) NEGATIVE (Negative) RSV RNA Qual (PCR) NEGATIVE (Negative) SARS-CoV-2 RNA (RT-PCR) NEGATIVE (Negative) 08/13/22 08/13/22 Range/Units 16:44 18:13 WBC 9.5 (4.8-10.8) X10*3/uL RBC 2.76 L (4.20-5.50) X10*6/uL Hgb 8.9 L (12.0-16.0) g/dl Hct 28.2 L (37.0-47.0) % MCV 102.2 H (80.0-98.0) fL MCH 32.2 (27.0-33.0) pg MCHC 31.6 (31.0-35.0) g/dl RDW 16.0 (11.0-16.0) % Plt Count 207 (160-400) X10*3/uL MPV 9.9 (9.4-12.3) fL Immature Gran % (Auto) 0.6 H (0.0-0.4) % Neut % (Auto) 71.1 (45-73) % Lymph % (Auto) 9.3 L (20-40) % [place] % (Auto) 9.7 (2-11) % Eos % (Auto) 8.9 H (0-4) % Baso % (Auto) 0.4 (0-2) % Lymph # (Auto) 0.9 L (1.2-4.9) X10*3/uL [place] # (Auto) 0.9 (0.1-1.2) X10*3/uL Eos # (Auto) 0.8 H (0.0-0.4) X10*3/uL Baso # (Auto) 0.0 (0.0-0.2) X10*3/uL Abs Immat Gran (auto) 0.06 H (0.00-0.03) X10*3/uL Absolute Neuts (auto) 6.7 (2.0-8.3) x10*3/uL Absolute Nucleated RBC 0.000 (0.0-0.012) X10*3/uL Nucleated RBC % (auto) 0.0 (0.0-0.2) /100WBC PT (10.0-13.1) SEC INR (0.9-1.1) Sodium (135-145) mmol/L Potassium (3.3-5.1) mmol/L Chloride (96-108) mmol/L Carbon Dioxide (22-29) mmol/L Anion Gap (12-20) BUN (9-16) mg/dL Creatinine (0.5-1.4) mg/dL Estim Creat Clear Calc Estimated GFR POC Glucose 107 (60-115) mg/dL Random Glucose (60-115) mg/dL Calcium (8.4-10.2) mg/dL Magnesium (1.6-2.6) mg/dL Total Bilirubin (0.0-1.0) mg/dL AST (5-31) U/L ALT (0-31) U/L Alkaline Phosphatase (39-117) U/L Total Protein (6.5-8.0) g/dL Albumin (3.5-5.0) g/dL Influenza Type A (PCR) (Negative) Influenza Type B (PCR) (Negative) RSV RNA Qual (PCR) (Negative) SARS-CoV-2 RNA (RT-PCR) (Negative) <YULI Fowler - Last Filed: 08/13/22 17:33> Lab Results 08/13/22 08/13/22 08/13/22 Range/Units 16:16 16:16 16:16 WBC (4.8-10.8) X10*3/uL RBC (4.20-5.50) X10*6/uL Hgb (12.0-16.0) g/dl Hct (37.0-47.0) % MCV (80.0-98.0) fL MCH (27.0-33.0) pg MCHC (31.0-35.0) g/dl RDW (11.0-16.0) % Plt Count (160-400) X10*3/uL MPV (9.4-12.3) fL Immature Gran % (Auto) (0.0-0.4) % Neut % (Auto) (45-73) % Lymph % (Auto) (20-40) % [place] % (Auto) (2-11) % Eos % (Auto) (0-4) % Baso % (Auto) (0-2) % Lymph # (Auto) (1.2-4.9) X10*3/uL [place] # (Auto) (0.1-1.2) X10*3/uL Eos # (Auto) (0.0-0.4) X10*3/uL Baso # (Auto) (0.0-0.2) X10*3/uL Abs Immat Gran (auto) (0.00-0.03) X10*3/uL Absolute Neuts (auto) (2.0-8.3) x10*3/uL Absolute Nucleated RBC (0.0-0.012) X10*3/uL Nucleated RBC % (auto) (0.0-0.2) /100WBC PT 10.6 (10.0-13.1) SEC INR 0.9 (0.9-1.1) Sodium 139 (135-145) mmol/L Potassium 5.4 H (3.3-5.1) mmol/L Chloride 99 (96-108) mmol/L Carbon Dioxide 23 (22-29) mmol/L Anion Gap 22 H (12-20) BUN 58 H (9-16) mg/dL Creatinine 7.91 H* (0.5-1.4) mg/dL Estim Creat Clear Calc 5.4 Estimated GFR 5 POC Glucose (60-115) mg/dL Random Glucose 140 H (60-115) mg/dL Calcium 7.6 L D (8.4-10.2) mg/dL Magnesium 1.9 (1.6-2.6) mg/dL Total Bilirubin 0.5 (0.0-1.0) mg/dL AST 8 (5-31) U/L ALT < 6 (0-31) U/L Alkaline Phosphatase 83 (39-117) U/L Total Protein 4.9 L (6.5-8.0) g/dL Albumin 2.9 L (3.5-5.0) g/dL Influenza Type A (PCR) NEGATIVE (Negative) Influenza Type B (PCR) NEGATIVE (Negative) RSV RNA Qual (PCR) NEGATIVE (Negative) SARS-CoV-2 RNA (RT-PCR) NEGATIVE (Negative) 08/13/22 08/13/22 Range/Units 16:44 18:13 WBC 9.5 (4.8-10.8) X10*3/uL RBC 2.76 L (4.20-5.50) X10*6/uL Hgb 8.9 L (12.0-16.0) g/dl Hct 28.2 L (37.0-47.0) % MCV 102.2 H (80.0-98.0) fL MCH 32.2 (27.0-33.0) pg MCHC 31.6 (31.0-35.0) g/dl RDW 16.0 (11.0-16.0) % Plt Count 207 (160-400) X10*3/uL MPV 9.9 (9.4-12.3) fL Immature Gran % (Auto) 0.6 H (0.0-0.4) % Neut % (Auto) 71.1 (45-73) % Lymph % (Auto) 9.3 L (20-40) % [place] % (Auto) 9.7 (2-11) % Eos % (Auto) 8.9 H (0-4) % Baso % (Auto) 0.4 (0-2) % Lymph # (Auto) 0.9 L (1.2-4.9) X10*3/uL [place] # (Auto) 0.9 (0.1-1.2) X10*3/uL Eos # (Auto) 0.8 H (0.0-0.4) X10*3/uL Baso # (Auto) 0.0 (0.0-0.2) X10*3/uL Abs Immat Gran (auto) 0.06 H (0.00-0.03) X10*3/uL Absolute Neuts (auto) 6.7 (2.0-8.3) x10*3/uL Absolute Nucleated RBC 0.000 (0.0-0.012) X10*3/uL Nucleated RBC % (auto) 0.0 (0.0-0.2) /100WBC PT (10.0-13.1) SEC INR (0.9-1.1) Sodium (135-145) mmol/L Potassium (3.3-5.1) mmol/L Chloride (96-108) mmol/L Carbon Dioxide (22-29) mmol/L Anion Gap (12-20) BUN (9-16) mg/dL Creatinine (0.5-1.4) mg/dL Estim Creat Clear Calc Estimated GFR POC Glucose 107 (60-115) mg/dL Random Glucose (60-115) mg/dL Calcium (8.4-10.2) mg/dL Magnesium (1.6-2.6) mg/dL Total Bilirubin (0.0-1.0) mg/dL AST (5-31) U/L ALT (0-31) U/L Alkaline Phosphatase (39-117) U/L Total Protein (6.5-8.0) g/dL Albumin (3.5-5.0) g/dL Influenza Type A (PCR) (Negative) Influenza Type B (PCR) (Negative) RSV RNA Qual (PCR) (Negative) SARS-CoV-2 RNA (RT-PCR) (Negative) <Jacinto Russo MD - Last Filed: 08/13/22 18:43> External Record Review External record reviewed: Inpatient record, Office record, Outpatient record, Prior outpatient labs, Prior outpatient radiology, Primary care record and Outside ED record <YULI Fowler - Last Filed: 08/13/22 17:33> Critical Care Time Critical Care Time Critical Care Time: Yes <YULI Fowler - Last Filed: 08/13/22 17:33> Total Critical Care Time: 60 <YULI Fowler - Last Filed: 08/13/22 17:33> Attestation: I personally attest to this time spent taking care of the patient <YULI Fowler - Last Filed: 08/13/22 17:33> Discharge Plan Discharge Clinical Impression: Complication associated with dialysis catheter, ESRD on dialysis, Acute hyperkalemia <YULI Fowler - Last Filed: 08/13/22 17:33> Patient Disposition: Xfer SNF <YULI Fowler - Last Filed: 08/13/22 17:33> Transfer Details: patient needs to be NPO on 08/14/22 after midnight plan for new catheter placement by IR in a.m. of 08/15/2022 Dr. Beck shank cementer hand <YULI Fowler - Last Filed: 08/13/22 17:33> patient needs to be NPO on 08/14/22 after midnight plan for new catheter placement by IR in a.m. of 08/15/2022 Dr. Beck shank cementer hand <Jacinto Russo MD - Last Filed: 08/13/22 18:43> Instructions: Hyperkalemia (ED), End Stage Kidney Disease (ED) <YULI Fowler - Last Filed: 08/13/22 17:33> Additional Instructions: new catheter will be placed on 08/15 patient has to be NPO after midnight <YULI Fowler - Last Filed: 08/13/22 17:33> Prescriptions: No Action pravastatin 40 mg tablet 1 tab PO BEDTIME levothyroxine 88 mcg tablet 1 tab PO DAILY@0600 Novolin N NPH U-100 Insulin 100 unit/mL suspension 16 unit subcut BEDTIME sertraline 50 mg tablet 1 tab PO DAILY metoprolol tartrate 25 mg tablet 1 tab PO BID oxycodone 10 mg tablet 1 tab PO QID PRN (Reason: pain) polyethylene glycol 3350 [Miralax] 17 gram Powder In Packet 17 g PO DAILY ondansetron 4 mg Tablet,Disintegrating 4 mg PO Q6H MDD N PRN (Reason: Nausea And Vomiting) acetaminophen 325 mg Tablet 325 mg PO TID PRN (Reason: Pain) latanoprost 0.005 % drops 1 drp ophthalmic (eye) BEDTIME Rx Instructions: both eyes sennosides [senna] 8.6 mg Tablet 8.6 mg PO BEDTIME PRN (Reason: Constipation) aspirin 325 mg Tablet 325 mg PO DAILY melatonin 3 mg Tablet 3 mg PO BEDTIME PRN (Reason: Insomnia) ascorbic acid (vitamin C) [Vitamin C] 500 mg Tablet 500 mg PO DAILY bisacodyl 10 mg Suppository 10 mg [place] DAILY PRN (Reason: Constipation) nitroglycerin 0.4 mg Tablet, Sublingual 0.4 mg SUBLINGUAL Q5M PRN (Reason: Chest Pain) Rx Instructions: do not exceed 3 doses per episode midodrine 2.5 mg tablet 1 tab PO TUTHSA Rx Instructions: dailysis days nystatin 100,000 unit/gram Powder 1 appl TOPICAL BID Rx Instructions: to breasts lactulose 10 gram/15 mL Solution 30 ml PO DAILY PRN (Reason: Constipation) ferrous fumarate 325 mg (106 mg iron) Tablet 325 mg PO DAILY omeprazole 40 mg Capsule,Delayed Release(Dr/Ec) 40 mg PO DAILY cefuroxime axetil 250 mg tablet 250 mg PO DAILY Qty: 8 0RF <YULI Fowler - Last Filed: 08/13/22 17:33>
[2022-08-13 16:42] LABS: INTERNATIONAL NORM RATIO 0.9 (0.9-1.1); Prothrombin Time 10.6 SEC (10.0-13.1)
[2022-08-13 16:43] LABS: Alanine Aminotransferase < 6 U/L (0-31); Albumin Level 2.9 g/dL (3.5-5.0); Alkaline Phosphatase 83 U/L (39-117); Anion Gap 22 (12-20); Aspartate Amino Transferase 8 U/L (5-31); Bilirubin Total 0.5 mg/dL (0.0-1.0); Blood Urea Nitrogen 58 mg/dL (9-16); Calcium 7.6 mg/dL (8.4-10.2); Carbon Dioxide 23 mmol/L (22-29); Chloride 99 mmol/L (96-108); Creatinine Clr Calc Pharmacy 5.4; Estimated Glomerular Filt Rate 5; Glucose Random 140 mg/dL (60-115); Magnesium 1.9 mg/dL (1.6-2.6); Potassium 5.4 mmol/L (3.3-5.1); Sodium 139 mmol/L (135-145); Total Protein 4.9 g/dL (6.5-8.0)
[2022-08-13 16:49] LABS: Basophils Percent Auto 0.4 % (0-2); Eosinophils Absolute Auto 0.8 X10*3/uL (0.0-0.4); Eosinophils Percent Auto 8.9 % (0-4); Hematocrit 28.2 % (37.0-47.0); Hemoglobin 8.9 g/dl (12.0-16.0); Imm Gran Abs Auto 0.06 X10*3/uL (0.00-0.03); Imm Gran Pct Auto 0.6 % (0.0-0.4); Lymphocytes Absolute Auto 0.9 X10*3/uL (1.2-4.9); Lymphocytes Percent Auto 9.3 % (20-40); Mean Corpuscular HGB Conc 31.6 g/dl (31.0-35.0); Mean Corpuscular Hemoglobin 32.2 pg (27.0-33.0); Mean Corpuscular Volume 102.2 fL (80.0-98.0); Mean Platelet Volume 9.9 fL (9.4-12.3); Monocytes Absolute Auto 0.9 X10*3/uL (0.1-1.2); Monocytes Percent Auto 9.7 % (2-11); Neutrophils Absolute Auto 6.7 x10*3/uL (2.0-8.3); Neutrophils Percent Auto 71.1 % (45-73); Platelet Count 207 X10*3/uL (160-400); Red Blood Count 2.76 X10*6/uL (4.20-5.50); White Blood Count 9.5 X10*3/uL (4.8-10.8)
[2022-08-13 16:57] LABS: MANUAL DIFF FLAG NO
[2022-08-13 17:01] LABS: Influenza A PCR NEGATIVE (Negative); Influenza B PCR NEGATIVE (Negative); Resp Syncy Virus RNA Qual PCR NEGATIVE (Negative); SARS COV2 PCR INHOUSE NEGATIVE (Negative)
[2022-08-13 17:24] VITALS: BP 106/39; PULSE 61; O2SAT 96
--- NOTE | 2022-08-13 17:26 | MHC.EDTECH ---
@0925 called Nephro per request of YULI Fox and Dr. Russo. Gave patient demographics to the individual on the phone. She stated she would page the probation counselor doctor.
--- NOTE | 2022-08-13 17:28 | MHC.EDTECH ---
@2515 received a call from the on-call trackman. She asked to speak with Dr. Russo. Dr. Russo took the call right away.
[2022-08-13 18:17] LABS: Glucose, Whole Blood 107 mg/dL (60-115)
[2022-08-13 18:22] VITALS: BP 107/45; PULSE 68
[2022-08-13] MEDS: Furosemide 20 MG/2 ML VIAL IVPUSH (18:22)
[2022-08-13 18:55] VITALS: BP 120/45
--- NOTE | 2022-08-13 19:40 | PC.NURSE ---
assumed care of pt resting quietly while watching tv, no apparent distress waiting for [facility] to arrive to transport pt back to [facility]
== END 2022-08-13 20:37 | disposition skilled nursing facility (03) ==
PROVIDERS: Physician Assistant Medical; Emergency Provider Student in an Organized Health Care Education/Training Program
DX: T82.49XA Other complication of vascular dialysis catheter, initial encounter (principal); Y82.8 Other medical devices associated with adverse incidents; Y92.9 Unspecified place or not applicable; E87.5 Hyperkalemia; E11.22 Type 2 diabetes mellitus with diabetic chronic kidney disease; I12.0 Hypertensive chronic kidney disease with stage 5 chronic kidney disease or end stage renal disease; N18.6 End stage renal disease; Z99.2 Dependence on renal dialysis; Z79.4 Long term (current) use of insulin; Z79.899 Other long term (current) drug therapy; Z79.02 Long term (current) use of antithrombotics/antiplatelets; Z20.822 Contact with and (suspected) exposure to COVID-19; Z20.828 Contact with and (suspected) exposure to other viral communicable diseases
CPT/HCPCS: 0241U; 36415; 80053; 82947; 83735; 85025; 85610; 96374; 99284; J1940

== ENCOUNTER 2022-08-15 06:52 | Outpatient (REF) | payer MEDICARE, MEDICAID, SELFPAY ==
[2022-08-15 06:41] LABS: MANUAL DIFF FLAG NO
[2022-08-15 07:16] LABS: Basophils Absolute Auto 0.1 X10*3/uL (0.0-0.2); Basophils Percent Auto 0.6 % (0-2); Eosinophils Absolute Auto 0.8 X10*3/uL (0.0-0.4); Eosinophils Percent Auto 9.4 % (0-4); Hemoglobin 8.5 g/dl (12.0-16.0); Imm Gran Abs Auto 0.07 X10*3/uL (0.00-0.03); Imm Gran Pct Auto 0.9 % (0.0-0.4); Lymphocytes Absolute Auto 0.8 X10*3/uL (1.2-4.9); Lymphocytes Percent Auto 9.7 % (20-40); Mean Corpuscular HGB Conc 31.5 g/dl (31.0-35.0); Mean Corpuscular Hemoglobin 32.1 pg (27.0-33.0); Mean Corpuscular Volume 101.9 fL (80.0-98.0); Mean Platelet Volume 10.1 fL (9.4-12.3); Monocytes Absolute Auto 0.8 X10*3/uL (0.1-1.2); Monocytes Percent Auto 9.9 % (2-11); Neutrophils Absolute Auto 5.6 x10*3/uL (2.0-8.3); Neutrophils Percent Auto 69.5 % (45-73); Platelet Count 217 X10*3/uL (160-400); Red Blood Count 2.65 X10*6/uL (4.20-5.50); Red Cell Distribution Width 15.8 % (11.0-16.0); White Blood Count 8.1 X10*3/uL (4.8-10.8)
[2022-08-15 07:39] LABS: Anion Gap 27 (12-20); Blood Urea Nitrogen 84 mg/dL (9-16); Calcium 7.1 mg/dL (8.4-10.2); Carbon Dioxide 18 mmol/L (22-29); Chloride 100 mmol/L (96-108); Estimated Glomerular Filt Rate 4; Glucose Random 82 mg/dL (60-115); Potassium 5.6 mmol/L (3.3-5.1); Sodium 139 mmol/L (135-145)
== END 2022-08-15 06:53 | disposition home or self-care (01) ==
LOC: HO.MMNH2L 06:52
PROVIDERS: Visit Provider Family Medicine
DX: N18.6 End stage renal disease (principal); Z99.2 Dependence on renal dialysis
CPT/HCPCS: 36415; 80048; 85025

== ENCOUNTER 2022-09-12 06:48 | Outpatient (REF) | payer MEDICARE, MEDICAID, SELFPAY ==
[2022-09-12 06:27] LABS: MANUAL DIFF FLAG NO
[2022-09-12 07:09] LABS: Basophils Absolute Auto 0.1 X10*3/uL (0.0-0.2); Basophils Percent Auto 0.8 % (0-2); Eosinophils Absolute Auto 0.6 X10*3/uL (0.0-0.4); Eosinophils Percent Auto 9.8 % (0-4); Hematocrit 33.2 % (37.0-47.0); Hemoglobin 10.1 g/dl (12.0-16.0); Imm Gran Abs Auto 0.04 X10*3/uL (0.00-0.03); Imm Gran Pct Auto 0.6 % (0.0-0.4); Lymphocytes Absolute Auto 0.9 X10*3/uL (1.2-4.9); Lymphocytes Percent Auto 13.8 % (20-40); Mean Corpuscular HGB Conc 30.4 g/dl (31.0-35.0); Mean Corpuscular Hemoglobin 31.7 pg (27.0-33.0); Mean Corpuscular Volume 104.1 fL (80.0-98.0); Mean Platelet Volume 10.6 fL (9.4-12.3); Monocytes Absolute Auto 0.9 X10*3/uL (0.1-1.2); Monocytes Percent Auto 13.7 % (2-11); Neutrophils Percent Auto 61.3 % (45-73); Platelet Count 153 X10*3/uL (160-400); Red Blood Count 3.19 X10*6/uL (4.20-5.50); Red Cell Distribution Width 15.7 % (11.0-16.0); White Blood Count 6.4 X10*3/uL (4.8-10.8)
[2022-09-12 07:20] LABS: Anion Gap 20 (12-20); Blood Urea Nitrogen 31 mg/dL (9-16); Calcium 7.9 mg/dL (8.4-10.2); Carbon Dioxide 29 mmol/L (22-29); Chloride 98 mmol/L (96-108); Potassium 3.6 mmol/L (3.3-5.1); Sodium 143 mmol/L (135-145)
[2022-09-12 08:10] LABS: Estimated Glomerular Filt Rate 7; Glucose Random 43 mg/dL (60-115)
== END 2022-09-12 06:49 | disposition home or self-care (01) ==
LOC: HO.MMNH2L 06:48
PROVIDERS: Visit Provider Family Medicine
DX: N18.6 End stage renal disease (principal); Z99.2 Dependence on renal dialysis
CPT/HCPCS: 36415; 80048; 85025

== ENCOUNTER 2022-09-20 15:30 | Outpatient (REF) | payer MEDICARE, MEDICAID, SELFPAY ==
[2022-09-20 16:04] LABS: IDNOW Serial# 6674DD1D; Strep A Nucleic Acid Negative (Negative)
== END 2022-09-20 15:31 | disposition home or self-care (01) ==
LOC: HO.MMNH2L 15:30
PROVIDERS: Visit Provider Family Medicine
DX: Z11.2 Encounter for screening for other bacterial diseases (principal)
CPT/HCPCS: 36415; 87651

== ENCOUNTER 2022-10-10 06:23 | Outpatient (REF) | payer MEDICARE, MEDICAID, SELFPAY ==
[2022-10-10 06:11] LABS: MANUAL DIFF FLAG NO
[2022-10-10 06:44] LABS: Basophils Absolute Auto 0.1 X10*3/uL (0.0-0.2); Basophils Percent Auto 0.6 % (0-2); Eosinophils Absolute Auto 0.9 X10*3/uL (0.0-0.4); Eosinophils Percent Auto 12.1 % (0-4); Hematocrit 34.1 % (37.0-47.0); Hemoglobin 10.8 g/dl (12.0-16.0); Imm Gran Abs Auto 0.06 X10*3/uL (0.00-0.03); Imm Gran Pct Auto 0.8 % (0.0-0.4); Lymphocytes Absolute Auto 0.9 X10*3/uL (1.2-4.9); Lymphocytes Percent Auto 12.1 % (20-40); Mean Corpuscular HGB Conc 31.7 g/dl (31.0-35.0); Mean Corpuscular Hemoglobin 31.5 pg (27.0-33.0); Mean Corpuscular Volume 99.4 fL (80.0-98.0); Monocytes Absolute Auto 0.9 X10*3/uL (0.1-1.2); Neutrophils Absolute Auto 4.9 x10*3/uL (2.0-8.3); Neutrophils Percent Auto 63.4 % (45-73); Platelet Count 150 X10*3/uL (160-400); Red Blood Count 3.43 X10*6/uL (4.20-5.50); Red Cell Distribution Width 15.9 % (11.0-16.0); White Blood Count 7.8 X10*3/uL (4.8-10.8)
[2022-10-10 07:59] LABS: Anion Gap 20 (12-20); Blood Urea Nitrogen 38 mg/dL (9-16); Calcium 7.9 mg/dL (8.4-10.2); Carbon Dioxide 25 mmol/L (22-29); Chloride 97 mmol/L (96-108); Potassium 3.4 mmol/L (3.3-5.1); Sodium 139 mmol/L (135-145)
[2022-10-10 08:36] LABS: Estimated Glomerular Filt Rate 8; Glucose Random 39 mg/dL (60-115)
== END 2022-10-10 06:24 | disposition home or self-care (01) ==
LOC: HO.MMNH2L 06:23
PROVIDERS: Visit Provider Family Medicine
DX: N18.6 End stage renal disease (principal); Z99.2 Dependence on renal dialysis
CPT/HCPCS: 36415; 80048; 85025

== ENCOUNTER 2022-11-07 06:00 | Outpatient (REF) | payer MEDICARE, MEDICAID, SELFPAY ==
[2022-11-07 05:58] LABS: MANUAL DIFF FLAG NO
[2022-11-07 07:11] LABS: Basophils Absolute Auto 0.1 X10*3/uL (0.0-0.2); Basophils Percent Auto 1.1 % (0-2); Eosinophils Percent Auto 13.8 % (0-4); Hematocrit 30.9 % (37.0-47.0); Hemoglobin 9.6 g/dl (12.0-16.0); Imm Gran Abs Auto 0.07 X10*3/uL (0.00-0.03); Lymphocytes Absolute Auto 1.1 X10*3/uL (1.2-4.9); Lymphocytes Percent Auto 15.3 % (20-40); Mean Corpuscular HGB Conc 31.1 g/dl (31.0-35.0); Mean Corpuscular Hemoglobin 31.7 pg (27.0-33.0); Mean Platelet Volume 10.7 fL (9.4-12.3); Monocytes Absolute Auto 0.8 X10*3/uL (0.1-1.2); Monocytes Percent Auto 10.7 % (2-11); Neutrophils Absolute Auto 4.3 x10*3/uL (2.0-8.3); Neutrophils Percent Auto 58.1 % (45-73); Platelet Count 179 X10*3/uL (160-400); Red Blood Count 3.03 X10*6/uL (4.20-5.50); Red Cell Distribution Width 16.4 % (11.0-16.0); White Blood Count 7.3 X10*3/uL (4.8-10.8)
[2022-11-07 07:22] LABS: Anion Gap 20 (12-20); Blood Urea Nitrogen 40 mg/dL (9-16); Calcium 8.3 mg/dL (8.4-10.2); Carbon Dioxide 25 mmol/L (22-29); Chloride 100 mmol/L (96-108); Glucose Random 93 mg/dL (60-115); Potassium 4.1 mmol/L (3.3-5.1); Sodium 141 mmol/L (135-145)
[2022-11-07 10:28] LABS: Estimated Glomerular Filt Rate 8
== END 2022-11-07 06:01 | disposition home or self-care (01) ==
LOC: HO.MMNH2L 06:00
PROVIDERS: Visit Provider Family Medicine
DX: N18.6 End stage renal disease (principal); Z99.2 Dependence on renal dialysis
CPT/HCPCS: 36415; 80048; 85025

== ENCOUNTER 2022-11-16 05:46 | Outpatient (REF) | payer MEDICARE, MEDICAID, SELFPAY ==
[2022-11-16 06:29] LABS: Prothrombin Time 11.7 SEC (10.0-13.1)
== END 2022-11-16 05:47 | disposition home or self-care (01) ==
LOC: HO.MMNH2L 05:46
PROVIDERS: Visit Provider Family Medicine
DX: Z95.5 Presence of coronary angioplasty implant and graft (principal)
CPT/HCPCS: 36415; 85610

== ENCOUNTER 2022-11-21 06:08 | Outpatient (REF) | payer MEDICARE, MEDICAID, SELFPAY ==
[2022-11-21 06:52] LABS: Prothrombin Time 49.3 SEC (10.0-13.1)
== END 2022-11-21 06:09 | disposition home or self-care (01) ==
LOC: HO.MMNH2L 06:08
PROVIDERS: Visit Provider Family Medicine
DX: I48.91 Unspecified atrial fibrillation (principal)
CPT/HCPCS: 36415; 85610

== ENCOUNTER 2022-11-23 05:29 | Outpatient (REF) | payer MEDICARE, MEDICAID, SELFPAY ==
[2022-11-23 05:48] LABS: INTERNATIONAL NORM RATIO 2.4 (0.9-1.1); Prothrombin Time 28.1 SEC (10.0-13.1)
== END 2022-11-23 05:30 | disposition home or self-care (01) ==
LOC: HO.MMNH2L 05:29
PROVIDERS: Visit Provider Family Medicine
DX: Z95.5 Presence of coronary angioplasty implant and graft (principal)
CPT/HCPCS: 36415; 85610

== ENCOUNTER 2022-11-28 05:57 | Outpatient (REF) | payer MEDICARE, MEDICAID, SELFPAY ==
[2022-11-28 06:54] LABS: INTERNATIONAL NORM RATIO 2.8 (0.9-1.1); Prothrombin Time 33.5 SEC (10.0-13.1)
== END 2022-11-28 05:58 | disposition home or self-care (01) ==
LOC: HO.MMNH2L 05:57
PROVIDERS: Visit Provider Family Medicine
DX: M25.18 Fistula, other specified site (principal)
CPT/HCPCS: 36415; 85610

== ENCOUNTER 2022-12-13 05:46 | Outpatient (REF) | payer SELFPAY ==
[2022-12-13 05:48] LABS: MANUAL DIFF FLAG NO
[2022-12-13 06:05] LABS: Basophils Absolute Auto 0.1 X10*3/uL (0.0-0.2); Eosinophils Absolute Auto 0.9 X10*3/uL (0.0-0.4); Eosinophils Percent Auto 10.6 % (0-4); Hematocrit 24.5 % (37.0-47.0); Hemoglobin 8.1 g/dl (12.0-16.0); Imm Gran Abs Auto 0.14 X10*3/uL (0.00-0.03); Imm Gran Pct Auto 1.6 % (0.0-0.4); Lymphocytes Percent Auto 11.6 % (20-40); Mean Corpuscular HGB Conc 33.1 g/dl (31.0-35.0); Mean Corpuscular Hemoglobin 33.1 pg (27.0-33.0); Mean Platelet Volume 9.6 fL (9.4-12.3); Monocytes Absolute Auto 0.9 X10*3/uL (0.1-1.2); Monocytes Percent Auto 10.3 % (2-11); Neutrophils Absolute Auto 5.7 x10*3/uL (2.0-8.3); Neutrophils Percent Auto 64.9 % (45-73); Platelet Count 201 X10*3/uL (160-400); Red Blood Count 2.45 X10*6/uL (4.20-5.50); White Blood Count 8.8 X10*3/uL (4.8-10.8)
[2022-12-13 06:34] LABS: Alanine Aminotransferase 7 U/L (0-31); Albumin Level 2.5 g/dL (3.5-5.0); Alkaline Phosphatase 70 U/L (39-117); Anion Gap 18 (12-20); Aspartate Amino Transferase 16 U/L (5-31); Bilirubin Total 0.6 mg/dL (0.0-1.0); Blood Urea Nitrogen 48 mg/dL (9-16); Calcium 7.4 mg/dL (8.4-10.2); Carbon Dioxide 23 mmol/L (22-29); Chloride 99 mmol/L (96-108); Glucose Random 91 mg/dL (60-115); Potassium 5.5 mmol/L (3.3-5.1); Sodium 134 mmol/L (135-145); Total Protein 4.3 g/dL (6.5-8.0)
[2022-12-13 06:35] LABS: Estimated Glomerular Filt Rate 6
== END 2022-12-13 05:47 | disposition home or self-care (01) ==
LOC: HO.MMNH2L 05:46
PROVIDERS: Visit Provider Family Medicine
DX: I10 Essential (primary) hypertension (principal)
CPT/HCPCS: 36415; 80053; 85025

== ENCOUNTER 2023-01-14 05:52 | Inpatient (IN) | payer MEDICARE, MEDICAID, SELFPAY ==
[2023-01-14] VITALS (15 sets, daily range): BP systolic 88–176; BP diastolic 34–77; PULSE 65–100; RESP 12–19; TEMP 36.3–39.3; O2SAT 87–100; BMI 33.6; BMI 34.6
--- NOTE | 2023-01-14 06:11 | MHC.EDTECH ---
Pt arrived by ambulance, VS taken and call amaro placed within reach.
--- NOTE | 2023-01-14 06:22 | ED.NAVMDI ---
HPI - Nausea/Vomiting/Diarrhea General Chief complaint: Nausea/Vomiting/Diarrhea Stated complaint: nvd Time Seen by Provider: 01/14/23 06:22 Source: patient and RN notes reviewed Mode of arrival: EMS Limitations: no limitations History of Present Illness HPI Narrative: This is 82 female, with a past medical history of ESRD dialysis //Mon, PVC w/ IVC filter, hyperlipidemia, GERD, HTN, presenting to the emergency department via EMS from [facility], with complaints of not feeling well . Patient is a poor historian and is unable to informed how long she has not been feeling well. She reports she is having chest pain, cough, shortness of breath, abdominal pain, and dysuria. She admits to having nausea and vomiting, last vomited yesterday. No other complaints or concerns at this time. MD elicited complaint: nausea, vomiting and abdominal pain Associated nausea: Yes Associated abdominal pain: Yes Location of pain: diffuse and chest Pain consistency: constant Exacerbating factors: none Relieving factors: none Associated symptoms: cough, fever/chills, malaise, nausea/vomiting and shortness of breath Related Data Home Medications Medication Instructions Recorded Confirmed acetaminophen 325 mg tablet 650 mg PO TID 02/10/21 01/14/23 insulin NPH isoph U-100 human 100 16 unit subcut BEDTIME 02/10/21 01/14/23 unit/mL subcutaneous suspension (Novolin N NPH U-100 Insulin isophane) levothyroxine 88 mcg tablet 1 tab PO DAILY@0600 02/10/21 01/14/23 metoprolol tartrate 25 mg tablet 1 tab PO BID 02/10/21 01/14/23 ondansetron 4 mg disintegrating 4 mg PO Q6H PRN Nausea And Vomiting 02/10/21 01/14/23 tablet oxycodone 10 mg tablet 1 tab PO Q12H PRN pain 02/10/21 01/14/23 sertraline 50 mg tablet 1 tab PO DAILY 02/10/21 01/14/23 bisacodyl 10 mg rectal suppository 10 mg OH DAILY PRN Constipation 05/03/22 01/14/23 ferrous fumarate 325 mg (106 mg 325 mg PO BID 05/03/22 01/14/23 iron) tablet latanoprost 0.005 % eye drops 1 drp ophthalmic (eye) BEDTIME 05/03/22 01/14/23 melatonin 3 mg tablet 6 mg PO BEDTIME 05/03/22 01/14/23 midodrine 2.5 mg tablet 1 tab PO TUTHSA 05/03/22 01/14/23 nitroglycerin 0.4 mg sublingual 0.4 mg sublingual Q5M PRN Chest 05/03/22 01/14/23 tablet Pain nystatin 100,000 unit/gram topical 1 appl topical BID 05/03/22 01/14/23 powder sennosides 8.6 mg tablet (senna) 8.6 mg PO BEDTIME PRN Constipation 05/03/22 01/14/23 albuterol sulfate 1.25 mg/3 mL 1.25 mg inhalation Q4H PRN Wheezing 01/14/23 01/14/23 solution for nebulization lidocaine 3 % topical cream 1 appl topical TUTHSA 01/14/23 01/14/23 oxycodone 10 mg tablet 10 mg PO TID 01/14/23 01/14/23 Allergies Allergy/AdvReac Type Severity Reaction Status Date / Time Sulfa (Sulfonamide Allergy Unknown RASH Verified 05/03/22 19:57 Antibiotics) Review of Systems Review of Systems: ROS limited given poor historian Yes all other systems are reviewed and are negative Constitutional: Constitutional: Reports as per HPI Gastrointestinal: Gastrointestinal: Reports nausea PMFSH Past Medical History Medical History (Updated 01/15/23 @ 11:18 by Chase Staton MD) Anemia Anxiety Diabetes mellitus Diverticulosis ESRD on dialysis GERD (gastroesophageal reflux disease) HTN (hypertension) Hypertension Hypothyroidism Kidney disease Pulmonary embolus Social History Social History Household Members: None Housing: Assisted Living Facility Do you presently have visiting nurse or other home services: No Unable to assess alcohol history related to: Unknown Alcohol intake: never Patient Tobacco Use Status: Never used Tobacco Use of substances other than those prescribed or required for medical reasons: No Currently Displaying Signs/Symptoms of Drug Intoxication Withdrawal: No Have you been hit, kicked, punched, or otherwise hurt by someone within the past year? If so, by whom?: No Do you feel safe in your current relationship?: No Is there a partner from a previous relationship who is making you feel unsafe now?: No Are you made to feel afraid or neglected: No Advance Directives: Yes Advance Directives on File: Yes Advance Directives Date on File: 02/10/21 Do you have thoughts of harming others: None Do you have a plan to hurt others: No Plan Patient : No : No Poor oral hygiene: No service: No Current occupational status: retired Physical Exam Vital Signs: Vital Signs: Last Vital Signs Temp 98.3 F 01/16/23 04:00 Pulse 63 01/16/23 04:00 Resp 20 01/16/23 04:00 BP 142/65 H 01/16/23 04:00 Pulse Ox 99 01/16/23 04:00 O2 Del Method Room Air 01/16/23 04:00 O2 Flow Rate 2 01/14/23 20:00 BMI result Body Mass Index 33.6 Const: General: cooperative Orientation/consciousness: patient oriented x3 Limitations: no limitations HEENT: Head: Yes normal to inspection, Yes normocephalic and Yes atraumatic Ears: hearing grossly normal bilaterally General nose exam: Normal external nose present Face and sinus: Yes normal facial exam Mouth: Normal oral and palatal mucosa present, oropharynx normal and moist mucous membranes Throat: Yes posterior oropharynx normal Eyes: General: appearance normal, both eyes and all related structures Eyelids: Yes eyelids normal Conjunctivae: conjunctivae normal Sclerae: sclerae normal Pupils: Equal, round and reactive pupils present EOM: EOMs intact bilaterally Neck: Neck: Yes normal visual inspection, Yes full ROM and Yes no lymphadenopathy Lymphatic: no lymphadenopathy noted Chest: Chest palpation & inspection: normal inspection of the chest Resp: Other: Poor inspiratory effort, crackles heard at right lower base, decreased breath sounds throughout all lung rae. Effort & Inspection: normal respiratory effort and able to speak in complete sentences Auscultation: rales Cardio: Rate: regular rate Rhythm: regular rhythm Heart sounds: S1 normal heart sound present and S2 normal heart sound present GI: Other: Obese abdomen, soft, nondistended, tenderness to palpation diffusely throughout abdomen, no point tenderness, no rebound or guarding. Normoactive bowel sounds present Inspection: Yes normal to inspection Skin: General skin exam: no rashes or lesions noted Trauma: no lacerations or abrasions Wounds: no wounds Neuro: General: patient oriented x3 and moves all extremities Cranial nerves: Yes Equal, round and reactive pupils present Extrem: General: Yes normal to inspection Right upper extremity: normal to inspection Left upper extremity: normal to inspection Right lower extremity: normal to inspection Left lower extremity: normal to inspection Course Reevaluation(s) Reevaluation #1: Case discussed with attending physician, Dr. Dodd. Will start broad spectrum antibiotics and given IV fluids 250cc. pt able to produce own urine. Time: 07:20 Reevaluation #2: Pt re-evaluated, ED staff unable to start line despite multiple attempts. Pt no longer febrile, tempeature 99.2. Remains stable. Troponin elevated at 29.3 will get repeat at 9:30 a.m. COVID negative, lactic acid 1.3, no leukocytosis, H&H around baseline at 8.7/26.8. Chemistry still pending. COVID negative, chest x-ray revealing mild cardiomegaly, mild prominence of pulmonary vascularity, question mild congestion. Time: 08:14 Reevaluation #3: Second troponin elevated at 50.9, positive delta. Discussed case with glass science engineer Dr. Staton, who states likely this is demand ischemia however given patient has chest pain he is recommending administering nitroglycerin to see if symptoms improve. Hypoglycemia at 36, medicated with the D50 IV. Urine appears to be infected. Critical creatinine of 6.66 which is around her baseline, slightly elevated, patient has not received dialysis. CT and x-ray concerning for right lower lobe pneumonia. Crackles heard in right lower lobe. Patient is being covered with Rocephin. Time: 10:41 Additional Reevaluation(s): Spoke to Dr. Boudreaux, nephrology, who will arrange dialysis today. Discussed case with hospitalist Dr. Guillaume, I transfer of care initiated. Medications Administered Generic Name Dose Route Start Last Admin Trade Name Freq PRN Reason Stop Dose Admin Acetaminophen 650 mg 01/14/23 15:00 01/15/23 21:31 Acetaminophen 325 Mg Tablet PO 650 mg TID MAKENZIE Administration Albuterol Sulfate 1.25 mg 01/14/23 13:17 01/14/23 15:45 Albuterol Sulfate (0.042%) 1.25 Mg/3 Ml Vial.Neb INHALE 1.25 mg Q4H PRN Administration Wheezing Albuterol/Ipratropium 3 ml 01/14/23 20:00 01/16/23 08:05 Albuterol/Iprat 2.5/0.5mg 3 Ml Ampul.Neb INHALE Not Given RQ4H WHILE AWAKE [facility] Ferrous Sulfate 324 mg 01/14/23 21:00 01/15/23 21:33 Ferrous Sulfate 324 Mg Tablet. PO 324 mg BID MAKENZIE Administration Piperacillin Sod/Tazobactam 50 mls @ 100 mls/hr 01/14/23 18:00 01/16/23 02:16 Sod 2.25 gm/ Sodium Chloride IV Infused Q8H [facility] Infusion Insulin Glargine 12 unit 01/14/23 21:00 01/15/23 21:33 Insulin Glargine,Hum.Rec.Anlog 100 Unit/Ml 10 Ml Vial SUBCUT 12 unit BEDTIME [facility] Administration Insulin Human Lispro 0 unit 01/14/23 16:30 01/15/23 21:35 Insulin Lispro 100 Unit/Ml 3 Ml Vial SUBCUT 4 unit QIDACHS [facility] Administration Protocol Latanoprost 1 drop 01/14/23 21:00 01/15/23 21:41 Latanoprost 0.005 % Ophth Linda 2.5 Ml Drops EYE-BOTH Not Given BEDTIME [facility] Levothyroxine Sodium 88 mcg 01/15/23 06:00 01/16/23 05:40 Levothyroxine Sodium 88 Mcg Tablet PO 88 mcg DAILY@0600 MAKENZIE Administration Melatonin 6 mg 01/14/23 21:00 01/15/23 21:33 Melatonin 3 Mg Tablet PO 6 mg BEDTIME MAKENZIE Administration Methylprednisolone Sodium Succinate 40 mg 01/15/23 08:45 01/15/23 21:33 Methylprednisolone Sod Succ 40 Mg/Ml Vial IVPUSH 40 mg Q12H MAKENZIE Administration Metoprolol Tartrate 25 mg 01/14/23 21:00 01/15/23 21:32 Metoprolol Tartrate 25 Mg Tablet PO 25 mg BID MAKENZIE Administration Protocol Midodrine 2.5 mg 01/14/23 16:00 01/14/23 20:48 Midodrine Hcl 2.5 Mg Tablet PO Not Given TuThSa@1000 [facility] Oxycodone HCl 10 mg 01/14/23 15:00 01/15/23 21:31 Oxycodone Hcl Immed Release 5 Mg Tablet PO 10 mg TID MAKENZIE Administration Sertraline HCl 50 mg 01/15/23 09:00 01/15/23 08:00 Sertraline Hcl 50 Mg Tablet PO 50 mg DAILY MAKENZIE Administration Sodium Chloride 3 ml 01/14/23 16:00 01/15/23 21:37 0.9 % Sodium Chloride Flush 3 Ml Syringe IVFLUSH 3 ml QSHIFT MAKENZIE Administration Discontinued Medications Generic Name Dose Route Start Last Admin Trade Name Evelyn PRN Reason Stop Dose Admin Acetaminophen 650 mg 01/14/23 06:27 01/14/23 06:35 Acetaminophen Supp 650 Mg Supp.Rect OH 01/14/23 06:28 650 mg ONCE ONE Administration Dextrose 25 gm 01/14/23 10:32 01/14/23 10:40 Dextrose 50 % 25 Gm/50 Ml Syringe IVPUSH 01/14/23 10:33 25 gm ONCE ONE Administration Piperacillin Sod/Tazobactam 50 mls @ 100 mls/hr 01/14/23 07:16 01/14/23 10:20 Sod 3.375 gm/ Sodium Chloride IV 01/14/23 07:45 Infused ONCE ONE Infusion Sodium Chloride 250 mls @ 250 mls/hr 01/14/23 07:22 01/14/23 09:15 Ns IV 01/14/23 08:21 Infused .Q1H ONE Infusion Albumin Human 100 mls @ 100 mls/hr 01/14/23 16:00 01/14/23 22:01 Kedbumin 25 % IV 01/14/23 17:59 Infused Q1H MAKENZIE Infusion Nitroglycerin 0.4 mg 01/14/23 10:45 01/14/23 11:28 Nitroglycerin 0.4 Mg Tab.Subl SUBLINGUAL 01/14/23 10:46 0.4 mg ONCE ONE Administration Medical Decision Making Medical Decision Making MDM Narrative: 82-year-old female, with a past medical history of ESRD dialysis //Mon, PVC w/ IVC filter, hyperlipidemia, GERD, HTN, presenting to the ER via EMS from [facility] for N/V/D. Per EMS O2 saturation 87%. Pt found to be febrile at 102.7, hypertensive at 176/52, and 96% on room air. On examination, patient with diminished breath sounds, harsh cough, and diffuse abdominal pain without any point tenderness. Pt is a poor historian regarding current presentation. Will need infectious workup including labs, lactic acid, blood cultures, CXR for PNE, UA for UTI. Also having Abd pain with N/V. Likely admit pending workup in the emergency department. Differential Diagnosis Differential Diagnoses: The differential diagnosis associated with the presentation includes UTI, Pneumonia, SBO, ACS, NSTEMI Admission/Observation Consideration of admission/observation: Escalation of care including admission/observation considered Given fever and presentation, considering hospital admission. Consult Healthcare Provider Management of the patient was discussed with: Hospitalist and Precision Honer Dr. Staton, cardiology. Dr. Boudreaux from nephrology Lab Data MDM Lab Attestation statement: I reviewed the patient's lab results. See course comment for further details 01/14/23 06:34 01/14/23 06:38 Labs: Lab Results 01/14/23 01/14/23 01/14/23 Range/Units 06:34 06:34 06:35 WBC 10.8 (4.8-10.8) X10*3/uL RBC 2.60 L (4.20-5.50) X10*6/uL Hgb 8.7 L (12.0-16.0) g/dl Hct 26.8 L (37.0-47.0) % MCV 103.1 H (80.0-98.0) fL MCH 33.5 H (27.0-33.0) pg MCHC 32.5 (31.0-35.0) g/dl RDW 16.3 H (11.0-16.0) % Plt Count 185 (160-400) X10*3/uL MPV 9.8 (9.4-12.3) fL Immature Gran % (Auto) 0.6 H (0.0-0.4) % Neut % (Auto) 91.0 H (45-73) % Lymph % (Auto) 2.5 L (20-40) % Blanco % (Auto) 5.5 (2-11) % Eos % (Auto) 0.2 (0-4) % Baso % (Auto) 0.2 (0-2) % Lymph # (Auto) 0.3 L (1.2-4.9) X10*3/uL Blanco # (Auto) 0.6 (0.1-1.2) X10*3/uL Eos # (Auto) 0.0 (0.0-0.4) X10*3/uL Baso # (Auto) 0.0 (0.0-0.2) X10*3/uL Abs Immat Gran (auto) 0.06 H (0.00-0.03) X10*3/uL Absolute Neuts (auto) 9.8 H (2.0-8.3) x10*3/uL Absolute Nucleated RBC 0.000 (0.0-0.012) X10*3/uL Nucleated RBC % (auto) 0.0 (0.0-0.2) /100WBC Smear Tech's Comments VERIFIED Sodium Cancelled Potassium Cancelled Chloride Cancelled Carbon Dioxide Cancelled Anion Gap Cancelled BUN Cancelled Creatinine Cancelled Estim Creat Clear Calc Cancelled Estimated GFR Cancelled POC Glucose (60-115) mg/dL Random Glucose Cancelled Lactic Acid 1.3 (0.5-2.0) mmol/L Calcium Cancelled Magnesium (1.6-2.6) mg/dL Total Bilirubin Cancelled Direct Bilirubin (0.0-0.5) mg/dL AST Cancelled ALT Cancelled Alkaline Phosphatase Cancelled Troponin I High Sens (<3.5-17.0) ng/L Total Protein Cancelled Albumin Cancelled Lipase (8-78) U/L Urine Color Urine Appearance Urine pH (5.0-9.0) Ur Specific [place] (1.005-1.025) Urine Protein (Neg-Trace) mg/dL Urine Glucose (UA) (Negative) mg/dL Urine Ketones (Negative) mg/dL Urine Blood (Negative) Urine Nitrite (Negative) Ur Leukocyte Esterase (Negative) Urine RBC (0-2) /HPF Urine WBC (0-5) /HPF Ur Squamous Epith Cells (0-2) /HPF Ur Transition Epith Cell Ur Renal Epithelial Cell Urine Bacteria (None Seen) Hyaline Casts (0-2) /LPF COVID-19 (YANNA) (Negative) COVID-19 Clin Com 01/14/23 01/14/23 01/14/23 Range/Units 06:38 06:39 09:32 WBC (4.8-10.8) X10*3/uL RBC (4.20-5.50) X10*6/uL Hgb (12.0-16.0) g/dl Hct (37.0-47.0) % MCV (80.0-98.0) fL MCH (27.0-33.0) pg MCHC (31.0-35.0) g/dl RDW (11.0-16.0) % Plt Count (160-400) X10*3/uL MPV (9.4-12.3) fL Immature Gran % (Auto) (0.0-0.4) % Neut % (Auto) (45-73) % Lymph % (Auto) (20-40) % Blanco % (Auto) (2-11) % Eos % (Auto) (0-4) % Baso % (Auto) (0-2) % Lymph # (Auto) (1.2-4.9) X10*3/uL Bl[place] # (Auto) (0.1-1.2) X10*3/uL Eos # (Auto) (0.0-0.4) X10*3/uL Baso # (Auto) (0.0-0.2) X10*3/uL Abs Immat Gran (auto) (0.00-0.03) X10*3/uL Absolute Neuts (auto) (2.0-8.3) x10*3/uL Absolute Nucleated RBC (0.0-0.012) X10*3/uL Nucleated RBC % (auto) (0.0-0.2) /100WBC Smear Tech's Comments Sodium 142 Potassium 3.7 Chloride 98 Carbon Dioxide 28 Anion Gap 20 BUN 30 H Creatinine 6.66 H* Estim Creat Clear Calc 6.2 Estimated GFR 6 POC Glucose (60-115) mg/dL Random Glucose 36 L* Lactic Acid (0.5-2.0) mmol/L Calcium 8.3 L Magnesium 1.9 (1.6-2.6) mg/dL Total Bilirubin 0.5 Direct Bilirubin 0.2 (0.0-0.5) mg/dL AST 25 ALT 9 Alkaline Phosphatase 86 Troponin I High Sens 29.3 H (<3.5-17.0) ng/L Total Protein 5.3 L Albumin 2.9 L Lipase < 4 L (8-78) U/L Urine Color Urine Appearance Urine pH (5.0-9.0) Ur Specific [place] (1.005-1.025) Urine Protein (Neg-Trace) mg/dL Urine Glucose (UA) (Negative) mg/dL Urine Ketones (Negative) mg/dL Urine Blood (Negative) Urine Nitrite (Negative) Ur Leukocyte Esterase (Negative) Urine RBC (0-2) /HPF Urine WBC (0-5) /HPF Ur Squamous Epith Cells (0-2) /HPF Ur Transition Epith Cell Ur Renal Epithelial Cell Urine Bacteria (None Seen) Hyaline Casts (0-2) /LPF COVID-19 (YANNA) Negative (Negative) COVID-19 Clin Com See Note 01/14/23 01/14/23 01/14/23 Range/Units 09:32 09:55 10:36 WBC (4.8-10.8) X10*3/uL RBC (4.20-5.50) X10*6/uL Hgb (12.0-16.0) g/dl Hct (37.0-47.0) % MCV (80.0-98.0) fL MCH (27.0-33.0) pg MCHC (31.0-35.0) g/dl RDW (11.0-16.0) % Plt Count (160-400) X10*3/uL MPV (9.4-12.3) fL Immature Gran % (Auto) (0.0-0.4) % Neut % (Auto) (45-73) % Lymph % (Auto) (20-40) % Blanco % (Auto) (2-11) % Eos % (Auto) (0-4) % Baso % (Auto) (0-2) % Lymph # (Auto) (1.2-4.9) X10*3/uL [place] # (Auto) (0.1-1.2) X10*3/uL Eos # (Auto) (0.0-0.4) X10*3/uL Baso # (Auto) (0.0-0.2) X10*3/uL Abs Immat Gran (auto) (0.00-0.03) X10*3/uL Absolute Neuts (auto) (2.0-8.3) x10*3/uL Absolute Nucleated RBC (0.0-0.012) X10*3/uL Nucleated RBC % (auto) (0.0-0.2) /100WBC Smear Tech's Comments Sodium Potassium Chloride Carbon Dioxide Anion Gap BUN Creatinine Estim Creat Clear Calc Estimated GFR POC Glucose 33 L* (60-115) mg/dL Random Glucose Lactic Acid (0.5-2.0) mmol/L Calcium Magnesium (1.6-2.6) mg/dL Total Bilirubin Direct Bilirubin (0.0-0.5) mg/dL AST ALT Alkaline Phosphatase Troponin I High Sens 58.9 H* D (<3.5-17.0) ng/L Total Protein Albumin Lipase (8-78) U/L Urine Color Yellow Urine Appearance Turbid Urine pH 8.5 (5.0-9.0) Ur Specific [place] 1.015 (1.005-1.025) Urine Protein 300 (3+) H (Neg-Trace) mg/dL Urine Glucose (UA) Negative (Negative) mg/dL Urine Ketones Negative (Negative) mg/dL Urine Blood Small (1+) H (Negative) Urine Nitrite Negative (Negative) Ur Leukocyte Esterase Large (3+) H (Negative) Urine RBC 3-5 H (0-2) /HPF Urine WBC >50 H (0-5) /HPF Ur Squamous Epith Cells 11-20 (0-2) /HPF Ur Transition Epith Cell Present Ur Renal Epithelial Cell Present Urine Bacteria 4+ (None Seen) Hyaline Casts 3-5 (0-2) /LPF COVID-19 (YANNA) (Negative) COVID-19 Clin Com 01/14/23 01/14/23 Range/Units 11:21 12:03 WBC (4.8-10.8) X10*3/uL RBC (4.20-5.50) X10*6/uL Hgb (12.0-16.0) g/dl Hct (37.0-47.0) % MCV (80.0-98.0) fL MCH (27.0-33.0) pg MCHC (31.0-35.0) g/dl RDW (11.0-16.0) % Plt Count (160-400) X10*3/uL MPV (9.4-12.3) fL Immature Gran % (Auto) (0.0-0.4) % Neut % (Auto) (45-73) % Lymph % (Auto) (20-40) % Blanco % (Auto) (2-11) % Eos % (Auto) (0-4) % Baso % (Auto) (0-2) % Lymph # (Auto) (1.2-4.9) X10*3/uL [place] # (Auto) (0.1-1.2) X10*3/uL Eos # (Auto) (0.0-0.4) X10*3/uL Baso # (Auto) (0.0-0.2) X10*3/uL Abs Immat Gran (auto) (0.00-0.03) X10*3/uL Absolute Neuts (auto) (2.0-8.3) x10*3/uL Absolute Nucleated RBC (0.0-0.012) X10*3/uL Nucleated RBC % (auto) (0.0-0.2) /100WBC Smear Tech's Comments Sodium Potassium Chloride Carbon Dioxide Anion Gap BUN Creatinine Estim Creat Clear Calc Estimated GFR POC Glucose 99 94 (60-115) mg/dL Random Glucose Lactic Acid (0.5-2.0) mmol/L Calcium Magnesium (1.6-2.6) mg/dL Total Bilirubin Direct Bilirubin (0.0-0.5) mg/dL AST ALT Alkaline Phosphatase Troponin I High Sens (<3.5-17.0) ng/L Total Protein Albumin Lipase (8-78) U/L Urine Color Urine Appearance Urine pH (5.0-9.0) Ur Specific [place] (1.005-1.025) Urine Protein (Neg-Trace) mg/dL Urine Glucose (UA) (Negative) mg/dL Urine Ketones (Negative) mg/dL Urine Blood (Negative) Urine Nitrite (Negative) Ur Leukocyte Esterase (Negative) Urine RBC (0-2) /HPF Urine WBC (0-5) /HPF Ur Squamous Epith Cells (0-2) /HPF Ur Transition Epith Cell Ur Renal Epithelial Cell Urine Bacteria (None Seen) Hyaline Casts (0-2) /LPF COVID-19 (YANNA) (Negative) COVID-19 Clin Com Independent Interpretation I performed an independent interpretation of an: EKG Interpretation: EKG normal sinus rhythm with a ventricular rate 88BPM, OH interval 178, QTC 510. Incomplete right bundle branch block and ST t wave abnormality seen in lateral leads - seen on previous EKG on 05/03/2022. Radiology Impression Discussion of test interpretation with radiology: I have reviewed the radiologist's reading. Radiologist Impression: ADDENDUMThe seventh impression should correctly read as follows, There is hyperdense sludge in the gallbladder. Stable IVC filter. Addendum Dictated By: Clint Blackman MD Addendum Signed By: <Electronically signed by Clint Blackman MD in [place]> 01/14/23951 Addendum Cosigned By: DD/ /01/637 TD/TT: / EXAMINATION: CT ABDOMEN AND PELVIS WITHOUT CONTRAST? CLINICAL INFORMATION: Abdominal pain? COMPARISON: Chest x-ray 01/14/2023. CT abdomen pelvis 05/03/2022 TECHNIQUE: Multidetector volumetric imaging was performed from the superior aspect of the liver through the pubic symphysis. Sagittal and coronal reformatted images were obtained on the technologist's workstation.? This CT examination was performed using dose optimization techniques as appropriate, variously including the following: *Automated exposure control *Adjustment of mA and/or kV according to patient size (this includes techniques or standardized protocols for targeted exams where dose is matched to indication/reason for exam; i.e. extremities or head) *Use of iterative reconstruction technique DLP: 797 mGy-cm FINDINGS: LUNG BASES: There is bilateral moderate pleural effusions with underlying atelectasis. Right basilar air bronchograms are seen suspicious for infiltrate. The heart size is normal. There is mild coronary artery calcifications. No pericardial effusion seen.? LIVER, GALLBLADDER, AND BILIARY TREE: On the noncontrast exam the liver is normal size, contour and density. No focal lesion or intrahepatic ductal dilatation. The gallbladder is distended with layering hyperdense sludge or small stones. No wall thickening seen. The CBD measures 8mm and is not dilated on axial image 26/3.? PANCREAS: Atrophic pancreas unremarkable..? SPLEEN: Unremarkable.? ADRENAL GLANDS: There is 2.3 cm left adrenal lesion. The right adrenal gland is unremarkable. KIDNEYS AND URETERS: The kidneys are normal in size, shape, and attenuation. There is an 8 mm midpole left kidney and several 4 mm, 6 mm radiopaque calculi mid pole right kidney. There is no caliectasis or hydronephrosis. No perinephric stranding. There are multiple bilateral exophytic and partial cortical based cysts BLADDER: Unremarkable.? GASTROINTESTINAL TRACT: Scattered stool and gas is seen in colon without any distention. Nonspecific mural thickening without distention seen left transverse and descending colon. Diffuse sigmoid colon diverticulosis and mild mural thickening seen but no pericolic fat stranding. Question early diverticulitis. The small bowel loops are normal caliber. Appendix is not visualized. No free air or free fluid seen. ABDOMINAL WALL: There is no evidence of hernia. There are postsurgical changes in the right inguinal region, unchanged. A few calcified granulomas seen in the left gluteal region. LYMPH NODES: Normal. VASCULAR: Atherosclerotic abdominal aorta and iliac vessels are noted. There is a infrarenal IVC filter. PELVIC VISCERA: No pelvic mass or free fluid. No abnormal pelvic lymph nodes..? OSSEOUS STRUCTURES: Vacuum disc phenomena with spondylosis and loss of disc height at all lumbar disc levels is noted. No aggressive lytic or sclerotic process seen. There is superior endplate deformity L2 L5 vertebra consistent with new fracture since 2021. There is grade 1 [address] L4 S1.? CT/CT abdomen pelvis wo IV con IMPRESSION: 1.? Bilateral moderate pleural effusions with underlying atelectasis. There is a right lower lobe infiltrate. 2.? Distended gallbladder with layering hyperdense sludge or small stones. No wall thickening seen. Stable. 3.? Bilateral renal calculi without caliectasis or hydronephrosis. Bilateral renal cysts are stable. 4.? Diffuse sigmoid and scattered rest of the colon diverticulosis with mild mural thickening but no pericolic fat stranding. Question early diverticulitis. No free air or free fluid seen. 5.? New superior endplate compression fracture? L5 vertebra since the last CT abdomen exam 05/03/2022. 6.? There is 2.3 cm left adrenal lesion, stable.. 7.? Gallbladder has been removed since since last exam. Stable IVC filter ? Fleischner guidelines were followed. Dictated By: Clint Blackman MD EXAMINATION: XR CHEST CLINICAL INFORMATION: Fever and cough COMPARISON: Chest x-ray 05/03/2022 TECHNIQUE: Frontal view of the chest was obtained. FINDINGS: The lungs are well-expanded and clear. The heart size is enlarged. There is prominent bilateral hilar vascular structures and pulmonary vascularity. No gross bony abnormality seen. There is a long left axillary vascular stent in place. XR/XR chest 1V IMPRESSION: Mild cardiomegaly. Mild prominence of pulmonary vascularity question mild congestion. ? Dictated By: Clint Blackman MD Independent Historian Clinical information obtained from an independent historian. History obtained from or confirmed by: EMS External Record Review External record reviewed: Inpatient record, Office record, Outpatient record, Prior outpatient labs, Prior outpatient radiology, Primary care record and Outside ED record Prescription Management I considered prescription management with: Antibiotic Chronic Conditions Patient?s care impacted by: Diabetes Critical Care Time Critical Care Time Critical Care Time: Yes Total Critical Care Time: 60 Attestation: I have personally provided critical care time exclusive of time spent on separately billable procedures. Time includes review of lab data, radiology results, discussion with consultants, and monitoring for potential decompensation. Intervention performed as documented. Discharge Plan Discharge Clinical Impression: Pneumonia, Urinary tract infection, Demand ischemia Patient Disposition: Admitted As Inpatient Discharge Date/Time: 01/14/23 15:28
--- NOTE | 2023-01-14 07:05 | PC.NURSE ---
Pt A&O to self and year, reports all over body pain. Pt sao2 96% on RA, RR 18, lung sounds diminished to the bases. Pt febrile. Pt incontinent of urine, incontinent care provided and new linens placed. Skin is warm and intact, no open areas noted. IV line placed and blood work collected and sent to lab. Pt destat to 87% on RA, placed on 2L via NC.
--- NOTE | 2023-01-14 07:57 | MHC.EDTECH ---
[facility] set [facility] blood cultures and green gel tube, but unsuccessful x3. RN and PA (Melina) aware.
--- NOTE | 2023-01-14 09:27 | PC.NURSE ---
pt is a difficult lab draw, awaiting phlebotomy, delayed antibiotic administration
--- NOTE | 2023-01-14 10:41 | PC.NURSE ---
was notified pt random glucose was 36 by PA, patient a & o x3, gave pt cup of orange juice, amp d50 and a ham sandwich.
--- NOTE | 2023-01-14 12:17 | PHA.MEDREC ---
Pharmacy Consult ? Medication Reconciliation Pharmacy has completed the medication reconciliation. Patient came from [facility] with a medication list. Libby Demarco, JongD
--- NOTE | 2023-01-14 12:57 | PM.IMHP ---
History of Present Illness Date of Service: 01/14/23 Chief Complaint: weakness 82-year-old woman presenting from a to care home facility with reports of feeling unwell fortunately patient is confused and unable to give any accurate information stating that she thought she was at [facility]?. She reported a cough. She does have history of end-stage renal disease and is on dialysis. Her creatinine was noted to be 6.66, troponin initial troponin 29.3, did go up to 69.4. Noted transaminitis, positive UA. Abdominal pelvic CT showed bilateral moderate pleural effusions with underlying with a right lower lobe infiltrate. Chest x-ray showing mild cardio, mild prominence of pulmonary vascularity with question of mild congestion. In the ER, she was given a dose of Zosyn, nitroglycerin, Tylenol suppository. She further management and treatment of community-acquired pneumonia and UTI. Review of Systems Review of Systems: Yes Unobtainable due to mental status [facility] Medical History (Updated 01/15/23 @ 11:18 by Chase Staton MD) Anemia Anxiety Diabetes mellitus Diverticulosis ESRD on dialysis GERD (gastroesophageal reflux disease) HTN (hypertension) Hypertension Hypothyroidism Kidney disease Pulmonary embolus Pertinent family history: Unable to obtain due to confusion Social History Household Members: None Housing: Assisted Living Facility Do you presently have visiting nurse or other home services: No Unable to assess alcohol history related to: Unknown Alcohol intake: never Patient Tobacco Use Status: Never used Tobacco Use of substances other than those prescribed or required for medical reasons: No Currently Displaying Signs/Symptoms of Drug Intoxication Withdrawal: No Have you been hit, kicked, punched, or otherwise hurt by someone within the past year? If so, by whom?: No Do you feel safe in your current relationship?: No Is there a partner from a previous relationship who is making you feel unsafe now?: No Are you made to feel afraid or neglected: No Advance Directives: Yes Advance Directives on File: Yes Advance Directives Date on File: 02/10/21 Do you have thoughts of harming others: None Do you have a plan to hurt others: No Plan Patient : No : No Poor oral hygiene: No service: No Current occupational status: retired Meds Allergies Allergy/AdvReac Type Severity Reaction Status Date / Time Sulfa (Sulfonamide Allergy Unknown RASH Verified 05/03/22 19:57 Antibiotics) Active Medications: Current Medications Acetaminophen (Acetaminophen 325 Mg Tablet) 650 mg PO Q6H PRN PRN Reason: Pain, Mild (Pain Scale 1-3) Ondansetron HCl (Ondansetron Hcl 4 Mg/2 Ml Vial) 4 mg IVPUSH Q8H PRN PRN Reason: Nausea and Vomiting Pharmacy Consult (Consult Rx Perform Med Rec) 1 each MISCELLANE ONCE PRN PRN Reason: Consult order Sodium Chloride (0.9 % Sodium Chloride Flush 3 Ml Syringe) 3 ml IVFLUSH [facility] Home Medications Medication Instructions Recorded Confirmed Last Taken Type acetaminophen 325 mg tablet 650 mg PO TID 02/10/21 01/14/23 Unknown History insulin NPH isoph U-100 human 100 16 unit subcut BEDTIME 02/10/21 01/14/23 Unknown History unit/mL subcutaneous suspension (Novolin N NPH U-100 Insulin isophane) levothyroxine 88 mcg tablet 1 tab PO DAILY@0600 02/10/21 01/14/23 Unknown History metoprolol tartrate 25 mg tablet 1 tab PO BID 02/10/21 01/14/23 Unknown History ondansetron 4 mg disintegrating 4 mg PO Q6H PRN Nausea And Vomiting 02/10/21 01/14/23 Unknown History tablet oxycodone 10 mg tablet 1 tab PO Q12H PRN pain 02/10/21 01/14/23 Unknown History sertraline 50 mg tablet 1 tab PO DAILY 02/10/21 01/14/23 Unknown History bisacodyl 10 mg rectal suppository 10 mg MI DAILY PRN Constipation 05/03/22 01/14/23 Unknown History ferrous fumarate 325 mg (106 mg 325 mg PO BID 05/03/22 01/14/23 Unknown History iron) tablet latanoprost 0.005 % eye drops 1 drp ophthalmic (eye) BEDTIME 05/03/22 01/14/23 Unknown History melatonin 3 mg tablet 6 mg PO BEDTIME 05/03/22 01/14/23 Unknown History midodrine 2.5 mg tablet 1 tab PO TUTHSA 05/03/22 01/14/23 Unknown History nitroglycerin 0.4 mg sublingual 0.4 mg sublingual Q5M PRN Chest 05/03/22 01/14/23 Unknown History tablet Pain nystatin 100,000 unit/gram topical 1 appl topical BID 05/03/22 01/14/23 Unknown History powder sennosides 8.6 mg tablet (senna) 8.6 mg PO BEDTIME PRN Constipation 05/03/22 01/14/23 Unknown History albuterol sulfate 1.25 mg/3 mL 1.25 mg inhalation Q4H PRN Wheezing 01/14/23 01/14/23 Unknown History solution for nebulization lidocaine 3 % topical cream 1 appl topical TUTHSA 01/14/23 01/14/23 Unknown History oxycodone 10 mg tablet 10 mg PO TID 01/14/23 01/14/23 Unknown History Physical Exam Vital Signs and Narrative: Vital Signs: Last Vital Signs Temp 98.6 F 01/14/23 09:59 Pulse 70 01/14/23 12:23 Resp 19 01/14/23 12:23 BP 110/34 L 01/14/23 12:23 Pulse Ox 100 01/14/23 12:23 O2 Del Method Nasal Cannula 01/14/23 12:23 O2 Flow Rate 2 01/14/23 12:23 BMI result Body Mass Index 33.6 Appearing in no acute distress head is normocephalic atraumatic eyes pupils are PERRLA sclera is anicteric mouth throat mucous membranes are intact and moist neck is supple no lymphadenopathy, no JVD noted lung sounds expiratory wheezing heart regular rate rhythm, clear S1, S2 positive bowel sounds, abdomen is soft, nontender neuro patient is alert x3, no focal deficits Results Labs 01/14/23 06:34 01/14/23 09:32 Labs: Laboratory Results - last 24 hr 01/14/23 01/14/23 01/14/23 06:34 06:34 06:35 MCV 103.1 H MCH 33.5 H MCHC 32.5 RDW 16.3 H Plt Count 185 MPV 9.8 Immature Gran % (Auto) 0.6 H Neut % (Auto) 91.0 H Lymph % (Auto) 2.5 L [place] % (Auto) 5.5 Eos % (Auto) 0.2 Baso % (Auto) 0.2 Lymph # (Auto) 0.3 L [place] # (Auto) 0.6 Eos # (Auto) 0.0 Baso # (Auto) 0.0 Abs Immat Gran (auto) 0.06 H Absolute Neuts (auto) 9.8 H Absolute Nucleated RBC 0.000 Nucleated RBC % (auto) 0.0 Smear Tech's Comments VERIFIED Anion Gap Cancelled Estim Creat Clear Calc Cancelled Estimated GFR Cancelled POC Glucose Random Glucose Cancelled Lactic Acid 1.3 Calcium Cancelled Magnesium Total Bilirubin Cancelled Direct Bilirubin AST Cancelled ALT Cancelled Alkaline Phosphatase Cancelled Troponin I High Sens Total Protein Cancelled Albumin Cancelled Lipase Urine Color Urine Appearance Urine pH Ur Specific [place] Urine Protein Urine Glucose (UA) Urine Ketones Urine Blood Urine Nitrite Ur Leukocyte Esterase Urine RBC Urine WBC Ur Squamous Epith Cells Ur Transition Epith Cell Ur Renal Epithelial Cell Urine Bacteria Hyaline Casts COVID-19 (YANNA) COVID-19 Clin Com 01/14/23 01/14/23 01/14/23 06:38 06:39 09:32 MCV MCH MCHC RDW Plt Count MPV Immature Gran % (Auto) Neut % (Auto) Lymph % (Auto) [place] % (Auto) Eos % (Auto) Baso % (Auto) Lymph # (Auto) [place] # (Auto) Eos # (Auto) Baso # (Auto) Abs Immat Gran (auto) Absolute Neuts (auto) Absolute Nucleated RBC Nucleated RBC % (auto) Smear Tech's Comments Anion Gap 20 Estim Creat Clear Calc 6.2 Estimated GFR 6 POC Glucose Random Glucose 36 L* Lactic Acid Calcium 8.3 L Magnesium 1.9 Total Bilirubin 0.5 Direct Bilirubin 0.2 AST 25 ALT 9 Alkaline Phosphatase 86 Troponin I High Sens 29.3 H Total Protein 5.3 L Albumin 2.9 L Lipase < 4 L Urine Color Urine Appearance Urine pH Ur Specific [place] Urine Protein Urine Glucose (UA) Urine Ketones Urine Blood Urine Nitrite Ur Leukocyte Esterase Urine RBC Urine WBC Ur Squamous Epith Cells Ur Transition Epith Cell Ur Renal Epithelial Cell Urine Bacteria Hyaline Casts COVID-19 (YANNA) Negative COVID-19 Clin Com See Note 01/14/23 01/14/23 01/14/23 09:32 09:55 10:36 MCV MCH MCHC RDW Plt Count MPV Immature Gran % (Auto) Neut % (Auto) Lymph % (Auto) [place] % (Auto) Eos % (Auto) Baso % (Auto) Lymph # (Auto) [place] # (Auto) Eos # (Auto) Baso # (Auto) Abs Immat Gran (auto) Absolute Neuts (auto) Absolute Nucleated RBC Nucleated RBC % (auto) Smear Tech's Comments Anion Gap Estim Creat Clear Calc Estimated GFR POC Glucose 33 L* Random Glucose Lactic Acid Calcium Magnesium Total Bilirubin Direct Bilirubin AST ALT Alkaline Phosphatase Troponin I High Sens 58.9 H* D Total Protein Albumin Lipase Urine Color Yellow Urine Appearance Turbid Urine pH 8.5 Ur Specific [place] 1.015 Urine Protein 300 (3+) H Urine Glucose (UA) Negative Urine Ketones Negative Urine Blood Small (1+) H Urine Nitrite Negative Ur Leukocyte Esterase Large (3+) H Urine RBC 3-5 H Urine WBC >50 H Ur Squamous Epith Cells 11-20 Ur Transition Epith Cell Present Ur Renal Epithelial Cell Present Urine Bacteria 4+ Hyaline Casts 3-5 COVID-19 (YANNA) COVID-19 [employer] Com 01/14/23 01/14/23 11:21 12:03 MCV MCH MCHC RDW Plt Count MPV Immature Gran % (Auto) Neut % (Auto) Lymph % (Auto) [place] % (Auto) Eos % (Auto) Baso % (Auto) Lymph # (Auto) [place] # (Auto) Eos # (Auto) Baso # (Auto) Abs Immat Gran (auto) Absolute Neuts (auto) Absolute Nucleated RBC Nucleated RBC % (auto) Smear Tech's Comments Anion Gap Estim Creat Clear Calc Estimated GFR POC Glucose 99 94 Random Glucose Lactic Acid Calcium Magnesium Total Bilirubin Direct Bilirubin AST ALT Alkaline Phosphatase Troponin I High Sens Total Protein Albumin Lipase Urine Color Urine Appearance Urine pH Ur Specific [place] Urine Protein Urine Glucose (UA) Urine Ketones Urine Blood Urine Nitrite Ur Leukocyte Esterase Urine RBC Urine WBC Ur Squamous Epith Cells Ur Transition Epith Cell Ur Renal Epithelial Cell Urine Bacteria Hyaline Casts COVID-19 (YANNA) COVID-19 Clin Com Imaging Radiologist's Impressions: Impressions Chest X-Ray 01/14/23 06:50 IMPRESSION: Mild cardiomegaly. Mild prominence of pulmonary vascularity question mild congestion. Abdomen/Pelvis CT 01/14/23 09:08 IMPRESSION: 1. Bilateral moderate pleural effusions with underlying atelectasis. There is a right lower lobe infiltrate. 2. Distended gallbladder with layering hyperdense sludge or small stones. No wall thickening seen. Stable. 3. Bilateral renal calculi without caliectasis or hydronephrosis. Bilateral renal cysts are stable. 4. Diffuse sigmoid and scattered rest of the colon diverticulosis with mild mural thickening but no pericolic fat stranding. Question early diverticulitis. No free air or free fluid seen. 5. New superior endplate compression fracture L5 vertebra since the last CT abdomen exam 05/03/2022. 6. There is 2.3 cm left adrenal lesion, stable.. 7. Gallbladder has been removed since since last exam. Stable IVC filter Fleischner guidelines were followed. Assessment and Plan (1) ESRD on dialysis: Status: Acute Plan 82 year old women admitted with UTI and possible early diverticulitis Demand ischemia no chest pain elevated troponin at 29.3 and 58.9 cardiology consult monitor on tele Hypertension Likely secondary to renal disease Takes midodrine before dialysis Will give albumin x2 possible early diverticulitis zosyn monitor for worsening symptoms UTI Follow urine cx rocephin ESRD dialysis TTHSA nephrology consult macrocytic anemia Stable follow DM2 with hypoglycemia ss, ada diet monitor bs closely DVT prophylaxis with heparin Full code Patient required 2 inpatient midnights for treatment demand ischemia UTI possible early diverticulitis requiring close monitoring and IV medications Time Spent With Patient Time: Total time managing care of this patient today ____ minutes. Quality Stroke Does the patient have a stroke diagnosis?: No VTE Prior VTE?: No VTE Risk Level:: Medical - moderate - high VTE Device Contraindication: N/A - Device Ordered VTE Drug Contraindication: Treatment Not Indicated
--- NOTE | 2023-01-14 14:20 | PM.PNNEP ---
Subjective Subjective Date of Service: 01/15/23 Principal diagnosis: Pt with misssed Interval history: HD Rx Seen on HD Physical Exam Vital Signs: Vital Signs: Last Vital Signs Temp 98.6 F 01/14/23 09:59 Pulse 69 01/14/23 13:37 Resp 13 01/14/23 13:37 BP 109/49 L 01/14/23 13:37 Pulse Ox 100 01/14/23 13:37 O2 Del Method Nasal Cannula 01/14/23 13:37 O2 Flow Rate 2 01/14/23 13:37 BMI result Body Mass Index 33.6 Const: General: cooperative Orientation/consciousness: patient oriented x3 Limitations: no limitations HEENT: Head: Yes normal to inspection, Yes normocephalic and Yes atraumatic Ears: hearing grossly normal bilaterally General nose exam: Normal external nose present Face and sinus: Yes normal facial exam Mouth: Normal oral and palatal mucosa present, oropharynx normal and moist mucous membranes Throat: Yes posterior oropharynx normal Eyes: General: appearance normal, both eyes and all related structures Eyelids: Yes eyelids normal Conjunctivae: conjunctivae normal Sclerae: sclerae normal Pupils: Equal, round and reactive pupils present EOM: EOMs intact bilaterally Neck: Neck: Yes normal visual inspection, Yes full ROM and Yes no lymphadenopathy Lymphatic: no lymphadenopathy noted Chest: Chest palpation & inspection: normal inspection of the chest Resp: Other: Poor inspiratory effort, crackles heard at right lower base, decreased breath sounds throughout all lung rae. Effort & Inspection: normal respiratory effort and able to speak in complete sentences Auscultation: rales Cardio: Rate: regular rate Rhythm: regular rhythm Heart sounds: S1 normal heart sound present and S2 normal heart sound present GI: Other: Obese abdomen, soft, nondistended, tenderness to palpation diffusely throughout abdomen, no point tenderness, no rebound or guarding. Normoactive bowel sounds present Inspection: Yes normal to inspection Skin: General skin exam: no rashes or lesions noted Trauma: no lacerations or abrasions Wounds: no wounds Neuro: General: patient oriented x3 and moves all extremities Cranial nerves: Yes Equal, round and reactive pupils present Extrem: General: Yes normal to inspection Right upper extremity: normal to inspection Left upper extremity: normal to inspection Right lower extremity: normal to inspection Left lower extremity: normal to inspection Objective Data Labs 01/14/23 06:34 01/14/23 09:32 Labs: Laboratory Results - last 24 hr 01/14/23 01/14/23 01/14/23 06:34 06:34 06:35 WBC 10.8 RBC 2.60 L Hgb 8.7 L Hct 26.8 L MCV 103.1 H MCH 33.5 H MCHC 32.5 RDW 16.3 H Plt Count 185 MPV 9.8 Immature Gran % (Auto) 0.6 H Neut % (Auto) 91.0 H Lymph % (Auto) 2.5 L [place] % (Auto) 5.5 Eos % (Auto) 0.2 Baso % (Auto) 0.2 Lymph # (Auto) 0.3 L [place] # (Auto) 0.6 Eos # (Auto) 0.0 Baso # (Auto) 0.0 Abs Immat Gran (auto) 0.06 H Absolute Neuts (auto) 9.8 H Absolute Nucleated RBC 0.000 Nucleated RBC % (auto) 0.0 Smear Tech's Comments VERIFIED Sodium Cancelled Potassium Cancelled Chloride Cancelled Carbon Dioxide Cancelled Anion Gap Cancelled BUN Cancelled Creatinine Cancelled Estim Creat Clear Calc Cancelled Estimated GFR Cancelled POC Glucose Random Glucose Cancelled Lactic Acid 1.3 Calcium Cancelled Magnesium Total Bilirubin Cancelled Direct Bilirubin AST Cancelled ALT Cancelled Alkaline Phosphatase Cancelled Troponin I High Sens Total Protein Cancelled Albumin Cancelled Lipase Urine Color Urine Appearance Urine pH Ur Specific [place] Urine Protein Urine Glucose (UA) Urine Ketones Urine Blood Urine Nitrite Ur Leukocyte Esterase Urine RBC Urine WBC Ur Squamous Epith Cells Ur Transition Epith Cell Ur Renal Epithelial Cell Urine Bacteria Hyaline Casts COVID-19 (YANNA) COVID-19 Clin Com 01/14/23 01/14/23 01/14/23 06:38 06:39 09:32 WBC RBC Hgb Hct MCV MCH MCHC RDW Plt Count MPV Immature Gran % (Auto) Neut % (Auto) Lymph % (Auto) [place] % (Auto) Eos % (Auto) Baso % (Auto) Lymph # (Auto) [place] # (Auto) Eos # (Auto) Baso # (Auto) Abs Immat Gran (auto) Absolute Neuts (auto) Absolute Nucleated RBC Nucleated RBC % (auto) Smear Tech's Comments Sodium 142 Potassium 3.7 Chloride 98 Carbon Dioxide 28 Anion Gap 20 BUN 30 H Creatinine 6.66 H* Estim Creat Clear Calc 6.2 Estimated GFR 6 POC Glucose Random Glucose 36 L* Lactic Acid Calcium 8.3 L Magnesium 1.9 Total Bilirubin 0.5 Direct Bilirubin 0.2 AST 25 ALT 9 Alkaline Phosphatase 86 Troponin I High Sens 29.3 H Total Protein 5.3 L Albumin 2.9 L Lipase < 4 L Urine Color Urine Appearance Urine pH Ur Specific [place] Urine Protein Urine Glucose (UA) Urine Ketones Urine Blood Urine Nitrite Ur Leukocyte Esterase Urine RBC Urine WBC Ur Squamous Epith Cells Ur Transition Epith Cell Ur Renal Epithelial Cell Urine Bacteria Hyaline Casts COVID-19 (YANNA) Negative COVID-19 Clin Com See Note 01/14/23 01/14/23 01/14/23 09:32 09:55 10:36 WBC RBC Hgb Hct MCV MCH MCHC RDW Plt Count MPV Immature Gran % (Auto) Neut % (Auto) Lymph % (Auto) [place] % (Auto) Eos % (Auto) Baso % (Auto) Lymph # (Auto) [place] # (Auto) Eos # (Auto) Baso # (Auto) Abs Immat Gran (auto) Absolute Neuts (auto) Absolute Nucleated RBC Nucleated RBC % (auto) Smear Tech's Comments Sodium Potassium Chloride Carbon Dioxide Anion Gap BUN Creatinine Estim Creat Clear Calc Estimated GFR POC Glucose 33 L* Random Glucose Lactic Acid Calcium Magnesium Total Bilirubin Direct Bilirubin AST ALT Alkaline Phosphatase Troponin I High Sens 58.9 H* D Total Protein Albumin Lipase Urine Color Yellow Urine Appearance Turbid Urine pH 8.5 Ur Specific [place] 1.015 Urine Protein 300 (3+) H Urine Glucose (UA) Negative Urine Ketones Negative Urine Blood Small (1+) H Urine Nitrite Negative Ur Leukocyte Esterase Large (3+) H Urine RBC 3-5 H Urine WBC >50 H Ur Squamous Epith Cells 11-20 Ur Transition Epith Cell Present Ur Renal Epithelial Cell Present Urine Bacteria 4+ Hyaline Casts 3-5 COVID-19 (YANNA) COVID-19 Clin Com 01/14/23 01/14/23 01/14/23 11:21 12:03 13:02 WBC RBC Hgb Hct MCV MCH MCHC RDW Plt Count MPV Immature Gran % (Auto) Neut % (Auto) Lymph % (Auto) [place] % (Auto) Eos % (Auto) Baso % (Auto) Lymph # (Auto) [place] # (Auto) Eos # (Auto) Baso # (Auto) Abs Immat Gran (auto) Absolute Neuts (auto) Absolute Nucleated RBC Nucleated RBC % (auto) Smear Tech's Comments Sodium Potassium Chloride Carbon Dioxide Anion Gap BUN Creatinine Estim Creat Clear Calc Estimated GFR POC Glucose 99 94 106 Random Glucose Lactic Acid Calcium Magnesium Total Bilirubin Direct Bilirubin AST ALT Alkaline Phosphatase Troponin I High Sens Total Protein Albumin Lipase Urine Color Urine Appearance Urine pH Ur Specific [place] Urine Protein Urine Glucose (UA) Urine Ketones Urine Blood Urine Nitrite Ur Leukocyte Esterase Urine RBC Urine WBC Ur Squamous Epith Cells Ur Transition Epith Cell Ur Renal Epithelial Cell Urine Bacteria Hyaline Casts COVID-19 (YANNA) COVID-19 Clin Com Procedures Date of Service Date of Service: 01/15/23 Assessment & Plan Assessment and plan (1) ESRD on dialysis: Status: Acute Assessment and Plan: stable treatment yesterday next rx (2) Urinary tract infection: Status: Acute (3) Pneumonia: Status: Acute (4) Encephalopathy acute: Status: Acute (5) COVID-19: Status: Acute (6) Bacteremia: Status: Acute Plan 1. ESRD: TTS 2. ID Antibiotics as per medical team 3. ANemia ad MBD of ESRD: meds as noted REC: cont HD today and TTS; ABx as noted Low Na diet Fluid removal as tolerated K Per Protocal Time Spent With Patient Time: Total time managing care of this patient today ____ minutes.
--- NOTE | 2023-01-14 14:49 | PC.NURSE ---
PT FOUND TO BE CRYING IN ROOM, PT HAS NEW ONSET CONFUSION, DID NOT KNOW WHERE SHE WAS. KAITLIN PROVIDER AWARE OF PATIENTS STATUS. CHECKED PATIENTS VITAL SIGNS WHICH ARE STABLE AND GLUCOSE WHICH IS 105.
--- NOTE | 2023-01-14 16:51 | PC.NURSE ---
Patient arrived to unit @1530. Upon help aid assessment of vitals, Blood presser was 88/40 on right upper arm, Nurse Practitioner Brii Somers made aware via tiger text @[id number]. New order to administers Midodrine. see MAR. Repeat vitals done after 15 minutes 90/42 on right arm. Patient taken to receive dialysis.
--- NOTE | 2023-01-14 18:26 | PC.NURSE ---
Patient admitted to floor from Ed @1530. Upon finishing admission and assessment patient went to dialysis. Per dialysis registered nurse Shanta Winkler only albumin will not be dialysis out. All other medications should be held until after dialysis. See MAR.
[2023-01-15] VITALS (7 sets, daily range): BP systolic 114–145; BP diastolic 56–87; PULSE 73–87; RESP 13–20; TEMP 36.1–37.1; O2SAT 94–98
[2023-01-15 06:56] LABS: MANUAL DIFF FLAG NO
[2023-01-15 06:58] LABS: Basophils Percent Auto 0.4 % (0-2); Eosinophils Absolute Auto 0.6 X10*3/uL (0.0-0.4); Hematocrit 26.5 % (37.0-47.0); Hemoglobin 8.4 g/dl (12.0-16.0); Imm Gran Abs Auto 0.05 X10*3/uL (0.00-0.03); Imm Gran Pct Auto 0.7 % (0.0-0.4); Lymphocytes Absolute Auto 0.5 X10*3/uL (1.2-4.9); Lymphocytes Percent Auto 7.3 % (20-40); Mean Corpuscular HGB Conc 31.7 g/dl (31.0-35.0); Mean Corpuscular Hemoglobin 33.6 pg (27.0-33.0); Monocytes Absolute Auto 0.6 X10*3/uL (0.1-1.2); Monocytes Percent Auto 8.2 % (2-11); Neutrophils Absolute Auto 5.5 x10*3/uL (2.0-8.3); Neutrophils Percent Auto 75.4 % (45-73); Platelet Count 189 X10*3/uL (160-400); Red Cell Distribution Width 16.7 % (11.0-16.0); White Blood Count 7.2 X10*3/uL (4.8-10.8)
[2023-01-15 07:17] LABS: Anion Gap 18 (12-20); Blood Urea Nitrogen 17 mg/dL (9-16); Calcium 9.3 mg/dL (8.4-10.2); Carbon Dioxide 25 mmol/L (22-29); Chloride 99 mmol/L (96-108); Creatinine Clr Calc Pharmacy 9.2; Estimated Glomerular Filt Rate 9; Glucose Random 87 mg/dL (60-115); Sodium 138 mmol/L (135-145)
--- NOTE | 2023-01-15 10:53 | HO.PM.IMPN ---
Subjective Subjective Date of Service: 01/15/23 Review of Systems Follow up UTI, PNA mental status better but still feels confused coughing, no pain Physical Exam Vital Signs: Vital Signs: Last Vital Signs Temp 97.0 F 01/15/23 07:17 Pulse 87 01/15/23 07:28 Resp 18 01/15/23 07:28 BP 129/87 01/15/23 07:17 Pulse Ox 95 01/15/23 07:17 O2 Del Method Room Air 01/15/23 07:17 O2 Flow Rate 2 01/14/23 20:00 BMI result Body Mass Index 34.6 Appearing in no acute distress lung sounds are clear to auscultation heart regular rate rhythm, clear S1, S2 positive bowel sounds, abdomen is soft, nontender neuro patient is alert x3, no focal deficits Objective Data Active Medications Acetaminophen (Acetaminophen 325 Mg Tablet) 650 mg PO Q6H PRN PRN Reason: Pain, Mild (Pain Scale 1-3) Acetaminophen (Acetaminophen 325 Mg Tablet) 650 mg PO TID [facility] Last Admin: 01/15/23 08:00 Dose: 650 mg Documented By: KRISTEN Albuterol Sulfate (Albuterol Sulfate (0.042%) 1.25 Mg/3 Ml Vial.Neb) 1.25 mg INHALE Q4H PRN PRN Reason: Wheezing Last Admin: 01/14/23 15:45 Dose: 1.25 mg Documented By: VIGNESH Albuterol/Ipratropium (Albuterol/Iprat 2.5/0.5mg 3 Ml Ampul.Neb) 3 ml INHALE RQ4H WHILE AWAKE [facility] Last Admin: 01/15/23 07:25 Dose: 3 ml Documented By: DUKE Bisacodyl (Bisacodyl 10 Mg Supp.Rect) 10 mg NM DAILY PRN PRN Reason: Constipation Dextrose (Dextrose 50 % 25 Gm/50 Ml Syringe) 25 gm IVPUSH Q15M PRN; Protocol PRN Reason: per Hypoglycemia Standing Ord. Ferrous Sulfate (Ferrous Sulfate 324 Mg Tablet.) 324 mg PO BID [facility] Last Admin: 01/15/23 08:00 Dose: 324 mg Documented By: KRISTEN Glucose (Glucose Gel 15 Gm Gel..Gram.) 15 gm PO Q15M PRN; Protocol PRN Reason: per Hypoglycemia Standing Ord. Piperacillin Sod/Tazobactam (Sod 2.25 gm/ Sodium Chloride) 50 mls @ 100 mls/hr IV Q8H [facility] Last Infusion: 01/15/23 10:08 Dose: 0 mls/hr Documented By: KRISTEN Insulin Glargine (Insulin Glargine,Hum.Rec.Anlog 100 Unit/Ml 10 Ml Vial) 12 unit SUBCUT BEDTIME [facility] Last Admin: 01/14/23 21:00 Dose: 12 unit Documented By: XIOMARA Insulin Human Lispro (Insulin Lispro 100 Unit/Ml 3 Ml Vial) 0 unit SUBCUT QIDACHS [facility]; Protocol Last Admin: 01/15/23 07:56 Dose: Not Given Documented By: KRISTEN Non-Admin Reason: No Access Latanoprost (Latanoprost 0.005 % Ophth Linda 2.5 Ml Drops) 1 drop EYE-BOTH BEDTIME [facility] Last Admin: 01/14/23 21:00 Dose: Not Given Documented By: XIOMARA Non-Admin Reason: Med Not Available Levothyroxine Sodium (Levothyroxine Sodium 88 Mcg Tablet) 88 mcg PO DAILY@0600 [facility] Last Admin: 01/15/23 05:25 Dose: 88 mcg Documented By: XIOMARA Melatonin (Melatonin 3 Mg Tablet) 6 mg PO BEDTIME [facility] Last Admin: 01/14/23 20:59 Dose: 6 mg Documented By: XIOMARA Methylprednisolone Sodium Succinate (Methylprednisolone Sod Succ 40 Mg/Ml Vial) 40 mg IVPUSH Q12H [facility] Last Admin: 01/15/23 09:22 Dose: 40 mg Documented By: KRISTEN Metoprolol Tartrate (Metoprolol Tartrate 25 Mg Tablet) 25 mg PO BID [facility]; Protocol Last Admin: 01/15/23 08:01 Dose: 25 mg Documented By: KRISTEN Midodrine (Midodrine Hcl 2.5 Mg Tablet) 2.5 mg PO TuThSa@1000 [facility] Last Admin: 01/14/23 20:48 Dose: Not Given Documented By: XIOMARA Non-Admin Reason: Off unit: Dialysis Nitroglycerin (Nitroglycerin 0.4 Mg Tab.Subl) 0.4 mg SUBLINGUAL Q5M PRN PRN Reason: Chest Pain Ondansetron HCl (Ondansetron Hcl 4 Mg/2 Ml Vial) 4 mg IVPUSH Q8H PRN PRN Reason: Nausea and Vomiting Oxycodone HCl (Oxycodone Hcl Immed Release 5 Mg Tablet) 10 mg PO TID [facility] Last Admin: 01/15/23 08:00 Dose: 10 mg Documented By: KRISTEN Pharmacy Consult (Consult Rx Perform Med Rec) 1 each MISCELLANE ONCE PRN PRN Reason: Consult order Senna (Sennosides 8.6 Mg Tablet) 8.6 mg PO BEDTIME PRN PRN Reason: Constipation Sertraline HCl (Sertraline Hcl 50 Mg Tablet) 50 mg PO DAILY [facility] Last Admin: 01/15/23 08:00 Dose: 50 mg Documented By: KRISTEN Sodium Chloride (0.9 % Sodium Chloride Flush 3 Ml Syringe) 3 ml IVFLUSH QSHIFT [facility] Last Admin: 01/15/23 08:01 Dose: 3 ml Documented By: KRISTEN Labs 01/15/23 06:33 01/15/23 06:33 Labs: Laboratory Results - last 24 hr 01/14/23 01/14/23 01/14/23 11:21 12:03 13:02 MCV MCH MCHC RDW Plt Count MPV Immature Gran % (Auto) Neut % (Auto) Lymph % (Auto) [place] % (Auto) Eos % (Auto) Baso % (Auto) Lymph # (Auto) [place] # (Auto) Eos # (Auto) Baso # (Auto) Abs Immat Gran (auto) Absolute Neuts (auto) Absolute Nucleated RBC Nucleated RBC % (auto) Anion Gap Estim Creat Clear Calc Estimated GFR POC Glucose 99 94 106 Random Glucose Calcium Troponin I High Sens 01/14/23 01/14/23 01/14/23 13:56 14:19 15:53 MCV MCH MCHC RDW Plt Count MPV Immature Gran % (Auto) Neut % (Auto) Lymph % (Auto) [place] % (Auto) Eos % (Auto) Baso % (Auto) Lymph # (Auto) [place] # (Auto) Eos # (Auto) Baso # (Auto) Abs Immat Gran (auto) Absolute Neuts (auto) Absolute Nucleated RBC Nucleated RBC % (auto) Anion Gap Estim Creat Clear Calc Estimated GFR POC Glucose 105 103 Random Glucose Calcium Troponin I High Sens 69.4 H* 01/14/23 01/15/23 01/15/23 20:23 06:33 06:33 MCV 106.0 H MCH 33.6 H MCHC 31.7 RDW 16.7 H Plt Count 189 MPV 10.0 Immature Gran % (Auto) 0.7 H Neut % (Auto) 75.4 H Lymph % (Auto) 7.3 L [place] % (Auto) 8.2 Eos % (Auto) 8.0 H Baso % (Auto) 0.4 Lymph # (Auto) 0.5 L [place] # (Auto) 0.6 Eos # (Auto) 0.6 H Baso # (Auto) 0.0 Abs Immat Gran (auto) 0.05 H Absolute Neuts (auto) 5.5 Absolute Nucleated RBC 0.000 Nucleated RBC % (auto) 0.0 Anion Gap 18 Estim Creat Clear Calc 9.2 Estimated GFR 9 POC Glucose 101 Random Glucose 87 Calcium 9.3 D Troponin I High Sens 01/15/23 07:21 MCV MCH MCHC RDW Plt Count MPV Immature Gran % (Auto) Neut % (Auto) Lymph % (Auto) [place] % (Auto) Eos % (Auto) Baso % (Auto) Lymph # (Auto) [place] # (Auto) Eos # (Auto) Baso # (Auto) Abs Immat Gran (auto) Absolute Neuts (auto) Absolute Nucleated RBC Nucleated RBC % (auto) Anion Gap Estim Creat Clear Calc Estimated GFR POC Glucose 85 Random Glucose Calcium Troponin I High Sens Microbiology Microbiology Results: Microbiology 01/14/23 06:34 Blood Culture - Preliminary Blood - Venous No growth after 24 hours. Assessment and Plan (1) Encephalopathy acute: Status: Acute (2) COVID-19: Status: Acute (3) ESRD on dialysis: Status: Inactive (4) Bacteremia: Status: Acute Plan 82 year old women admitted with UTI and possible early diverticulitis Demand ischemia no chest pain hx of ESRD and acute infection elevated troponin at 29.3, 58.9, 69.4 cardiology consult>rec Echo monitor on tele Hypertension Likely secondary to renal disease Takes midodrine before dialysis Will give albumin x2 Possible early diverticulitis no diarrhea or bloody stool zosyn monitor for worsening symptoms GI consult UTI Follow urine cx on zozyn ESRD dialysis TTS nephrology consult>initiate dialysis , low na diet macrocytic anemia Stable follow DM2 with hypoglycemia ss, ada diet monitor bs closely DVT prophylaxis with heparin Attending Dr. Cavanaugh Full code continued treatment demand ischemia UTI possible early diverticulitis requiring close monitoring and IV medications Time Spent With Patient Time: Total time managing care of this patient today ____ minutes. Quality Stroke Does the patient have a stroke diagnosis?: No VTE Prior VTE?: No VTE Risk Level:: Medical - moderate - high VTE Device Contraindication: N/A - Device Ordered VTE Drug Contraindication: Treatment Not Indicated
--- NOTE | 2023-01-15 11:16 | PM.CNCAR ---
History of Present Illness History of Present Illness Date of Service: 01/15/23 Chief complaint: nvd Narrative: This is a cardiology consultation regarding elevated troponins. Patient denies any history of coronary artery disease myocardial infarction any other cardiac issues. She states that she is on dialysis and has been this way for the last few years. Current admission is because of confusion and just feeling unwell. However, when I questioned her today she seems to be answering questions appropriately. Denies any chest pain or any cardiac sounding. She does sound to have a rattly chest even from a distance. Overall, she is being treated for pneumonia. Troponins were checked and they are slightly abnormal and hence we were consulted. Son is also at the bedside during evaluation. Discussed with him as well. Review of Systems Review of Systems: Yes all other systems are reviewed and are negative Constitutional: Constitutional: Reports as per HPI and Reports no additional constitutional complaints Eyes: Eyes: Reports as per HPI and Denies no additional eye complaints ENT: Denies system reviewed and no additional complaints, except as documented and Reports as per HPI Cardiovascular: Cardiovascular: Reports as per HPI, Reports no additional cardiovascular complaints, Denies acrocyanosis, Denies cool extremities, Denies chest pain, Denies leg edema, Denies lightheadedness, Denies palpitations and Denies dyspnea Respiratory: Respiratory: Reports as per HPI, Denies no additional respiratory complaints and Denies dyspnea Gastrointestinal: Gastrointestinal: Reports as per HPI and Denies no additional gastrointestinal complaints Genitourinary: Genitourinary: Reports as per HPI Musculoskeletal: Musculoskeletal: Reports no additional musculoskeletal complaints and Reports as per HPI Integumentary/Breasts: Skin/Breast: Reports system reviewed and no additional complaints, except as docu Neurologic: Reports system reviewed and no additional complaints, except as documented and Reports as per HPI Psychiatric: Psychiatric: Reports no additional psychiatric complaints and Reports as per HPI Endocrine: Endocrine: Reports no additional endocrine complaints, Reports as per HPI and Denies palpitations Hematologic/Lymphatic: Hematologic/Lymphatic: Reports no additional hematologic/lymphatic complaints and Reports as per HPI Allergic/Immunologic: Allergic/Immunologic: Reports no additional allergic/immunologic complaints and Reports as per HPI [facility] Past Medical History Medical History (Updated 01/15/23 @ 11:18 by Chase Staton MD) Anemia Anxiety Diabetes mellitus Diverticulosis ESRD on dialysis GERD (gastroesophageal reflux disease) HTN (hypertension) Hypertension Hypothyroidism Kidney disease Pulmonary embolus Family History Pertinent family history: No pertinent family history. Social History Social History Household Members: None Housing: Assisted Living Facility Do you presently have visiting nurse or other home services: No Unable to assess alcohol history related to: Unknown Alcohol intake: never Patient Tobacco Use Status: Never used Tobacco Use of substances other than those prescribed or required for medical reasons: No Currently Displaying Signs/Symptoms of Drug Intoxication Withdrawal: No Have you been hit, kicked, punched, or otherwise hurt by someone within the past year? If so, by whom?: No Do you feel safe in your current relationship?: No Is there a partner from a previous relationship who is making you feel unsafe now?: No Are you made to feel afraid or neglected: No Advance Directives: Yes Advance Directives on File: Yes Advance Directives Date on File: 02/10/21 Do you have thoughts of harming others: None Do you have a plan to hurt others: No Plan Patient : No : No Poor oral hygiene: No service: No Current occupational status: retired [employer] Allergies Allergy/AdvReac Type Severity Reaction Status Date / Time Sulfa (Sulfonamide Allergy Unknown RASH Verified 05/03/22 19:57 Antibiotics) Active Medications: Current Medications Acetaminophen (Acetaminophen 325 Mg Tablet) 650 mg PO Q6H PRN PRN Reason: Pain, Mild (Pain Scale 1-3) Acetaminophen (Acetaminophen 325 Mg Tablet) 650 mg PO TID [facility] Last Admin: 01/15/23 08:00 Dose: 650 mg Albuterol Sulfate (Albuterol Sulfate (0.042%) 1.25 Mg/3 Ml Vial.Neb) 1.25 mg INHALE Q4H PRN PRN Reason: Wheezing Last Admin: 01/14/23 15:45 Dose: 1.25 mg Albuterol/Ipratropium (Albuterol/Iprat 2.5/0.5mg 3 Ml Ampul.Neb) 3 ml INHALE RQ4H WHILE AWAKE [facility] Last Admin: 01/15/23 07:25 Dose: 3 ml Bisacodyl (Bisacodyl 10 Mg Supp.Rect) 10 mg PA DAILY PRN PRN Reason: Constipation Dextrose (Dextrose 50 % 25 Gm/50 Ml Syringe) 25 gm IVPUSH Q15M PRN; Protocol PRN Reason: per Hypoglycemia Standing Ord. Ferrous Sulfate (Ferrous Sulfate 324 Mg Tablet.Dr) 324 mg PO BID [facility] Last Admin: 01/15/23 08:00 Dose: 324 mg Glucose (Glucose Gel 15 Gm Gel..Gram.) 15 gm PO Q15M PRN; Protocol PRN Reason: per Hypoglycemia Standing Ord. Piperacillin Sod/Tazobactam (Sod 2.25 gm/ Sodium Chloride) 50 mls @ 100 mls/hr IV Q8H [facility] Last Infusion: 01/15/23 10:08 Dose: Infused Insulin Glargine (Insulin Glargine,Hum.Rec.Anlog 100 Unit/Ml 10 Ml Vial) 12 unit SUBCUT BEDTIME [facility] Last Admin: 01/14/23 21:00 Dose: 12 unit Insulin Human Lispro (Insulin Lispro 100 Unit/Ml 3 Ml Vial) 0 unit SUBCUT QIDACHS [facility]; Protocol Last Admin: 01/15/23 07:56 Dose: Not Given Latanoprost (Latanoprost 0.005 % Ophth Linda 2.5 Ml Drops) 1 drop EYE-BOTH BEDTIME [facility] Last Admin: 01/14/23 21:00 Dose: Not Given Levothyroxine Sodium (Levothyroxine Sodium 88 Mcg Tablet) 88 mcg PO DAILY@0600 [facility] Last Admin: 01/15/23 05:25 Dose: 88 mcg Melatonin (Melatonin 3 Mg Tablet) 6 mg PO BEDTIME [facility] Last Admin: 01/14/23 20:59 Dose: 6 mg Methylprednisolone Sodium Succinate (Methylprednisolone Sod Succ 40 Mg/Ml Vial) 40 mg IVPUSH Q12H [facility] Last Admin: 01/15/23 09:22 Dose: 40 mg Metoprolol Tartrate (Metoprolol Tartrate 25 Mg Tablet) 25 mg PO BID [facility]; Protocol Last Admin: 01/15/23 08:01 Dose: 25 mg Midodrine (Midodrine Hcl 2.5 Mg Tablet) 2.5 mg PO TuThSa@1000 [facility] Last Admin: 01/14/23 20:48 Dose: Not Given Nitroglycerin (Nitroglycerin 0.4 Mg Tab.Subl) 0.4 mg SUBLINGUAL Q5M PRN PRN Reason: Chest Pain Ondansetron HCl (Ondansetron Hcl 4 Mg/2 Ml Vial) 4 mg IVPUSH Q8H PRN PRN Reason: Nausea and Vomiting Oxycodone HCl (Oxycodone Hcl Immed Release 5 Mg Tablet) 10 mg PO TID [facility] Last Admin: 01/15/23 08:00 Dose: 10 mg Pharmacy Consult (Consult Rx Perform Med Rec) 1 each MISCELLANE ONCE PRN PRN Reason: Consult order Senna (Sennosides 8.6 Mg Tablet) 8.6 mg PO BEDTIME PRN PRN Reason: Constipation Sertraline HCl (Sertraline Hcl 50 Mg Tablet) 50 mg PO DAILY [facility] Last Admin: 01/15/23 08:00 Dose: 50 mg Sodium Chloride (0.9 % Sodium Chloride Flush 3 Ml Syringe) 3 ml IVFLUSH QSHIFT [facility] Last Admin: 01/15/23 08:01 Dose: 3 ml Home Medications Medication Instructions Recorded Confirmed Last Taken Type acetaminophen 325 mg tablet 650 mg PO TID 02/10/21 01/14/23 Unknown History insulin NPH isoph U-100 human 100 16 unit subcut BEDTIME 02/10/21 01/14/23 Unknown History unit/mL subcutaneous suspension (Novolin N NPH U-100 Insulin isophane) levothyroxine 88 mcg tablet 1 tab PO DAILY@0600 02/10/21 01/14/23 Unknown History metoprolol tartrate 25 mg tablet 1 tab PO BID 02/10/21 01/14/23 Unknown History ondansetron 4 mg disintegrating 4 mg PO Q6H PRN Nausea And Vomiting 02/10/21 01/14/23 Unknown History tablet oxycodone 10 mg tablet 1 tab PO Q12H PRN pain 02/10/21 01/14/23 Unknown History sertraline 50 mg tablet 1 tab PO DAILY 02/10/21 01/14/23 Unknown History bisacodyl 10 mg rectal suppository 10 mg PA DAILY PRN Constipation 05/03/22 01/14/23 Unknown History ferrous fumarate 325 mg (106 mg 325 mg PO BID 05/03/22 01/14/23 Unknown History iron) tablet latanoprost 0.005 % eye drops 1 drp ophthalmic (eye) BEDTIME 05/03/22 01/14/23 Unknown History melatonin 3 mg tablet 6 mg PO BEDTIME 05/03/22 01/14/23 Unknown History midodrine 2.5 mg tablet 1 tab PO TUTHSA 05/03/22 01/14/23 Unknown History nitroglycerin 0.4 mg sublingual 0.4 mg sublingual Q5M PRN Chest 05/03/22 01/14/23 Unknown History tablet Pain nystatin 100,000 unit/gram topical 1 appl topical BID 05/03/22 01/14/23 Unknown History powder sennosides 8.6 mg tablet (senna) 8.6 mg PO BEDTIME PRN Constipation 05/03/22 01/14/23 Unknown History albuterol sulfate 1.25 mg/3 mL 1.25 mg inhalation Q4H PRN Wheezing 01/14/23 01/14/23 Unknown History solution for nebulization lidocaine 3 % topical cream 1 appl topical TUTHSA 01/14/23 01/14/23 Unknown History oxycodone 10 mg tablet 10 mg PO TID 01/14/23 01/14/23 Unknown History Physical Exam Vital Signs: Vital Signs: Last Vital Signs Temp 97.0 F 01/15/23 07:17 Pulse 87 01/15/23 07:28 Resp 18 01/15/23 07:28 BP 129/87 01/15/23 07:17 Pulse Ox 95 01/15/23 07:17 O2 Del Method Room Air 01/15/23 07:17 O2 Flow Rate 2 01/14/23 20:00 BMI result Body Mass Index 34.6 Const: General: comfortable and no acute distress Orientation/consciousness: patient oriented x3 HEENT: Other: Unremarkable Head: Yes normal to inspection Neck: Neck: Yes normal visual inspection Chest: Chest palpation & inspection: normal inspection of the chest Resp: Auscultation: crackles, rhonchi and diminished lung sounds Cardio: Palpation: normal PMI Heart sounds: S1 normal heart sound present, S2 normal heart sound present, no gallops, no murmurs and no rubs GI: Palpation (GI): Soft to palpation Back/Spine/Pelvis: Other: unremarkable Skin: General skin exam: no rashes or lesions noted Neuro: General: patient oriented x3 Extrem: General: Yes normal to inspection Psych: Mental Status: mental status grossly normal Objective Labs and Meds 01/15/23 06:33 01/15/23 06:33 Lab results: Laboratory Results - last 24 hr 01/14/23 01/14/23 01/14/23 11:21 12:03 13:02 WBC RBC Hgb Hct MCV MCH MCHC RDW Plt Count MPV Immature Gran % (Auto) Neut % (Auto) Lymph % (Auto) [place] % (Auto) Eos % (Auto) Baso % (Auto) Lymph # (Auto) [place] # (Auto) Eos # (Auto) Baso # (Auto) Abs Immat Gran (auto) Absolute Neuts (auto) Absolute Nucleated RBC Nucleated RBC % (auto) Sodium Potassium Chloride Carbon Dioxide Anion Gap BUN Creatinine Estim Creat Clear Calc Estimated GFR POC Glucose 99 94 106 Random Glucose Calcium Troponin I High Sens 01/14/23 01/14/23 01/14/23 13:56 14:19 15:53 WBC RBC Hgb Hct MCV MCH MCHC RDW Plt Count MPV Immature Gran % (Auto) Neut % (Auto) Lymph % (Auto) [place] % (Auto) Eos % (Auto) Baso % (Auto) Lymph # (Auto) [place] # (Auto) Eos # (Auto) Baso # (Auto) Abs Immat Gran (auto) Absolute Neuts (auto) Absolute Nucleated RBC Nucleated RBC % (auto) Sodium Potassium Chloride Carbon Dioxide Anion Gap BUN Creatinine Estim Creat Clear Calc Estimated GFR POC Glucose 105 103 Random Glucose Calcium Troponin I High Sens 69.4 H* 01/14/23 01/15/23 01/15/23 20:23 06:33 06:33 WBC 7.2 RBC 2.50 L Hgb 8.4 L Hct 26.5 L MCV 106.0 H MCH 33.6 H MCHC 31.7 RDW 16.7 H Plt Count 189 MPV 10.0 Immature Gran % (Auto) 0.7 H Neut % (Auto) 75.4 H Lymph % (Auto) 7.3 L [place] % (Auto) 8.2 Eos % (Auto) 8.0 H Baso % (Auto) 0.4 Lymph # (Auto) 0.5 L [place] # (Auto) 0.6 Eos # (Auto) 0.6 H Baso # (Auto) 0.0 Abs Immat Gran (auto) 0.05 H Absolute Neuts (auto) 5.5 Absolute Nucleated RBC 0.000 Nucleated RBC % (auto) 0.0 Sodium 138 Potassium 4.0 Chloride 99 Carbon Dioxide 25 Anion Gap 18 BUN 17 H Creatinine 4.61 H* Estim Creat Clear Calc 9.2 Estimated GFR 9 POC Glucose 101 Random Glucose 87 Calcium 9.3 D Troponin I High Sens 01/15/23 07:21 WBC RBC Hgb Hct MCV MCH MCHC RDW Plt Count MPV Immature Gran % (Auto) Neut % (Auto) Lymph % (Auto) [place] % (Auto) Eos % (Auto) Baso % (Auto) Lymph # (Auto) [place] # (Auto) Eos # (Auto) Baso # (Auto) Abs Immat Gran (auto) Absolute Neuts (auto) Absolute Nucleated RBC Nucleated RBC % (auto) Sodium Potassium Chloride Carbon Dioxide Anion Gap BUN Creatinine Estim Creat Clear Calc Estimated GFR POC Glucose 85 Random Glucose Calcium Troponin I High Sens ECG Interpretation: EKG with sinus rhythm at 88/Min; right bundle-branch block pattern; nonspecific ST-T changes. Assessment and Plan (1) NSTEMI (non-ST elevated myocardial infarction): Status: Acute (2) Pneumonia: Status: Acute (3) ESRD on dialysis: Status: Acute Plan Clinically, she does not have any chest pain or any cardiac symptoms. EKG with nonspecific ST-T changes. High sensitivity troponin levels in 29 followed by 59 followed by 69. Likely demand related. Also she has high Cr at baseline, which contributes to this. Overall, high pretest probability for coronary disease. However, in the absence of any symptoms, low troponin levels, frailty, comorbidities, ESRD, would treat this conservatively. Can get an echocardiogram for wall motion assessment. Otherwise, would hold off on anything aggressive, unless she develops any chest pain or has overt wall motion abnormalities. Treat underlying acute medical issues. Will follow up with you. Discussed with son at the bedside and he understands and agrees. Discussed with Brii Somers. Time Spent With Patient Time: Total time managing care of this patient today ____ minutes. Procedures Date of Service Date of Service: 01/15/23
--- NOTE | 2023-01-15 14:41 | PM.PNNEP ---
Subjective Subjective Date of Service: 01/15/23 Interval history: Sleepy Physical Exam Vital Signs: Vital Signs: Last Vital Signs Temp 98.7 F 01/15/23 11:12 Pulse 84 01/15/23 11:30 Resp 18 01/15/23 11:30 BP 145/56 H 01/15/23 11:12 Pulse Ox 94 01/15/23 11:12 O2 Del Method Room Air 01/15/23 11:12 O2 Flow Rate 2 01/14/23 20:00 BMI result Body Mass Index 34.6 Const: General: comfortable and no acute distress Orientation/consciousness: patient oriented x3 HEENT: Other: Unremarkable Head: Yes normal to inspection Neck: Neck: Yes normal visual inspection Chest: Chest palpation & inspection: normal inspection of the chest Resp: Auscultation: crackles, rhonchi and diminished lung sounds Cardio: Palpation: normal PMI Heart sounds: S1 normal heart sound present, S2 normal heart sound present, no gallops, no murmurs and no rubs GI: Palpation (GI): Soft to palpation Back/Spine/Pelvis: Other: unremarkable Skin: General skin exam: no rashes or lesions noted Neuro: General: patient oriented x3 Extrem: General: Yes normal to inspection Psych: Mental Status: mental status grossly normal Objective Data Labs 01/15/23 06:33 01/15/23 06:33 Labs: Laboratory Results - last 24 hr 01/14/23 01/14/23 01/14/23 13:56 15:53 20:23 WBC RBC Hgb Hct MCV MCH MCHC RDW Plt Count MPV Immature Gran % (Auto) Neut % (Auto) Lymph % (Auto) [place] % (Auto) Eos % (Auto) Baso % (Auto) Lymph # (Auto) [place] # (Auto) Eos # (Auto) Baso # (Auto) Abs Immat Gran (auto) Absolute Neuts (auto) Absolute Nucleated RBC Nucleated RBC % (auto) Sodium Potassium Chloride Carbon Dioxide Anion Gap BUN Creatinine Estim Creat Clear Calc Estimated GFR POC Glucose 103 101 Random Glucose Calcium Troponin I High Sens 69.4 H* 01/15/23 01/15/23 01/15/23 06:33 06:33 07:21 WBC 7.2 RBC 2.50 L Hgb 8.4 L Hct 26.5 L MCV 106.0 H MCH 33.6 H MCHC 31.7 RDW 16.7 H Plt Count 189 MPV 10.0 Immature Gran % (Auto) 0.7 H Neut % (Auto) 75.4 H Lymph % (Auto) 7.3 L [place] % (Auto) 8.2 Eos % (Auto) 8.0 H Baso % (Auto) 0.4 Lymph # (Auto) 0.5 L [place] # (Auto) 0.6 Eos # (Auto) 0.6 H Baso # (Auto) 0.0 Abs Immat Gran (auto) 0.05 H Absolute Neuts (auto) 5.5 Absolute Nucleated RBC 0.000 Nucleated RBC % (auto) 0.0 Sodium 138 Potassium 4.0 Chloride 99 Carbon Dioxide 25 Anion Gap 18 BUN 17 H Creatinine 4.61 H* Estim Creat Clear Calc 9.2 Estimated GFR 9 POC Glucose 85 Random Glucose 87 Calcium 9.3 D Troponin I High Sens 01/15/23 11:14 WBC RBC Hgb Hct MCV MCH MCHC RDW Plt Count MPV Immature Gran % (Auto) Neut % (Auto) Lymph % (Auto) [place] % (Auto) Eos % (Auto) Baso % (Auto) Lymph # (Auto) [place] # (Auto) Eos # (Auto) Baso # (Auto) Abs Immat Gran (auto) Absolute Neuts (auto) Absolute Nucleated RBC Nucleated RBC % (auto) Sodium Potassium Chloride Carbon Dioxide Anion Gap BUN Creatinine Estim Creat Clear Calc Estimated GFR POC Glucose 126 H Random Glucose Calcium Troponin I High Sens Microbiology Microbiology Results: Microbiology 01/14/23 Unknown Urine clean catch - Urine che top Urine Culture - Preliminary Culture in progress. 01/14/23 09:32 Blood - Venous Blood Culture - Preliminary No growth after 24 hours. 01/14/23 06:34 Blood - Venous Blood Culture - Preliminary No growth after 24 hours. Procedures Date of Service Date of Service: 01/15/23 Assessment & Plan Assessment and plan (1) ESRD on dialysis: Status: Acute Assessment and Plan: stable treatment yesterday next rx (2) Urinary tract infection: Status: Acute (3) Pneumonia: Status: Acute (4) Encephalopathy acute: Status: Acute (5) COVID-19: Status: Acute (6) Bacteremia: Status: Acute Plan 1. ESRD: TTS 2. ID Antibiotics as per medical team 3. ANemia ad MBD of ESRD: meds as noted REC: cont HD today and TTS; ABx as noted Low Na diet Fluid removal as tolerated K Per Protocal Time Spent With Patient Time: Total time managing care of this patient today ____ minutes. Progress Note: Quality Stroke Does the patient have a stroke diagnosis?: No
--- NOTE | 2023-01-15 15:20 | MHC.CM.PN ---
Addendum entered by Jordana James 01/15/23 15:22: COPY OF IMM EMAILED TO NAJMA AT [email or web address] Original Note: CM CALLED PTS GRAND DAUGHTER/HCP, NAJMA BRISCOEFranco [phone] SHE CONFIRMS THE PT IS A LTC RESIDENT OF [facility] SHE SAYS THE PT USES A WALKER AND W/C AT BASELINE HCP ON FILE PCP: ISABEL KILLIAN IMM DELIVERED DCP: RETURN TO [facility] VIA S
[2023-01-16] VITALS (8 sets, daily range): BP systolic 133–144; BP diastolic 57–67; PULSE 63–80; RESP 16–20; TEMP 36.4–36.8; O2SAT 94–99
--- NOTE | 2023-01-16 09:08 | HO.PM.IMPN ---
Subjective Subjective Date of Service: 01/16/23 Review of Systems Follow up UTI, PNA mental status better feeling better coughing, no pain Physical Exam Vital Signs: Vital Signs: Last Vital Signs Temp 98.0 F 01/16/23 08:00 Pulse 80 01/16/23 08:49 Resp 16 01/16/23 08:49 BP 139/60 01/16/23 08:00 Pulse Ox 96 01/16/23 08:00 O2 Del Method Room Air 01/16/23 08:00 O2 Flow Rate 2 01/14/23 20:00 BMI result Body Mass Index 34.6 Appearing in no acute distress lung sounds rhonchi heart regular rate rhythm, clear S1, S2 positive bowel sounds, abdomen is soft, nontender neuro patient is alert x3, no focal deficits Objective Data Active Medications Acetaminophen (Acetaminophen 325 Mg Tablet) 650 mg PO Q6H PRN PRN Reason: Pain, Mild (Pain Scale 1-3) Acetaminophen (Acetaminophen 325 Mg Tablet) 650 mg PO TID [facility] Last Admin: 01/16/23 08:28 Dose: 650 mg Documented By: ANYI Albuterol Sulfate (Albuterol Sulfate (0.042%) 1.25 Mg/3 Ml Vial.Neb) 1.25 mg INHALE Q4H PRN PRN Reason: Wheezing Last Admin: 01/14/23 15:45 Dose: 1.25 mg Documented By: VIGNESH Albuterol/Ipratropium (Albuterol/Iprat 2.5/0.5mg 3 Ml Ampul.Neb) 3 ml INHALE RQ4H WHILE AWAKE [facility] Last Admin: 01/16/23 08:46 Dose: 3 ml Documented By: MEGAN Bisacodyl (Bisacodyl 10 Mg Supp.Rect) 10 mg AL DAILY PRN PRN Reason: Constipation Dextrose (Dextrose 50 % 25 Gm/50 Ml Syringe) 25 gm IVPUSH Q15M PRN; Protocol PRN Reason: per Hypoglycemia Standing Ord. Ferrous Sulfate (Ferrous Sulfate 324 Mg Tablet.) 324 mg PO BID [facility] Last Admin: 01/16/23 08:28 Dose: 324 mg Documented By: ANYI Glucose (Glucose Gel 15 Gm Gel..Gram.) 15 gm PO Q15M PRN; Protocol PRN Reason: per Hypoglycemia Standing Ord. Piperacillin Sod/Tazobactam (Sod 2.25 gm/ Sodium Chloride) 50 mls @ 100 mls/hr IV Q8H [facility] Last Infusion: 01/16/23 02:16 Dose: 0 mls/hr Documented By: SHAHRZAD Insulin Glargine (Insulin Glargine,Hum.Rec.Anlog 100 Unit/Ml 10 Ml Vial) 12 unit SUBCUT BEDTIME [facility] Last Admin: 01/15/23 21:33 Dose: 12 unit Documented By: SHAHRZAD Insulin Human Lispro (Insulin Lispro 100 Unit/Ml 3 Ml Vial) 0 unit SUBCUT QIDACHS [facility]; Protocol Last Admin: 01/16/23 08:31 Dose: Not Given Documented By: ANYI Non-Admin Reason: No Insulin Coverage Latanoprost (Latanoprost 0.005 % Ophth Linda 2.5 Ml Drops) 1 drop EYE-BOTH BEDTIME [facility] Last Admin: 01/15/23 21:41 Dose: Not Given Documented By: SHAHRZAD Non-Admin Reason: Med Not Available Levothyroxine Sodium (Levothyroxine Sodium 88 Mcg Tablet) 88 mcg PO DAILY@0600 [facility] Last Admin: 01/16/23 05:40 Dose: 88 mcg Documented By: SHAHRZAD Melatonin (Melatonin 3 Mg Tablet) 6 mg PO BEDTIME [facility] Last Admin: 01/15/23 21:33 Dose: 6 mg Documented By: SHAHRZAD Methylprednisolone Sodium Succinate (Methylprednisolone Sod Succ 40 Mg/Ml Vial) 40 mg IVPUSH Q12H [facility] Last Admin: 01/16/23 08:27 Dose: 40 mg Documented By: ANYI Metoprolol Tartrate (Metoprolol Tartrate 25 Mg Tablet) 25 mg PO BID [facility]; Protocol Last Admin: 01/16/23 08:28 Dose: 25 mg Documented By: ANYI Midodrine (Midodrine Hcl 2.5 Mg Tablet) 2.5 mg PO TuThSa@1000 [facility] Last Admin: 01/14/23 20:48 Dose: Not Given Documented By: XIOMARA Non-Admin Reason: Off unit: Dialysis Nitroglycerin (Nitroglycerin 0.4 Mg Tab.Subl) 0.4 mg SUBLINGUAL Q5M PRN PRN Reason: Chest Pain Ondansetron HCl (Ondansetron Hcl 4 Mg/2 Ml Vial) 4 mg IVPUSH Q8H PRN PRN Reason: Nausea and Vomiting Oxycodone HCl (Oxycodone Hcl Immed Release 5 Mg Tablet) 10 mg PO TID [facility] Last Admin: 01/16/23 08:27 Dose: 10 mg Documented By: ANYI Pharmacy Consult (Consult Rx Perform Med Rec) 1 each MISCELLANE ONCE PRN PRN Reason: Consult order Senna (Sennosides 8.6 Mg Tablet) 8.6 mg PO BEDTIME PRN PRN Reason: Constipation Sertraline HCl (Sertraline Hcl 50 Mg Tablet) 50 mg PO DAILY [facility] Last Admin: 01/16/23 08:28 Dose: 50 mg Documented By: ANYI Sodium Chloride (0.9 % Sodium Chloride Flush 3 Ml Syringe) 3 ml IVFLUSH QSHIFT [facility] Last Admin: 01/16/23 08:29 Dose: 3 ml Documented By: ANYI Labs 01/15/23 06:33 01/15/23 06:33 Labs: Laboratory Results - last 24 hr 01/15/23 01/15/23 01/15/23 11:14 15:27 19:01 POC Glucose 126 H 189 H 212 H 01/16/23 07:46 POC Glucose 106 Microbiology Microbiology Results: Microbiology 01/14/23 Unknown Urine Culture - Preliminary Urine clean catch - Urine che top Proteus mirabilis Gram positive cocci 01/14/23 06:34 Blood Culture - Preliminary Blood - Venous No growth after 48 hours. 01/14/23 09:32 Blood Culture - Preliminary Blood - Venous No growth after 24 hours. Assessment and Plan (1) Encephalopathy acute: Status: Acute (2) COVID-19: Status: Acute (3) ESRD on dialysis: Status: Acute (4) Bacteremia: Status: Acute Plan 82 year old women admitted with UTI and possible early diverticulitis Demand ischemia no chest pain hx of ESRD and acute infection elevated troponin at 29.3, 58.9, 69.4 cardiology consult>rec Echo, pending monitor on tele Hypertension Likely secondary to renal disease Takes midodrine before dialysis s/p albumin x2 Possible early diverticulitis no diarrhea or bloody stool zosyn monitor for worsening symptoms GI consult Proteus mirabilis and GPC UTI continue zozyn ID consult pending ESRD dialysis TTS nephrology consult>initiate dialysis , low na diet macrocytic anemia Stable follow DM2 with hypoglycemia ss, ada diet monitor bs closely DVT prophylaxis with heparin Attending Dr. Mccormick Full code continued treatment demand ischemia UTI possible early diverticulitis requiring close monitoring and IV medication Time Spent With Patient Time: Total time managing care of this patient today ____ minutes. Quality Stroke Does the patient have a stroke diagnosis?: No VTE Prior VTE?: No VTE Risk Level:: Medical - moderate - high VTE Device Contraindication: N/A - Device Ordered VTE Drug Contraindication: Treatment Not Indicated
--- NOTE | 2023-01-16 11:11 | PM.PNCARD ---
Subjective Subjective Date of Service: 01/16/23 Principal diagnosis: Elevated troponins Interval history: Patient does not offer any cardiac complaints. Has cough productive of phlegm. Denies any chest pain. No arrhythmias noted. Review of Systems Review of Systems Yes Unobtainable due to mental condition Physical Exam Vital Signs: Last Vital Signs Temp 98.0 F 01/16/23 08:00 Pulse 80 01/16/23 10:53 Resp 18 01/16/23 10:53 BP 139/60 01/16/23 08:00 Pulse Ox 96 01/16/23 08:00 O2 Del Method Room Air 01/16/23 08:00 O2 Flow Rate 2 01/14/23 20:00 BMI result Body Mass Index 34.6 Const General: comfortable and no acute distress Orientation/consciousness: patient oriented x3 HEENT Other: Unremarkable Head: Yes normal to inspection Neck Neck: Yes normal visual inspection Chest Chest palpation & inspection: normal inspection of the chest Resp Auscultation: crackles bilateral at the base, rhonchi and diminished lung sounds Cardio Palpation: normal PMI Heart sounds: S1 normal heart sound present, S2 normal heart sound present, no gallops, no murmurs and no rubs GI Palpation (GI): Soft to palpation Back/Spine/Pelvis Other: unremarkable Skin General skin exam: no rashes or lesions noted Neuro General: patient oriented x3 Extrem General: Yes normal to inspection Psych Mental Status: mental status grossly normal Objective Labs and Meds 01/15/23 06:33 01/15/23 06:33 Lab results: Laboratory Results - last 24 hr 01/15/23 01/15/23 01/15/23 11:14 15:27 19:01 POC Glucose 126 H 189 H 212 H 01/16/23 07:46 POC Glucose 106 Progress Note: A&P Assessment and plan (1) NSTEMI (non-ST elevated myocardial infarction): Status: Acute Assessment and Plan: NSTEMI in this elderly woman with multiple risk factors coronary artery disease in setting of acute medical illness, most likely suggestive secondary myocardial infarction related to demand. Continue supportive care and treatment of underlying medical condition. Low-dose aspirin therapy and high-intensity statin therapy should consider. Can use metoprolol therapy to reduce demand ischemia. Continue to provide supportive care for atelectasis with incentive spirometry and possible chest physical therapy. Out of bed to chair. Echocardiogram shows normal LV systolic function with no significant regional wall motion abnormality. Can consider outpatient myocardial perfusion imaging if clinically relevant. Will sign of the case at this point time. Thank you for allowing me to partake in her care Time Spent With Patient Time: Total time managing care of this patient today ____ minutes. Progress Note: Quality Stroke Does the patient have a stroke diagnosis?: No Procedures Date of Service Date of Service: 01/16/23
--- NOTE | 2023-01-16 11:21 | PM.GICN ---
History of Present Illness Data of Consult Service Date: 01/16/23 Requesting physician: Brii Somers Primary Care Provider: James Briones MD HPI Reason for consult: Diverticulitis THis is an 82y.o F with PMH of ESRD, HTN, hypothyroidism who is currently admitted to the hospital for CAP and feeling unwell. Gastroenterology has been consulted for ? early diverticulitis. Pt was seen at bedside whilst she was eating lunch without any difficulty. Reports feeling unwell for a week with cough and shortness of breath. Reports abdominal pain however says its not new and gets intermittent abd cramping kennedy with constipation x many years. Does not think it has gotten worse recently. Tolerating diet okay. Reports having a colonoscopy many years ago - does not remember findings but was told does not need another colonoscopy (assuming likely had it around 75y of age). Review of Systems Review of Systems: Yes all other systems are reviewed and are negative PMFSH Past Medical History Medical History Anemia Anxiety Diabetes mellitus Diverticulosis ESRD on dialysis GERD (gastroesophageal reflux disease) HTN (hypertension) Hypertension Hypothyroidism Kidney disease Pulmonary embolus Social History Social History Household Members: None Housing: Assisted Living Facility Do you presently have visiting nurse or other home services: No Unable to assess alcohol history related to: Unknown Alcohol intake: never Patient Tobacco Use Status: Never used Tobacco Use of substances other than those prescribed or required for medical reasons: No Currently Displaying Signs/Symptoms of Drug Intoxication Withdrawal: No Have you been hit, kicked, punched, or otherwise hurt by someone within the past year? If so, by whom?: No Do you feel safe in your current relationship?: No Is there a partner from a previous relationship who is making you feel unsafe now?: No Are you made to feel afraid or neglected: No Advance Directives: Yes Advance Directives on File: Yes Advance Directives Date on File: 02/10/21 Do you have thoughts of harming others: None Do you have a plan to hurt others: No Plan Patient : No : No Poor oral hygiene: No service: No Current occupational status: retired Meds Allergies Allergy/AdvReac Type Severity Reaction Status Date / Time Sulfa (Sulfonamide Allergy Unknown RASH Verified 05/03/22 19:57 Antibiotics) Active Medications: Current Medications Acetaminophen (Acetaminophen 325 Mg Tablet) 650 mg PO Q6H PRN PRN Reason: Pain, Mild (Pain Scale 1-3) Acetaminophen (Acetaminophen 325 Mg Tablet) 650 mg PO TID [facility] Last Admin: 01/16/23 08:28 Dose: 650 mg Albuterol Sulfate (Albuterol Sulfate (0.042%) 1.25 Mg/3 Ml Vial.Neb) 1.25 mg INHALE Q4H PRN PRN Reason: Wheezing Last Admin: 01/14/23 15:45 Dose: 1.25 mg Albuterol/Ipratropium (Albuterol/Iprat 2.5/0.5mg 3 Ml Ampul.Neb) 3 ml INHALE RQ4H WHILE AWAKE [facility] Last Admin: 01/16/23 10:47 Dose: 3 ml Bisacodyl (Bisacodyl 10 Mg Supp.Rect) 10 mg MN DAILY PRN PRN Reason: Constipation Dextrose (Dextrose 50 % 25 Gm/50 Ml Syringe) 25 gm IVPUSH Q15M PRN; Protocol PRN Reason: per Hypoglycemia Standing Ord. Ferrous Sulfate (Ferrous Sulfate 324 Mg Tablet.Dr) 324 mg PO BID [facility] Last Admin: 01/16/23 08:28 Dose: 324 mg Glucose (Glucose Gel 15 Gm Gel..Gram.) 15 gm PO Q15M PRN; Protocol PRN Reason: per Hypoglycemia Standing Ord. Piperacillin Sod/Tazobactam (Sod 2.25 gm/ Sodium Chloride) 50 mls @ 100 mls/hr IV Q8H [facility] Last Infusion: 01/16/23 10:39 Dose: Infused Insulin Glargine (Insulin Glargine,Hum.Rec.Anlog 100 Unit/Ml 10 Ml Vial) 12 unit SUBCUT BEDTIME [facility] Last Admin: 01/15/23 21:33 Dose: 12 unit Insulin Human Lispro (Insulin Lispro 100 Unit/Ml 3 Ml Vial) 0 unit SUBCUT QIDACHS [facility]; Protocol Last Admin: 01/16/23 08:31 Dose: Not Given Latanoprost (Latanoprost 0.005 % Ophth Linda 2.5 Ml Drops) 1 drop EYE-BOTH BEDTIME [facility] Last Admin: 01/15/23 21:41 Dose: Not Given Levothyroxine Sodium (Levothyroxine Sodium 88 Mcg Tablet) 88 mcg PO DAILY@0600 [facility] Last Admin: 01/16/23 05:40 Dose: 88 mcg Melatonin (Melatonin 3 Mg Tablet) 6 mg PO BEDTIME [facility] Last Admin: 01/15/23 21:33 Dose: 6 mg Methylprednisolone Sodium Succinate (Methylprednisolone Sod Succ 40 Mg/Ml Vial) 40 mg IVPUSH Q12H [facility] Last Admin: 01/16/23 08:27 Dose: 40 mg Metoprolol Tartrate (Metoprolol Tartrate 25 Mg Tablet) 25 mg PO BID [facility]; Protocol Last Admin: 01/16/23 08:28 Dose: 25 mg Midodrine (Midodrine Hcl 2.5 Mg Tablet) 2.5 mg PO TuThSa@1000 [facility] Last Admin: 01/14/23 20:48 Dose: Not Given Nitroglycerin (Nitroglycerin 0.4 Mg Tab.Subl) 0.4 mg SUBLINGUAL Q5M PRN PRN Reason: Chest Pain Ondansetron HCl (Ondansetron Hcl 4 Mg/2 Ml Vial) 4 mg IVPUSH Q8H PRN PRN Reason: Nausea and Vomiting Oxycodone HCl (Oxycodone Hcl Immed Release 5 Mg Tablet) 10 mg PO TID [facility] Last Admin: 01/16/23 08:27 Dose: 10 mg Pharmacy Consult (Consult Rx Perform Med Rec) 1 each MISCELLANE ONCE PRN PRN Reason: Consult order Senna (Sennosides 8.6 Mg Tablet) 8.6 mg PO BEDTIME PRN PRN Reason: Constipation Sertraline HCl (Sertraline Hcl 50 Mg Tablet) 50 mg PO DAILY [facility] Last Admin: 01/16/23 08:28 Dose: 50 mg Sodium Chloride (0.9 % Sodium Chloride Flush 3 Ml Syringe) 3 ml IVFLUSH QSHIFT [facility] Last Admin: 01/16/23 08:29 Dose: 3 ml Home Medications Medication Instructions Recorded Confirmed Last Taken Type acetaminophen 325 mg tablet 650 mg PO TID 02/10/21 01/14/23 Unknown History insulin NPH isoph U-100 human 100 16 unit subcut BEDTIME 02/10/21 01/14/23 Unknown History unit/mL subcutaneous suspension (Novolin N NPH U-100 Insulin isophane) levothyroxine 88 mcg tablet 1 tab PO DAILY@0600 02/10/21 01/14/23 Unknown History metoprolol tartrate 25 mg tablet 1 tab PO BID 02/10/21 01/14/23 Unknown History ondansetron 4 mg disintegrating 4 mg PO Q6H PRN Nausea And Vomiting 02/10/21 01/14/23 Unknown History tablet oxycodone 10 mg tablet 1 tab PO Q12H PRN pain 02/10/21 01/14/23 Unknown History sertraline 50 mg tablet 1 tab PO DAILY 02/10/21 01/14/23 Unknown History bisacodyl 10 mg rectal suppository 10 mg MN DAILY PRN Constipation 05/03/22 01/14/23 Unknown History ferrous fumarate 325 mg (106 mg 325 mg PO BID 05/03/22 01/14/23 Unknown History iron) tablet latanoprost 0.005 % eye drops 1 drp ophthalmic (eye) BEDTIME 05/03/22 01/14/23 Unknown History melatonin 3 mg tablet 6 mg PO BEDTIME 05/03/22 01/14/23 Unknown History midodrine 2.5 mg tablet 1 tab PO TUTHSA 05/03/22 01/14/23 Unknown History nitroglycerin 0.4 mg sublingual 0.4 mg sublingual Q5M PRN Chest 05/03/22 01/14/23 Unknown History tablet Pain nystatin 100,000 unit/gram topical 1 appl topical BID 05/03/22 01/14/23 Unknown History powder sennosides 8.6 mg tablet (senna) 8.6 mg PO BEDTIME PRN Constipation 05/03/22 01/14/23 Unknown History albuterol sulfate 1.25 mg/3 mL 1.25 mg inhalation Q4H PRN Wheezing 01/14/23 01/14/23 Unknown History solution for nebulization lidocaine 3 % topical cream 1 appl topical TUTHSA 01/14/23 01/14/23 Unknown History oxycodone 10 mg tablet 10 mg PO TID 01/14/23 01/14/23 Unknown History Physical Exam Vital Signs: Vital Signs: Last Vital Signs Temp 98.0 F 01/16/23 08:00 Pulse 80 01/16/23 10:53 Resp 18 01/16/23 10:53 BP 139/60 01/16/23 08:00 Pulse Ox 96 01/16/23 08:00 O2 Del Method Room Air 01/16/23 08:00 O2 Flow Rate 2 01/14/23 20:00 BMI result Body Mass Index 34.6 Gen appear: NAD, nontoxic appearing HEENT: nonicteric, no cervical lymphadenopathy Chest: Diffuse ronchi bilaterally and decreased breath sounds on R base CVS: Regular S1/S2 Abd: soft, nontender, nondistended, bowel sounds + Ext: no peripheral edema Neuro: A/Ox2, noted to move all extremities spontaneously Results Labs 01/15/23 06:33 01/15/23 06:33 Microbiology Microbiology Results: Microbiology 01/14/23 Unknown Urine clean catch - Urine che top Urine Culture - Preliminary Proteus mirabilis Gram positive cocci 01/14/23 06:34 Blood - Venous Blood Culture - Preliminary No growth after 48 hours. 01/14/23 09:32 Blood - Venous Blood Culture - Preliminary No growth after 24 hours. Assessment and Plan (1) ESRD on dialysis: Status: Acute (2) NSTEMI (non-ST elevated myocardial infarction): Status: Acute (3) Pneumonia: Status: Acute (4) Urinary tract infection: Status: Acute (5) Diverticulosis large intestine w/o perforation or abscess w/bleeding: Status: Acute Plan Unclear if findings noted on non-con CT reflect true diverticulitis kennedy in the absence of any correlating signs and symptoms clinically. In any case, if sx do evolve or she notices worsening localised RLQ abd cramping than her baseline can consider an interval scope. I also reviewed that she has severe anemia and while it could be secondary to ESRD, warrants further evaluation. At the time of my assessment pt was quite hesitant to pursue any further testing but agreed to further discussion in office. This was also reviewed with the hospitalist. Thank you for the consultation. Please do not hesitate to reach out for any questions or concerns. Time Spent With Patient Time: Total time managing care of this patient today ____ minutes. Procedures Date of Service Date of Service: 01/16/23
--- NOTE | 2023-01-16 14:18 | W.PM.IDCN ---
History of Present Illness Data of Consult Service Date: 01/16/23 Requesting physician: Brii Somers Primary Care Provider: James Briones MD HPI Reason for consult: sepsis concerns,urine She presents from [facility] via EMS due to fever as well as cough and shortness of breath then. She has some dysuria and urine proteus 50,000 to 100,000 as well. She gets HD Monday, and Monday due to ESRD. She has left arm fistula working well. Review of Systems Review of Systems: Yes all other systems are reviewed and are negative Genitourinary: Genitourinary: Reports difficulty voiding PMFSH Past Medical History Medical History Anemia Anxiety Diabetes mellitus Diverticulosis ESRD on dialysis GERD (gastroesophageal reflux disease) HTN (hypertension) Hypertension Hypothyroidism Kidney disease Pulmonary embolus Family History Family history: reviewed and not pertinent Social History Social History Household Members: None Housing: Assisted Living Facility Do you presently have visiting nurse or other home services: No Unable to assess alcohol history related to: Unknown Alcohol intake: never Patient Tobacco Use Status: Never used Tobacco Use of substances other than those prescribed or required for medical reasons: No Currently Displaying Signs/Symptoms of Drug Intoxication Withdrawal: No Have you been hit, kicked, punched, or otherwise hurt by someone within the past year? If so, by whom?: No Do you feel safe in your current relationship?: No Is there a partner from a previous relationship who is making you feel unsafe now?: No Are you made to feel afraid or neglected: No Advance Directives: Yes Advance Directives on File: Yes Advance Directives Date on File: 02/10/21 Do you have thoughts of harming others: None Do you have a plan to hurt others: No Plan Patient : No : No Poor oral hygiene: No service: No Current occupational status: retired Meds Allergies Allergy/AdvReac Type Severity Reaction Status Date / Time Sulfa (Sulfonamide Allergy Unknown RASH Verified 05/03/22 19:57 Antibiotics) Active Medications: Current Medications Acetaminophen (Acetaminophen 325 Mg Tablet) 650 mg PO Q6H PRN PRN Reason: Pain, Mild (Pain Scale 1-3) Acetaminophen (Acetaminophen 325 Mg Tablet) 650 mg PO TID [facility] Last Admin: 01/16/23 13:57 Dose: 650 mg Albuterol Sulfate (Albuterol Sulfate (0.042%) 1.25 Mg/3 Ml Vial.Neb) 1.25 mg INHALE Q4H PRN PRN Reason: Wheezing Last Admin: 01/14/23 15:45 Dose: 1.25 mg Albuterol/Ipratropium (Albuterol/Iprat 2.5/0.5mg 3 Ml Ampul.Neb) 3 ml INHALE RQ4H WHILE AWAKE [facility] Last Admin: 01/16/23 10:47 Dose: 3 ml Bisacodyl (Bisacodyl 10 Mg Supp.Rect) 10 mg TX DAILY PRN PRN Reason: Constipation Dextrose (Dextrose 50 % 25 Gm/50 Ml Syringe) 25 gm IVPUSH Q15M PRN; Protocol PRN Reason: per Hypoglycemia Standing Ord. Ferrous Sulfate (Ferrous Sulfate 324 Mg Tablet.) 324 mg PO BID [facility] Last Admin: 01/16/23 08:28 Dose: 324 mg Glucose (Glucose Gel 15 Gm Gel..Gram.) 15 gm PO Q15M PRN; Protocol PRN Reason: per Hypoglycemia Standing Ord. Piperacillin Sod/Tazobactam (Sod 2.25 gm/ Sodium Chloride) 50 mls @ 100 mls/hr IV Q8H [facility] Last Infusion: 01/16/23 10:39 Dose: Infused Insulin Glargine (Insulin Glargine,Hum.Rec.Anlog 100 Unit/Ml 10 Ml Vial) 12 unit SUBCUT BEDTIME [facility] Last Admin: 01/15/23 21:33 Dose: 12 unit Insulin Human Lispro (Insulin Lispro 100 Unit/Ml 3 Ml Vial) 0 unit SUBCUT QIDACHS [facility]; Protocol Last Admin: 01/16/23 11:39 Dose: Not Given Latanoprost (Latanoprost 0.005 % Ophth Linda 2.5 Ml Drops) 1 drop EYE-BOTH BEDTIME [facility] Last Admin: 01/15/23 21:41 Dose: Not Given Levothyroxine Sodium (Levothyroxine Sodium 88 Mcg Tablet) 88 mcg PO DAILY@0600 [facility] Last Admin: 01/16/23 05:40 Dose: 88 mcg Melatonin (Melatonin 3 Mg Tablet) 6 mg PO BEDTIME [facility] Last Admin: 01/15/23 21:33 Dose: 6 mg Methylprednisolone Sodium Succinate (Methylprednisolone Sod Succ 40 Mg/Ml Vial) 40 mg IVPUSH Q12H [facility] Last Admin: 01/16/23 08:27 Dose: 40 mg Metoprolol Tartrate (Metoprolol Tartrate 25 Mg Tablet) 25 mg PO BID [facility]; Protocol Last Admin: 01/16/23 08:28 Dose: 25 mg Midodrine (Midodrine Hcl 2.5 Mg Tablet) 2.5 mg PO TuThSa@1000 [facility] Last Admin: 01/14/23 20:48 Dose: Not Given Nitroglycerin (Nitroglycerin 0.4 Mg Tab.Subl) 0.4 mg SUBLINGUAL Q5M PRN PRN Reason: Chest Pain Ondansetron HCl (Ondansetron Hcl 4 Mg/2 Ml Vial) 4 mg IVPUSH Q8H PRN PRN Reason: Nausea and Vomiting Oxycodone HCl (Oxycodone Hcl Immed Release 5 Mg Tablet) 10 mg PO TID [facility] Last Admin: 01/16/23 13:57 Dose: 10 mg Pharmacy Consult (Consult Rx Perform Med Rec) 1 each MISCELLANE ONCE PRN PRN Reason: Consult order Senna (Sennosides 8.6 Mg Tablet) 8.6 mg PO BEDTIME PRN PRN Reason: Constipation Sertraline HCl (Sertraline Hcl 50 Mg Tablet) 50 mg PO DAILY [facility] Last Admin: 01/16/23 08:28 Dose: 50 mg Sodium Chloride (0.9 % Sodium Chloride Flush 3 Ml Syringe) 3 ml IVFLUSH QSHIFT [facility] Last Admin: 01/16/23 08:29 Dose: 3 ml Home Medications Medication Instructions Recorded Confirmed Last Taken Type acetaminophen 325 mg tablet 650 mg PO TID 02/10/21 01/14/23 Unknown History insulin NPH isoph U-100 human 100 16 unit subcut BEDTIME 02/10/21 01/14/23 Unknown History unit/mL subcutaneous suspension (Novolin N NPH U-100 Insulin isophane) levothyroxine 88 mcg tablet 1 tab PO DAILY@0600 02/10/21 01/14/23 Unknown History metoprolol tartrate 25 mg tablet 1 tab PO BID 02/10/21 01/14/23 Unknown History ondansetron 4 mg disintegrating 4 mg PO Q6H PRN Nausea And Vomiting 02/10/21 01/14/23 Unknown History tablet oxycodone 10 mg tablet 1 tab PO Q12H PRN pain 02/10/21 01/14/23 Unknown History sertraline 50 mg tablet 1 tab PO DAILY 02/10/21 01/14/23 Unknown History bisacodyl 10 mg rectal suppository 10 mg TX DAILY PRN Constipation 05/03/22 01/14/23 Unknown History ferrous fumarate 325 mg (106 mg 325 mg PO BID 05/03/22 01/14/23 Unknown History iron) tablet latanoprost 0.005 % eye drops 1 drp ophthalmic (eye) BEDTIME 05/03/22 01/14/23 Unknown History melatonin 3 mg tablet 6 mg PO BEDTIME 05/03/22 01/14/23 Unknown History midodrine 2.5 mg tablet 1 tab PO TUTHSA 05/03/22 01/14/23 Unknown History nitroglycerin 0.4 mg sublingual 0.4 mg sublingual Q5M PRN Chest 05/03/22 01/14/23 Unknown History tablet Pain nystatin 100,000 unit/gram topical 1 appl topical BID 05/03/22 01/14/23 Unknown History powder sennosides 8.6 mg tablet (senna) 8.6 mg PO BEDTIME PRN Constipation 05/03/22 01/14/23 Unknown History albuterol sulfate 1.25 mg/3 mL 1.25 mg inhalation Q4H PRN Wheezing 01/14/23 01/14/23 Unknown History solution for nebulization lidocaine 3 % topical cream 1 appl topical TUTHSA 01/14/23 01/14/23 Unknown History oxycodone 10 mg tablet 10 mg PO TID 01/14/23 01/14/23 Unknown History Physical Exam Vital Signs: Vital Signs: Last Vital Signs Temp 98.1 F 01/16/23 11:30 Pulse 72 01/16/23 11:30 Resp 20 01/16/23 11:30 BP 144/67 H 01/16/23 11:30 Pulse Ox 96 01/16/23 11:30 O2 Del Method Room Air 01/16/23 11:30 O2 Flow Rate 2 01/14/23 20:00 BMI result Body Mass Index 34.6 Const: General: cooperative HEENT: Head: Yes normal to inspection Face and sinus: Yes normal facial exam Mouth: Normal oral and palatal mucosa present Teeth and gingiva: dentition normal Eyes: General: appearance normal, both eyes and all related structures Pupils: Equal, round and reactive pupils present Resp: Effort & Inspection: normal respiratory effort Cardio: Rate: regular rate Rhythm: regular rhythm GI: Palpation (GI): Soft to palpation and nontender : General: Yes no CVA tenderness Back/Spine/Pelvis: Back: no CVA tenderness Skin: General skin exam: no rashes or lesions noted Neuro: General: moves all extremities Cranial nerves: Yes Equal, round and reactive pupils present Extrem: Other: left arm fistula thrill General: Yes normal to inspection Psych: Appearance: grossly normal Results Labs 01/15/23 06:33 01/15/23 06:33 Microbiology Microbiology Results: Microbiology 01/14/23 09:32 Blood - Venous Blood Culture - Preliminary No growth after 48 hours. 01/14/23 Unknown Urine clean catch - Urine che top Urine Culture - Preliminary Proteus mirabilis Gram positive cocci 01/14/23 06:34 Blood - Venous Blood Culture - Preliminary No growth after 48 hours. Assessment and Plan (1) ESRD on dialysis: Status: Acute (2) Urinary tract infection: Status: Acute She has proteus likely causing infection. Gram positive cocci is very low number so not likely infection. She has no bacteremia Plan Since it is sensitive and has good penetration into bladder would give Levaquin renally dose adjusted for dialysis for 10 day total. Time Spent With Patient Time: Total time managing care of this patient today ____ minutes.
--- NOTE | 2023-01-16 14:44 | MHC.CM.PN ---
Patient has been medically cleared for dc to return to LTC today. Patient will return to LTC @ [facility] today at 4PM via [facility]. CM spoke with Granddaughter/HCP/Amy at [phone] who has been made aware of the dc plan. Last IMM addressed yesterday.
--- NOTE | 2023-01-16 15:01 | P.DS_ITS ---
DS: Providers Provider Date of Service: 01/16/23 Date of admission: 01/14/23 12:45 Primary care physician: James Briones MD Consults: 01/14/23 12:46 Consult to Cardiology Routine Consulting Provider: [facility] Cardiovascular Services Reason for consultation: demand ischemia Consult to Nephrology Routine Consulting Provider: Kendell Boudreaux Reason for consultation: ESRD 01/15/23 10:56 Consult to Gastroenterology Routine Consulting Provider: Danna Mendoza Reason for consultation: ? diverticultis 01/16/23 09:15 Consult to Infectious Diseases Routine Consulting Provider: [facility] Infectious Disease Reason for consultation: Proteus, GPC uti DS: Diagnosis Discharge Diagnosis (1) ESRD on dialysis: Status: Acute (2) Urinary tract infection: Status: Acute DS: Summary Hospital Course Hospital Course: 82-year-old woman presenting from a to alf facility with reports of feeling unwell fortunately patient is confused and unable to give any accurate information stating that she thought she was at [facility]?.? She reported a cough.? She does have history of end-stage renal disease and is on dialysis.? Her creatinine was noted to be 6.66, troponin initial troponin 29.3, did go up to 69.4.? Noted transaminitis, positive UA.? Abdominal pelvic CT showed bilateral moderate pleural effusions with underlying with a right lower lobe infiltrate.? Chest x-ray showing mild cardio, mild prominence of pulmonary vascularity with question of mild congestion.? In the ER, she was given a dose of Zosyn, nitroglycerin, Tylenol suppository.? She further management and treatment of community-acquired pneumonia and UTI. 82-year-old woman treated for metabolic encephalopathy secondary to community- acquired pneumonia, UTI, demand ischemia possible early diverticulitis. Initially patient was quite confused and did not know where she was but this did resolve after treatment with IV antibiotics for the pneumonia and the UTI. Does a question of demand ischemia likely secondary to infection however echocardiogram showed normal EF with no significant wall motion abnormality. She had also denied any chest pain and there was no ischemic changes noted on EKG. Abdominal CT did show possible early diverticulitis, she was seen and evaluated by Gastroenterology with recommendation for a follow-up in 6-8 weeks for a possible colonoscopy to assess for any diverticulosis. The community- acquired pneumonia was treated with IV Zosyn and she did require IV steroids and scheduled DuoNebs. Urine culture came back Proteus mirabilis and Gram-positive cocci. She was seen evaluated by Infectious Disease provider recommended Levaquin for total 10 day antibiotic treatment which will also cover the pneumonia. Blood cultures have remained negative. Patient is out of bed to the chair, good appetite and overall feeling better with resolution of encephalopathy. She is safe for transfer back to long-term care facility. End-stage renal disease on dialysis. Monday, and Monday. No changes, dialysis initiated while inpatient Macrocytic anemia. Stable Hypertension with episode of hypotension. On midodrine prior to dialysis, did receive 2 doses of albumin for hypotension. Resolved Time Spent with Patient Time attestation: Total time managing care of this patient today ____ minutes. Discharge coordination time: Greater than 30 minutes Quality: Safe Use of Opioids Does Pt have an Active Cancer Diagnosis on the Problem List?: No Quality: Stroke Does the patient have a stroke diagnosis?: No Physical Exam Vital Signs: Vital Signs: Last Vital Signs Temp 98.1 F 01/16/23 11:30 Pulse 72 01/16/23 11:30 Resp 20 01/16/23 11:30 BP 144/67 H 01/16/23 11:30 Pulse Ox 96 01/16/23 11:30 O2 Del Method Room Air 01/16/23 11:30 O2 Flow Rate 2 01/14/23 20:00 BMI result Body Mass Index 34.6 Appearing in no acute distress head is normocephalic atraumatic eyes pupils are PERRLA sclera is anicteric mouth throat mucous membranes are intact and moist neck is supple no lymphadenopathy, no JVD noted lung sounds are clear to auscultation heart regular rate rhythm, clear S1, S2 positive bowel sounds, abdomen is soft, nontender neuro patient is alert x3, no focal deficits DS: Data Data Completed and Pending Completed studies during hospitalization [Text1]: Procedures Performance of Urinary Filtration, Intermittent, Less than 6 Hours Per Day (05/03/22) Labs on day of discharge: Laboratory Results - last 24 hr 01/15/23 01/15/23 01/16/23 15:27 19:01 07:46 POC Glucose 189 H 212 H 106 01/16/23 11:07 POC Glucose 129 H Preliminary micro results at discharge 01/14/23 09:32 Blood Culture - Preliminary Blood - Venous No growth after 48 hours. 01/14/23 Unknown Urine Culture - Preliminary Urine clean catch - Urine che top Proteus mirabilis Gram positive cocci 01/14/23 06:34 Blood Culture - Preliminary Blood - Venous No growth after 48 hours. Discharge Plan Discharge Anticipated Discharge Date/Time: 01/16/23 14:42 Patient Disposition: Xfer [facility] Discharge Diagnosis: Metabolic encephalopathy UTI, Proteus mirabilis Demand ischemia Hypertension Possible early diverticulitis Referrals: Matt Moran [Outside] - 1 Week James Briones MD [Primary Care Provider] - 1 Week Discharge Medications: New levofloxacin 250 mg tablet 250 mg PO DAILY Qty: 7 0RF Continued levothyroxine 88 mcg tablet 1 tab PO DAILY@0600 Novolin N NPH U-100 Insulin 100 unit/mL suspension 16 unit subcut BEDTIME sertraline 50 mg tablet 1 tab PO DAILY metoprolol tartrate 25 mg tablet 1 tab PO BID oxycodone 10 mg tablet 1 tab PO Q12H PRN (Reason: pain) ondansetron 4 mg Tablet,Disintegrating 4 mg PO Q6H PRN (Reason: Nausea And Vomiting) acetaminophen 325 mg Tablet 650 mg PO TID latanoprost 0.005 % drops 1 drp ophthalmic (eye) BEDTIME Rx Instructions: both eyes sennosides [senna] 8.6 mg Tablet 8.6 mg PO BEDTIME PRN (Reason: Constipation) melatonin 3 mg Tablet 6 mg PO BEDTIME bisacodyl 10 mg Suppository 10 mg WA DAILY PRN (Reason: Constipation) nitroglycerin 0.4 mg Tablet, Sublingual 0.4 mg SUBLINGUAL Q5M PRN (Reason: Chest Pain) Rx Instructions: do not exceed 3 doses per episode midodrine 2.5 mg tablet 1 tab PO TUTHSA Rx Instructions: PRIOR TO DIAYLSIS nystatin 100,000 unit/gram Powder 1 appl TOPICAL BID Rx Instructions: to breasts ferrous fumarate 325 mg (106 mg iron) Tablet 325 mg PO BID albuterol sulfate 1.25 mg/3 mL Solution For Nebulization 1.25 mg INHALATION Q4H PRN (Reason: Wheezing) oxycodone 10 mg tablet 10 mg PO TID lidocaine 3 % Cream 1 appl TOPICAL TUTHSA Rx Instructions: PRIOR TO DIAYLSIS Discharge Orders: Discharge Order (Routine); Ordered 01/16/23 Ordered By: Brii Somers Diet: Advance to usual diet Activity on Discharge: As tolerated Stand Alone Forms: Patient Portal Discharge page Care Plan Goals: Complete resolution of symptoms Health Concerns: Metabolic encephalopathy UTI, Proteus mirabilis Demand ischemia Hypertension Possible early diverticulitis Plan of Treatment: Follow-up with primary care provider as needed Take all medications as prescribed Assessment: See discharge summary
--- NOTE | 2023-01-16 15:03 | PM.PNNEP ---
Subjective Subjective Date of Service: 01/16/23 Interval history: Seen and examined, events noted Physical Exam Vital Signs: Vital Signs: Last Vital Signs Temp 98.1 F 01/16/23 11:30 Pulse 72 01/16/23 11:30 Resp 20 01/16/23 11:30 BP 144/67 H 01/16/23 11:30 Pulse Ox 96 01/16/23 11:30 O2 Del Method Room Air 01/16/23 11:30 O2 Flow Rate 2 01/14/23 20:00 BMI result Body Mass Index 34.6 Const: General: cooperative, comfortable and no acute distress Orientation/consciousness: patient oriented x3 Limitations: no limitations HEENT: Other: Unremarkable Head: Yes normal to inspection, Yes normocephalic and Yes atraumatic Ears: hearing grossly normal bilaterally General nose exam: Normal external nose present Face and sinus: Yes normal facial exam Mouth: Normal oral and palatal mucosa present, oropharynx normal and moist mucous membranes Throat: Yes posterior oropharynx normal Eyes: General: appearance normal, both eyes and all related structures Eyelids: Yes eyelids normal Conjunctivae: conjunctivae normal Sclerae: sclerae normal Pupils: Equal, round and reactive pupils present EOM: EOMs intact bilaterally Neck: Neck: Yes normal visual inspection, Yes full ROM and Yes no lymphadenopathy Lymphatic: no lymphadenopathy noted Chest: Chest palpation & inspection: normal inspection of the chest Resp: Other: Poor inspiratory effort, crackles heard at right lower base, decreased breath sounds throughout all lung rae. Effort & Inspection: normal respiratory effort and able to speak in complete sentences Auscultation: crackles, rales, rhonchi and diminished lung sounds Cardio: Palpation: normal PMI Rate: regular rate Rhythm: regular rhythm Heart sounds: S1 normal heart sound present, S2 normal heart sound present, no gallops, no murmurs and no rubs GI: Other: Obese abdomen, soft, nondistended, tenderness to palpation diffusely throughout abdomen, no point tenderness, no rebound or guarding. Normoactive bowel sounds present Inspection: Yes normal to inspection Palpation (GI): Soft to palpation Back/Spine/Pelvis: Other: unremarkable Skin: General skin exam: no rashes or lesions noted Trauma: no lacerations or abrasions Wounds: no wounds Neuro: General: patient oriented x3 and moves all extremities Cranial nerves: Yes Equal, round and reactive pupils present Extrem: General: Yes normal to inspection Right upper extremity: normal to inspection Left upper extremity: normal to inspection Right lower extremity: normal to inspection Left lower extremity: normal to inspection Psych: Mental Status: mental status grossly normal Objective Data Labs 01/15/23 06:33 01/15/23 06:33 Labs: Laboratory Results - last 24 hr 01/15/23 01/15/23 01/16/23 15:27 19:01 07:46 POC Glucose 189 H 212 H 106 01/16/23 11:07 POC Glucose 129 H Microbiology Microbiology Results: Microbiology 01/14/23 09:32 Blood - Venous Blood Culture - Preliminary No growth after 48 hours. 01/14/23 Unknown Urine clean catch - Urine che top Urine Culture - Preliminary Proteus mirabilis Gram positive cocci 01/14/23 06:34 Blood - Venous Blood Culture - Preliminary No growth after 48 hours. Procedures Date of Service Date of Service: 01/16/23 Assessment & Plan Assessment and plan (1) ESRD on dialysis: Status: Acute Assessment and Plan: stable treatment yesterday next rx (2) Urinary tract infection: Status: Acute (3) Pneumonia: Status: Acute (4) Encephalopathy acute: Status: Acute (5) COVID-19: Status: Acute (6) Bacteremia: Status: Acute Plan 1. ESRD: TTS 2. ID Antibiotics as per medical team 3. ANemia ad MBD of ESRD: meds as noted REC: cont HD today and TTS; ABx as noted Fluid removal as tolerated K Per Protocol d/c planning Time Spent With Patient Time: Total time managing care of this patient today ____ minutes. Progress Note: Quality Stroke Does the patient have a stroke diagnosis?: No
== END 2023-01-16 18:16 | DRG 193 ==
LOC: HO.ED 11:39 → HO.EDOVER 12:51 → HO.IMC 13:46
PROVIDERS: Admitting Provider Nurse Practitioner Acute Care; Emergency Provider Emergency Medicine; PCP Family Medicine; Visit Provider Nurse Practitioner Acute Care
DX: J18.9 Pneumonia, unspecified organism (principal); G93.41 Metabolic encephalopathy; N18.6 End stage renal disease; I12.0 Hypertensive chronic kidney disease with stage 5 chronic kidney disease or end stage renal disease; N39.0 Urinary tract infection, site not specified; K57.32 Diverticulitis of large intestine without perforation or abscess without bleeding; J91.8 Pleural effusion in other conditions classified elsewhere; I24.8 Other forms of acute ischemic heart disease; E11.22 Type 2 diabetes mellitus with diabetic chronic kidney disease; D53.9 Nutritional anemia, unspecified; D63.1 Anemia in chronic kidney disease; E78.5 Hyperlipidemia, unspecified; N25.0 Renal osteodystrophy; E11.649 Type 2 diabetes mellitus with hypoglycemia without coma; B96.4 Proteus (mirabilis) (morganii) as the cause of diseases classified elsewhere; Z20.822 Contact with and (suspected) exposure to COVID-19; Z99.2 Dependence on renal dialysis; Z79.4 Long term (current) use of insulin; Z79.890 Hormone replacement therapy; Z79.899 Other long term (current) drug therapy
CPT/HCPCS: 36415; 71045; 74176; 80048; 80076; 81001; 82947; 83605; 83690; 83735; 84484; 85025; 87040; 87086; 87088; 87186; 87635; 90999; 93005; 93306; 94640; 99285; J2543; J2920; P9047; Q9957

== ENCOUNTER 2023-01-14 12:45 | Outpatient (BNV) | payer MEDICARE, MEDICAID, SELFPAY | END 2023-01-16 07:00 | PROVIDERS: Admitting Provider Nurse Practitioner Acute Care; Emergency Provider Emergency Medicine; PCP Family Medicine; Visit Provider Internal Medicine Cardiovascular Disease | DX: I21.4 Non-ST elevation (NSTEMI) myocardial infarction (principal) | CPT/HCPCS: 93306 ==

== ENCOUNTER → 2023-01-14 12:45 | Outpatient (BNV) | payer MEDICARE, MEDICAID, SELFPAY | PROVIDERS: Admitting Provider Nurse Practitioner Acute Care; Emergency Provider Emergency Medicine; PCP Family Medicine; Visit Provider Internal Medicine | DX: I21.4 Non-ST elevation (NSTEMI) myocardial infarction (principal); N18.6 End stage renal disease; Z99.2 Dependence on renal dialysis; J18.9 Pneumonia, unspecified organism; I45.81 Long QT syndrome | CPT/HCPCS: 93010; 99223; 99231 ==

== ENCOUNTER → 2023-01-14 12:45 | Outpatient (BNV) | payer MEDICARE, MEDICAID, SELFPAY | PROVIDERS: Admitting Provider Nurse Practitioner Acute Care; Emergency Provider Emergency Medicine; PCP Family Medicine; Visit Provider Internal Medicine | DX: N18.6 End stage renal disease (principal); Z99.2 Dependence on renal dialysis; N39.0 Urinary tract infection, site not specified | CPT/HCPCS: 99222 ==

== ENCOUNTER → 2023-01-14 12:45 | Outpatient (BNV) | payer MEDICARE, MEDICAID, SELFPAY | PROVIDERS: Admitting Provider Nurse Practitioner Acute Care; Emergency Provider Emergency Medicine; PCP Family Medicine; Visit Provider Nurse Practitioner Acute Care | DX: N18.6 End stage renal disease (principal); Z99.2 Dependence on renal dialysis; N39.0 Urinary tract infection, site not specified | CPT/HCPCS: 99223; 99232; 99239 ==

== ENCOUNTER → 2023-01-14 12:45 | Outpatient (BNV) | payer MEDICARE, MEDICAID, SELFPAY | PROVIDERS: Admitting Provider Nurse Practitioner Acute Care; Emergency Provider Emergency Medicine; PCP Family Medicine; Visit Provider Internal Medicine | DX: N18.6 End stage renal disease (principal); Z99.2 Dependence on renal dialysis; I21.4 Non-ST elevation (NSTEMI) myocardial infarction; J18.9 Pneumonia, unspecified organism; N39.0 Urinary tract infection, site not specified; K57.31 Diverticulosis of large intestine without perforation or abscess with bleeding; G93.40 Encephalopathy, unspecified; U07.1 COVID-19; R78.81 Bacteremia | CPT/HCPCS: 99222 ==

== ENCOUNTER 2023-02-18 08:35 | Inpatient (IN) | payer MEDICARE, MEDICAID, SELFPAY ==
[2023-02-18] VITALS (9 sets, daily range): BP systolic 120–147; BP diastolic 32–80; PULSE 53–69; RESP 16–20; TEMP 36.4–37.1; O2SAT 83–100; BMI 30.6
--- NOTE | ~2023-02-18 | CT_ITS ---
EXAMINATION: CT HEAD WITHOUT CONTRAST CLINICAL INFORMATION: Question altered mental status per facility. COMPARISON: Report of head CT from 05/03/2022. TECHNIQUE: Contiguous axial imaging was performed from the skull base to vertex without intravenous administration of contrast. This CT examination was performed using dose optimization techniques as appropriate, variously including the following: *Automated exposure control *Adjustment of mA and/or kV according to patient size (this includes techniques or standardized protocols for targeted exams where dose is matched to indication/reason for exam; i.e. extremities or head) *Use of iterative reconstruction technique DLP: 642 mGy-cm. FINDINGS: There is no intracranial hemorrhage, large infarction, or mass lesion. There is no extra-axial collection. The ventricles are normal in size and configuration without evidence of hydrocephalus. There is mild degree of brain parenchymal volume loss. Mild hypoattenuation is seen within the cerebral white matter, presumably related to mild chronic microangiopathy. The visualized paranasal sinuses and mastoid air cells are clear. A lucent lesion is seen within the diploic space of the right parietal bone which by report is stable in overall size and could represent an intraosseous hemangioma. CT/CT head/brain wo IV con IMPRESSION: No acute intracranial abnormality.
--- NOTE | ~2023-02-18 | XR_ITS ---
EXAMINATION: XR CHEST CLINICAL INFORMATION: Shortness of breath COMPARISON: Previous chest x-ray most recent from 01/14/2023 TECHNIQUE: Frontal view of the chest was obtained. FINDINGS: The cardiac and mediastinal contours are stable. There is increased central bronchovascular perihilar markings questionable for mild CHF. The lungs are otherwise clear. Small bilateral pleural effusions. Stents in the left axilla and visualized upper arm. Degenerative changes of the spine. Severe arthritis at the shoulders. XR/XR chest 1V IMPRESSION: Mild CHF.
--- NOTE | 2023-02-18 09:04 | ECG_ITS ---
Test Reason : diff. breathing Blood Pressure : / mmHG Vent. Rate : 057 BPM Atrial Rate : 057 BPM P-R Int : 180 ms QRS Dur : 108 ms QT Int : 524 ms P-R-T Axes : 092 -01 -30 degrees QTc Int : 510 ms Sinus bradycardia with Premature atrial complexes Low voltage QRS Incomplete right bundle branch block T wave abnormality, consider inferior ischemia T wave abnormality, consider anterior ischemia Prolonged QT Abnormal ECG When compared with ECG of 14-JAN-2023 06:21, Premature atrial complexes are now Present Vent. rate has decreased BY 31 BPM Referred By: Generic ED Physician Electronically Signed By:Luis Durant
--- NOTE | 2023-02-18 09:55 | ED_ITS ---
HPI - General Adult General Chief complaint: Dyspnea Stated complaint: DIFF BREATHING PER EMS Time Seen by Provider: 02/18/23 09:38 Source: patient, EMS, RN notes reviewed and old records reviewed Mode of arrival: other History of Present Illness HPI narrative: 82-year-old female with a past medical history ESRD on HD (T/T/S), anemia, HTN, PVC with IVC filter, HLD, GERD, HTN, DM, presenting to the ED from [facility] via EMS c/o SOB and increased lethargy noted this morning. POC at 07:00AM at facility was 65, patient was given OJ, improved to 94 per EMS. Patient reports SOB. Patient denies fever, cough, chest pain, abdominal pain, nausea/vomiting, pedal edema. Patient did not receive dialysis today. Of note patient recently discharged from our facility on 01/16 for metabolic encephalopathy secondary to pneumonia and UTI with possible early diverticulitis. Per patient's nurse from SNF noted to be clammy, lethargic, not herself this morning thus prompted EMS call Related Data Home Medications Medication Instructions Recorded Confirmed acetaminophen 325 mg tablet 650 mg PO TID 02/10/21 01/14/23 insulin NPH isoph U-100 human 100 16 unit subcut BEDTIME 02/10/21 01/14/23 unit/mL subcutaneous suspension (Novolin N NPH U-100 Insulin isophane) levothyroxine 88 mcg tablet 1 tab PO DAILY@0600 02/10/21 01/14/23 metoprolol tartrate 25 mg tablet 1 tab PO BID 02/10/21 01/14/23 ondansetron 4 mg disintegrating 4 mg PO Q6H PRN Nausea And Vomiting 02/10/21 01/14/23 tablet oxycodone 10 mg tablet 1 tab PO Q12H PRN pain 02/10/21 01/14/23 sertraline 50 mg tablet 1 tab PO DAILY 02/10/21 01/14/23 bisacodyl 10 mg rectal suppository 10 mg KS DAILY PRN Constipation 05/03/22 01/14/23 ferrous fumarate 325 mg (106 mg 325 mg PO BID 05/03/22 01/14/23 iron) tablet latanoprost 0.005 % eye drops 1 drp ophthalmic (eye) BEDTIME 05/03/22 01/14/23 melatonin 3 mg tablet 6 mg PO BEDTIME 05/03/22 01/14/23 midodrine 2.5 mg tablet 1 tab PO TUTHSA 05/03/22 01/14/23 nitroglycerin 0.4 mg sublingual 0.4 mg sublingual Q5M PRN Chest 05/03/22 01/14/23 tablet Pain nystatin 100,000 unit/gram topical 1 appl topical BID 05/03/22 01/14/23 powder sennosides 8.6 mg tablet (senna) 8.6 mg PO BEDTIME PRN Constipation 05/03/22 01/14/23 albuterol sulfate 1.25 mg/3 mL 1.25 mg inhalation Q4H PRN Wheezing 01/14/23 01/14/23 solution for nebulization lidocaine 3 % topical cream 1 appl topical TUTA 01/14/23 01/14/23 oxycodone 10 mg tablet 10 mg PO TID 01/14/23 01/14/23 Previous Rx's Medication Instructions Recorded levofloxacin 250 mg tablet 250 mg PO DAILY #7 tabs 01/16/23 Allergies Allergy/AdvReac Type Severity Reaction Status Date / Time Sulfa (Sulfonamide Allergy Unknown RASH Verified 02/18/23 08:56 Antibiotics) Review of Systems Review of Systems: Constitutional: No Fever, No Chills, No Fatigue, No Malaise ENT/Mouth: No Ear Pain, No Nasal Congestion, No sore throat, No Rhinorrhea, No Swallowing Difficulty Eyes: No Eye Pain, No Swelling, No Redness Cardiovascular: No Chest Pain, + SOB, No Dyspnea on Exertion, No Orthopnea, No Edema Respiratory: No Cough, No Sputum, No Wheezing, No Dyspnea Gastrointestinal: No Nausea, No Vomiting, No Diarrhea, No Constipation, No Abdominal pain Genitourinary: No Dysuria, No Urinary Frequency, No Hematuria, No Flank Pain Musculoskeletal: No joint pain, No Myalgias, No Joint Swelling Skin: No Skin Lesions, No rash Neuro: No Weakness, No Headache Yes all other systems are reviewed and are negative Constitutional: Constitutional: Reports as per [facility] Past Medical History Attestation statement: The following information was validated with the patient. Source: old records reviewed Medical History Anemia Anxiety COVID-19 Diabetes mellitus Diverticulosis ESRD on dialysis GERD (gastroesophageal reflux disease) HTN (hypertension) Hypertension Hypothyroidism Kidney disease Pulmonary embolus Social History Social History Household Members: None Housing: Assisted Living Facility Do you presently have visiting nurse or other home services: No Unable to assess alcohol history related to: Unknown Alcohol intake: never Patient Tobacco Use Status: Never used Tobacco Smoked in Last 30 Days: No Use of substances other than those prescribed or required for medical reasons: No Advance Directives: Yes Advance Directives on File: Yes Advance Directives Date on File: 02/10/21 service: No Current occupational status: retired Physical Exam ED Vital Signs: Vital Signs - 24 hr 02/18/23 08:57 02/18/23 10:36 Temperature 97.6 F Pulse Rate 59 53 Respiratory Rate 20 16 Blood Pressure 146/38 H 141/32 H Pulse Oximetry 97 96 Oxygen Delivery Method Nasal Cannula Nasal Cannula Oxygen Flow Rate 3 BMI result Body Mass Index 30.6 Const General: cooperative Orientation/consciousness: patient oriented x3 Limitations: no limitations HENMT Head: Yes normal to inspection and Yes atraumatic Ears: hearing grossly normal bilaterally General nose exam: Normal external nose present Face and sinus: Yes normal facial exam Eyes General: appearance normal, both eyes and all related structures EOM: EOMs intact bilaterally Neck Neck: Yes normal visual inspection and Yes no meningeal signs Resp Other: Increased work of breathing with little movement Effort & Inspection: no respiratory distress Auscultation: crackles bilateral at the base Cardio Rate: regular rate Heart sounds: S1 normal heart sound present and S2 normal heart sound present GI Inspection: Yes normal to inspection Palpation (GI): Soft to palpation, nontender, no guarding and not rigid Skin Rashes: no rashes Wounds: no wounds Neuro General: patient oriented x3, tone normal and no meningeal signs Cranial nerves: Yes CN's II-XII intact bilaterally Gait exam (Neuro): Normal gait present Extrem General: Yes normal to inspection and Yes no pedal edema Course Course Course Narrative: -per patient's nurse at SNF she only receives NovoLog at night, received no diabetic medications today & did not eat breakfast today -no leukocytosis. H&H at patient's baseline. Chronic CKD -glucose low at 34 > patient tolerating peanut butter jelly sandwich > repeat 60, additional repeat 78 -troponin 27.4 likely from renal dysfunction > will obtain 3 hour repeat. BNP 1,772 XR chest 1V IMPRESSION: Mild CHF. CT head/brain wo IV con IMPRESSION: No acute intracranial abnormality. > patient unable to obtain dialysis today if we transferred back to facility, will consult Nephrology > spoke with Nephrology, plan for dialysis pending time >plan to admit Medications Administered Discontinued Medications Generic Name Dose Route Start Last Admin Trade Name Evelyn PRN Reason Stop Dose Admin Dextrose 25 gm 02/18/23 11:05 02/18/23 11:09 Dextrose 50 % 25 Gm/50 Ml Syringe IVPUSH 02/18/23 11:06 25 gm ONCE ONE Administration Medical Decision Making Medical Decision Making [facility] Narrative: 82-year-old female with a past medical history ESRD on HD (T/T/S), anemia, HTN, PVC with IVC filter, HLD, GERD, HTN, DM, presenting to the ED from [facility] via EMS c/o SOB and increased lethargy noted this morning. On exam patient is satting 92-94% on RA, increased work of breathing with little movement, bibasilar crackles noted, no appreciable pitting edema. Abdomen soft-nontender. Concern for pneumonia vs CHF vs pleural effusion. Concern for hypoglycemia. Rule out atypical ACS. Lower suspicion for PE Plan: EKG, labs, CXR, UA, lactic/blood cultures, Head CT. Low suspicion for severe sepsis. Please refer to course for remaining clinical decision making, interpretation of labs/imaging results, and discussions with consultants and/or family members. Differential Diagnosis Differential Diagnoses: The differential diagnosis associated with the presentation includes As above Admission/Observation Consideration of admission/observation: Escalation of care including admission/observation considered Lab Data [facility] Lab Attestation statement: I reviewed the patient's lab results. 02/18/23 10:33 02/18/23 10:33 Labs: Lab Results 02/18/23 02/18/23 02/18/23 Range/Units 10:33 10:33 10:33 WBC 7.2 (4.8-10.8) X10*3/uL RBC 2.81 L (4.20-5.50) X10*6/uL Hgb 9.3 L (12.0-16.0) g/dl Hct 29.6 L (37.0-47.0) % MCV 105.3 H (80.0-98.0) fL MCH 33.1 H (27.0-33.0) pg MCHC 31.4 (31.0-35.0) g/dl RDW 15.1 (11.0-16.0) % Plt Count 193 D (160-400) X10*3/uL MPV 9.9 (9.4-12.3) fL Immature Gran % (Auto) 0.4 (0.0-0.4) % Neut % (Auto) 73.0 (45-73) % Lymph % (Auto) 11.5 L (20-40) % [place] % (Auto) 11.2 H (2-11) % Eos % (Auto) 3.5 (0-4) % Baso % (Auto) 0.4 (0-2) % Lymph # (Auto) 0.8 L (1.2-4.9) X10*3/uL [place] # (Auto) 0.8 (0.1-1.2) X10*3/uL Eos # (Auto) 0.3 (0.0-0.4) X10*3/uL Baso # (Auto) 0.0 (0.0-0.2) X10*3/uL Abs Immat Gran (auto) 0.03 (0.00-0.03) X10*3/uL Absolute Neuts (auto) 5.2 (2.0-8.3) x10*3/uL Absolute Nucleated RBC 0.000 (0.0-0.012) X10*3/uL Nucleated RBC % (auto) 0.0 (0.0-0.2) /100WBC PT (11.1-13.3) SEC INR (0.9-1.1) Sodium 143 (135-145) mmol/L Potassium 4.1 D (3.3-5.1) mmol/L Chloride 100 (96-108) mmol/L Carbon Dioxide 30 H (22-29) mmol/L Anion Gap 17 (12-20) BUN 29 H (9-16) mg/dL Creatinine 5.09 H* (0.5-1.4) mg/dL Estim Creat Clear Calc 8.1 Estimated GFR 8 POC Glucose (60-115) mg/dL Random Glucose 34 L* (60-115) mg/dL Lactic Acid (0.5-2.0) mmol/L Calcium 8.2 L (8.4-10.2) mg/dL Magnesium (1.6-2.6) mg/dL Total Bilirubin (0.0-1.0) mg/dL Direct Bilirubin (0.0-0.5) mg/dL AST (5-31) U/L ALT (0-31) U/L Alkaline Phosphatase (39-117) U/L Troponin I High Sens 27.4 H D (<3.5-17.0) ng/L B-Natriuretic Peptide (<100) pg/mL Total Protein (6.5-8.0) g/dL Albumin (3.5-5.0) g/dL COVID-19 (YNANA) (Negative) COVID-19 Clin Com 02/18/23 02/18/23 02/18/23 Range/Units 10:33 10:33 10:33 WBC (4.8-10.8) X10*3/uL RBC (4.20-5.50) X10*6/uL Hgb (12.0-16.0) g/dl Hct (37.0-47.0) % MCV (80.0-98.0) fL MCH (27.0-33.0) pg MCHC (31.0-35.0) g/dl RDW (11.0-16.0) % Plt Count (160-400) X10*3/uL MPV (9.4-12.3) fL Immature Gran % (Auto) (0.0-0.4) % Neut % (Auto) (45-73) % Lymph % (Auto) (20-40) % [place] % (Auto) (2-11) % Eos % (Auto) (0-4) % Baso % (Auto) (0-2) % Lymph # (Auto) (1.2-4.9) X10*3/uL [place] # (Auto) (0.1-1.2) X10*3/uL Eos # (Auto) (0.0-0.4) X10*3/uL Baso # (Auto) (0.0-0.2) X10*3/uL Abs Immat Gran (auto) (0.00-0.03) X10*3/uL Absolute Neuts (auto) (2.0-8.3) x10*3/uL Absolute Nucleated RBC (0.0-0.012) X10*3/uL Nucleated RBC % (auto) (0.0-0.2) /100WBC PT 11.7 (11.1-13.3) SEC INR 1.0 (0.9-1.1) Sodium (135-145) mmol/L Potassium (3.3-5.1) mmol/L Chloride (96-108) mmol/L Carbon Dioxide (22-29) mmol/L Anion Gap (12-20) BUN (9-16) mg/dL Creatinine (0.5-1.4) mg/dL Estim Creat Clear Calc Estimated GFR POC Glucose (60-115) mg/dL Random Glucose (60-115) mg/dL Lactic Acid 1.4 (0.5-2.0) mmol/L Calcium (8.4-10.2) mg/dL Magnesium 2.1 (1.6-2.6) mg/dL Total Bilirubin 0.5 (0.0-1.0) mg/dL Direct Bilirubin 0.2 (0.0-0.5) mg/dL AST 19 (5-31) U/L ALT 8 (0-31) U/L Alkaline Phosphatase 87 (39-117) U/L Troponin I High Sens (<3.5-17.0) ng/L B-Natriuretic Peptide (<100) pg/mL Total Protein 5.7 L (6.5-8.0) g/dL Albumin 3.2 L (3.5-5.0) g/dL COVID-19 (YANNA) (Negative) COVID-19 Clin Com 02/18/23 02/18/23 02/18/23 Range/Units 10:33 10:33 11:48 WBC (4.8-10.8) X10*3/uL RBC (4.20-5.50) X10*6/uL Hgb (12.0-16.0) g/dl Hct (37.0-47.0) % MCV (80.0-98.0) fL MCH (27.0-33.0) pg MCHC (31.0-35.0) g/dl RDW (11.0-16.0) % Plt Count (160-400) X10*3/uL MPV (9.4-12.3) fL Immature Gran % (Auto) (0.0-0.4) % Neut % (Auto) (45-73) % Lymph % (Auto) (20-40) % [place] % (Auto) (2-11) % Eos % (Auto) (0-4) % Baso % (Auto) (0-2) % Lymph # (Auto) (1.2-4.9) X10*3/uL [place] # (Auto) (0.1-1.2) X10*3/uL Eos # (Auto) (0.0-0.4) X10*3/uL Baso # (Auto) (0.0-0.2) X10*3/uL Abs Immat Gran (auto) (0.00-0.03) X10*3/uL Absolute Neuts (auto) (2.0-8.3) x10*3/uL Absolute Nucleated RBC (0.0-0.012) X10*3/uL Nucleated RBC % (auto) (0.0-0.2) /100WBC PT (11.1-13.3) SEC INR (0.9-1.1) Sodium (135-145) mmol/L Potassium (3.3-5.1) mmol/L Chloride (96-108) mmol/L Carbon Dioxide (22-29) mmol/L Anion Gap (12-20) BUN (9-16) mg/dL Creatinine (0.5-1.4) mg/dL Estim Creat Clear Calc Estimated GFR POC Glucose 60 (60-115) mg/dL Random Glucose (60-115) mg/dL Lactic Acid (0.5-2.0) mmol/L Calcium (8.4-10.2) mg/dL Magnesium (1.6-2.6) mg/dL Total Bilirubin (0.0-1.0) mg/dL Direct Bilirubin (0.0-0.5) mg/dL AST (5-31) U/L ALT (0-31) U/L Alkaline Phosphatase (39-117) U/L Troponin I High Sens (<3.5-17.0) ng/L B-Natriuretic Peptide 1772 H (<100) pg/mL Total Protein (6.5-8.0) g/dL Albumin (3.5-5.0) g/dL COVID-19 (YANNA) Negative (Negative) COVID-19 Clin Com See Note 02/18/23 02/18/23 Range/Units 12:22 13:24 WBC (4.8-10.8) X10*3/uL RBC (4.20-5.50) X10*6/uL Hgb (12.0-16.0) g/dl Hct (37.0-47.0) % MCV (80.0-98.0) fL MCH (27.0-33.0) pg MCHC (31.0-35.0) g/dl RDW (11.0-16.0) % Plt Count (160-400) X10*3/uL MPV (9.4-12.3) fL Immature Gran % (Auto) (0.0-0.4) % Neut % (Auto) (45-73) % Lymph % (Auto) (20-40) % [place] % (Auto) (2-11) % Eos % (Auto) (0-4) % Baso % (Auto) (0-2) % Lymph # (Auto) (1.2-4.9) X10*3/uL [place] # (Auto) (0.1-1.2) X10*3/uL Eos # (Auto) (0.0-0.4) X10*3/uL Baso # (Auto) (0.0-0.2) X10*3/uL Abs Immat Gran (auto) (0.00-0.03) X10*3/uL Absolute Neuts (auto) (2.0-8.3) x10*3/uL Absolute Nucleated RBC (0.0-0.012) X10*3/uL Nucleated RBC % (auto) (0.0-0.2) /100WBC PT (11.1-13.3) SEC INR (0.9-1.1) Sodium (135-145) mmol/L Potassium (3.3-5.1) mmol/L Chloride (96-108) mmol/L Carbon Dioxide (22-29) mmol/L Anion Gap (12-20) BUN (9-16) mg/dL Creatinine (0.5-1.4) mg/dL Estim Creat Clear Calc Estimated GFR POC Glucose 78 119 H (60-115) mg/dL Random Glucose (60-115) mg/dL Lactic Acid (0.5-2.0) mmol/L Calcium (8.4-10.2) mg/dL Magnesium (1.6-2.6) mg/dL Total Bilirubin (0.0-1.0) mg/dL Direct Bilirubin (0.0-0.5) mg/dL AST (5-31) U/L ALT (0-31) U/L Alkaline Phosphatase (39-117) U/L Troponin I High Sens (<3.5-17.0) ng/L B-Natriuretic Peptide (<100) pg/mL Total Protein (6.5-8.0) g/dL Albumin (3.5-5.0) g/dL COVID-19 (YANNA) (Negative) COVID-19 Clin Com Independent Interpretation I performed an independent interpretation of an: EKG (My interpretation EKG sinus bradycardia with PACs. PACs not present when compared to prior, no STEMI. QTC 510.) Radiology Impression Discussion of test interpretation with radiology: I have reviewed the radiologist's reading. Independent Historian Clinical information obtained from an independent historian. History obtained from or confirmed by: EMS External Record Review External record reviewed: Inpatient record, Office record, Outpatient record, Prior outpatient labs, Prior outpatient radiology, Primary care record and Outside ED record Tests considered The following testing was considered but not selected: As above Chronic Conditions Patient?s care impacted by: Diabetes and Other (ESRD on dialysis) Critical Care Time Critical Care Time Critical Care Time: Yes Total Critical Care Time: 45 Attestation: I have personally provided critical care time exclusive of time spent on separately billable procedures. Time includes review of lab data, radiology results, discussion with consultants, and monitoring for potential decompensation. Intervention performed as documented. Discharge Plan Discharge Clinical Impression: Mild congestive heart failure, Shortness of breath, Hypoglycemia, Lethargy Patient Disposition: Admitted As Inpatient
--- NOTE | 2023-02-18 10:38 | PC.NURSE ---
patient a&ox2, monitoring engineer applied sinus chavez on monitor, vss, pt on 3L NC- not home O2 dependent, lungs diminished throughout, pt denies pain/discomfort, ekg performed, iv access attempted without success- provider established iv access in rt EJ, lt av fistula + bruit/thrill, call amaro within reach, will continue to monitor
[2023-02-18 10:39] LABS: MANUAL DIFF FLAG NO
[2023-02-18 10:46] LABS: Basophils Percent Auto 0.4 % (0-2); Eosinophils Absolute Auto 0.3 X10*3/uL (0.0-0.4); Eosinophils Percent Auto 3.5 % (0-4); Hematocrit 29.6 % (37.0-47.0); Hemoglobin 9.3 g/dl (12.0-16.0); Imm Gran Abs Auto 0.03 X10*3/uL (0.00-0.03); Imm Gran Pct Auto 0.4 % (0.0-0.4); Lymphocytes Absolute Auto 0.8 X10*3/uL (1.2-4.9); Lymphocytes Percent Auto 11.5 % (20-40); Mean Corpuscular HGB Conc 31.4 g/dl (31.0-35.0); Mean Corpuscular Hemoglobin 33.1 pg (27.0-33.0); Mean Corpuscular Volume 105.3 fL (80.0-98.0); Mean Platelet Volume 9.9 fL (9.4-12.3); Monocytes Absolute Auto 0.8 X10*3/uL (0.1-1.2); Monocytes Percent Auto 11.2 % (2-11); Neutrophils Absolute Auto 5.2 x10*3/uL (2.0-8.3); Platelet Count 193 X10*3/uL (160-400); Prothrombin Time 11.7 SEC (11.1-13.3); Red Blood Count 2.81 X10*6/uL (4.20-5.50); Red Cell Distribution Width 15.1 % (11.0-16.0); White Blood Count 7.2 X10*3/uL (4.8-10.8)
[2023-02-18 11:01] LABS: Lactic Acid 1.4 mmol/L (0.5-2.0)
[2023-02-18 11:06] LABS: Alanine Aminotransferase 8 U/L (0-31); Albumin Level 3.2 g/dL (3.5-5.0); Alkaline Phosphatase 87 U/L (39-117); Anion Gap 17 (12-20); Aspartate Amino Transferase 19 U/L (5-31); Bilirubin Direct 0.2 mg/dL (0.0-0.5); Bilirubin Total 0.5 mg/dL (0.0-1.0); Blood Urea Nitrogen 29 mg/dL (9-16); Calcium 8.2 mg/dL (8.4-10.2); Carbon Dioxide 30 mmol/L (22-29); Chloride 100 mmol/L (96-108); Creatinine Clr Calc Pharmacy 8.1; Estimated Glomerular Filt Rate 8; Glucose Random 34 mg/dL (60-115); Magnesium 2.1 mg/dL (1.6-2.6); Potassium 4.1 mmol/L (3.3-5.1); Sodium 143 mmol/L (135-145); Total Protein 5.7 g/dL (6.5-8.0)
[2023-02-18] MEDS: Dextrose 50 % 25 GM/50 ML SYRINGE IVPUSH (11:09)
[2023-02-18 11:11] LABS: B Type Natriuretic Peptide 1772 pg/mL (<100)
[2023-02-18 11:12] LABS: Troponin-I High Sensitivity 27.4 ng/L (<3.5-17.0)
[2023-02-18 11:14] LABS: COVID-19 Test Negative (Negative); IDNOW Serial# BCCEAD1C
--- NOTE | 2023-02-18 11:28 | PC.NURSE ---
d50 given to patient per order, pt continues to be a&ox2, pt was sat upright and given a sandwich to eat and gingerale. will recheck poc at 1145
[2023-02-18 11:54] LABS: Glucose, Whole Blood 60 mg/dL (60-115)
[2023-02-18 12:26] LABS: Glucose, Whole Blood 78 mg/dL (60-115)
[2023-02-18 13:28] LABS: Glucose, Whole Blood 119 mg/dL (60-115)
--- NOTE | 2023-02-18 13:30 | PC.NURSE ---
1300 POC = 119mg/dL.
--- NOTE | 2023-02-18 13:35 | PC.NURSE ---
spoke with provider about patient - provider wanted pt to go and recieve dialysis treatment. contacted [facility]in [facility] for dialysis phone number, called [facility] but they are unable to take her today d/t pt not being able to receive full dialysis treatment. provider notified and aware.
--- NOTE | 2023-02-18 14:24 | PC.NURSE ---
verbal order for diet placed, kitchen called and they will bring over a tray with soup for patient
--- NOTE | 2023-02-18 14:32 | PC.NURSE ---
labs drawn and sent to lab.
--- NOTE | 2023-02-18 14:36 | PC.NURSE ---
pt was asking where her son lucy is, checked to see if lucy was in her primary contacts. pt's son was then called and given update on pt's status. son states that he will not be able to come in and visit mother until the morning. will notify pt.
--- NOTE | 2023-02-18 15:06 | PHA.MEDREC ---
Pharmacy Consult ? Medication Reconciliation Pharmacy has completed the medication reconciliation. Patient with list from [facility]
--- NOTE | 2023-02-18 15:18 | PC.NURSE ---
pts O2 sat was 83% while sleeping on room air, this nurse applied 2L NC which increased the O2 sat to 90s, pt states she does not wear O2 at home during the day or at night. pt speaking in full sentences. alarm security or surveillance monitor intact sinus chavez 60s, call amaro within reach, will continue to monitor.
[2023-02-18 15:21] LABS: Troponin-I High Sensitivity 24.5 ng/L (<3.5-17.0)
--- NOTE | 2023-02-18 15:39 | PM.IMHP ---
History of Present Illness Date of Service: 02/18/23 Chief Complaint: Altered mentation, low sugar An 82 years old lady with PMH of ESRD on HD TTS, HTN, PVC w IVC filter, bedbound among others who presents to the hospital for increased lethargy and SOB. The patient was noted lethargic this morning at the facility. Glucose check was low and improved by oral supplements. the patient reports SOB. she was suppose to have dialysis today but ended up in ED after the hypoglycemia event. No chest pain, palpitations, SOB, nausea, vomiting, diarrhea or urinary symptoms. In ED found hypoglycemic again. she is on Insulin only NPH at bedtime. Needs dialysis as well. Admitted for treatment and monitoring. Review of Systems Review of Systems: No fever, chills or weakness No chest pain, palpitation No shortness of breath or coughing No abdominal pain, nausea or vomiting No urinary symptoms No any rash or wounds PMFSH Medical History Anemia Anxiety COVID-19 Diabetes mellitus Diverticulosis ESRD on dialysis GERD (gastroesophageal reflux disease) HTN (hypertension) Hypertension Hypothyroidism Kidney disease Pulmonary embolus Social History Household Members: None Housing: Assisted Living Facility Do you presently have visiting nurse or other home services: No Unable to assess alcohol history related to: Unknown Alcohol intake: never Patient Tobacco Use Status: Never used Tobacco Smoked in Last 30 Days: No Use of substances other than those prescribed or required for medical reasons: No Advance Directives: Yes Advance Directives on File: Yes Advance Directives Date on File: 02/10/21 Nutrition Risks: No Nutritional Risk service: No Current occupational status: retired Meds Allergies Allergy/AdvReac Type Severity Reaction Status Date / Time Sulfa (Sulfonamide Allergy Unknown RASH Verified 02/18/23 08:56 Antibiotics) Active Medications: Current Medications Acetaminophen (Acetaminophen 325 Mg Tablet) 650 mg PO TID MAKENZIE Albuterol Sulfate (Albuterol Sulfate (0.042%) 1.25 Mg/3 Ml Vial.Neb) 1.25 mg INHALE Q4H PRN PRN Reason: Wheezing Bisacodyl (Bisacodyl 10 Mg Supp.Rect) 10 mg OH DAILY PRN PRN Reason: Constipation Ergocalciferol (Ergocalciferol (Vitamin D2) 1,250 Mcg Capsule) 1,250 mcg PO Q28D [facility] Ferrous Sulfate (Ferrous Sulfate 324 Mg Tablet.Dr) 324 mg PO BID [facility] Glucose (Glucose Gel 15 Gm Gel..Gram.) 15 gm PO Q15M PRN PRN Reason: Hypoglycemia Heparin Sodium (Porcine) (Heparin Sodium,Porcine 5,000 Unit/Ml Vial) 5,000 unit SUBCUT Q12H [facility] Insulin Human Lispro (Insulin Lispro 100 Unit/Ml 3 Ml Vial) 0 unit SUBCUT QIDACHS [facility]; Protocol Latanoprost (Latanoprost 0.005 % Ophth Linda 2.5 Ml Drops) 1 drop EYE-BOTH BEDTIME [facility] Levothyroxine Sodium (Levothyroxine Sodium 88 Mcg Tablet) 88 mcg PO DAILY@0600 [facility] Melatonin (Melatonin 3 Mg Tablet) 6 mg PO BEDTIME [facility] Metoprolol Tartrate (Metoprolol Tartrate 25 Mg Tablet) 25 mg PO BID [facility]; Protocol Midodrine (Midodrine Hcl 2.5 Mg Tablet) 2.5 mg PO TUTHSA [facility] Nitroglycerin (Nitroglycerin 0.4 Mg Tab.Subl) 0.4 mg SUBLINGUAL Q5M PRN PRN Reason: Chest Pain Non-Formulary Medication (Glucagon Hcl [Glucagon (Hcl) Emergency Kit]) 1 mg SUBCUT Q20M PRN PRN Reason: Hypoglycemia Nystatin (Nystatin Powder 15 Gm Bottle) 1 appl TOPICAL BID [facility]; Protocol Ondansetron HCl (Ondansetron Hcl 4 Mg/2 Ml Vial) 4 mg IVPUSH Q8H PRN PRN Reason: Nausea and Vomiting Oxycodone HCl (Oxycodone Hcl Immed Release 5 Mg Tablet) 10 mg PO TID [facility] Senna (Sennosides 8.6 Mg Tablet) 8.6 mg PO BEDTIME PRN PRN Reason: Constipation Sertraline HCl (Sertraline Hcl 50 Mg Tablet) 50 mg PO DAILY [facility] Sodium Chloride (0.9 % Sodium Chloride Flush 3 Ml Syringe) 3 ml IVFLUSH QSHIFT [facility] Home Medications Medication Instructions Recorded Confirmed Last Taken Type acetaminophen 325 mg tablet 650 mg PO TID 02/10/21 02/18/23 Unknown History insulin NPH isoph U-100 human 100 16 unit subcut BEDTIME 02/10/21 02/18/23 Unknown History unit/mL subcutaneous suspension (Novolin N NPH U-100 Insulin isophane) levothyroxine 88 mcg tablet 1 tab PO DAILY@0600 02/10/21 02/18/23 Unknown History metoprolol tartrate 25 mg tablet 1 tab PO BID 02/10/21 02/18/23 Unknown History ondansetron 4 mg disintegrating 4 mg PO Q6H PRN Nausea And Vomiting 02/10/21 02/18/23 Unknown History tablet oxycodone 10 mg tablet 1 tab PO Q12H PRN pain 02/10/21 02/18/23 Unknown History sertraline 50 mg tablet 1 tab PO DAILY 02/10/21 02/18/23 Unknown History bisacodyl 10 mg rectal suppository 10 mg OH DAILY PRN Constipation 05/03/22 02/18/23 Unknown History ferrous fumarate 325 mg (106 mg 325 mg PO BID 05/03/22 02/18/23 Unknown History iron) tablet latanoprost 0.005 % eye drops 1 drp ophthalmic (eye) BEDTIME 05/03/22 02/18/23 Unknown History melatonin 3 mg tablet 6 mg PO BEDTIME 05/03/22 02/18/23 Unknown History midodrine 2.5 mg tablet 1 tab PO TUTHSA 05/03/22 02/18/23 Unknown History nitroglycerin 0.4 mg sublingual 0.4 mg sublingual Q5M PRN Chest 05/03/22 02/18/23 Unknown History tablet Pain nystatin 100,000 unit/gram topical 1 appl topical BID 05/03/22 02/18/23 Unknown History powder sennosides 8.6 mg tablet (senna) 8.6 mg PO BEDTIME PRN Constipation 05/03/22 02/18/23 Unknown History albuterol sulfate 1.25 mg/3 mL 1.25 mg inhalation Q4H PRN Wheezing 01/14/23 02/18/23 Unknown History solution for nebulization lidocaine 3 % topical cream 1 appl topical TUTHSA 01/14/23 02/18/23 Unknown History oxycodone 10 mg tablet 10 mg PO TID 01/14/23 02/18/23 Unknown History acetaminophen 325 mg tablet 650 mg PO DAILY PRN Pain 02/18/23 02/18/23 Unknown History (Tylenol) dextrose 40 % oral gel (Glucose 15 g PO Q15M PRN Hypoglycemia 02/18/23 02/18/23 Unknown History Gel) diclofenac sodium 1 % topical gel 1 g topical BID 02/18/23 02/18/23 Unknown History ergocalciferol (vitamin D2) 1,250 1,250 mcg PO QMONTH 02/18/23 02/18/23 02/01/23 History mcg (50,000 unit) capsule glucagon HCl 1 mg solution for 1 mg subcut Q20M PRN Hypoglycemia 02/18/23 02/18/23 Unknown History injection (Glucagon (HCl) Emergency Kit) Physical Exam Vital Signs and Narrative: Vital Signs: Last Vital Signs Temp 97.6 F 02/18/23 14:00 Pulse 69 02/18/23 14:00 Resp 16 02/18/23 14:00 BP 141/32 H 02/18/23 10:36 Pulse Ox 94 02/18/23 15:18 O2 Del Method Nasal Cannula 02/18/23 15:18 O2 Flow Rate 2 02/18/23 15:18 Oxygen Flow Rate 3 02/18/23 08:57 BMI result Body Mass Index 30.6 Const: Other: Constitutional : Awake, interactive, not in distress Neck : Normal inspection, Supple Cardiovascular : RRR, no JVP, no lower extremity edema Respiratory : good bilateral air entry, no crackles, wheezes or rhonchi Gastrointestinal: soft, lax, Normal bowel sounds, Non tender Skin : Warm, Dry, LUE skin is thicker and feels indurated but reports its chronic with no changes Neurological : Alert & oriented x3, No focal deficit Results Labs 02/18/23 10:33 02/18/23 10:33 Labs: Laboratory Results - last 24 hr 02/18/23 02/18/23 02/18/23 10:33 10:33 10:33 MCV 105.3 H MCH 33.1 H MCHC 31.4 RDW 15.1 Plt Count 193 D MPV 9.9 Immature Gran % (Auto) 0.4 Neut % (Auto) 73.0 Lymph % (Auto) 11.5 L [place] % (Auto) 11.2 H Eos % (Auto) 3.5 Baso % (Auto) 0.4 Lymph # (Auto) 0.8 L [place] # (Auto) 0.8 Eos # (Auto) 0.3 Baso # (Auto) 0.0 Abs Immat Gran (auto) 0.03 Absolute Neuts (auto) 5.2 Absolute Nucleated RBC 0.000 Nucleated RBC % (auto) 0.0 PT 11.7 INR 1.0 Anion Gap 17 Estim Creat Clear Calc 8.1 Estimated GFR 8 POC Glucose Random Glucose 34 L* Lactic Acid Calcium 8.2 L Magnesium Total Bilirubin Direct Bilirubin AST ALT Alkaline Phosphatase B-Natriuretic Peptide Total Protein Albumin COVID-19 (YANNA) COVID-19 Clin Com 02/18/23 02/18/23 02/18/23 10:33 10:33 10:33 MCV MCH MCHC RDW Plt Count MPV Immature Gran % (Auto) Neut % (Auto) Lymph % (Auto) [place] % (Auto) Eos % (Auto) Baso % (Auto) Lymph # (Auto) [place] # (Auto) Eos # (Auto) Baso # (Auto) Abs Immat Gran (auto) Absolute Neuts (auto) Absolute Nucleated RBC Nucleated RBC % (auto) PT INR Anion Gap Estim Creat Clear Calc Estimated GFR POC Glucose Random Glucose Lactic Acid 1.4 Calcium Magnesium 2.1 Total Bilirubin 0.5 Direct Bilirubin 0.2 AST 19 ALT 8 Alkaline Phosphatase 87 B-Natriuretic Peptide 1772 H Total Protein 5.7 L Albumin 3.2 L COVID-19 (YANNA) COVID-[facility] Com 02/18/23 02/18/23 02/18/23 10:33 11:48 12:22 MCV MCH MCHC RDW Plt Count MPV Immature Gran % (Auto) Neut % (Auto) Lymph % (Auto) [place] % (Auto) Eos % (Auto) Baso % (Auto) Lymph # (Auto) [place] # (Auto) Eos # (Auto) Baso # (Auto) Abs Immat Gran (auto) Absolute Neuts (auto) Absolute Nucleated RBC Nucleated RBC % (auto) PT INR Anion Gap Estim Creat Clear Calc Estimated GFR POC Glucose 60 78 Random Glucose Lactic Acid Calcium Magnesium Total Bilirubin Direct Bilirubin AST ALT Alkaline Phosphatase B-Natriuretic Peptide Total Protein Albumin COVID-19 (YANNA) Negative COVID-19 Clin Com See Note 02/18/23 13:24 MCV MCH MCHC RDW Plt Count MPV Immature Gran % (Auto) Neut % (Auto) Lymph % (Auto) [place] % (Auto) Eos % (Auto) Baso % (Auto) Lymph # (Auto) [place] # (Auto) Eos # (Auto) Baso # (Auto) Abs Immat Gran (auto) Absolute Neuts (auto) Absolute Nucleated RBC Nucleated RBC % (auto) PT INR Anion Gap Estim Creat Clear Calc Estimated GFR POC Glucose 119 H Random Glucose Lactic Acid Calcium Magnesium Total Bilirubin Direct Bilirubin AST ALT Alkaline Phosphatase B-Natriuretic Peptide Total Protein Albumin COVID-19 (YANNA) COVID-19 Clin Com Imaging Radiologist's Impressions: Impressions Chest X-Ray 02/18/23 10:05 IMPRESSION: Mild CHF. Head CT 02/18/23 12:59 IMPRESSION: No acute intracranial abnormality. Assessment and Plan (1) Mild congestive heart failure: Status: Acute (2) Shortness of breath: Status: Acute (3) Hypoglycemia: Status: Acute Plan An 82 years old lady with PMH of ESRD on HD TTS, HTN, PVC w IVC filter, bedbound among others who presents to the hospital for increased lethargy and SOB. Hypoglycemia in diabetic type II patient on insulin A1c of 4.2 discontinue all insulin encourage PO intake Fluid overload 2/2 congestive heart failure from missing dialysis patient on room air BNP elevated to do dialysis Hypothyroid continue levothyroxine HTN home medications DVT PPx Heparin The paitent will likely need 2 overnight hospital stay for need of dialysis and monitoring blood sugar Time Spent With Patient Time: Total time managing care of this patient today ____ minutes. Quality Stroke Does the patient have a stroke diagnosis?: No VTE Prior VTE?: No VTE Risk Level:: Medical - moderate - high VTE Device Contraindication: Treatment Not Indicated VTE Drug Contraindication: Treatment Not Indicated
[2023-02-18] MEDS: Heparin Sodium,Porcine 5,000 UNIT/ML VIAL 5000 UNIT SUBCUT (15:53)
--- NOTE | 2023-02-18 15:56 | PC.NURSE ---
medication administered per provider order.
[2023-02-18 16:24] LABS: Estimated Average Glucose 71 mg/dL; Hemoglobin A1c % 4.1 %
[2023-02-18 17:01] LABS: Glucose, Whole Blood 72 mg/dL (60-115)
[2023-02-18] MEDS: 0.9 % Sodium Chloride Flush 3 ML SYRINGE IVFLUSH (17:21)
--- NOTE | 2023-02-18 17:23 | PC.NURSE ---
pt a&ox3, vss, nsr/borderline sinus chavez on the cafeteria monitor, pt verbalizing 6/10 bilateral shoulder pain but has generalized pain all over. EJ flushed and patent. call amaro placed within reach. will continue to monitor.
--- NOTE | 2023-02-18 19:37 | MHC.EDTECH ---
Patient had BM, I cleaned her up and assisted her back in bed. SG
[2023-02-18 19:55] LABS: Glucose, Whole Blood 98 mg/dL (60-115)
[2023-02-18 20:45] LABS: Glucose, Whole Blood 102 mg/dL (60-115)
[2023-02-18] MEDS: Melatonin 3 MG TABLET 6 MG PO (21:15)
[2023-02-18] MEDS: oxyCODONE HCl Immed Release 5 MG TABLET 10 MG PO (21:20)
[2023-02-18] MEDS: Acetaminophen 325 MG TABLET 650 MG PO (21:21)
[2023-02-18] MEDS: Ferrous Sulfate 324 MG TABLET.DR PO (21:22)
[2023-02-18] MEDS: Metoprolol Tartrate 25 MG TABLET PO (21:22)
[2023-02-19] MEDS: 0.9 % Sodium Chloride Flush 3 ML SYRINGE IVFLUSH ×2 (00:30→08:15)
[2023-02-19 03:24] VITALS: BP 161/67; PULSE 65; RESP 17; TEMP 36.5; O2SAT 99
[2023-02-19] MEDS: Levothyroxine Sodium 88 MCG TABLET PO (05:05)
[2023-02-19] MEDS: Heparin Sodium,Porcine 5,000 UNIT/ML VIAL 5000 UNIT SUBCUT ×2 (05:05→15:30)
[2023-02-19 07:04] LABS: Glucose, Whole Blood 70 mg/dL (60-115)
[2023-02-19 07:06] VITALS: BP 147/65; PULSE 62; RESP 20; TEMP 37.1; O2SAT 99
[2023-02-19 08:15] LABS: Anion Gap 19 (12-20); Blood Urea Nitrogen 32 mg/dL (9-16); Carbon Dioxide 28 mmol/L (22-29); Chloride 99 mmol/L (96-108); Creatinine Clr Calc Pharmacy 6.6; Estimated Glomerular Filt Rate 6; Glucose Random 76 mg/dL (60-115); Potassium 4.7 mmol/L (3.3-5.1); Sodium 141 mmol/L (135-145)
[2023-02-19] MEDS: oxyCODONE HCl Immed Release 5 MG TABLET 10 MG PO ×2 (08:19→15:28)
[2023-02-19] MEDS: Acetaminophen 325 MG TABLET 650 MG PO ×2 (08:19→15:28)
[2023-02-19] MEDS: Ferrous Sulfate 324 MG TABLET.DR PO (08:19)
[2023-02-19] MEDS: Sertraline HCL 50 MG TABLET PO (08:19)
--- NOTE | 2023-02-19 08:56 | MHC.CM.PN ---
CM attempted to meet with Patient at bedside but Patient is unavailable/in HD. Patient is documented to be A&O X 3; CM left original IMM at bedside for Patient's review and a copy has been placed on the chart. Patient is a LTC Resident of [facility]) and returning there is the dc goal. CM has initiated and will follow for dc planning.
--- NOTE | 2023-02-19 10:10 | MHC.CM.PN ---
Per MD, Patient is medically cleared for dc to SNF today. Patient will return to [facility] today, after HD, at 4PM, via [facility]. IMM addressed this morning. Primary Contact was not available and mail box is full, CM left a detailed message for Secondary Contact/Son/Brenden @ [phone], informing him of the dc plan.
--- NOTE | 2023-02-19 10:46 | PM.DS ---
DS: Providers Provider Date of Service: 02/19/23 Date of admission: 02/18/23 15:24 Primary care physician: James Briones MD Consults: 02/18/23 15:23 Consult to Nephrology Routine Consulting Provider: Arina Beck Reason for consultation: Need of dialysis DS: Diagnosis Discharge Diagnosis (1) Mild congestive heart failure: Status: Acute (2) Shortness of breath: Status: Acute (3) Hypoglycemia: Status: Acute (4) ESRD needing dialysis: Status: Acute DS: Summary Hospital Course Hospital Course: Admission note HPI An 82 years old lady with PMH of ESRD on HD TTS, HTN, PVC w IVC filter, bedbound among others who presents to the hospital for increased lethargy and SOB. The patient was noted lethargic this morning at the facility. Glucose check was low and improved by oral supplements. the patient reports SOB. she was suppose to have dialysis today but ended up in ED after the hypoglycemia event. No chest pain, palpitations, SOB, nausea, vomiting, diarrhea or urinary symptoms. In ED found hypoglycemic again. she is on Insulin only NPH at bedtime. Needs dialysis as well. Admitted for treatment and monitoring. Hospital course Admitted for altered mentation after being found hypoglycemic. returned to baseline with correction of Glucose. HbA1c was check and found to be 4.1 which means the patient is not diabetic and does not neet the insulin or the glucose checks. will DC at time of discharge. She had dialysis asshe missed her session while in ED. seen by nephrology as SOB and fluid overload resolved and weaned down O2 supplement with no complaints of dyspnea. HbA1c of 4.1 which means she does not have diabetes. will stop insulin and glucose checks for now. start low sodium diet. Continue dialysis as scheduled. Time Spent with Patient Time attestation: Total time managing care of this patient today ____ minutes. Discharge coordination time: Greater than 30 minutes Quality: Safe Use of Opioids Does Pt have an Active Cancer Diagnosis on the Problem List?: No Quality: Stroke Does the patient have a stroke diagnosis?: No Physical Exam Vital Signs: Vital Signs: Last Vital Signs Temp 98.7 F 02/19/23 07:06 Pulse 62 02/19/23 07:06 Resp 20 02/19/23 07:06 BP 147/65 H 02/19/23 07:06 Pulse Ox 99 02/19/23 07:06 O2 Del Method Nasal Cannula 02/19/23 07:06 O2 Flow Rate 2 02/19/23 07:06 Oxygen Flow Rate 3 02/18/23 08:57 BMI result Body Mass Index 30.6 Const: Other: Constitutional : Awake, interactive, not in distress Neck : Normal inspection, Supple Cardiovascular : RRR, no JVP, no lower extremity edema Respiratory : good bilateral air entry, no crackles, wheezes or rhonchi Gastrointestinal: soft, lax, Normal bowel sounds, Non tender Skin : Warm, Dry, LUE skin is thicker and feels indurated but reports its chronic with no changes Neurological : Alert & oriented x3, No focal deficit DS: Data Data Completed and Pending Completed studies during hospitalization [Text1]: Procedures Performance of Urinary Filtration, Intermittent, Less than 6 Hours Per Day (01/14/23) Labs on day of discharge: Laboratory Results - last 24 hr 02/18/23 02/18/23 02/18/23 10:33 10:33 10:33 WBC 7.2 RBC 2.81 L Hgb 9.3 L Hct 29.6 L MCV 105.3 H MCH 33.1 H MCHC 31.4 RDW 15.1 Plt Count 193 D MPV 9.9 Immature Gran % (Auto) 0.4 Neut % (Auto) 73.0 Lymph % (Auto) 11.5 L [place] % (Auto) 11.2 H Eos % (Auto) 3.5 Baso % (Auto) 0.4 Lymph # (Auto) 0.8 L [place] # (Auto) 0.8 Eos # (Auto) 0.3 Baso # (Auto) 0.0 Abs Immat Gran (auto) 0.03 Absolute Neuts (auto) 5.2 Absolute Nucleated RBC 0.000 Nucleated RBC % (auto) 0.0 PT INR Sodium 143 Potassium 4.1 D Chloride 100 Carbon Dioxide 30 H Anion Gap 17 BUN 29 H Creatinine 5.09 H* Estim Creat Clear Calc 8.1 Estimated GFR 8 POC Glucose Random Glucose 34 L* Estimat Average Glucose Hemoglobin A1c % Lactic Acid Calcium 8.2 L Magnesium Total Bilirubin Direct Bilirubin AST ALT Alkaline Phosphatase Troponin I High Sens 27.4 H D B-Natriuretic Peptide Total Protein Albumin COVID-19 (YANNA) COVID-19 Clin Com 02/18/23 02/18/23 02/18/23 10:33 10:33 10:33 WBC RBC Hgb Hct MCV MCH MCHC RDW Plt Count MPV Immature Gran % (Auto) Neut % (Auto) Lymph % (Auto) [place] % (Auto) Eos % (Auto) Baso % (Auto) Lymph # (Auto) [place] # (Auto) Eos # (Auto) Baso # (Auto) Abs Immat Gran (auto) Absolute Neuts (auto) Absolute Nucleated RBC Nucleated RBC % (auto) PT 11.7 INR 1.0 Sodium Potassium Chloride Carbon Dioxide Anion Gap BUN Creatinine Estim Creat Clear Calc Estimated GFR POC Glucose Random Glucose Estimat Average Glucose Hemoglobin A1c % Lactic Acid 1.4 Calcium Magnesium 2.1 Total Bilirubin 0.5 Direct Bilirubin 0.2 AST 19 ALT 8 Alkaline Phosphatase 87 Troponin I High Sens B-Natriuretic Peptide Total Protein 5.7 L Albumin 3.2 L COVID-19 (YANNA) COVID-19 [facility] 02/18/23 02/18/23 02/18/23 10:33 10:33 10:33 WBC RBC Hgb Hct MCV MCH MCHC RDW Plt Count MPV Immature Gran % (Auto) Neut % (Auto) Lymph % (Auto) [place] % (Auto) Eos % (Auto) Baso % (Auto) Lymph # (Auto) [place] # (Auto) Eos # (Auto) Baso # (Auto) Abs Immat Gran (auto) Absolute Neuts (auto) Absolute Nucleated RBC Nucleated RBC % (auto) PT INR Sodium Potassium Chloride Carbon Dioxide Anion Gap BUN Creatinine Estim Creat Clear Calc Estimated GFR POC Glucose Random Glucose Estimat Average Glucose 71 Hemoglobin A1c % 4.1 Lactic Acid Calcium Magnesium Total Bilirubin Direct Bilirubin AST ALT Alkaline Phosphatase Troponin I High Sens B-Natriuretic Peptide 1772 H Total Protein Albumin COVID-19 (YANNA) Negative COVID-19 [facility] See Note 02/18/23 02/18/23 02/18/23 11:48 12:22 13:24 WBC RBC Hgb Hct MCV MCH MCHC RDW Plt Count MPV Immature Gran % (Auto) Neut % (Auto) Lymph % (Auto) [place] % (Auto) Eos % (Auto) Baso % (Auto) Lymph # (Auto) [place] # (Auto) Eos # (Auto) Baso # (Auto) Abs Immat Gran (auto) Absolute Neuts (auto) Absolute Nucleated RBC Nucleated RBC % (auto) PT INR Sodium Potassium Chloride Carbon Dioxide Anion Gap BUN Creatinine Estim Creat Clear Calc Estimated GFR POC Glucose 60 78 119 H Random Glucose Estimat Average Glucose Hemoglobin A1c % Lactic Acid Calcium Magnesium Total Bilirubin Direct Bilirubin AST ALT Alkaline Phosphatase Troponin I High Sens B-Natriuretic Peptide Total Protein Albumin COVID-19 (YANNA) COVID-19 Kast 02/18/23 02/18/23 02/18/23 14:31 16:57 19:50 WBC RBC Hgb Hct MCV MCH MCHC RDW Plt Count MPV Immature Gran % (Auto) Neut % (Auto) Lymph % (Auto) [place] % (Auto) Eos % (Auto) Baso % (Auto) Lymph # (Auto) [place] # (Auto) Eos # (Auto) Baso # (Auto) Abs Immat Gran (auto) Absolute Neuts (auto) Absolute Nucleated RBC Nucleated RBC % (auto) PT INR Sodium Potassium Chloride Carbon Dioxide Anion Gap BUN Creatinine Estim Creat Clear Calc Estimated GFR POC Glucose 72 98 Random Glucose Estimat Average Glucose Hemoglobin A1c % Lactic Acid Calcium Magnesium Total Bilirubin Direct Bilirubin AST ALT Alkaline Phosphatase Troponin I High Sens 24.5 H B-Natriuretic Peptide Total Protein Albumin COVID-19 (YANNA) COVID-19 [facility] 02/18/23 02/19/23 02/19/23 20:41 06:59 07:00 WBC RBC Hgb Hct MCV MCH MCHC RDW Plt Count MPV Immature Gran % (Auto) Neut % (Auto) Lymph % (Auto) [place] % (Auto) Eos % (Auto) Baso % (Auto) Lymph # (Auto) [place] # (Auto) Eos # (Auto) Baso # (Auto) Abs Immat Gran (auto) Absolute Neuts (auto) Absolute Nucleated RBC Nucleated RBC % (auto) PT INR Sodium 141 Potassium 4.7 Chloride 99 Carbon Dioxide 28 Anion Gap 19 BUN 32 H Creatinine 6.20 H* Estim Creat Clear Calc 6.6 Estimated GFR 6 POC Glucose 102 70 Random Glucose 76 Estimat Average Glucose Hemoglobin A1c % Lactic Acid Calcium 8.0 L Magnesium Total Bilirubin Direct Bilirubin AST ALT Alkaline Phosphatase Troponin I High Sens B-Natriuretic Peptide Total Protein Albumin COVID-19 (YANNA) COVID-19 [facility] Chest x-ray: Radiologist's impression: ITS Impressions Chest X-Ray 02/18/23 10:05 IMPRESSION: Mild CHF. Head CT 02/18/23 12:59 IMPRESSION: No acute intracranial abnormality. Discharge Plan Discharge Anticipated Discharge Date/Time: 02/19/23 10:44 Patient Disposition: Xfer [facility] Discharge Diagnosis: Hypoglycemia Need of dialysis Referrals: [facility] [Outside] - 1 Week James Briones MD [Primary Care Provider] - 1 Week Discharge Medications: Continued levothyroxine 88 mcg tablet 1 tab PO DAILY@0600 sertraline 50 mg tablet 1 tab PO DAILY metoprolol tartrate 25 mg tablet 1 tab PO BID oxycodone 10 mg tablet 1 tab PO Q12H PRN (Reason: pain) ondansetron 4 mg Tablet,Disintegrating 4 mg PO Q6H PRN (Reason: Nausea And Vomiting) acetaminophen 325 mg Tablet 650 mg PO TID latanoprost 0.005 % drops 1 drp ophthalmic (eye) BEDTIME Rx Instructions: both eyes sennosides [senna] 8.6 mg Tablet 8.6 mg PO BEDTIME PRN (Reason: Constipation) melatonin 3 mg Tablet 6 mg PO BEDTIME bisacodyl 10 mg Suppository 10 mg [place] DAILY PRN (Reason: Constipation) nitroglycerin 0.4 mg Tablet, Sublingual 0.4 mg SUBLINGUAL Q5M PRN (Reason: Chest Pain) Rx Instructions: do not exceed 3 doses per episode midodrine 2.5 mg tablet 1 tab PO TUTHSA Rx Instructions: PRIOR TO DIAYLSIS nystatin 100,000 unit/gram Powder 1 appl TOPICAL BID Rx Instructions: to groin for rash ferrous fumarate 325 mg (106 mg iron) Tablet 325 mg PO BID albuterol sulfate 1.25 mg/3 mL Solution For Nebulization 1.25 mg INHALATION Q4H PRN (Reason: Wheezing) oxycodone 10 mg tablet 10 mg PO TID lidocaine 3 % Cream 1 appl TOPICAL TUTHSA Rx Instructions: PRIOR TO DIAYLSIS acetaminophen [Tylenol] 325 mg Tablet 650 mg PO DAILY PRN (Reason: Pain) dextrose [Glucose Gel] 40 % Gel 15 g PO Q15M PRN (Reason: Hypoglycemia) Rx Instructions: until symptoms of low blood sugar are controlled ergocalciferol (vitamin D2) 1,250 mcg (50,000 unit) Capsule 1,250 mcg PO QMONTH diclofenac sodium 1 % gel 1 g topical BID Rx Instructions: apply to left neck + shoulder; END DATE: 02/22/23 glucagon HCl [Glucagon (HCl) Emergency Kit] 1 mg Recon Soln 1 mg SUBCUT Q20M PRN (Reason: Hypoglycemia) Rx Instructions: until target blood sugar attained Discontinued Novolin N NPH U-100 Insulin 100 unit/mL suspension 16 unit subcut BEDTIME Discharge Orders: Discharge Order (Routine); Ordered 02/19/23 Ordered By: Syeda Mcgraw Diet: Low salt diet Activity on Discharge: As tolerated Stand Alone Forms: Patient Portal Discharge page Care Plan Goals: Read below Health Concerns: Read below Plan of Treatment: Read below Assessment: HbA1c of 4.1 which means you do not have diabetes. will stop insulin and glucose checks for now. Continue dialysis as scheduled. Discharge Date/Time: 02/19/23 16:36
[2023-02-19 13:15] VITALS: BP 145/62; PULSE 67; RESP 18; TEMP 36.9; O2SAT 100
[2023-02-19 15:01] VITALS: BP 123/60; PULSE 69; RESP 20; TEMP 36.8; O2SAT 92
--- NOTE | 2023-02-19 16:34 | PC.NURSE ---
Attempted to contact [facility] for report on known pt. to them but no answer.
== END 2023-02-19 16:36 | DRG 291 ==
LOC: HO.ED 14:12 → HO.EDOVER 15:43 → HO.IMC 19:32
PROVIDERS: Physician Assistant; Admitting Provider Student in an Organized Health Care Education/Training Program; Emergency Provider Emergency Medicine Emergency Medical Services; PCP Family Medicine; Visit Provider Student in an Organized Health Care Education/Training Program
DX: I13.2 Hypertensive heart and chronic kidney disease with heart failure and with stage 5 chronic kidney disease, or end stage renal disease (principal); N18.6 End stage renal disease; E03.9 Hypothyroidism, unspecified; F41.9 Anxiety disorder, unspecified; K21.9 Gastro-esophageal reflux disease without esophagitis; E16.2 Hypoglycemia, unspecified; I50.9 Heart failure, unspecified; Z87.891 Personal history of nicotine dependence; Z74.01 Bed confinement status; Z86.711 Personal history of pulmonary embolism; Z99.2 Dependence on renal dialysis; Z91.158 Patient's noncompliance with renal dialysis for other reason; Z79.890 Hormone replacement therapy; Z79.899 Other long term (current) drug therapy
CPT/HCPCS: 36415; 70450; 71045; 80048; 80076; 82947; 83036; 83605; 83735; 83880; 84484; 85025; 85610; 87040; 87635; 90999; 93005; 99285; J1643

== ENCOUNTER → 2023-02-18 09:04 | Outpatient (BNV) | payer MEDICARE, MEDICAID, SELFPAY | PROVIDERS: Admitting Provider Student in an Organized Health Care Education/Training Program; Emergency Provider Emergency Medicine Emergency Medical Services; PCP Family Medicine; Visit Provider Internal Medicine Cardiovascular Disease | DX: I49.1 Atrial premature depolarization (principal) | CPT/HCPCS: 93010 ==

== ENCOUNTER → 2023-02-18 15:24 | Outpatient (BNV) | payer MEDICARE, MEDICAID, SELFPAY | PROVIDERS: Admitting Provider Student in an Organized Health Care Education/Training Program; Emergency Provider Emergency Medicine Emergency Medical Services; PCP Family Medicine; Visit Provider Student in an Organized Health Care Education/Training Program | DX: I50.9 Heart failure, unspecified (principal); E16.2 Hypoglycemia, unspecified; N18.6 End stage renal disease; Z99.2 Dependence on renal dialysis; R06.02 Shortness of breath | CPT/HCPCS: 99223; 99239 ==

== ENCOUNTER 2023-02-23 15:09 | Emergency (ER) | payer MEDICARE, MEDICAID, SELFPAY ==
--- NOTE | ~2023-02-23 | XR_ITS ---
EXAMINATION: XR CHEST CLINICAL INFORMATION: Evaluate for pneumonia COMPARISON: Chest radiograph from 02/18/2023 TECHNIQUE: Frontal view of the chest was obtained. FINDINGS: Slight improvement in vascular prominence. Trace bilateral pleural effusion. Slight bibasilar atelectasis. No pneumothorax. Trachea is midline. Cardiac mediastinal silhouette is stable. Degenerative changes of the thoracolumbar spine and bilateral glenohumeral joints. Vascular stents of the left axilla and left upper arm. Soft tissues are unremarkable. XR/XR chest 1V IMPRESSION: 1. Slight improvement in vascular prominence. 2. Trace bilateral pleural effusion. 3. Slight bibasilar atelectasis.
[2023-02-23 15:19] VITALS: BP 117/31; BP 155/54; PULSE 70; PULSE 72; RESP 16; TEMP 36.9; O2SAT 98; BMI 28.2
--- NOTE | 2023-02-23 15:23 | ECG_ITS ---
Test Reason : ams Blood Pressure : / mmHG Vent. Rate : 066 BPM Atrial Rate : 066 BPM P-R Int : 174 ms QRS Dur : 116 ms QT Int : 458 ms P-R-T Axes : 051 -01 -20 degrees QTc Int : 480 ms Sinus rhythm with sinus arrhythmia with Premature ventricular complexes or Fusion complexes Low voltage QRS Incomplete right bundle branch block ST & T wave abnormality, consider anterior ischemia Prolonged QT Abnormal ECG When compared with ECG of 18-FEB-2023 09:16, Fusion complexes are now Present Premature ventricular complexes are now Present Premature atrial complexes are no longer Present Referred By: Generic ED Physician Electronically Signed By:MARIVEL GARVEY
[2023-02-23 15:25] LABS: Glucose, Whole Blood 103 mg/dL (60-115)
[2023-02-23 15:26] VITALS: PULSE 73
[2023-02-23 16:34] LABS: Glucose, Whole Blood 100 mg/dL (60-115)
[2023-02-23 16:45] LABS: MANUAL DIFF FLAG NO
[2023-02-23 16:46] LABS: Basophils Absolute Auto 0.1 X10*3/uL (0.0-0.2); Basophils Percent Auto 0.8 % (0-2); Eosinophils Absolute Auto 0.4 X10*3/uL (0.0-0.4); Hematocrit 29.7 % (37.0-47.0); Hemoglobin 9.5 g/dl (12.0-16.0); Imm Gran Abs Auto 0.05 X10*3/uL (0.00-0.03); Imm Gran Pct Auto 0.6 % (0.0-0.4); Lymphocytes Absolute Auto 0.7 X10*3/uL (1.2-4.9); Lymphocytes Percent Auto 8.4 % (20-40); Mean Corpuscular Volume 103.1 fL (80.0-98.0); Mean Platelet Volume 9.8 fL (9.4-12.3); Monocytes Absolute Auto 0.7 X10*3/uL (0.1-1.2); Monocytes Percent Auto 9.2 % (2-11); Neutrophils Absolute Auto 5.9 x10*3/uL (2.0-8.3); Platelet Count 178 X10*3/uL (160-400); Red Blood Count 2.88 X10*6/uL (4.20-5.50); Red Cell Distribution Width 14.5 % (11.0-16.0); White Blood Count 7.8 X10*3/uL (4.8-10.8)
[2023-02-23 16:59] LABS: Alanine Aminotransferase 8 U/L (0-31); Albumin Level 3.3 g/dL (3.5-5.0); Alkaline Phosphatase 113 U/L (39-117); Anion Gap 15 (12-20); Aspartate Amino Transferase 19 U/L (5-31); Bilirubin Total 0.4 mg/dL (0.0-1.0); Blood Urea Nitrogen 12 mg/dL (9-16); Calcium 8.8 mg/dL (8.4-10.2); Carbon Dioxide 34 mmol/L (22-29); Chloride 97 mmol/L (96-108); Estimated Glomerular Filt Rate 16; Glucose Random 104 mg/dL (60-115); Magnesium 1.9 mg/dL (1.6-2.6); Potassium 3.7 mmol/L (3.3-5.1); Sodium 142 mmol/L (135-145); Total Protein 6.1 g/dL (6.5-8.0)
--- NOTE | 2023-02-23 17:04 | ED_ITS ---
HPI - Altered Mental Status General Chief Complaint: Altered Mental Status Stated Complaint: AMS AGITATED Time Seen by Provider: 02/23/23 16:01 Source: EMS Mode of arrival: EMS Limitations: altered mental status History of Present Illness HPI narrative: Patient comes to the emergency room via ambulance from dialysis. According to staff, patient is more altered than usual. They were able to complete dialysis. However, patient seems to be able to communicate better than she did today and they were concerned, sent here to the emergency room. Approximately 5 days ago, patient was sent to the emergency room for altered mental status, patient had hypoglycemia and was admitted for 1 day. Of patient's diabetic medications were discontinued. Today, patient's lowest point of care for glucose is 100 Related Data Home Medications Medication Instructions Recorded Confirmed acetaminophen 325 mg tablet 650 mg PO TID 02/10/21 02/18/23 levothyroxine 88 mcg tablet 1 tab PO DAILY@0600 02/10/21 02/18/23 metoprolol tartrate 25 mg tablet 1 tab PO BID 02/10/21 02/18/23 ondansetron 4 mg disintegrating 4 mg PO Q6H PRN Nausea And Vomiting 02/10/21 02/18/23 tablet oxycodone 10 mg tablet 1 tab PO Q12H PRN pain 02/10/21 02/18/23 sertraline 50 mg tablet 1 tab PO DAILY 02/10/21 02/18/23 bisacodyl 10 mg rectal suppository 10 mg [place] DAILY PRN Constipation 05/03/22 02/18/23 ferrous fumarate 325 mg (106 mg 325 mg PO BID 05/03/22 02/18/23 iron) tablet latanoprost 0.005 % eye drops 1 drp ophthalmic (eye) BEDTIME 05/03/22 02/18/23 melatonin 3 mg tablet 6 mg PO BEDTIME 05/03/22 02/18/23 midodrine 2.5 mg tablet 1 tab PO TUTHSA 05/03/22 02/18/23 nitroglycerin 0.4 mg sublingual 0.4 mg sublingual Q5M PRN Chest 05/03/2207/01 tablet Pain nystatin 100,000 unit/gram topical 1 appl topical BID 05/03/22 02/18/23 powder sennosides 8.6 mg tablet (senna) 8.6 mg PO BEDTIME PRN Constipation 05/03/22 02/18/23 albuterol sulfate 1.25 mg/3 mL 1.25 mg inhalation Q4H PRN Wheezing 01/14/23 02/18/23 solution for nebulization lidocaine 3 % topical cream 1 appl topical TUTHSA 01/14/23 02/18/23 oxycodone 10 mg tablet 10 mg PO TID 01/14/23 02/18/23 acetaminophen 325 mg tablet 650 mg PO DAILY PRN Pain 02/18/23 02/18/23 (Tylenol) dextrose 40 % oral gel (Glucose 15 g PO Q15M PRN Hypoglycemia 02/18/23 02/18/23 Gel) diclofenac sodium 1 % topical gel 1 g topical BID 02/18/23 02/18/23 ergocalciferol (vitamin D2) 1,250 1,250 mcg PO QMONTH 02/18/23 02/18/23 mcg (50,000 unit) capsule glucagon HCl 1 mg solution for 1 mg subcut Q20M PRN Hypoglycemia 02/18/23 02/18/23 injection (Glucagon (HCl) Emergency Kit) Allergies Allergy/AdvReac Type Severity Reaction Status Date / Time Sulfa (Sulfonamide Allergy Unknown RASH Verified 02/18/23 08:56 Antibiotics) Review of Systems Review of Systems: Yes Unobtainable due to mental status PMFSH Past Medical History Medical History Anemia Anxiety COVID-19 Diabetes mellitus Diverticulosis ESRD on dialysis GERD (gastroesophageal reflux disease) HTN (hypertension) Hypertension Hypothyroidism Kidney disease Pulmonary embolus Social History Social History Household Members: Other Household Members Other:: resident of [facility] Housing: Assisted Living Facility Do you presently have visiting nurse or other home services: No Unable to assess alcohol history related to: Unknown Alcohol intake: never Patient Tobacco Use Status: Former Tobacco user Tobacco use type: Cigarette Smoked in Last 30 Days: No Use of substances other than those prescribed or required for medical reasons: No Advance Directives: Yes Advance Directives on File: Yes Advance Directives Date on File: 02/10/21 service: No Current occupational status: retired Physical Exam ED Vital Signs: Vital Signs - 24 hr 02/23/23 15:19 02/23/23 15:26 02/23/23 18:45 Temperature 98.5 F Pulse Rate 72 73 64 Respiratory Rate 16 14 Blood Pressure 155/54 H 120/27 L Pulse Oximetry 98 95 Oxygen Delivery Method Room Air Room Air 02/23/23 19:45 02/23/23 21:30 Temperature 98.2 F 98.4 F Pulse Rate 66 72 Respiratory Rate 12 17 Blood Pressure 112/34 L 129/34 L Pulse Oximetry 95 96 Oxygen Delivery Method Room Air Room Air BMI result Body Mass Index 28.2 Const Other: Appearance: Alert. Disoriented, saying that she is cold Eyes: Pupils equal, round and reactive to light. ENT: Pharynx normal. Neck: Normal inspection. Neck supple. No lymph nodes noted. No crepitus CVS: Normal heart rate and rhythm. Pulses normal. Normal S1 and S2 Respiratory: No respiratory distress. Breath sounds normal. No Wheezing. No rales Abdomen: Soft and nontender. No rigidity. No distention. Skin: Skin warm and dry. Normal skin color. Normal skin turgor. Extremities: No lower extremity edema. No Lacerations. No Rash Neuro: Moving all extremities. No slurred speech. CN 2 through 12 grossly intact Psych: calm, cooperative, confused Course Course Course Narrative: -of patient's labs are pending Medical Decision Making Medical Decision Making MDM Narrative: -patient's chemistry shows a creatinine that is elevated, better than baseline, patient is came from dialysis. -urinalysis pending -patient's urinalysis shows large amount of leukocyte esterase. Patient has had multiple urinalysis which are negative for bacterial growth. Patient has 1 set of urinalysis were patient's urine grew Proteus mirabilis and Enterococcus faecalis. However, the urine was different than today, the urine has a significantly less amount of white blood cells and urine bacteria. -patient seems to be at baseline, patient is alert oriented, conversing with us. -I discussed the patient with Dr. Mejia, patient does not need to be admitted -however, patient lives in assisted living, I do not think the patient can be discharged safe home. Patient does not seem to be able to be able to care for self and patient agrees. I discussed with the patient that we will consult case management and physical therapy in the morning, patient agreeable with plan Differential Diagnosis Differential Diagnoses: The differential diagnosis associated with the presentation includes (UTI , encephalopathy, dementia) Admission/Observation Consideration of admission/observation: Escalation of care including admission/observation considered (Patient will remain under observation until seen by case management) Consult Healthcare Provider Management of the patient was discussed with: Hospitalist Lab Data MDM Lab Attestation statement: I reviewed the patient's lab results. 02/23/23 16:41 02/23/23 16:41 Labs: Lab Results 02/23/23 02/23/23 02/23/23 Range/Units 15:22 16:31 16:41 WBC 7.8 (4.8-10.8) X10*3/uL RBC 2.88 L (4.20-5.50) X10*6/uL Hgb 9.5 L (12.0-16.0) g/dl Hct 29.7 L (37.0-47.0) % MCV 103.1 H D (80.0-98.0) fL MCH 33.0 (27.0-33.0) pg MCHC 32.0 (31.0-35.0) g/dl RDW 14.5 (11.0-16.0) % Plt Count 178 (160-400) X10*3/uL MPV 9.8 (9.4-12.3) fL Immature Gran % (Auto) 0.6 H (0.0-0.4) % Neut % (Auto) 76.0 H (45-73) % Lymph % (Auto) 8.4 L (20-40) % [place] % (Auto) 9.2 (2-11) % Eos % (Auto) 5.0 H (0-4) % Baso % (Auto) 0.8 (0-2) % Lymph # (Auto) 0.7 L (1.2-4.9) X10*3/uL [place] # (Auto) 0.7 (0.1-1.2) X10*3/uL Eos # (Auto) 0.4 (0.0-0.4) X10*3/uL Baso # (Auto) 0.1 (0.0-0.2) X10*3/uL Abs Immat Gran (auto) 0.05 H (0.00-0.03) X10*3/uL Absolute Neuts (auto) 5.9 (2.0-8.3) x10*3/uL Absolute Nucleated RBC 0.000 (0.0-0.012) X10*3/uL Nucleated RBC % (auto) 0.0 (0.0-0.2) /100WBC Sodium (135-145) mmol/L Potassium (3.3-5.1) mmol/L Chloride (96-108) mmol/L Carbon Dioxide (22-29) mmol/L Anion Gap (12-20) BUN (9-16) mg/dL Creatinine (0.5-1.4) mg/dL Estim Creat Clear Calc Estimated GFR POC Glucose 103 100 (60-115) mg/dL Random Glucose (60-115) mg/dL Calcium (8.4-10.2) mg/dL Magnesium (1.6-2.6) mg/dL Total Bilirubin (0.0-1.0) mg/dL AST (5-31) U/L ALT (0-31) U/L Alkaline Phosphatase (39-117) U/L Total Protein (6.5-8.0) g/dL Albumin (3.5-5.0) g/dL Urine Color Urine Appearance Urine pH (5.0-9.0) Ur Specific University (1.005-1.025) Urine Protein (Neg-Trace) mg/dL Urine Glucose (UA) (Negative) mg/dL Urine Ketones (Negative) mg/dL Urine Blood (Negative) Urine Nitrite (Negative) Ur Leukocyte Esterase (Negative) Urine RBC (0-2) /HPF Urine WBC (0-5) /HPF Ur Squamous Epith Cells (0-2) /HPF Urine Bacteria (None Seen) Hyaline Casts (0-2) /LPF COVID-19 (YANNA) (Negative) COVID-19 Clin Com 02/23/23 02/23/23 02/23/23 Range/Units 16:41 16:43 17:36 WBC (4.8-10.8) X10*3/uL RBC (4.20-5.50) X10*6/uL Hgb (12.0-16.0) g/dl Hct (37.0-47.0) % MCV (80.0-98.0) fL MCH (27.0-33.0) pg MCHC (31.0-35.0) g/dl RDW (11.0-16.0) % Plt Count (160-400) X10*3/uL MPV (9.4-12.3) fL Immature Gran % (Auto) (0.0-0.4) % Neut % (Auto) (45-73) % Lymph % (Auto) (20-40) % [place] % (Auto) (2-11) % Eos % (Auto) (0-4) % Baso % (Auto) (0-2) % Lymph # (Auto) (1.2-4.9) X10*3/uL [place] # (Auto) (0.1-1.2) X10*3/uL Eos # (Auto) (0.0-0.4) X10*3/uL Baso # (Auto) (0.0-0.2) X10*3/uL Abs Immat Gran (auto) (0.00-0.03) X10*3/uL Absolute Neuts (auto) (2.0-8.3) x10*3/uL Absolute Nucleated RBC (0.0-0.012) X10*3/uL Nucleated RBC % (auto) (0.0-0.2) /100WBC Sodium 142 (135-145) mmol/L Potassium 3.7 (3.3-5.1) mmol/L Chloride 97 (96-108) mmol/L Carbon Dioxide 34 H (22-29) mmol/L Anion Gap 15 (12-20) BUN 12 (9-16) mg/dL Creatinine 2.86 H (0.5-1.4) mg/dL Estim Creat Clear Calc 15.0 Estimated GFR 16 POC Glucose (60-115) mg/dL Random Glucose 104 (60-115) mg/dL Calcium 8.8 (8.4-10.2) mg/dL Magnesium 1.9 (1.6-2.6) mg/dL Total Bilirubin 0.4 (0.0-1.0) mg/dL AST 19 (5-31) U/L ALT 8 (0-31) U/L Alkaline Phosphatase 113 (39-117) U/L Total Protein 6.1 L (6.5-8.0) g/dL Albumin 3.3 L (3.5-5.0) g/dL Urine Color Yellow Urine Appearance Cloudy Urine pH 8.5 (5.0-9.0) Ur Specific University 1.010 (1.005-1.025) Urine Protein 100 (2+) H (Neg-Trace) mg/dL Urine Glucose (UA) Negative (Negative) mg/dL Urine Ketones Negative (Negative) mg/dL Urine Blood Trace H (Negative) Urine Nitrite Negative (Negative) Ur Leukocyte Esterase Large (3+) H (Negative) Urine RBC 3-5 H (0-2) /HPF Urine WBC 11-20 (0-5) /HPF Ur Squamous Epith Cells 6-10 (0-2) /HPF Urine Bacteria Trace (None Seen) Hyaline Casts 3-5 (0-2) /LPF COVID-19 (YANNA) Negative (Negative) COVID-19 Clin Com See Note Critical Care Time Critical Care Time Critical Care Time: Yes Total Critical Care Time: 45 Attestation: I have personally provided critical care time. Time includes review of lab data, radiology results, discussion with consultants, and monitoring for potential decompensation. Intervention performed as documented. Discharge Plan Discharge Clinical Impression: Physical deconditioning Patient Disposition: Still a Patient Prescriptions: No Action levothyroxine 88 mcg tablet 1 tab PO DAILY@0600 sertraline 50 mg tablet 1 tab PO DAILY metoprolol tartrate 25 mg tablet 1 tab PO BID oxycodone 10 mg tablet 1 tab PO Q12H PRN (Reason: pain) ondansetron 4 mg Tablet,Disintegrating 4 mg PO Q6H PRN (Reason: Nausea And Vomiting) acetaminophen 325 mg Tablet 650 mg PO TID latanoprost 0.005 % drops 1 drp ophthalmic (eye) BEDTIME Rx Instructions: both eyes sennosides [senna] 8.6 mg Tablet 8.6 mg PO BEDTIME PRN (Reason: Constipation) melatonin 3 mg Tablet 6 mg PO BEDTIME bisacodyl 10 mg Suppository 10 mg [place] DAILY PRN (Reason: Constipation) nitroglycerin 0.4 mg Tablet, Sublingual 0.4 mg SUBLINGUAL Q5M PRN (Reason: Chest Pain) Rx Instructions: do not exceed 3 doses per episode midodrine 2.5 mg tablet 1 tab PO TUTHSA Rx Instructions: PRIOR TO DIAYLSIS nystatin 100,000 unit/gram Powder 1 appl TOPICAL BID Rx Instructions: to groin for rash ferrous fumarate 325 mg (106 mg iron) Tablet 325 mg PO BID albuterol sulfate 1.25 mg/3 mL Solution For Nebulization 1.25 mg INHALATION Q4H PRN (Reason: Wheezing) oxycodone 10 mg tablet 10 mg PO TID lidocaine 3 % Cream 1 appl TOPICAL TUTHSA Rx Instructions: PRIOR TO DIAYLSIS acetaminophen [Tylenol] 325 mg Tablet 650 mg PO DAILY PRN (Reason: Pain) dextrose [Glucose Gel] 40 % Gel 15 g PO Q15M PRN (Reason: Hypoglycemia) Rx Instructions: until symptoms of low blood sugar are controlled ergocalciferol (vitamin D2) 1,250 mcg (50,000 unit) Capsule 1,250 mcg PO QMONTH diclofenac sodium 1 % gel 1 g topical BID Rx Instructions: apply to left neck + shoulder; END DATE: 02/22/23 glucagon HCl [Glucagon (HCl) Emergency Kit] 1 mg Recon Soln 1 mg SUBCUT Q20M PRN (Reason: Hypoglycemia) Rx Instructions: until target blood sugar attained
[2023-02-23 17:18] LABS: COVID-19 Test Negative (Negative); IDNOW Serial# 55D5AD1C
[2023-02-23 17:58] LABS: Appearance Urine Cloudy; Color Urine Yellow; Glucose Urine UA Negative (Negative); Leukocyte Esterase Urine Large (3+) (Negative); Nitrite Urine Negative (Negative); PH 8.5 (5.0-9.0); UMIC TRIGGER UACC YES; Urine Blood Trace (Negative); Urine Ketones Negative (Negative); Urine Protein 100 (2+) mg/dL (Neg-Trace)
[2023-02-23 18:42] LABS: Bacteria Urine Trace (None Seen); UACC Culture Trigger YES
[2023-02-23 18:45] VITALS: BP 120/27; PULSE 64; RESP 14; O2SAT 95
[2023-02-23 19:45] VITALS: BP 112/34; PULSE 66; RESP 12; TEMP 36.8; O2SAT 95
[2023-02-23 21:30] VITALS: BP 129/34; PULSE 72; RESP 17; TEMP 36.9; O2SAT 96
[2023-02-23 23:50] VITALS: BP 132/35; PULSE 68; RESP 17; TEMP 37.1; O2SAT 96
--- NOTE | 2023-02-23 23:56 | PC.NURSE ---
Report to Karen [facility] in overflow.
[2023-02-24 00:26] LABS: Glucose, Whole Blood 96 mg/dL (60-115)
[2023-02-24] MEDS: oxyCODONE HCl Immed Release 5 MG TABLET 10 MG PO ×2 (01:02→06:33)
[2023-02-24] MEDS: Melatonin 3 MG TABLET 6 MG PO (01:02)
[2023-02-24] MEDS: Metoprolol Tartrate 25 MG TABLET PO ×2 (01:02→09:07)
[2023-02-24 06:16] VITALS: BP 129/71; PULSE 65; RESP 17; TEMP 36.2; O2SAT 97
[2023-02-24] MEDS: Levothyroxine Sodium 88 MCG TABLET PO (06:33)
[2023-02-24 08:00] VITALS: BP 140/60; PULSE 76; RESP 18; TEMP 36.9; O2SAT 92
[2023-02-24] MEDS: Sertraline HCL 50 MG TABLET PO (09:07)
[2023-02-24] MEDS: Nystatin Powder 15 GM BOTTLE 1 APPL TOPICAL (09:08)
--- NOTE | 2023-02-24 09:19 | MHC.CM.PN ---
DP:CM MET WITH PT AT BEDSIDE. PT IS A LTC RESIDENT AT [facility] WHERE SHE RECEIVES HD ON SITE T--MON. W/C BOUND AT BASELINE. RETURN REFERRAL SENT TO CENTER. PT HAS BEEN MEDICALLY CLEARED TO RETURN TO LTC. BLS TRANSPORT BOOKED FOR 10:30 AM VIA [facility]. RN AWARE. PROVIDER AWARE. HCP/SON BERTIN MADE AWARE OF PLAN
== END 2023-02-24 10:57 | disposition other institution (70) ==
PROVIDERS: Physician Assistant Medical; Emergency Provider Emergency Medicine; PCP Family Medicine
DX: R53.81 Other malaise (principal); R45.1 Restlessness and agitation; Z20.822 Contact with and (suspected) exposure to COVID-19; E11.22 Type 2 diabetes mellitus with diabetic chronic kidney disease; I12.0 Hypertensive chronic kidney disease with stage 5 chronic kidney disease or end stage renal disease; N18.6 End stage renal disease; Z99.2 Dependence on renal dialysis; Z86.711 Personal history of pulmonary embolism; Z87.891 Personal history of nicotine dependence
CPT/HCPCS: 71045; 80053; 81001; 82947; 83735; 85025; 87086; 87635; 93005; 99285

== ENCOUNTER 2023-02-25 21:37 | Emergency (ER) | payer MEDICARE, MEDICAID, SELFPAY ==
--- NOTE | 2023-02-25 | ECG_ITS ---
Test Reason : GI BLEED Blood Pressure : / mmHG Vent. Rate : 066 BPM Atrial Rate : 066 BPM P-R Int : 174 ms QRS Dur : 116 ms QT Int : 468 ms P-R-T Axes : 058 -01 -24 degrees QTc Int : 490 ms Sinus rhythm with Premature atrial complexes Incomplete right bundle branch block ST & T wave abnormality, consider anterior ischemia Prolonged QT Abnormal ECG When compared with ECG of 23-FEB-2023 15:28, Fusion complexes are no longer Present Premature ventricular complexes are no longer Present Premature atrial complexes are now Present Referred By: Generic ED Physician Electronically Signed By:MARIVEL GARVEY
[2023-02-25 22:13] VITALS: BP 120/66; BP 152/60; PULSE 66; PULSE 69; RESP 16; TEMP 37.2; O2SAT 96; BMI 31.7
[2023-02-25 22:50] LABS: Basophils Absolute Auto 0.1 X10*3/uL (0.0-0.2); Basophils Percent Auto 0.6 % (0-2); Eosinophils Absolute Auto 0.4 X10*3/uL (0.0-0.4); Eosinophils Percent Auto 4.8 % (0-4); Hematocrit 30.5 % (37.0-47.0); Hemoglobin 9.8 g/dl (12.0-16.0); Imm Gran Abs Auto 0.05 X10*3/uL (0.00-0.03); Imm Gran Pct Auto 0.6 % (0.0-0.4); Lymphocytes Absolute Auto 0.9 X10*3/uL (1.2-4.9); Lymphocytes Percent Auto 9.7 % (20-40); MANUAL DIFF FLAG NO; Mean Corpuscular HGB Conc 32.1 g/dl (31.0-35.0); Mean Corpuscular Hemoglobin 33.4 pg (27.0-33.0); Mean Corpuscular Volume 104.1 fL (80.0-98.0); Mean Platelet Volume 9.8 fL (9.4-12.3); Monocytes Absolute Auto 0.8 X10*3/uL (0.1-1.2); Monocytes Percent Auto 9.5 % (2-11); NRBC Pct Auto 0.2 /100WBC (0.0-0.2); Neutrophils Absolute Auto 6.6 x10*3/uL (2.0-8.3); Neutrophils Percent Auto 74.8 % (45-73); Platelet Count 194 X10*3/uL (160-400); Red Blood Count 2.93 X10*6/uL (4.20-5.50); Red Cell Distribution Width 14.6 % (11.0-16.0); White Blood Count 8.8 X10*3/uL (4.8-10.8)
[2023-02-25 23:03] LABS: Alanine Aminotransferase 11 U/L (0-31); Albumin Level 3.4 g/dL (3.5-5.0); Alkaline Phosphatase 96 U/L (39-117); Anion Gap 17 (12-20); Aspartate Amino Transferase 20 U/L (5-31); Bilirubin Total 0.4 mg/dL (0.0-1.0); Blood Urea Nitrogen 11 mg/dL (9-16); Calcium 9.3 mg/dL (8.4-10.2); Carbon Dioxide 32 mmol/L (22-29); Chloride 98 mmol/L (96-108); Creatinine Clr Calc Pharmacy 12.2; Estimated Glomerular Filt Rate 14; Glucose Random 109 mg/dL (60-115); Potassium 3.6 mmol/L (3.3-5.1); Sodium 143 mmol/L (135-145); Total Protein 6.3 g/dL (6.5-8.0)
--- NOTE | 2023-02-25 23:52 | ED.GIBLEED ---
HPI - GI Bleed General Chief complaint: GI Bleed Stated complaint: SNF. bright red blood in stool withclots Time Seen by Provider: 02/25/23 23:52 History of Present Illness HPI Narrative: 82 years old lady with PMH of ESRD on HD TTS, HTN, PVC w IVC filter, bedbound?[facility]:00 staff noticed bright red bloody stools with clots patient denies any pain labs were done prior to my evaluation which showed hemoglobin of 9.8 hematocrit 30.5 with stable vitals Related Data Home Medications Medication Instructions Recorded Confirmed levothyroxine 88 mcg tablet 1 tab PO DAILY@0600 02/10/21 02/24/23 metoprolol tartrate 25 mg tablet 1 tab PO BID 02/10/21 02/24/23 ondansetron 4 mg disintegrating 4 mg PO Q6H PRN Nausea And Vomiting 02/10/21 02/24/23 tablet oxycodone 10 mg tablet 1 tab PO Q12H PRN pain 02/10/21 02/24/23 sertraline 50 mg tablet 1 tab PO DAILY 02/10/21 02/24/23 bisacodyl 10 mg rectal suppository 10 mg ND DAILY PRN Constipation 05/03/22 02/24/23 ferrous fumarate 325 mg (106 mg 325 mg PO BID 05/03/22 02/24/23 iron) tablet latanoprost 0.005 % eye drops 1 drp ophthalmic (eye) BEDTIME 05/03/22 02/24/23 melatonin 3 mg tablet 6 mg PO BEDTIME 05/03/22 02/24/23 midodrine 2.5 mg tablet 1 tab PO TUTHSA 05/03/22 02/24/23 nitroglycerin 0.4 mg sublingual 0.4 mg sublingual Q5M PRN Chest 05/03/22 02/24/23 tablet Pain nystatin 100,000 unit/gram topical 1 appl topical BID 05/03/22 02/24/23 powder sennosides 8.6 mg tablet (senna) 8.6 mg PO BEDTIME PRN Constipation 05/03/22 02/24/23 albuterol sulfate 1.25 mg/3 mL 1.25 mg inhalation Q4H PRN Wheezing 01/14/23 02/24/23 solution for nebulization lidocaine 3 % topical cream 1 appl topical TUTHSA 01/14/23 02/24/23 oxycodone 10 mg tablet 10 mg PO TID 01/14/23 02/24/23 acetaminophen 325 mg tablet 650 mg PO DAILY PRN Pain 02/18/23 02/24/23 (Tylenol) dextrose 40 % oral gel (Glucose 15 g PO Q15M PRN Hypoglycemia 02/18/23 02/24/23 Gel) diclofenac sodium 1 % topical gel 1 g topical BID 02/18/23 02/24/23 ergocalciferol (vitamin D2) 1,250 1,250 mcg PO QMONTH 02/18/23 02/24/23 mcg (50,000 unit) capsule glucagon HCl 1 mg solution for 1 mg subcut Q20M PRN Hypoglycemia 02/18/23 02/24/23 injection (Glucagon (HCl) Emergency Kit) Allergies Allergy/AdvReac Type Severity Reaction Status Date / Time Sulfa (Sulfonamide Allergy Unknown RASH Verified 02/18/23 08:56 Antibiotics) [facility] Past Medical History Medical History Anemia Anxiety COVID-19 Diabetes mellitus Diverticulosis ESRD on dialysis GERD (gastroesophageal reflux disease) HTN (hypertension) Hypertension Hypothyroidism Kidney disease Pulmonary embolus Social History Social History Household Members: Other Household Members Other:: resident of [facility] Housing: Assisted Living Facility Do you presently have visiting nurse or other home services: No Unable to assess alcohol history related to: Unknown Alcohol intake: never Patient Tobacco Use Status: Former Tobacco user Tobacco use type: Cigarette Smoked in Last 30 Days: No Use of substances other than those prescribed or required for medical reasons: No Advance Directives: Yes Advance Directives on File: Yes Advance Directives Date on File: 02/10/21 service: No Current occupational status: retired Physical Exam Vital Signs: Vital Signs: Last Vital Signs Temp 98.2 F 02/26/23 00:37 Pulse 66 02/26/23 00:37 Resp 14 02/26/23 00:37 BP 117/48 L 02/26/23 00:37 Pulse Ox 98 02/26/23 00:37 O2 Del Method Room Air 02/26/23 00:37 BMI result Body Mass Index 31.7 Appearance: Alert. Oriented X3. No acute distress. Eyes:pallor+ ENT: Pharynx normal. Oral Mucosa moist Neck: Normal inspection. Neck supple. CVS: Normal heart rate and rhythm. Pulses normal. Respiratory: No respiratory distress. Equal air entry bilateral, no wheezing/rales/rhonchi Abdomen: Soft and nontender. Bowel sounds are present, no mass palpable, no CVA tenderness rectal no external hemorrhoids stool was soft and greenish in color Skin: Skin warm and dry. Normal skin color. Normal skin turgor. Extremities: No lower extremity edema. No calf tenderness av fistal bruit + Neuro: Oriented X 3. Medical Decision Making Medical Decision Making [facility] Narrative: Patient stable H&H no rectal bleeding noticed likely patient has internal hemorrhoid which bled stable vitals additional patient back to [facility] Lab Data [facility] Lab Attestation statement: I reviewed the patient's lab results. 02/25/23 22:43 02/25/23 22:43 Labs: Lab Results 02/25/23 02/25/23 02/26/23 Range/Units 22:43 22:43 00:56 WBC 8.8 (4.8-10.8) X10*3/uL RBC 2.93 L (4.20-5.50) X10*6/uL Hgb 9.8 L (12.0-16.0) g/dl Hct 30.5 L (37.0-47.0) % MCV 104.1 H (80.0-98.0) fL MCH 33.4 H (27.0-33.0) pg MCHC 32.1 (31.0-35.0) g/dl RDW 14.6 (11.0-16.0) % Plt Count 194 (160-400) X10*3/uL MPV 9.8 (9.4-12.3) fL Immature Gran % (Auto) 0.6 H (0.0-0.4) % Neut % (Auto) 74.8 H (45-73) % Lymph % (Auto) 9.7 L (20-40) % [place] % (Auto) 9.5 (2-11) % Eos % (Auto) 4.8 H (0-4) % Baso % (Auto) 0.6 (0-2) % Lymph # (Auto) 0.9 L (1.2-4.9) X10*3/uL [place] # (Auto) 0.8 (0.1-1.2) X10*3/uL Eos # (Auto) 0.4 (0.0-0.4) X10*3/uL Baso # (Auto) 0.1 (0.0-0.2) X10*3/uL Abs Immat Gran (auto) 0.05 H (0.00-0.03) X10*3/uL Absolute Neuts (auto) 6.6 (2.0-8.3) x10*3/uL Absolute Nucleated RBC 0.020 H (0.0-0.012) X10*3/uL Nucleated RBC % (auto) 0.2 (0.0-0.2) /100WBC Sodium 143 (135-145) mmol/L Potassium 3.6 (3.3-5.1) mmol/L Chloride 98 (96-108) mmol/L Carbon Dioxide 32 H (22-29) mmol/L Anion Gap 17 (12-20) BUN 11 (9-16) mg/dL Creatinine 3.17 H (0.5-1.4) mg/dL Estim Creat Clear Calc 12.2 Estimated GFR 14 Random Glucose 109 (60-115) mg/dL Calcium 9.3 (8.4-10.2) mg/dL Total Bilirubin 0.4 (0.0-1.0) mg/dL AST 20 (5-31) U/L ALT 11 (0-31) U/L Alkaline Phosphatase 96 (39-117) U/L Total Protein 6.3 L (6.5-8.0) g/dL Albumin 3.4 L (3.5-5.0) g/dL Stool Occult Blood NEGATIVE (NEGATIVE) Discharge Plan Discharge Clinical Impression: Bleeding internal hemorrhoids Patient Disposition: Xfer SNF Instructions: Hemorrhoids (ED) Additional Instructions: Avoid constipation/straining No bleeding noted at this time Your hemoglobin is stable Use stool softer for constipation Prescriptions: No Action levothyroxine 88 mcg tablet 1 tab PO DAILY@0600 sertraline 50 mg tablet 1 tab PO DAILY metoprolol tartrate 25 mg tablet 1 tab PO BID oxycodone 10 mg tablet 1 tab PO Q12H PRN (Reason: pain) ondansetron 4 mg Tablet,Disintegrating 4 mg PO Q6H PRN (Reason: Nausea And Vomiting) latanoprost 0.005 % drops 1 drp ophthalmic (eye) BEDTIME Rx Instructions: both eyes sennosides [senna] 8.6 mg Tablet 8.6 mg PO BEDTIME PRN (Reason: Constipation) melatonin 3 mg Tablet 6 mg PO BEDTIME bisacodyl 10 mg Suppository 10 mg ND DAILY PRN (Reason: Constipation) nitroglycerin 0.4 mg Tablet, Sublingual 0.4 mg SUBLINGUAL Q5M PRN (Reason: Chest Pain) Rx Instructions: do not exceed 3 doses per episode midodrine 2.5 mg tablet 1 tab PO TUTHSA Rx Instructions: PRIOR TO DIAYLSIS nystatin 100,000 unit/gram Powder 1 appl TOPICAL BID Rx Instructions: to groin for rash ferrous fumarate 325 mg (106 mg iron) Tablet 325 mg PO BID albuterol sulfate 1.25 mg/3 mL Solution For Nebulization 1.25 mg INHALATION Q4H PRN (Reason: Wheezing) oxycodone 10 mg tablet 10 mg PO TID lidocaine 3 % Cream 1 appl TOPICAL TUTHSA Rx Instructions: PRIOR TO DIAYLSIS acetaminophen [Tylenol] 325 mg Tablet 650 mg PO DAILY PRN (Reason: Pain) dextrose [Glucose Gel] 40 % Gel 15 g PO Q15M PRN (Reason: Hypoglycemia) Rx Instructions: until symptoms of low blood sugar are controlled ergocalciferol (vitamin D2) 1,250 mcg (50,000 unit) Capsule 1,250 mcg PO QMONTH diclofenac sodium 1 % gel 1 g topical BID Rx Instructions: apply to left neck + shoulder; END DATE: 02/22/23 glucagon HCl [Glucagon (HCl) Emergency Kit] 1 mg Recon Soln 1 mg SUBCUT Q20M PRN (Reason: Hypoglycemia) Rx Instructions: until target blood sugar attained Interventions: ED Discharge Assessment Last Done: 02/26/23 02:29 Discharge Date/Time: 02/26/23 02:31
[2023-02-26 00:37] VITALS: BP 117/48; PULSE 66; RESP 14; TEMP 36.8; O2SAT 98
[2023-02-26 01:02] LABS: OBS Int Ctl Valid YES; OBS1 NEGATIVE (NEGATIVE)
--- NOTE | 2023-02-26 01:50 | PC.NURSE ---
verbal report given to [place] staff at [facility]
--- NOTE | 2023-02-26 01:58 | MHC.EDTECH ---
Call out to tiffanie at [phone] to book transport for pt back to rehab, estimated eta given was under half hour
--- NOTE | 2023-02-26 02:30 | PC.NURSE ---
pt d/c to NH, no active bleeding observed
== END 2023-02-26 02:31 | disposition skilled nursing facility (03) ==
PROVIDERS: Emergency Provider Internal Medicine; PCP Family Medicine
DX: K64.8 Other hemorrhoids (principal); E11.22 Type 2 diabetes mellitus with diabetic chronic kidney disease; I12.0 Hypertensive chronic kidney disease with stage 5 chronic kidney disease or end stage renal disease; N18.6 End stage renal disease; Z99.2 Dependence on renal dialysis; D64.9 Anemia, unspecified; Z87.891 Personal history of nicotine dependence; Z79.899 Other long term (current) drug therapy
CPT/HCPCS: 36415; 80053; 82272; 85025; 93005; 99283; 99285

== ENCOUNTER 2023-03-14 06:41 | Outpatient (REF) | payer MEDICARE, MEDICAID, SELFPAY ==
[2023-03-14 06:31] LABS: MANUAL DIFF FLAG NO
[2023-03-14 07:31] LABS: Basophils Absolute Auto 0.1 X10*3/uL (0.0-0.2); Basophils Percent Auto 1.2 % (0-2); Eosinophils Absolute Auto 0.5 X10*3/uL (0.0-0.4); Eosinophils Percent Auto 7.4 % (0-4); Hematocrit 29.6 % (37.0-47.0); Hemoglobin 9.5 g/dl (12.0-16.0); Imm Gran Abs Auto 0.06 X10*3/uL (0.00-0.03); Imm Gran Pct Auto 0.9 % (0.0-0.4); Lymphocytes Absolute Auto 0.9 X10*3/uL (1.2-4.9); Mean Corpuscular HGB Conc 32.1 g/dl (31.0-35.0); Mean Corpuscular Hemoglobin 33.7 pg (27.0-33.0); Mean Platelet Volume 10.1 fL (9.4-12.3); Monocytes Absolute Auto 0.8 X10*3/uL (0.1-1.2); NRBC Pct Auto 0.3 /100WBC (0.0-0.2); Neutrophils Absolute Auto 4.4 x10*3/uL (2.0-8.3); Neutrophils Percent Auto 65.5 % (45-73); Platelet Count 231 X10*3/uL (160-400); Red Blood Count 2.82 X10*6/uL (4.20-5.50); Red Cell Distribution Width 15.7 % (11.0-16.0); White Blood Count 6.8 X10*3/uL (4.8-10.8)
[2023-03-14 08:03] LABS: Anion Gap 18 (12-20); Blood Urea Nitrogen 31 mg/dL (9-16); Calcium 8.4 mg/dL (8.4-10.2); Carbon Dioxide 26 mmol/L (22-29); Chloride 99 mmol/L (96-108); Estimated Glomerular Filt Rate 7; Glucose Random 76 mg/dL (60-115); Potassium 3.6 mmol/L (3.3-5.1); Sodium 139 mmol/L (135-145)
== END 2023-03-14 06:42 | disposition home or self-care (01) ==
LOC: HO.MMNH2L 06:41
PROVIDERS: Visit Provider Family Medicine
DX: I10 Essential (primary) hypertension (principal)
CPT/HCPCS: 36415; 80048; 85025

== ENCOUNTER 2023-03-20 05:54 | Outpatient (REF) | payer MEDICARE, MEDICAID, SELFPAY ==
[2023-03-20 05:51] LABS: MANUAL DIFF FLAG NO
[2023-03-20 06:51] LABS: Basophils Absolute Auto 0.1 X10*3/uL (0.0-0.2); Eosinophils Absolute Auto 0.6 X10*3/uL (0.0-0.4); Eosinophils Percent Auto 10.8 % (0-4); Hematocrit 29.9 % (37.0-47.0); Hemoglobin 9.4 g/dl (12.0-16.0); Imm Gran Abs Auto 0.04 X10*3/uL (0.00-0.03); Imm Gran Pct Auto 0.7 % (0.0-0.4); Lymphocytes Absolute Auto 0.9 X10*3/uL (1.2-4.9); Lymphocytes Percent Auto 14.5 % (20-40); Mean Corpuscular HGB Conc 31.4 g/dl (31.0-35.0); Mean Corpuscular Hemoglobin 32.6 pg (27.0-33.0); Mean Corpuscular Volume 103.8 fL (80.0-98.0); Mean Platelet Volume 10.5 fL (9.4-12.3); Monocytes Absolute Auto 0.7 X10*3/uL (0.1-1.2); Monocytes Percent Auto 12.4 % (2-11); Neutrophils Absolute Auto 3.6 x10*3/uL (2.0-8.3); Neutrophils Percent Auto 60.6 % (45-73); Platelet Count 167 X10*3/uL (160-400); Red Blood Count 2.88 X10*6/uL (4.20-5.50); Red Cell Distribution Width 15.9 % (11.0-16.0)
[2023-03-20 07:01] LABS: Anion Gap 14 (12-20); Blood Urea Nitrogen 28 mg/dL (9-16); Calcium 8.4 mg/dL (8.4-10.2); Carbon Dioxide 31 mmol/L (22-29); Chloride 101 mmol/L (96-108); Glucose Random 92 mg/dL (60-115); Potassium 3.5 mmol/L (3.3-5.1); Sodium 142 mmol/L (135-145)
[2023-03-20 07:30] LABS: Estimated Glomerular Filt Rate 9
== END 2023-03-20 05:55 | disposition home or self-care (01) ==
LOC: HO.MMNH2L 05:54
PROVIDERS: Visit Provider Family Medicine
DX: I10 Essential (primary) hypertension (principal)
CPT/HCPCS: 36415; 80048; 85025

== ENCOUNTER 2023-03-24 07:16 | Inpatient (IN) | payer MEDICARE, MEDICAID, SELFPAY ==
--- NOTE | ~2023-03-24 | CT_ITS ---
EXAMINATION: CT CHEST WITHOUT CONTRAST CLINICAL INFORMATION: Pneumonia, unable to hold breath COMPARISON: Chest film dated 03/24/2023 TECHNIQUE: Multidetector volumetric CT imaging of the chest was done. Axial MIP volume rendering provided. Sagittal and coronal reformatted images were obtained. This CT examination was performed using dose optimization techniques as appropriate, variously including the following: *Automated exposure control *Adjustment of mA and/or kV according to patient size (this includes techniques or standardized protocols for targeted exams where dose is matched to indication/reason for exam; i.e. extremities or head) *Use of iterative reconstruction technique DLP: 380 mGy-cm FINDINGS: The thoracic inlet is felt to be within normal limits. Centrally there is some adenopathy here. Precarinal node measuring up to 1.2 cm. Probable subcarinal adenopathy. This is a noncontrast study. Difficult to evaluate the hilar regions. There may well be some adenopathy here. Moderate coronary calcifications. Partially visualized upper abdominal structures show possible bowel or small gallstones in the gallbladder. There is a rounded structure in the region of the left adrenal. This may represent nodularity. Measures 2.4 x 2.3 cm. This cannot be said to be a simple adenoma on this study. Imaging of the lung rae. Right lung; Small bordering moderate effusion. Adjacent atelectasis. Motion significantly limits this exam otherwise. Left lung; Some effusion. Small to moderate in size. Left basilar atelectasis or infiltrate. Review of the bone windows does not demonstrate evidence for bony lesion. CT/CT chest wo IV con IMPRESSION: Bilateral small to moderate-sized effusions. Bibasilar atelectasis left greater than right. Motion limits this exam. Some mild central adenopathy may be reactive. Attention to follow-up. There is a left adrenal lesion of uncertain etiology. Correlate clinically. This cannot be said to be a simple adenoma on this study. Recommend dedicated CT protocol for adrenal versus MRI
--- NOTE | ~2023-03-24 | CT_ITS ---
EXAMINATION: CT ABDOMEN AND PELVIS WITHOUT CONTRAST CLINICAL INFORMATION: Abdominal pain. COMPARISON: 01/14/2023 TECHNIQUE: Multidetector volumetric imaging was performed from the superior aspect of the liver through the pubic symphysis. Sagittal and coronal reformatted images were obtained on the technologist's workstation. This CT examination was performed using dose optimization techniques as appropriate, variously including the following: *Automated exposure control *Adjustment of mA and/or kV according to patient size (this includes techniques or standardized protocols for targeted exams where dose is matched to indication/reason for exam; i.e. extremities or head) *Use of iterative reconstruction technique DLP: 857 mGy-cm FINDINGS: LUNG BASES: Large bilateral pleural effusions. LIVER, GALLBLADDER, AND BILIARY TREE: The noncontrast liver is normal in size, shape, and attenuation. No focal hepatic lesion or biliary ductal dilatation is present. Gallstones. PANCREAS: Atrophic pancreas. SPLEEN: Not enlarged. ADRENAL GLANDS: Left adrenal nodule measures 2.2 x 2.1 cm. KIDNEYS AND URETERS: Atrophic kidneys. Bilateral hypodensities incompletely characterized without intravenous contrast. Nonobstructing bilateral renal calculi. No hydronephrosis. Nonspecific perinephric stranding. BLADDER: Unremarkable. GASTROINTESTINAL TRACT: Extensive diverticular disease of the sigmoid colon. Focal 4 cm segment of wall thickening in the sigmoid colon on image 64 series 3. Metallic streak artifact in the region of the sigmoid colon. No small bowel obstruction. ABDOMINAL WALL: No significant hernia is appreciated. LYMPH NODES: No bulky abdominal or pelvic lymphadenopathy. VASCULAR: Normal caliber abdominal aorta. IVC filter in place. PELVIC VISCERA: Uterus is surgically absent. OSSEOUS STRUCTURES: Left total hip arthroplasty. L4-L5 spondylolysis and spondylolisthesis. Moderate height loss of L4 vertebral body. Nonspecific presacral stranding and edema. CT/CT abdomen pelvis wo IV con IMPRESSION: Large bilateral pleural effusions. Focal 4 cm segment of wall thickening in the mid sigmoid colon. Consider correlation with direct visualization. Stable indeterminate left adrenal nodule. Cholelithiasis. Nonobstructing bilateral renal calculi. No hydronephrosis.
--- NOTE | ~2023-03-24 | XR_ITS ---
EXAMINATION: XR CHEST CLINICAL INFORMATION: Shortness of breath COMPARISON: 02/23/2023 TECHNIQUE: Frontal view of the chest was obtained. FINDINGS: Left basilar opacity consistent with atelectasis/infiltrate and/or possibly fluid. Infrahilar density on the right could represent mild infiltrate. No convincing evidence of failure here. The hilar regions are comparable The cardiac silhouette is comparable XR/XR chest 1V IMPRESSION: Left basilar opacity greater than right basilar opacities may be consistent with atelectasis or infiltrate. Effusion on the left would need to be considered as well
[2023-03-24 07:25] VITALS: BP 182/58; PULSE 74; RESP 18; TEMP 36.4; O2SAT 85; BMI 27.9
--- NOTE | 2023-03-24 07:33 | ECG_ITS ---
Test Reason : abd pain Blood Pressure : / mmHG Vent. Rate : 067 BPM Atrial Rate : 000 BPM P-R Int : 000 ms QRS Dur : 106 ms QT Int : 458 ms P-R-T Axes : 000 021 -38 degrees QTc Int : 483 ms Poor data quality, interpretation may be adversely affected Atrial fibrillation Incomplete right bundle branch block Nonspecific ST and T wave abnormality Abnormal ECG When compared with ECG of 25-FEB-2023 22:11, Atrial fibrillation has replaced Sinus rhythm Referred By: Ana Jones Electronically Signed By:MARIVEL GARVEY
--- NOTE | 2023-03-24 07:34 | ED_ITS ---
HPI - General Adult General Chief complaint: Abdominal Pain Stated complaint: ABD PAIN,SOB X 1 HOUR Time Seen by Provider: 03/24/23 08:33 Source: patient, EMS, RN notes reviewed and old records reviewed Mode of arrival: EMS History of Present Illness HPI narrative: 82-year-old female with a past medical history of anxiety, HTN, HLD, metabolic encephalopathy, diabetes, ESRD on dialysis (T/T/S), hypothyroid, anemia, PE, CHF, p.r.n. O2 presenting to the ED via EMS from [facility] complaining of abdominal discomfort radiating to chest since 06:00AM with shallow respirations, noted to be satting 89% on room air which increased to 95% on 2L NC per EMS/SNF. Patient reports she does not have her dialysis yesterday unclear why. Patient is poor historian. Denies fever/chills, nausea /vomiting, diarrhea, CP. Onset (ago): hour(s) Related Data Home Medications Medication Instructions Recorded Confirmed levothyroxine 88 mcg tablet 1 tab PO DAILY@0600 02/10/21 02/24/23 metoprolol tartrate 25 mg tablet 1 tab PO BID 02/10/21 02/24/23 ondansetron 4 mg disintegrating 4 mg PO Q6H PRN Nausea And Vomiting 02/10/21 02/24/23 tablet oxycodone 10 mg tablet 1 tab PO Q12H PRN pain 02/10/21 02/24/23 sertraline 50 mg tablet 1 tab PO DAILY 02/10/21 02/24/23 bisacodyl 10 mg rectal suppository 10 mg MN DAILY PRN Constipation 05/03/22 02/24/23 ferrous fumarate 325 mg (106 mg 325 mg PO BID 05/03/22 02/24/23 iron) tablet latanoprost 0.005 % eye drops 1 drp ophthalmic (eye) BEDTIME 05/03/22 02/24/23 melatonin 3 mg tablet 6 mg PO BEDTIME 05/03/22 02/24/23 midodrine 2.5 mg tablet 1 tab PO TUTHSA 05/03/22 02/24/23 nitroglycerin 0.4 mg sublingual 0.4 mg sublingual Q5M PRN Chest 05/03/22 02/24/23 tablet Pain nystatin 100,000 unit/gram topical 1 appl topical BID 05/03/22 02/24/23 powder sennosides 8.6 mg tablet (senna) 8.6 mg PO BEDTIME PRN Constipation 05/03/22 02/24/23 albuterol sulfate 1.25 mg/3 mL 1.25 mg inhalation Q4H PRN Wheezing 01/14/23 02/24/23 solution for nebulization lidocaine 3 % topical cream 1 appl topical TUTHSA 01/14/23 02/24/23 oxycodone 10 mg tablet 10 mg PO TID 01/14/23 02/24/23 acetaminophen 325 mg tablet 650 mg PO DAILY PRN Pain 02/18/23 02/24/23 (Tylenol) dextrose 40 % oral gel (Glucose 15 g PO Q15M PRN Hypoglycemia 02/18/23 02/24/23 Gel) diclofenac sodium 1 % topical gel 1 g topical BID 02/18/23 02/24/23 ergocalciferol (vitamin D2) 1,250 1,250 mcg PO QMONTH 02/18/23 02/24/23 mcg (50,000 unit) capsule glucagon HCl 1 mg solution for 1 mg subcut Q20M PRN Hypoglycemia 02/18/23 02/24/23 injection (Glucagon (HCl) Emergency Kit) Allergies Allergy/AdvReac Type Severity Reaction Status Date / Time Sulfa (Sulfonamide Allergy Unknown RASH Verified 02/18/23 08:56 Antibiotics) Review of Systems 2 Review of Systems: Constitutional: No Fever, No Chills, No Fatigue, No Malaise ENT/Mouth: No Ear Pain, No sore throat, No Rhinorrhea, No Swallowing Difficulty Eyes: No Eye Pain, No Swelling, No Redness, No Vision Changes Cardiovascular: No Chest Pain, + SOB, + Dyspnea on Exertion, + Orthopnea, No Edema, No Palpitations Respiratory: No Cough, No Sputum, + Dyspnea Gastrointestinal: No Nausea, No Vomiting, No Diarrhea, No Constipation, + Abdominal pain Musculoskeletal: No joint pain, No Myalgias, No Joint Swelling Skin: No Skin Lesions, No rash Neuro: No Weakness, No Dizziness, No Headache Yes all other systems are reviewed and are negative Constitutional: Constitutional: Reports as per [facility] Past Medical History Attestation statement: The following information was validated with the patient. Source: old records reviewed Medical History Hypothyroidism Anxiety Diverticulosis ESRD on dialysis COVID-19 HTN (hypertension) GERD (gastroesophageal reflux disease) Anemia Pulmonary embolus Diabetes mellitus Hypertension Kidney disease Social History Social History Household Members: Other Household Members Other:: resident of [facility] Housing: Assisted Living Facility Do you presently have visiting nurse or other home services: No Unable to assess alcohol history related to: Unknown Alcohol intake: never Patient Tobacco Use Status: Former Tobacco user Tobacco use type: Cigarette Advance Directives: Yes Advance Directives on File: Yes Advance Directives Date on File: 02/10/21 service: No Current occupational status: retired Physical Exam ED Vital Signs: Vital Signs - 24 hr 03/24/23 07:25 03/24/23 09:20 Temperature 97.6 F 97.7 F Pulse Rate 74 63 Respiratory Rate 18 16 Blood Pressure 182/58 H 202/55 H Pulse Oximetry 85 L 96 Oxygen Delivery Method Room Air Nasal Cannula Oxygen Flow Rate 2 BMI result Body Mass Index 27.9 Const General: cooperative, no acute distress, alert and awake Orientation/consciousness: patient oriented x3 Limitations: no limitations HENMT Head: Yes normal to inspection and Yes atraumatic Ears: hearing grossly normal bilaterally General nose exam: Normal external nose present Face and sinus: Yes normal facial exam Eyes General: appearance normal, both eyes and all related structures EOM: EOMs intact bilaterally Neck Neck: Yes normal visual inspection and Yes no meningeal signs Resp Effort & Inspection: no respiratory distress and tachypneic ( With little movement) Auscultation: diminished lung sounds bilateral in the lower lung rae Cardio Rate: regular rate Rhythm: abnormal rhythm Heart sounds: S1 normal heart sound present and S2 normal heart sound present GI Inspection: Yes normal to inspection Palpation (GI): Soft to palpation, Tenderness to palpation present (GI) ( mild left lower quadrant tenderness, no rebound or guarding), no guarding and not rigid Skin Rashes: no rashes Wounds: no wounds Neuro General: patient oriented x3, tone normal and no meningeal signs Cranial nerves: Yes CN's II-XII intact bilaterally Gait exam (Neuro): Normal gait present Extrem General: Yes normal to inspection and Yes no pedal edema Course Course Course Narrative: -[id number]--Spoke with staff from SNF and patient did receive full dialysis yesterday - chronic CKD. Troponin 28.1 likely from CKD, elevated priors will obtain 3 hour repeat. BNP 4083 - COVID-19 negative -1057-- UA contaminated, will hold on antibiotic treatment to culture results. XR chest 1V IMPRESSION: Left basilar opacity greater than right basilar opacities may be consistent with atelectasis or infiltrate. Effusion on the left would need to be considered as well >> Lactic blood cultures and empiric IV Zosyn given CT abdomen pelvis wo IV con IMPRESSION: Large bilateral pleural effusions. Focal 4 cm segment of wall thickening in the mid sigmoid colon. Consider correlation with direct visualization. Stable indeterminate left adrenal nodule. Cholelithiasis. Nonobstructing bilateral renal calculi. No hydronephrosis. > per [facility] patient had recent capsule endoscopy last week at [facility] >> will consult Nephrology due to hypoxia, tachypnea, and large bilateral pleural effusions. Plan plan to admit hospitalist for further management -[id number]-- spoke with Nephrology Dr. Wells, will dialyze patient tomorrow Medications Administered Discontinued Medications Generic Name Dose Route Start Last Admin Trade Name Freq PRN Reason Stop Dose Admin Furosemide 40 mg 03/24/23 08:40 03/24/23 09:19 Furosemide 40 Mg/4 Ml Vial IVPUSH 03/24/23 08:41 40 mg ONCE ONE Administration Protocol Medical Decision Making Medical Decision Making [facility] Narrative: 82-year-old female with a past medical history of anxiety, HTN, HLD, metabolic encephalopathy, diabetes, ESRD on dialysis (T/T/S), hypothyroid, anemia, PE, p.r.n. O2 presenting to the ED via EMS from [facility] complaining of abdominal discomfort radiating to chest since 06:00AM with shallow respirations, noted to be satting 89% on room air which increased to 95% on 2L NC per EMS/SNF. On exam satting 85% on room air increased to 95% on 2 L NC, tachypneic with little movement, bibasilar diminished lung sounds, abdomen soft with mild LLQ tenderness, rebound or guarding. No appreciable pitting edema. Concern for CHF vs pneumonia vs metabolic/infectious etiologies vs intra-abdominal pathology including colitis/ diverticulitis or appendicitis. Concern patient did not receive dialysis yesterday. lower suspicion for PE/dissection at this time EKG notable for AFib which appears to be new onset, rate controlled plan: EKG, labs, CXR, CT AP, UA, viral testing, consult SNF, admission Please refer to course for remaining clinical decision making, interpretation of labs/imaging results, and discussions with consultants and/or family members. Differential Diagnosis Differential Diagnoses: The differential diagnosis associated with the presentation includes As above Admission/Observation Consideration of admission/observation: Escalation of care including admission/observation considered Lab Data MDM Lab Attestation statement: I reviewed the patient's lab results. 03/24/23 07:48 03/24/23 07:48 Labs: Lab Results 03/24/23 03/24/23 03/24/23 Range/Units 07:48 08:51 09:51 WBC 8.8 (4.8-10.8) X10*3/uL RBC 3.50 L D (4.20-5.50) X10*6/uL Hgb 11.3 L D (12.0-16.0) g/dl Hct 36.0 L D (37.0-47.0) % MCV 102.9 H (80.0-98.0) fL MCH 32.3 (27.0-33.0) pg MCHC 31.4 (31.0-35.0) g/dl RDW 15.9 (11.0-16.0) % Plt Count 222 D (160-400) X10*3/uL MPV 10.3 (9.4-12.3) fL Immature Gran % (Auto) 0.9 H (0.0-0.4) % Neut % (Auto) 80.6 H (45-73) % Lymph % (Auto) 8.0 L (20-40) % [place] % (Auto) 9.0 (2-11) % Eos % (Auto) 0.9 (0-4) % Baso % (Auto) 0.6 (0-2) % Lymph # (Auto) 0.7 L (1.2-4.9) X10*3/uL [place] # (Auto) 0.8 (0.1-1.2) X10*3/uL Eos # (Auto) 0.1 (0.0-0.4) X10*3/uL Baso # (Auto) 0.1 (0.0-0.2) X10*3/uL Abs Immat Gran (auto) 0.08 H (0.00-0.03) X10*3/uL Absolute Neuts (auto) 7.1 (2.0-8.3) x10*3/uL Absolute Nucleated RBC 0.000 (0.0-0.012) X10*3/uL Nucleated RBC % (auto) 0.0 (0.0-0.2) /100WBC PT 12.1 (11.1-13.3) SEC INR 1.0 (0.9-1.1) Sodium 143 (135-145) mmol/L Potassium 4.1 (3.3-5.1) mmol/L Chloride 96 (96-108) mmol/L Carbon Dioxide 33 H (22-29) mmol/L Anion Gap 18 (12-20) BUN 21 H (9-16) mg/dL Creatinine 3.53 H (0.5-1.4) mg/dL Estim Creat Clear Calc 12.1 Estimated GFR 12 Random Glucose 144 H (60-115) mg/dL Lactic Acid 1.2 (0.5-2.0) mmol/L Calcium 9.4 D (8.4-10.2) mg/dL Magnesium 2.0 (1.6-2.6) mg/dL Total Bilirubin 0.8 (0.0-1.0) mg/dL Direct Bilirubin 0.4 (0.0-0.5) mg/dL AST 19 (5-31) U/L ALT 11 (0-31) U/L Alkaline Phosphatase 88 (39-117) U/L Troponin I High Sens 28.1 H (<3.5-17.0) ng/L B-Natriuretic Peptide 4083 H (<100) pg/mL Total Protein 6.9 (6.5-8.0) g/dL Albumin 4.1 (3.5-5.0) g/dL Lipase 9 (8-78) U/L Urine Color Yellow Urine Appearance Clear Urine pH >= 9.0 (5.0-9.0) Ur Specific [place] 1.015 (1.005-1.025) Urine Protein 300 (3+) H (Neg-Trace) mg/dL Urine Glucose (UA) 100 H (Negative) mg/dL Urine Ketones Negative (Negative) mg/dL Urine Blood Negative (Negative) Urine Nitrite Negative (Negative) Ur Leukocyte Esterase Small (1+) H (Negative) Urine RBC 0-2 (0-2) /HPF Urine WBC >50 H (0-5) /HPF Ur Squamous Epith Cells 6-10 (0-2) /HPF Urine Bacteria None Seen (None Seen) Hyaline Casts 0-2 (0-2) /LPF COVID-19 (YANNA) Negative (Negative) COVID-19 Clin Com See Note Independent Interpretation I performed an independent interpretation of an: EKG ( EKG AFib at rate of 67. QTC 483. No STEMI. When compared to prior AFib has replaced sinus rhythm) Radiology Impression Discussion of test interpretation with radiology: I have reviewed the radiologist's reading. Independent Historian Clinical information obtained from an independent historian. History obtained from or confirmed by: EMS External Record Review External record reviewed: Inpatient record, Office record, Outpatient record, Prior outpatient labs, Prior outpatient radiology, Primary care record and Outside ED record Tests considered The following testing was considered but not selected: As above Prescription Management I considered prescription management with: Pain Medication Chronic Conditions Patient?s care impacted by: Diabetes, Hypertension and Other ( ESRD on dialysis) Social Determinants Patient?s care significantly limited by Social Determinants of Health including: Problems related to primary support group Critical Care Time Critical Care Time Critical Care Time: Yes Total Critical Care Time: 45 Attestation: I have personally provided critical care time exclusive of time spent on separately billable procedures. Time includes review of lab data, radiology results, discussion with consultants, and monitoring for potential decompensation. Intervention performed as documented. Discharge Plan Discharge Clinical Impression: New onset a-fib Patient Disposition: Admitted As Inpatient
--- OUTSIDE RECORDS SUMMARY | 2023-03-24 07:45 | XMS_ITS | Continuity of Care Document ---
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 Name Role Phone Walter Sanford MD Primary Care Physician [place] [facility] [place] - 08/15/[address] [address]- [facility] Attending Physician: Kendell Boudreaux MD Allergies, Adverse Reactions, Alerts Substance Reaction Severity Status sulfa drugs ended up in ICU rash Active Immunizations Not Given Vaccine Date Status Refusal Reason pneumococcal 13-valent vaccine 05/19/16 Not Given Patient Refuses Medications Aspirin Tablet 81 mg, By Mouth, Daily, Refills 0, Maintenance, 02/15/19 11:37:16 EDT Start Date: 02/15/19 Status: Ordered Calcium 600 +D 1 tablet, By Mouth, Daily, 0 Refills, Maintenance, 11/13/16 13:37:34 Start Date: 11/13/16 Status: Ordered Ferrous Sulfate EC 1 tablet, twice a day, OTC, Refills 0, Maintenance, 08/23/17 15:28:36 EST Start Date: 08/23/17 Status: Ordered furosemide 40 mg oral tablet 1 tablet = 40 mg, By Mouth, 3 times a day, 0 Refills, Maintenance, 09/19/12 10:02:05 Start Date: 09/19/12 Status: Ordered latanoprost 0.005% ophthalmic solution 1 drops, Eyes, Both, Daily at bedtime, 0 Refills, Maintenance, 10/28/16 8:27:52, Ophth Solution Start Date: 10/28/16 Status: Ordered metoprolol 25 mg oral tablet 25 mg, By Mouth, 2 times a day, Refills 0, Maintenance, 06/27/17 10:25:11 Start Date: 06/27/17 Status: Ordered Novolin N human recombinant 100 u/ml subcutaneous injection = 10 units, Subcutaneous Injection, Daily, # 10 mL, 0 Refills, Maintenance, 05/31/17 20:52:04, Suspension Start Date: 05/31/17 Status: Ordered omeprazole 20 mg oral enteric coated capsule TK 2 CS PO QD Start Date: 05/31/17 Status: Ordered oxyCODONE 10 mg oral tablet 1 tablet = 10 mg, By Mouth, Every 8 hours, PRN as needed for pain, 0 Refills, Maintenance, 02/15/1921:01:43 EDT, Tablet, Partial fill upon patient request Start Date: 02/15/19 Status: Ordered pravastatin 40 mg oral tablet 1 tablet = 40 mg, By Mouth, Daily at bedtime, 0 Refills, Maintenance, 09/19/12 10:06:30 Start Date: 09/19/12 Status: Ordered sertraline 50 mg oral tablet 1 tablet = 50 mg, By Mouth, Daily, 0 Refills, Maintenance, 09/19/12 10:06:06 Start Date: 09/19/12 Status: Ordered Synthroid 0.05 mg oral tablet = 50 mcg, By Mouth, Daily, 0 Refills, Maintenance, 10/28/16 8:28:17, Tablet Start Date: 10/28/16 Status: Ordered Tylenol 325 mg oral tablet 650 mg, By Mouth, Every 6 hours, PRN, Refills 0, Maintenance, Pain , Mild Temperature, 06/27/17 10:25:27 Start Date: 06/27/17 Status: Ordered Problem List Condition Effective Dates Status Health Status Inform ant LBP (low back pain)(Confirmed) Active TACO (transfusion associated circulatory overload)(Confirmed) 1 11/13/16 Active Wound of groin(Confirmed) Active 1The use of slow infusion rates, the administration of rudolph-transfusion diuretics where not clinically contraindicated, and/or the transfusion of ???split units of PRBCs should be considered in any future hemotherapy interventions. Consult Transfusion Medicine Services if any questions. Social History Social History Type Response Smoking Status Never smoker entered on: 08/02/17 Sex
--- OUTSIDE RECORDS SUMMARY | 2023-03-24 07:45 | XMS_ITS | Continuity of Care Document ---
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 Name Role Phone James Briones MD Primary Care Physician [phone] Encounter [facility] [place] Date(s): 03/06/21 - 03/10/[address] [address]- Encounter Diagnosis GI bleed(Final) - 03/06/21 GI bleed(Final) - 03/07/21 Discharge Disposition: A-Transfer SNF Attending Physician: Walter Dozier MD Admitting Physician: Marta Cobb MD Referring Physician: Not on Staff, Referring MD Allergies, Adverse Reactions, Alerts Substance Reaction Severity Status sulfa drugs ended up in ICU rash Active Immunizations Not Given Vaccine Date Status Refusal Reason pneumococcal 13-valent vaccine 05/19/16 Not Given Patient Refuses Medications Acidophilus 1 capsule, By Mouth, 2 times a day, 0 Refills, Maintenance, 03/07/21 0:48:00 EDT Start Date: 03/07/21 Status: Ordered Carafate 1 gm oral tablet 2 Gm, 2, tablet, By Mouth, 4 times a day, Refills 0, Maintenance, 03/10/21 12:52:00 EDT, Partial fill upon patient request if the prescription is for a schedule II opioid drug. Start Date: 03/10/21 Stop Date: 03/24/21 Status: Ordered diclofenac 1% topical gel 1 application, Topically, 3 times a day, Maintenance, 03/09/21 12:35:00 EDT, Gel Start Date: 03/09/21 Status: Ordered furosemide 40 mg oral tablet 1 tablet = 40 mg, By Mouth, 3 times a day, 0 Refills, Maintenance, 09/19/12 10:02:05 EDT Start Date: 09/19/12 Status: Ordered gabapentin 100 mg oral capsule 200 mg, 2, capsule, By Mouth, 2 times a day, Maintenance, 03/09/21 12:36:00 EDT Start Date: 03/09/21 Status: Ordered levothyroxine 0.088 mg oral tablet 1 tablet = 88 mcg, By Mouth, Daily, 0 Refills, Maintenance, 03/07/21 0:00:00 EDT Start Date: 03/07/21 Status: Ordered metoprolol 25 mg oral tablet 25 mg, Tablet, By Mouth, 03/10/21 9:00:00 EDT Start Date: 03/10/21 Stop Date: 03/10/21 Status: Completed Metoprolol Tartrate 25 mg oral tablet 1 tablet = 25 mg, By Mouth, 2 times a day, Maintenance, 03/09/21 12:38:00 EDT, Tablet Start Date: 03/09/21 Status: Ordered MiraLax oral powder for reconstitution = 17 Gm, By Mouth, Daily, dissolve in water before taking, # 255 Gm, 0 Refills, Maintenance, 03/07/21 0:48:00 EDT, REC Powder, Partial fill upon patient request if the prescription is for a schedule II opioid drug. Start Date: 03/07/21 Status: Ordered Novolin N human recombinant 100 u/ml subcutaneous injection = 16 units, Subcutaneous Injection, Daily at bedtime, # 10 mL, 0 Refills, Maintenance, 05/31/17 20:52:04 EST, Suspension Start Date: 05/31/17 Status: Ordered oxyCODONE 10 mg oral tablet 1 tablet = 10 mg, By Mouth, 3 times a day, PRN Pain , Severe, # 9 tablet, 0 Refills, Maintenance, 03/10/21 12:50:00 EDT, Tablet, Partial fill upon patient request if the prescription is for a schedule II opioid drug. Start Date: 03/10/21 Stop Date: 03/13/21 Status: Ordered oxyCODONE 10 mg oral tablet 1 tablet = 10 mg, By Mouth, Daily, PRN as needed for pain, # 3 tablet, 0 Refills, Maintenance, 03/10/21 12:50:00 EDT, Tablet, Partial fill upon patient request if the prescription is for a schedule II opioid drug. Start Date: 03/10/21 Stop Date: 03/13/21 Status: Ordered oxyCODONE 5 mg oral tablet 10 mg, Tablet, By Mouth, 03/10/21 7:00:00 EDT Start Date: 03/10/21 Stop Date: 03/10/21 Status: Completed pravastatin 40 mg oral tablet 1 tablet = 40 mg, By Mouth, Daily at bedtime, 0 Refills, Maintenance, 09/19/12 10:06:30 Start Date: 09/19/12 Status: Ordered Protonix 40 mg oral delayed release tablet = 40 mg, By Mouth, 2 times a day, please continue bid dosing for 8 weeks and then reduce to once daily indefinitely, 0 Refills, Maintenance, 03/10/21 12:51:00 EDT, EC Tablet Start Date: 03/10/21 Status: Ordered sertraline 50 mg oral tablet 1 tablet = 50 mg, By Mouth, Daily, 0 Refills, Maintenance, 09/19/12 10:06:06 Start Date: 09/19/12 Status: Ordered tiZANidine 2 mg oral tablet 2 mg, 1, tablet, By Mouth, Every 8 hours, Maintenance, 03/09/21 12:41:00 EDT Start Date: 03/09/21 Status: Ordered Tylenol 325 mg oral tablet 650 mg, 2, tablet, By Mouth, Every 6 hours, PRN, Refills 0, Maintenance, Pain , Mild Temperature,06/27/17 10:25:27 EST Start Date: 06/27/17 Status: Ordered Problem List Condition Effective Dates Status Health Status Inform ant Arteriovenous fistula(Confirmed) Active Depression(Confirmed) Active 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(Confirmed) Active Diverticulosis of colon(Confirmed) Active ESRD - End stage renal disease(Confirmed) Active GERD - Gastro-esophageal ref lux disease(Confirmed) Active History of parathyroidectomy(Confirmed) Active Hyperlipidemia(Confirmed) Active Hypertension(Confirmed) Active LBP (low back pain)(Confirmed) Active TACO (transfusion associated circulatory overload)(Confirmed) 1 11/13/16 Active Wound of groin(Confirmed) Active 1The use of slow infusion rates, the administration of rudolph-transfusion diuretics where not clinically contraindicated, and/or the transfusion of ???split units of PRBCs should be considered in any future hemotherapy interventions. Consult Transfusion Medicine Services if any questions. Results Orders for Microbiology Reports Name Date Blood Culture 03/06/21 Blood Culture #2 03/06/21 Microbiology Reports TEST:Blood Culture, Second Order STATUS:Unauthenticated BODY SITE: SOURCE:Blood COLLECTED DATE/TIME:03/06/21 1:30 PM Blood Culture, Second Order SPECIMEN DESCRIPTION : BLOOD NO SITE SPECIAL REQUESTS : NONE CULTURE : NO GROWTH 4 DAYS REPORT STATUS : PRELIMINARY REPORT TEST:Blood Culture STATUS:Unauthenticated BODY SITE: SOURCE:Blood COLLECTED DATE/TIME:03/06/21 12:07 PM Blood Culture SPECIMEN DESCRIPTION : BLOOD NOSITE SPECIAL REQUESTS : NONE CULTURE : NO GROWTH 4 DAYS REPORT STATUS : PRELIMINARY REPORT Radiology Reports * Exam Date Time Procedure Performing Provider Status 03/06/21 4:15 PM Chest Portable Beth Benavides; Auth (Verified) Notes: (Chest Portable) Reason For Exam: Line Placement RESULT: Chest Portable Chest Portable Reason: Line Placement; Clinical Question(s): Line Placement COMPARISON: 03/06/2021 FINDINGS: LINES AND TUBES: The central venous catheter tip projects over the aortic arch. The course of the catheter is concerning for arterial placement of the catheter. The ordering physician was paged regarding this finding. LUNGS AND PLEURA: Clear lungs. Normal pulmonary vascularity. No pleural effusion. No pneumothorax. HEART, MEDIASTINUM AND JESUS ALBERTO: Heart is normal in size. Normal upper mediastinal and hilar contour. BONES AND SOFT TISSUES: No acute abnormality. IMPRESSION: Concern for placement of central venous catheter in the left carotid artery. The ordering physician/covering physician was paged regarding this finding. Otherwise unremarkable chest x-ray. WSN: [id number] Ordering Physician: Tino Gross V Dictated By: Cali Somers MD Dictated Date/Time: 03/06/21 4:37 pm Reviewed By: Cali Somers MD Signed By: Cali Somers MD Signed Date/Time: 03/06/21 4:37 pm Transcribed By: MIR Transcribed Date/Time: 03/06/21 4:33 pm * Exam Date Time Procedure Performing Provider Status 03/06/21 12:53 PM Chest Portable Jia Oakley; Aut h (Verified) Notes: (Chest Portable) Reason For Exam: Shortness of Breath RESULT: Chest Portable Chest Portable Reason: Shortness of Breath; Clinical Question(s): CHF COMPARISON: 06/02/2017 FINDINGS: LINES AND TUBES: None. LUNGS AND PLEURA: Low lung volumes. Left greater than right basilar opacities. Bronchovascular crowding. No definitive effusion. No pneumothorax. HEART, MEDIASTINUM AND JESUS ALBERTO: Heart is normal in size. Normal upper mediastinal and hilar contour. BONES AND SOFT TISSUES: No acute abnormality. Vascular stents in the left axilla and arm. IMPRESSION: Low lung volumes. Left greater the right basilar opacities may reflect atelectasis. Pneumonia not excluded. No overt pulmonary edema. WSN: [id number] Ordering Physician: Tino Gross V Dictated By: Noel Damon MD Dictated Date/Time: 03/06/21 1:37 pm Reviewed By: Noel Damon MD Signed By: Noel Damon MD Signed Date/Time: 03/06/21 1:37 pm Transcribed By: MIR Transcribed Date/Time: 03/06/21 1:36 pm Vital Signs Most recent to oldest [Reference Range]: 1 2 3 Height 155 cm (03/10/21 11:03 AM) 155 cm (03/10/21 6:31 AM) 155 cm (03/10/21 12:23 AM) Weight 79.6 kg (03/08/21 9:23 AM) 79.6 kg (03/07/21 4:42 AM) Oxygen Saturation [94-100 %] 99 % (03/10/21 11:03 AM) 95 % (03/10/21 6:31 AM) 92 % *L* (03/10/21 12:23 AM) Pulse Rate [55-90 bpm] 72 bpm (03/10/21 11:03 AM) 64 bpm (03/10/21 9:36 AM) 63 bpm (03/10/21 6:31 AM) Body Mass Index [18.5-24.99] 33.13 *>HHI* (03/08/21 9:23 AM) 33.13 *>HHI* (03/07/21 4:42 AM) Blood Pressure [90-138/55-84 mm Hg] 137/77mm Hg (03/10/21 11:03 AM) 128/39mm Hg (03/10/21 9:36 AM) 124/36mm Hg (03/10/21 6:31 AM) Respiratory Rate [16-30 br/min] 18 br/min (03/10/21 11:03 AM) 16 br/min (03/10/21 7:29 AM) 18 br/min (03/10/21 6:31 AM) Temperature [96.8-100.4 DegF] 98.4 DegF (03/10/21 11:03 AM) 97.7 DegF (03/10/21 6:31 AM) 98.2 DegF (03/10/21 12:23 AM) Mode of Delivery (Oxygen) Room air (03/10/21 11:03 AM) Room air (03/10/21 6:31 AM) Room air (03/10/21 12:23 AM) Blood pressure sites Arm, right (03/10/21 11:03 AM) Arm, right (03/10/21 6:31 AM) Arm, right (03/10/21 12:23 AM) Temperature Route Axillary (03/10/21 11:03 AM) Oral (03/10/21 6:31 AM) Oral (03/10/21 12:23 AM) Dry Weight 79.6 kg (03/07/21 4:42 AM) Social History Social History Type Response Smoking Status Never smoker entered on: 08/02/17 Sex
[2023-03-24 07:55] LABS: MANUAL DIFF FLAG NO
[2023-03-24 07:59] LABS: Basophils Absolute Auto 0.1 X10*3/uL (0.0-0.2); Basophils Percent Auto 0.6 % (0-2); Eosinophils Absolute Auto 0.1 X10*3/uL (0.0-0.4); Eosinophils Percent Auto 0.9 % (0-4); Hemoglobin 11.3 g/dl (12.0-16.0); Imm Gran Abs Auto 0.08 X10*3/uL (0.00-0.03); Imm Gran Pct Auto 0.9 % (0.0-0.4); Lymphocytes Absolute Auto 0.7 X10*3/uL (1.2-4.9); Mean Corpuscular HGB Conc 31.4 g/dl (31.0-35.0); Mean Corpuscular Hemoglobin 32.3 pg (27.0-33.0); Mean Corpuscular Volume 102.9 fL (80.0-98.0); Mean Platelet Volume 10.3 fL (9.4-12.3); Monocytes Absolute Auto 0.8 X10*3/uL (0.1-1.2); Neutrophils Absolute Auto 7.1 x10*3/uL (2.0-8.3); Neutrophils Percent Auto 80.6 % (45-73); Platelet Count 222 X10*3/uL (160-400); Red Cell Distribution Width 15.9 % (11.0-16.0); White Blood Count 8.8 X10*3/uL (4.8-10.8)
--- NOTE | 2023-03-24 08:01 | PC.NURSE ---
vague historian, coming from [facility] for abdominal pain and low o2. pt states she did not receive dialysis yesterday as per scheduled but unsure as to why. iv established, labs drawn and sent. placed on 2L nasal cannula at 96%, does have PRN order per savana goodwin paperwork for oxygen. fistula in left arm
[2023-03-24 08:02] LABS: Prothrombin Time 12.1 SEC (11.1-13.3)
[2023-03-24 08:10] LABS: Alanine Aminotransferase 11 U/L (0-31); Albumin Level 4.1 g/dL (3.5-5.0); Alkaline Phosphatase 88 U/L (39-117); Anion Gap 18 (12-20); Aspartate Amino Transferase 19 U/L (5-31); Bilirubin Direct 0.4 mg/dL (0.0-0.5); Bilirubin Total 0.8 mg/dL (0.0-1.0); Blood Urea Nitrogen 21 mg/dL (9-16); Calcium 9.4 mg/dL (8.4-10.2); Carbon Dioxide 33 mmol/L (22-29); Chloride 96 mmol/L (96-108); Creatinine Clr Calc Pharmacy 12.1; Estimated Glomerular Filt Rate 12; Glucose Random 144 mg/dL (60-115); Lipase 9 U/L (8-78); Potassium 4.1 mmol/L (3.3-5.1); Sodium 143 mmol/L (135-145); Total Protein 6.9 g/dL (6.5-8.0)
[2023-03-24 08:15] LABS: Troponin-I High Sensitivity 28.1 ng/L (<3.5-17.0)
[2023-03-24 08:16] LABS: B Type Natriuretic Peptide 4083 pg/mL (<100)
[2023-03-24 08:18] LABS: COVID-19 Test Negative (Negative); IDNOW Serial# 08D9AD1C
[2023-03-24 09:03] LABS: Appearance Urine Clear; Color Urine Yellow; Glucose Urine UA 100 mg/dL (Negative); Leukocyte Esterase Urine Small (1+) (Negative); Nitrite Urine Negative (Negative); PH >= 9.0 (5.0-9.0); Specific Gravity - Urine 1.015 (1.005-1.025); UMIC TRIGGER UACC YES; Urine Blood Negative (Negative); Urine Ketones Negative (Negative); Urine Protein 300 (3+) mg/dL (Neg-Trace)
[2023-03-24 09:13] LABS: Bacteria Urine None Seen (None Seen); Hyaline Casts Urine 0-2 /LPF (0-2); RBC Urine 0-2 /HPF (0-2); UACC Culture Trigger YES; WBC Urine >50 /HPF (0-5)
[2023-03-24] MEDS: Furosemide 40 MG/4 ML VIAL IVPUSH ×2 (09:19→16:46)
[2023-03-24 09:20] VITALS: BP 202/55; PULSE 63; RESP 16; TEMP 36.5; O2SAT 96
--- NOTE | 2023-03-24 09:32 | PC.NURSE ---
levin inserted, pt tolerated well. minimal urine output, ua obtained and sent to lab. medicated per the MAR
[2023-03-24 10:12] LABS: Lactic Acid 1.2 mmol/L (0.5-2.0)
--- NOTE | 2023-03-24 11:21 | PC.NURSE ---
pt difficult stick, multiple attempts at second set of blood cultures.
--- NOTE | 2023-03-24 11:23 | P.HPHOSP_ITS ---
History of Present Illness Date of Service: 03/24/23 <YULI Tejeda - Last Filed: 03/24/23 13:34> Attending physician on admission: Herbert Guillaume <YULI Tejeda - Last Filed: 03/24/23 13:34> Chief Complaint: Abdominal pain radiating to chest <YULI Tejeda - Last Filed: 03/24/23 13:34> Pt is an 82-year-old female with a PMH significant for ESRD on HD (Tue/An/Sat), HTN, IVC filter, and hypothyroidism?who presents to the ED from [facility] for evaluation of abdominal discomfort radiating to her chest since a.m. this morning. Patient noted to have shallow respirations and satting at 89% room air, which increased to 95% on 2 L NC. She is not on chronic O2, but has an order for p.r.n. O2. Patient is alert and oriented x2 and a poor historian, not aware of either place or her situation. Patient unable to provide meaningful HPI, which is instead obtained from chart and provider review. ?According to SNF staff patient has been noticeably declining physically and mentally since the summer. 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 Fistula was replaced with some improvement to left arm swelling. Patient has also been less alert and oriented. Pt is wheelchair bound at baseline. In the ED patient was afebrile but hypertensive to 202/55, satting at 85% on RA with improvement to 96% on 2L NC. Labs were significant for stable H&H of 11.3/36.0, BUN 21, creatinine 3.53, troponin 28.1, BNP 4083. Coags WNL. Lactic acid WNL 1.2. UA likely negative for UTI. Negative for COVID. CXR showed bilateral basilar opacities left greater than right, atelectasis versus infiltrate. Also found left pleural effusion. CT?of abdomen and pelvis found large bilateral pleural effusions, focal 4 cm segment of wall thickening in the mid sigmoid colon, stable indeterminate left adrenal nodule, ,cholelithiasis and nonobstructive bilateral renal calculi without hydronephrosis. EKG with poor image quality, and read as atrial fibrillation with nonspecific ST and T-wave abnormalities. Echocardiogram on 01/16/2023 found hyperdynamic LV systolic function with LVEF >70% with grade 2 diastolic dysfunction. Pt was treated with Lasix 40 mg IV and Zosyn. Pt will be admitted to the hospital for acute hypoxic respiratory failure in the setting of possible hospital acquired pneumonia and fluid overload. <YULI Tejeda - Last Filed: 03/24/23 13:34> Review of Systems 2 Review of Systems: Unable to obtain due to patient's mentation <YULI Tejeda - Last Filed: 03/24/23 13:34> [facility] Medical History: Medical History Hypothyroidism Anxiety Diverticulosis ESRD on dialysis COVID-19 HTN (hypertension) GERD (gastroesophageal reflux disease) Anemia Pulmonary embolus Diabetes mellitus Hypertension Kidney disease <YULI Tejeda - Last Filed: 03/24/23 13:34> Social History: Social History Household Members: Other Household Members Other:: resident of [facility] Housing: Assisted Living Facility Do you presently have visiting nurse or other home services: No Unable to assess alcohol history related to: Unknown Alcohol intake: never Patient Tobacco Use Status: Former Tobacco user Tobacco use type: Cigarette Advance Directives: Yes Advance Directives on File: Yes Advance Directives Date on File: 02/10/21 service: No Current occupational status: retired <YULI Tejeda - Last Filed: 03/24/23 13:34> Meds Allergies/Adverse reactions: Allergies Allergy/AdvReac Type Severity Reaction Status Date / Time Sulfa (Sulfonamide Allergy Unknown RASH Verified 02/18/23 08:56 Antibiotics) <YULI Tejeda - Last Filed: 03/24/23 13:34> Home medications: Home Medications Medication Instructions Recorded Confirmed Last Taken Type levothyroxine 88 mcg tablet 1 tab PO DAILY@0600 02/10/21 03/24/23 Unknown History metoprolol tartrate 25 mg tablet 1 tab PO BID 02/10/21 03/24/23 Unknown History ondansetron 4 mg disintegrating 4 mg PO Q6H PRN Nausea And Vomiting 02/10/21 03/24/23 Unknown History tablet oxycodone 10 mg tablet 1 tab PO Q12H PRN pain 02/10/21 03/24/23 Unknown History sertraline 50 mg tablet 1 tab PO DAILY 02/10/21 03/24/23 Unknown History bisacodyl 10 mg rectal suppository 10 mg NM DAILY PRN Constipation 05/03/22 03/24/23 Unknown History ferrous fumarate 325 mg (106 mg 325 mg PO BID 05/03/22 03/24/23 Unknown History iron) tablet latanoprost 0.005 % eye drops 1 drp ophthalmic (eye) BEDTIME 05/03/22 03/24/23 Unknown History melatonin 3 mg tablet 6 mg PO BEDTIME 05/03/22 03/24/23 Unknown History midodrine 2.5 mg tablet 1 tab PO TUTHSA 05/03/22 03/24/23 Unknown History nitroglycerin 0.4 mg sublingual 0.4 mg sublingual Q5M PRN Chest 05/03/22 03/24/23 Unknown History tablet Pain nystatin 100,000 unit/gram topical 1 appl topical BID 05/03/22 03/24/23 Unknown History powder sennosides 8.6 mg tablet (senna) 8.6 mg PO BEDTIME PRN Constipation 05/03/22 03/24/23 Unknown History albuterol sulfate 1.25 mg/3 mL 1.25 mg inhalation Q4H PRN Wheezing 01/14/23 03/24/23 Unknown History solution for nebulization lidocaine 3 % topical cream 1 appl topical TUTHSA 01/14/23 03/24/23 Unknown History oxycodone 10 mg tablet 10 mg PO TID 01/14/23 03/24/23 Unknown History acetaminophen 325 mg tablet 650 mg PO TID PRN Pain 02/18/23 03/24/23 Unknown History (Tylenol) ergocalciferol (vitamin D2) 1,250 1,250 mcg PO Q28D 02/18/23 03/24/23 02/01/23 History mcg (50,000 unit) capsule acetaminophen 325 mg tablet 650 mg PO DAILY PRN discomfort 03/24/23 03/24/23 Unknown History <YULI Tejeda - Last Filed: 03/24/23 13:34> Physical Exam 2 Vital Signs and Narrative: Vital Signs: Last Vital Signs Temp 97.7 F 03/24/23 09:20 Pulse 63 03/24/23 09:20 Resp 16 03/24/23 09:20 BP 202/55 H 03/24/23 09:20 Pulse Ox 96 03/24/23 09:20 O2 Del Method Nasal Cannula 03/24/23 09:20 O2 Flow Rate 2 03/24/23 09:20 BMI result Body Mass Index 27.9 <YULI Tejeda - Last Filed: 03/24/23 13:34> Constitutional: Alert, cooperative, somnolent but arousable, in no acute distress. Mental Status: Oriented to person and time, not to place or situation. Eyes: Pupils are equal, round, and reactive to light. Ear, Nose, and Throat: Oropharynx clear, mucous membranes moist. Ears and nose without deformities. Trachea midline. Respiratory: Diminished breath sounds in lower lung rae bilaterally. No wheezing, rales, or rhonchi. Cardiovascular: S1, S2, irregularly irregular. No murmurs, rubs, or gallops. Gastrointestinal: Abdomen soft, non-distended, with mild tenderness to right mid quadrant. Normal bowel sounds. Neurologic: Cranial nerves II-XII are grossly intact bilaterally. No focal neurological deficits. Moves all extremities spontaneously. Skin: No rashes or lesions noted. Musculoskeletal: No cyanosis or clubbing. Extremities: No lower leg edema. Left forearm swelling. <YULI Tejeda - Last Filed: 03/24/23 13:34> Results Labs CBC and Chem 7: 03/24/23 07:48 03/24/23 07:48 <YULI Tejeda - Last Filed: 03/24/23 13:34> Labs: Laboratory Results - last 24 hr 03/24/23 03/24/23 03/24/23 07:48 08:51 09:51 MCV 102.9 H MCH 32.3 MCHC 31.4 RDW 15.9 Plt Count 222 D MPV 10.3 Immature Gran % (Auto) 0.9 H Neut % (Auto) 80.6 H Lymph % (Auto) 8.0 L [place] % (Auto) 9.0 Eos % (Auto) 0.9 Baso % (Auto) 0.6 Lymph # (Auto) 0.7 L [place] # (Auto) 0.8 Eos # (Auto) 0.1 Baso # (Auto) 0.1 Abs Immat Gran (auto) 0.08 H Absolute Neuts (auto) 7.1 Absolute Nucleated RBC 0.000 Nucleated RBC % (auto) 0.0 PT 12.1 INR 1.0 Anion Gap 18 Estim Creat Clear Calc 12.1 Estimated GFR 12 Random Glucose 144 H Lactic Acid 1.2 Calcium 9.4 D Magnesium 2.0 Total Bilirubin 0.8 Direct Bilirubin 0.4 AST 19 ALT 11 Alkaline Phosphatase 88 B-Natriuretic Peptide 4083 H Total Protein 6.9 Albumin 4.1 Lipase 9 Urine Color Yellow Urine Appearance Clear Urine pH >= 9.0 Ur Specific [place] 1.015 Urine Protein 300 (3+) H Urine Glucose (UA) 100 H Urine Ketones Negative Urine Blood Negative Urine Nitrite Negative Ur Leukocyte Esterase Small (1+) H Urine RBC 0-2 Urine WBC >50 H Ur Squamous Epith Cells 6-10 Urine Bacteria None Seen Hyaline Casts 0-2 COVID-19 (YANNA) Negative COVID-19 Clin Com See Note <YULI Tejeda - Last Filed: 03/24/23 13:34> Imaging Radiologist's Impressions: Impressions Chest X-Ray 03/24/23 08:25 IMPRESSION: Left basilar opacity greater than right basilar opacities may be consistent with atelectasis or infiltrate. Effusion on the left would need to be considered as well Abdomen/Pelvis CT 03/24/23 08:36 IMPRESSION: Large bilateral pleural effusions. Focal 4 cm segment of wall thickening in the mid sigmoid colon. Consider correlation with direct visualization. Stable indeterminate left adrenal nodule. Cholelithiasis. Nonobstructing bilateral renal calculi. No hydronephrosis. <YULI Tejeda Last Filed: 03/24/23 13:34> Assessment and Plan (1) Bilateral pleural effusion: Status: Acute <YULI Tejeda Last Filed: 03/24/23 13:34> (2) Hypoxia: Status: Acute <YULI Tejeda Last Filed: 03/24/23 13:34> Pt is an 82-year-old female with a PMH significant for ESRD on HD (Mon/Mon/Mon), HTN, IVC filter, and hypothyroidism?who presents to the ED from [facility] for evaluation of abdominal discomfort radiating to her chest since a.m. this morning. Pt will be admitted to the hospital for acute hypoxic respiratory failure in the setting of possible hospital acquired pneumonia and fluid overload. Acute respiratory failure in the setting of likely hospital-acquired pneumonia Patient satting as low as 84% O2 on RA, patient with home supplemental O2 p.r.n. CXR with findings of bibasilar opacities left greater than right suggestive of atelectasis versus infiltrate Patient given Zosyn in the ED Will get CT of chest Hold on additional antibiotics pending CT of chest ESRD on HD Mon/An/Sat Patient last received dialysis yesterday Electrolytes WNL Nephrology consult Patient will receive dialysis in the hospital tomorrow Follow BMP Elevated BNP Patient's BNP 4083, increased from 1772 on 02/18/2023 and 262 on 02/10/2023 Likely secondary to fluid overload d/t ESRD CT of abdomen pelvis found large bilateral pleural effusions Pt given Lasix 40mg IV in ED Will give Lasix 40mg IV bid Pt will have dialysis tomorrow Follow BMP Will monitor on telemetry Macrocytic anemia, chronic H&H 11.3/36.0, MCV 102.9 Stable, at baseline Abnormal EKG Patient's EKG with 40 to quality, read as atrial fibrillation with nonspecific ST and T-wave abnormalities Previous EKGs with PACs, current EKG likely also shows PACs a not AFib Physical exam reveals irregularly irregular heart rhythm Will monitor on telemetry HTN BP as high as 202/55 Likely secondary to ESRD Pt takes midodrine before dialysis Continue metoprolol Follow BP Elevated troponin Initial troponin 28.1 with repeat flat at 17.2 Likely type 2 in the setting of demand ischemia Patient asymptomatic, EKG without ischemic changes Will monitor on telemetry Hypothyroidism Continue levothyroxine Full Code Attending:?Dr. Guillaume DVT Prophylaxis: Lovenox Pt will require a hospitalization of at least two nights for treatment of acute hypoxic respiratory failure in the setting a possible hospital-acquired pneumonia and fluid overload. Patient will be receiving IV diuretics, IV antibiotics, specialist consultation, and dialysis. <YULI Tejeda - Last Filed: 03/24/23 13:34> Pt is an 82-year-old female with a PMH significant for ESRD on HD (Mon/An/Mon), HTN, IVC filter, and hypothyroidism?who presents to the ED from [facility] for evaluation of abdominal discomfort radiating to her chest since a.m. this morning. Pt will be admitted to the hospital for acute hypoxic respiratory failure in the setting of possible hospital acquired pneumonia and fluid overload. Acute respiratory failure in the setting of likely hospital-acquired pneumonia Patient satting as low as 84% O2 on RA, patient with home supplemental O2 p.r.n. CXR with findings of bibasilar opacities left greater than right suggestive of atelectasis versus infiltrate Patient given Zosyn in the ED Will get CT of chest Hold on additional antibiotics pending CT of chest ESRD on HD Tu/An/Sat Patient last received dialysis yesterday Electrolytes WNL Nephrology consult Patient will receive dialysis in the hospital tomorrow Follow BMP Elevated BNP Patient's BNP 4083, increased from 1772 on 02/18/2023 and 262 on 02/10/2023 Likely secondary to fluid overload d/t ESRD CT of abdomen pelvis found large bilateral pleural effusions Pt given Lasix 40mg IV in ED Will give Lasix 40mg IV bid Pt will have dialysis tomorrow Follow BMP Will monitor on telemetry Macrocytic anemia, chronic H&H 11.3/36.0, MCV 102.9 Stable, at baseline Abnormal EKG Patient's EKG with 40 to quality, read as atrial fibrillation with nonspecific ST and T-wave abnormalities Previous EKGs with PACs, current EKG likely also shows PACs a not AFib Physical exam reveals irregularly irregular heart rhythm Will monitor on telemetry HTN BP as high as 202/55 Likely secondary to ESRD Pt takes midodrine before dialysis Continue metoprolol Follow BP Elevated troponin Initial troponin 28.1 with repeat flat at 17.2 Likely type 2 in the setting of demand ischemia Patient asymptomatic, EKG without ischemic changes Will monitor on telemetry Hypothyroidism Continue levothyroxine Full Code Attending:?Dr. Guillaume DVT Prophylaxis: Lovenox Pt will require a hospitalization of at least two nights for treatment of acute hypoxic respiratory failure in the setting a possible hospital-acquired pneumonia and fluid overload. Patient will be receiving IV diuretics, IV antibiotics, specialist consultation, and dialysis. Addendum to history and physical by the advanced practice provider, YULI Yan I interviewed and examined the patient. I discussed their presentation and management with the SILVANA. I reviewed the history and physical and agree with the documentation, with the following additions and corrections: 82yo F [facility] SN[facility] resident with ESRD on HD TuThSa, HTN, hypothyroidism, HFpEF presenting with abd discomfort radiating to chest, found to be hypoxic requiring 2L O2. Found to be hypertensive + hypoxic. SCr 3.53, hs-Tn-I 28.1->17, BNP 4803, CT with bilateral pleural effusions L>R with atelecatsis or infiltrate on L Got 1 dose Lasix and 1 dose Zosyn in ED. acute/chronic HFpEF ESRD on HD - nephrology consult for dialysis possible HCAP - follow BCx, trend PCT, check MRSA swab, Legionella + pneumococcla UAgs, give piperacillin-tazobactam macrocytic anemia - check B12/FA HTN - continue metoprolol hypothyroidism - continue LT4 Incidental findings: adrenal lesion on L - consider outpt adrenal CT possible thoracic adenopathy - consider f/u CT as outpt mid-sigmoid wall thickening - consider outpt evaluation with C-scope <Herbert Guillaume MD - Last Filed: 03/24/23 17:16> Time Spent With Patient Time: Total time managing care of this patient today ____ minutes. <YULI Tejeda - Last Filed: 03/24/23 13:34> Quality Stroke Does the patient have a stroke diagnosis?: No <YULI Tejeda - Last Filed: 03/24/23 13:34> VTE Prior VTE?: No <YULI Tejeda - Last Filed: 03/24/23 13:34> VTE Risk Level:: Medical - moderate - high <YULI Tejeda - Last Filed: 03/24/23 13:34> VTE Device Contraindication: Treatment Not Indicated <YULI Tejeda - Last Filed: 03/24/23 13:34> VTE Drug Contraindication: N/A - Med Ordered <YULI Tejeda - Last Filed: 03/24/23 13:34>
[2023-03-24] MEDS: Piperacillin Sodium/Tazobactam 4.5 GM in 0.9 % Sodium Chloride 100 ML IV (11:54)
--- NOTE | 2023-03-24 12:01 | PHA.MEDREC ---
Pharmacy Consult ? Medication Reconciliation Pharmacy has completed the medication reconciliation. Patient with list from [facility]
[2023-03-24 12:27] LABS: Troponin-I High Sensitivity 17.2 ng/L (<3.5-17.0)
[2023-03-24 13:06] VITALS: BP 161/42; PULSE 71; RESP 15; TEMP 36.6; O2SAT 98
[2023-03-24] MEDS: oxyCODONE HCl Immed Release 5 MG TABLET 10 MG PO ×2 (16:46→21:43)
[2023-03-24] MEDS: ondansetron HCL 4 MG/2 ML VIAL IVPUSH (16:46)
[2023-03-24] MEDS: 0.9 % Sodium Chloride Flush 3 ML SYRINGE IVFLUSH (16:53)
[2023-03-24 18:09] VITALS: BP 169/70; PULSE 77; RESP 19; TEMP 36.8; O2SAT 99
--- NOTE | 2023-03-24 18:10 | MHC.EDTECH ---
Patient repostioned and changed
--- NOTE | 2023-03-24 18:37 | MHC.EDTECH ---
Dinner tray given to patient
[2023-03-24] MEDS: Piperacillin Sodium/Tazobactam 2.25 GM in 0.9 % Sodium Chloride 50 ML IV (18:44)
[2023-03-24 18:49] LABS: Procalcitonin 0.31 ng/mL
--- NOTE | 2023-03-24 21:28 | PC.NURSE ---
Nurse report given to nurse Card. Pt being transferred to room 461. [facility] text sent to hospital transport for assistance with transporting patient.
[2023-03-24] MEDS: Melatonin 3 MG TABLET 6 MG PO (21:43)
[2023-03-24] MEDS: Metoprolol Tartrate 25 MG TABLET PO (21:43)
[2023-03-24] MEDS: Ferrous Sulfate 324 MG TABLET.DR PO (21:44)
[2023-03-24 22:23] VITALS: BMI 27.2
[2023-03-24 22:47] VITALS: BP 107/58; PULSE 73; RESP 19; TEMP 37.1; O2SAT 95
[2023-03-25] VITALS: BP 140/62; PULSE 82; RESP 18; TEMP 37; O2SAT 98
[2023-03-25] MEDS: Heparin Sodium,Porcine 5,000 UNIT/ML VIAL 5000 UNIT SUBCUT ×2 (00:47→14:17)
[2023-03-25] MEDS: 0.9 % Sodium Chloride Flush 3 ML SYRINGE IVFLUSH ×3 (00:47→21:28)
[2023-03-25] MEDS: Piperacillin Sodium/Tazobactam 2.25 GM in 0.9 % Sodium Chloride 50 ML IV ×3 (02:54→17:47)
--- NOTE | 2023-03-25 03:53 | PC.NURSE ---
Pt admitted from ED. Confused but alert to person. NSR w/ PACs on biztalk software developer. Alfred cath patent draining yellow cloudy urine with sediment. Left AV fistula +bruit & thrill. call amaro within reach, bed alarm in place. video camera monitor for safety.
[2023-03-25 04:00] VITALS: PULSE 62; RESP 18; TEMP 36.6; O2SAT 96
[2023-03-25] MEDS: Levothyroxine Sodium 88 MCG TABLET PO (06:18)
[2023-03-25 07:47] VITALS: BP 165/70; PULSE 60; RESP 13; TEMP 36.6; O2SAT 100
[2023-03-25 08:11] LABS: Hemoglobin 10.4 g/dl (12.0-16.0); Mean Corpuscular HGB Conc 29.7 g/dl (31.0-35.0); Mean Corpuscular Volume 107.7 fL (80.0-98.0); Mean Platelet Volume 10.6 fL (9.4-12.3); Platelet Count 155 X10*3/uL (160-400); Red Blood Count 3.25 X10*6/uL (4.20-5.50); Red Cell Distribution Width 15.8 % (11.0-16.0); White Blood Count 9.5 X10*3/uL (4.8-10.8)
[2023-03-25] MEDS: oxyCODONE HCl Immed Release 5 MG TABLET 10 MG PO ×3 (08:37→20:59)
[2023-03-25] MEDS: Midodrine HCl 2.5 MG TABLET PO (08:38)
[2023-03-25] MEDS: Furosemide 40 MG/4 ML VIAL IVPUSH ×2 (08:38→17:47)
[2023-03-25 08:45] LABS: Anion Gap 20 (12-20); Blood Urea Nitrogen 28 mg/dL (9-16); Calcium 8.3 mg/dL (8.4-10.2); Carbon Dioxide 27 mmol/L (22-29); Chloride 100 mmol/L (96-108); Glucose Random 141 mg/dL (60-115); Potassium 4.7 mmol/L (3.3-5.1); Sodium 142 mmol/L (135-145)
[2023-03-25 09:00] LABS: Creatinine Clr Calc Pharmacy 9.6; Estimated Glomerular Filt Rate 10
[2023-03-25 09:02] LABS: Folate 3.6 ng/mL (> or = 4.0); Vitamin B12 404 pg/mL (200-900)
--- NOTE | 2023-03-25 11:24 | HO.PM.IMPN ---
Subjective Subjective Date of Service: 03/25/23 Interval History: breathing improved, on 2L O2, in HD Review of Systems Review of Systems: Yes all other systems are reviewed and are negative Physical Exam Vital Signs: Vital Signs: Last Vital Signs Temp 98 F 03/25/23 07:47 Pulse 60 03/25/23 07:47 Resp 13 03/25/23 07:47 BP 165/70 H 03/25/23 07:47 Pulse Ox 100 03/25/23 07:47 O2 Del Method Nasal Cannula 03/25/23 07:47 O2 Flow Rate 2 03/25/23 07:47 BMI result Body Mass Index 27.2 Gen: in no acute distress but tired + chronically ill-appearing HEENT: sclera anicteric, moist mucus membranes Neck: supple Lungs: diminished at bases bilaterally Heart: regular rate and rhythm, no murmurs Abd: soft, non-tender, non-distended Ext: LUE swelling Skin: warm/well-perfused Neuro: alert, moving all extremities Psych: appropriate affect Constitutional: Alert, cooperative, somnolent but arousable, in no acute distress. Mental Status: Oriented to person and time, not to place or situation. Eyes: Pupils are equal, round, and reactive to light. Ear, Nose, and Throat: Oropharynx clear, mucous membranes moist. Ears and nose without deformities. Trachea midline. Respiratory: Diminished breath sounds in lower lung rae bilaterally. No wheezing, rales, or rhonchi. Cardiovascular: S1, S2, irregularly irregular. No murmurs, rubs, or gallops. Gastrointestinal: Abdomen soft, non-distended, with mild tenderness to right mid quadrant. Normal bowel sounds. Neurologic: Cranial nerves II-XII are grossly intact bilaterally. No focal neurological deficits. Moves all extremities spontaneously. Skin: No rashes or lesions noted. Musculoskeletal: No cyanosis or clubbing. Extremities: No lower leg edema. Left forearm swelling. Objective Data Active Medications Acetaminophen (Acetaminophen 325 Mg Tablet) 650 mg PO Q6H PRN PRN Reason: Pain, Mild (Pain Scale 1-3) Albuterol Sulfate (Albuterol Sulfate (0.042%) 1.25 Mg/3 Ml Vial.Neb) 1.25 mg INHALE Q4H PRN PRN Reason: Wheezing Bisacodyl (Bisacodyl 10 Mg Supp.Rect) 10 mg NC DAILY PRN PRN Reason: Constipation Docusate Sodium (Docusate Sodium 100 Mg Capsule) 100 mg PO DAILY PRN PRN Reason: Constipation Ergocalciferol (Ergocalciferol (Vitamin D2) 1,250 Mcg Capsule) 1,250 mcg PO Q28D [facility] Ferrous Sulfate (Ferrous Sulfate 324 Mg Tablet.) 324 mg PO BID [facility] Last Admin: 03/24/23 21:44 Dose: 324 mg Documented By: HERB Furosemide (Furosemide 40 Mg/4 Ml Vial) 40 mg IVPUSH BID@0900,1800 [facility]; Protocol Last Admin: 03/25/23 08:38 Dose: 40 mg Documented By: EHSAN Heparin Sodium (Porcine) (Heparin Sodium,Porcine 5,000 Unit/Ml Vial) 5,000 unit SUBCUT Q12H [facility] Last Admin: 03/25/23 00:47 Dose: 5,000 unit Documented By: CARINA Piperacillin Sod/Tazobactam (Sod 2.25 gm/ Sodium Chloride) 50 mls @ 100 mls/hr IV Q8H [facility] Last Infusion: 03/25/23 09:08 Dose: Infused Documented By: EHSAN Latanoprost (Latanoprost 0.005 % Ophth Linda 2.5 Ml Drops) 1 drop EYE-BOTH BEDTIME [facility] Last Admin: 03/24/23 22:23 Dose: Not Given Documented By: CARINA Non-Admin Reason: Med Not Available Levothyroxine Sodium (Levothyroxine Sodium 88 Mcg Tablet) 88 mcg PO DAILY@0600 [facility] Last Admin: 03/25/23 06:18 Dose: 88 mcg Documented By: CARINA Lidocaine HCl (Lidocaine Hcl 1 % Mpf 2 Ml Vial) 0.5 ml SUBCUT TUTHSA@1645 [facility] Melatonin (Melatonin 3 Mg Tablet) 6 mg PO BEDTIME [facility] Last Admin: 03/24/23 21:43 Dose: 6 mg Documented By: HERB Metoprolol Tartrate (Metoprolol Tartrate 25 Mg Tablet) 25 mg PO BID [facility]; Protocol Last Admin: 03/24/23 21:43 Dose: 25 mg Documented By: HERB Midodrine (Midodrine Hcl 2.5 Mg Tablet) 2.5 mg PO TUTHSA [facility] Last Admin: 03/25/23 08:38 Dose: 2.5 mg Documented By: EHSAN Nitroglycerin (Nitroglycerin 0.4 Mg Tab.Subl) 0.4 mg SUBLINGUAL Q5M PRN PRN Reason: Chest Pain Non-Formulary Medication (Lidocaine) 1 appl TOPICAL TUTHSA PRN PRN Reason: PRIOR TO DIALYSIS Ondansetron HCl (Ondansetron Hcl 4 Mg/2 Ml Vial) 4 mg IVPUSH Q8H PRN PRN Reason: Nausea and Vomiting Last Admin: 03/24/23 16:46 Dose: 4 mg Documented By: CHARLES Oxycodone HCl (Oxycodone Hcl Immed Release 5 Mg Tablet) 10 mg PO Q12H PRN PRN Reason: Pain, Severe (Pain Scale 7-10) Oxycodone HCl (Oxycodone Hcl Immed Release 5 Mg Tablet) 10 mg PO TID MAKENZIE Last Admin: 03/25/23 08:37 Dose: 10 mg Documented By: EHSAN Senna (Sennosides 8.6 Mg Tablet) 8.6 mg PO BEDTIME PRN PRN Reason: Constipation Sertraline HCl (Sertraline Hcl 50 Mg Tablet) 50 mg PO DAILY [facility] Sodium Chloride (0.9 % Sodium Chloride Flush 3 Ml Syringe) 3 ml IVFLUSH QSHIFT [facility] Last Admin: 03/25/23 08:37 Dose: 3 ml Documented By: EHSAN Labs 03/25/23 07:23 03/25/23 07:23 Labs: Laboratory Results - last 24 hr 03/24/23 03/25/23 11:55 07:23 MCV 107.7 H MCH 32.0 MCHC 29.7 L RDW 15.8 Plt Count 155 L D MPV 10.6 Absolute Nucleated RBC 0.000 Nucleated RBC % (auto) 0.0 Anion Gap 20 Estim Creat Clear Calc 9.6 Estimated GFR 10 Random Glucose 141 H Calcium 8.3 L D Vitamin B12 404 Folate 3.6 L Procalcitonin 0.31 Assessment and Plan (1) Hypoxia: Status: Acute Assessment and Plan: d2 82yo F LTC resident with ESRD on HD TuThSa, HTN, HFpEF, IVC filter, hypothyroidism presenting with abd discomfort radiating to chest found to have hypoxia, bibasilar pleural effusions, left-sided PNA acute/chronic HFpEF - TTE with grade 2 diastolic dysfunction - extra volume removal at HD HCAP - pip-mary ann d2, follow BCx, trend PCT, check MRSA swab, Legionella + pneumococcal UAGs pending acute hypoxic resp failure - wean O2 as tolerated, treat PNA + HF as a frequent PACs - does not appear to be AF on EKG or telemetry folate deficiency anemia - replete ESRD on HD - HD TuThSa - midodrine for HD HTN - metoprolol hypothyroidism - LT4 Incidental imaging findings - adrenal lesion on L: consider outpt adrenal CT - possible thoracic adenopathy: consider f/u CT as outpt - mid-sigmoid wall thickening: consider outpt evaluation with C-scope VTE ppx - UFH dispo - eventual return to [facility] for LTC In my clinical judgment, the patient requires continued inpatient hospitalization for the following reasons: IV ABX, HD, hypoxia I updated pt's granddaughter Amy by phone. Time Spent With Patient Time: Total time managing care of this patient today __35__ minutes. Quality Stroke Does the patient have a stroke diagnosis?: No VTE Prior VTE?: No VTE Risk Level:: Medical - moderate - high VTE Device Contraindication: Treatment Not Indicated VTE Drug Contraindication: N/A - Med Ordered
--- NOTE | 2023-03-25 13:39 | MHC.CM.PN ---
IMM ADDRESSED WITH HCP/JUSTINE YAO VIA TELEPHONE. COPY TO BE MAILED, CPY TO CHART. PT IS A LTC RESIDENT AT [facility] WHERE SHE RECEIVES HD ON SITE [facility]. RETURN REFERRAL SENT TO [facility]. PLAN TO RETURN THERE FOR LTC/HD ON DC WITH BLS TRANSPORT.
[2023-03-25 13:46] VITALS: BP 122/79; PULSE 67; RESP 16; TEMP 37.3; O2SAT 98
--- NOTE | 2023-03-25 13:59 | PM.CNNEP ---
History of Present Illness Reason for Consult Consult date: 03/25/23 Chief Complaint Chief complaint: Hypoxia ?HAP History of Present Illness Narrative: 82-year-old female with ESRD on HD (Mon/An/Mon), who presented to the ED from [facility] for evaluation of abdominal discomfort radiating to her chest . Patient noted to have shallow respirations and satting at 89% room air, which increased to 95% on 2 L NC. Patient is a poor historian. Patient unable to provide meaningful HPI. So it was obtained from chart and provider review. ?According to SNF staff patient has been noticeably declining physically and mentally since the summer. 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 Fistula was replaced with some improvement to left arm swelling. Patient has also been less alert and oriented. Pt is wheelchair bound at baseline.In the ED patient was afebrile but hypertensive to 202/55, satting at 85% on RA with improvement to 96% on 2L NC. Labs were significant for stable H&H of 11.3/36.0, BUN 21, creatinine 3.53, troponin 28.1, BNP 4083. Coags WNL. Lactic acid WNL 1.2. UA likely negative for UTI. Negative for COVID. CXR showed bilateral basilar opacities left greater than right, atelectasis versus infiltrate. Also found left pleural effusion. CT?of abdomen and pelvis found large bilateral pleural effusions, focal 4 cm segment of wall thickening in the mid sigmoid colon, stable indeterminate left adrenal nodule, ,cholelithiasis and nonobstructive bilateral renal calculi without hydronephrosis. Pt was admitted to the hospital for acute hypoxic respiratory failure in the setting of possible hospital acquired pneumonia and fluid overload. Nephrology has been consulted to assist in her clinical care during her current hospital stay Review of Systems Review of Systems Yes all other systems are reviewed and are negative [facility] Past Medical History Medical History Hypothyroidism Anxiety Diverticulosis ESRD on dialysis COVID-19 HTN (hypertension) GERD (gastroesophageal reflux disease) Anemia Pulmonary embolus Diabetes mellitus Hypertension Kidney disease Social History Social History Household Members: None Household Members Other:: resident of [facility] Housing: Prison Do you presently have visiting nurse or other home services: Yes (Zoë Moran) Unable to assess alcohol history related to: Unknown Alcohol intake: never Patient Tobacco Use Status: Former Tobacco user Tobacco use type: Cigarette Advance Directives Date on File: 02/10/21 service: No Current occupational status: retired Meds Allergies Allergy/AdvReac Type Severity Reaction Status Date / Time Sulfa (Sulfonamide Allergy Unknown RASH Verified 02/18/23 08:56 Antibiotics) Active Medications: Current Medications Acetaminophen (Acetaminophen 325 Mg Tablet) 650 mg PO Q6H PRN PRN Reason: Pain, Mild (Pain Scale 1-3) Albuterol Sulfate (Albuterol Sulfate (0.042%) 1.25 Mg/3 Ml Vial.Neb) 1.25 mg INHALE Q4H PRN PRN Reason: Wheezing Bisacodyl (Bisacodyl 10 Mg Supp.Rect) 10 mg NV DAILY PRN PRN Reason: Constipation Docusate Sodium (Docusate Sodium 100 Mg Capsule) 100 mg PO DAILY PRN PRN Reason: Constipation Ergocalciferol (Ergocalciferol (Vitamin D2) 1,250 Mcg Capsule) 1,250 mcg PO Q28D [facility] Ferrous Sulfate (Ferrous Sulfate 324 Mg Tablet.Dr) 324 mg PO BID [facility] Last Admin: 03/24/23 21:44 Dose: 324 mg Folic Acid (Folic Acid 1 Mg Tablet) 1 mg PO DAILY [facility] Furosemide (Furosemide 40 Mg/4 Ml Vial) 40 mg IVPUSH BID@0900,1800 [facility]; Protocol Last Admin: 03/25/23 08:38 Dose: 40 mg Heparin Sodium (Porcine) (Heparin Sodium,Porcine 5,000 Unit/Ml Vial) 5,000 unit SUBCUT Q12H [facility] Last Admin: 03/25/23 00:47 Dose: 5,000 unit Piperacillin Sod/Tazobactam (Sod 2.25 gm/ Sodium Chloride) 50 mls @ 100 mls/hr IV Q8H [facility] Last Infusion: 03/25/23 09:08 Dose: Infused Latanoprost (Latanoprost 0.005 % Ophth Linda 2.5 Ml Drops) 1 drop EYE-BOTH BEDTIME [facility] Last Admin: 03/24/23 22:23 Dose: Not Given Levothyroxine Sodium (Levothyroxine Sodium 88 Mcg Tablet) 88 mcg PO DAILY@0600 [facility] Last Admin: 03/25/23 06:18 Dose: 88 mcg Lidocaine HCl (Lidocaine Hcl 1 % Mpf 2 Ml Vial) 0.5 ml SUBCUT TUTHSA@1645 [facility] Melatonin (Melatonin 3 Mg Tablet) 6 mg PO BEDTIME [facility] Last Admin: 03/24/23 21:43 Dose: 6 mg Metoprolol Tartrate (Metoprolol Tartrate 25 Mg Tablet) 25 mg PO BID [facility]; Protocol Last Admin: 03/24/23 21:43 Dose: 25 mg Midodrine (Midodrine Hcl 2.5 Mg Tablet) 2.5 mg PO TUTHSA [facility] Last Admin: 03/25/23 08:38 Dose: 2.5 mg Nitroglycerin (Nitroglycerin 0.4 Mg Tab.Subl) 0.4 mg SUBLINGUAL Q5M PRN PRN Reason: Chest Pain Non-Formulary Medication (Lidocaine) 1 appl TOPICAL TUTA PRN PRN Reason: PRIOR TO DIALYSIS Ondansetron HCl (Ondansetron Hcl 4 Mg/2 Ml Vial) 4 mg IVPUSH Q8H PRN PRN Reason: Nausea and Vomiting Last Admin: 03/24/23 16:46 Dose: 4 mg Oxycodone HCl (Oxycodone Hcl Immed Release 5 Mg Tablet) 10 mg PO Q12H PRN PRN Reason: Pain, Severe (Pain Scale 7-10) Oxycodone HCl (Oxycodone Hcl Immed Release 5 Mg Tablet) 10 mg PO TID [facility] Last Admin: 03/25/23 08:37 Dose: 10 mg Senna (Sennosides 8.6 Mg Tablet) 8.6 mg PO BEDTIME PRN PRN Reason: Constipation Sertraline HCl (Sertraline Hcl 50 Mg Tablet) 50 mg PO DAILY [facility] Sodium Chloride (0.9 % Sodium Chloride Flush 3 Ml Syringe) 3 ml IVFLUSH QSHIFT [facility] Last Admin: 03/25/23 08:37 Dose: 3 ml Home Medications Medication Instructions Recorded Confirmed Last Taken Type levothyroxine 88 mcg tablet 1 tab PO DAILY@0600 02/10/21 03/24/23 Unknown History metoprolol tartrate 25 mg tablet 1 tab PO BID 02/10/21 03/24/23 Unknown History ondansetron 4 mg disintegrating 4 mg PO Q6H PRN Nausea And Vomiting 02/10/21 03/24/23 Unknown History tablet oxycodone 10 mg tablet 1 tab PO Q12H PRN pain 02/10/21 03/24/23 Unknown History sertraline 50 mg tablet 1 tab PO DAILY 02/10/21 03/24/23 Unknown History bisacodyl 10 mg rectal suppository 10 mg NV DAILY PRN Constipation 05/03/22 03/24/23 Unknown History ferrous fumarate 325 mg (106 mg 325 mg PO BID 05/03/22 03/24/23 Unknown History iron) tablet latanoprost 0.005 % eye drops 1 drp ophthalmic (eye) BEDTIME 05/03/22 03/24/23 Unknown History melatonin 3 mg tablet 6 mg PO BEDTIME 05/03/22 03/24/23 Unknown History midodrine 2.5 mg tablet 1 tab PO TUTHSA 05/03/22 03/24/23 Unknown History nitroglycerin 0.4 mg sublingual 0.4 mg sublingual Q5M PRN Chest 05/03/22 03/24/23 Unknown History tablet Pain nystatin 100,000 unit/gram topical 1 appl topical BID 05/03/22 03/24/23 Unknown History powder sennosides 8.6 mg tablet (senna) 8.6 mg PO BEDTIME PRN Constipation 05/03/22 03/24/23 Unknown History albuterol sulfate 1.25 mg/3 mL 1.25 mg inhalation Q4H PRN Wheezing 01/14/23 03/24/23 Unknown History solution for nebulization lidocaine 3 % topical cream 1 appl topical TUTHSA 01/14/23 03/24/23 Unknown History oxycodone 10 mg tablet 10 mg PO TID 01/14/23 03/24/23 Unknown History acetaminophen 325 mg tablet 650 mg PO TID PRN Pain 02/18/23 03/24/23 Unknown History (Tylenol) ergocalciferol (vitamin D2) 1,250 1,250 mcg PO Q28D 02/18/23 03/24/23 02/01/23 History mcg (50,000 unit) capsule acetaminophen 325 mg tablet 650 mg PO DAILY PRN discomfort 03/24/23 03/24/23 Unknown History Physical Exam Vital Signs: Last Vital Signs Temp 99.2 F 03/25/23 13:46 Pulse 67 03/25/23 13:46 Resp 16 03/25/23 13:46 BP 122/79 03/25/23 13:46 Pulse Ox 98 03/25/23 13:46 O2 Del Method Nasal Cannula 03/25/23 13:46 O2 Flow Rate 2 03/25/23 13:46 BMI result Body Mass Index 27.2 Const General: no acute distress Eyes EOM: EOMs intact bilaterally Resp Auscultation: diminished lung sounds Cardio Rate: regular rate GI Palpation (GI): Soft to palpation Neuro General: moves all extremities Results Lab Results 03/25/23 07:23 03/25/23 07:23 Lab results: Chemistry 03/24/23 03/25/23 07:48 07:23 Sodium 143 142 Potassium 4.1 4.7 Carbon Dioxide 33 H 27 BUN 21 H 28 H Creatinine 3.53 H 4.39 H* Calcium 9.4 D 8.3 L D Hematology 03/24/23 03/25/23 07:48 07:23 WBC 8.8 9.5 Hgb 11.3 L D 10.4 L Plt Count 222 D 155 L D Urinalysis 03/24/23 08:51 Urine Color Yellow Urine Appearance Clear Urine pH >= 9.0 Ur Specific [place] 1.015 Urine Protein 300 (3+) H Urine Glucose (UA) 100 H Urine Ketones Negative Urine Blood Negative Urine Nitrite Negative Ur Leukocyte Esterase Small (1+) H Urine RBC 0-2 Urine WBC >50 H Ur Squamous Epith Cells 6-10 Hyaline Casts 0-2 Assessment and Plan (1) ESRD needing dialysis: Status: Acute Time Spent With Patient Time: Usually gets HD [facility] HD today; Continued volume optimization on HD Renal Diet; Phos binders with meals All medication dosed for GFR Concur with rest of current management Shall closely follow up Procedures Date of Service Date of Service: 03/25/23
[2023-03-25] MEDS: Metoprolol Tartrate 25 MG TABLET PO ×2 (14:16→21:00)
[2023-03-25] MEDS: Ferrous Sulfate 324 MG TABLET.DR PO ×2 (14:16→20:59)
[2023-03-25] MEDS: Folic Acid 1 MG TABLET PO (14:17)
[2023-03-25] MEDS: Sertraline HCL 50 MG TABLET PO (14:17)
[2023-03-25 16:00] VITALS: BP 192/79; PULSE 65; RESP 17; TEMP 36.4; O2SAT 98
[2023-03-25 16:37] LABS: MRSA Nasal PCR POSITIVE (Negative); SA Nasal PCR POSITIVE (Negative)
[2023-03-25 19:45] VITALS: BP 142/65; PULSE 73; RESP 16; O2SAT 92
[2023-03-25] MEDS: Melatonin 3 MG TABLET 6 MG PO (21:28)
--- NOTE | 2023-03-25 23:54 | PC.NURSE ---
Pt refused the tele monitor. notified.
[2023-03-26] VITALS: BP 138/63; PULSE 61; RESP 20; TEMP 36.6; O2SAT 94
[2023-03-26] MEDS: Piperacillin Sodium/Tazobactam 2.25 GM in 0.9 % Sodium Chloride 50 ML IV ×3 (02:25→18:43)
--- NOTE | 2023-03-26 03:23 | PC.NURSE ---
Assumed care for patient at 2300. Continues to refuse tele monitor. Refused heparin injection. Resistive to care. Will continue to make attempts to place cardiac monitor technician back on and redirect patient.
[2023-03-26 06:32] LABS: Hematocrit 33.5 % (37.0-47.0); Hemoglobin 10.5 g/dl (12.0-16.0); Mean Corpuscular HGB Conc 31.3 g/dl (31.0-35.0); Mean Corpuscular Hemoglobin 32.5 pg (27.0-33.0); Mean Corpuscular Volume 103.7 fL (80.0-98.0); Mean Platelet Volume 10.8 fL (9.4-12.3); NRBC Pct Auto 0.3 /100WBC (0.0-0.2); Platelet Count 183 X10*3/uL (160-400); Red Blood Count 3.23 X10*6/uL (4.20-5.50); Red Cell Distribution Width 15.7 % (11.0-16.0); White Blood Count 9.9 X10*3/uL (4.8-10.8)
[2023-03-26 06:55] LABS: Anion Gap 18 (12-20); Blood Urea Nitrogen 18 mg/dL (9-16); Carbon Dioxide 25 mmol/L (22-29); Chloride 99 mmol/L (96-108); Creatinine Clr Calc Pharmacy 12.1; Estimated Glomerular Filt Rate 13; Glucose Random 122 mg/dL (60-115); Potassium 4.6 mmol/L (3.3-5.1); Sodium 137 mmol/L (135-145)
[2023-03-26 07:31] VITALS: BP 140/65; PULSE 63; RESP 17; TEMP 36.2; O2SAT 94
[2023-03-26 08:22] LABS: B Type Natriuretic Peptide 1737 pg/mL (<100)
[2023-03-26] MEDS: Ferrous Sulfate 324 MG TABLET.DR PO ×2 (10:16→20:46)
[2023-03-26] MEDS: Folic Acid 1 MG TABLET PO (10:16)
[2023-03-26] MEDS: oxyCODONE HCl Immed Release 5 MG TABLET 10 MG PO ×3 (10:16→20:43)
[2023-03-26] MEDS: Metoprolol Tartrate 25 MG TABLET PO ×2 (10:16→19:35)
[2023-03-26] MEDS: Levothyroxine Sodium 88 MCG TABLET PO (10:17)
[2023-03-26] MEDS: Sertraline HCL 50 MG TABLET PO (10:17)
[2023-03-26] MEDS: Furosemide 40 MG/4 ML VIAL IVPUSH (10:18)
[2023-03-26] MEDS: 0.9 % Sodium Chloride Flush 3 ML SYRINGE IVFLUSH ×2 (10:19→16:55)
[2023-03-26 12:00] VITALS: BP 147/64; PULSE 73; RESP 16; TEMP 36.5; O2SAT 96
--- NOTE | 2023-03-26 12:01 | HO.PM.IMPN ---
Subjective Subjective Date of Service: 03/26/23 Interval History: breathing better, off O2 dialyzed yesterday son at bedside + updated Review of Systems Review of Systems: Yes all other systems are reviewed and are negative Physical Exam Vital Signs: Vital Signs: Last Vital Signs Temp 97.2 F 03/26/23 07:31 Pulse 63 03/26/23 07:31 Resp 17 03/26/23 07:31 BP 140/65 H 03/26/23 07:31 Pulse Ox 94 03/26/23 07:31 O2 Del Method Room Air 03/26/23 07:31 O2 Flow Rate 2 03/25/23 16:00 BMI result Body Mass Index 27.2 Gen: in no acute distres HEENT: sclera anicteric, moist mucus membranes Neck: supple Lungs: diminished at bases bilaterally Heart: regular rate and rhythm, no murmurs Abd: soft, non-tender, non-distended Ext: LUE swelling [chronic] Skin: warm/well-perfused Neuro: alert, moving all extremities Psych: appropriate affect Objective Data Active Medications Acetaminophen (Acetaminophen 325 Mg Tablet) 650 mg PO Q6H PRN PRN Reason: Pain, Mild (Pain Scale 1-3) Albuterol Sulfate (Albuterol Sulfate (0.042%) 1.25 Mg/3 Ml Vial.Neb) 1.25 mg INHALE Q4H PRN PRN Reason: Wheezing Bisacodyl (Bisacodyl 10 Mg Supp.Rect) 10 mg [place] DAILY PRN PRN Reason: Constipation Docusate Sodium (Docusate Sodium 100 Mg Capsule) 100 mg PO DAILY PRN PRN Reason: Constipation Ergocalciferol (Ergocalciferol (Vitamin D2) 1,250 Mcg Capsule) 1,250 mcg PO Q28D [facility] Ferrous Sulfate (Ferrous Sulfate 324 Mg Tablet.) 324 mg PO BID [facility] Last Admin: 03/26/23 10:16 Dose: 324 mg Documented By: LACY Folic Acid (Folic Acid 1 Mg Tablet) 1 mg PO DAILY [facility] Last Admin: 03/26/23 10:16 Dose: 1 mg Documented By: LACY Furosemide (Furosemide 40 Mg/4 Ml Vial) 40 mg IVPUSH BID@0900,1800 [facility]; Protocol Last Admin: 03/26/23 10:18 Dose: 40 mg Documented By: LACY Heparin Sodium (Porcine) (Heparin Sodium,Porcine 5,000 Unit/Ml Vial) 5,000 unit SUBCUT Q12H [facility] Last Admin: 03/26/23 00:41 Dose: Not Given Documented By: CARINA Non-Admin Reason: Patient Refused Piperacillin Sod/Tazobactam (Sod 2.25 gm/ Sodium Chloride) 50 mls @ 100 mls/hr IV Q8H [facility] Last Admin: 03/26/23 10:18 Dose: 100 mls/hr Documented By: LACY Latanoprost (Latanoprost 0.005 % Ophth Linda 2.5 Ml Drops) 1 drop EYE-BOTH BEDTIME [facility] Last Admin: 03/25/23 21:28 Dose: Not Given Documented By: FANNIE Non-Admin Reason: Patient Refused Levothyroxine Sodium (Levothyroxine Sodium 88 Mcg Tablet) 88 mcg PO DAILY@0600 [facility] Last Admin: 03/26/23 10:17 Dose: 88 mcg Documented By: LACY Lidocaine HCl (Lidocaine Hcl 1 % Mpf 2 Ml Vial) 0.5 ml SUBCUT TUTHSA@1645 [facility] Last Admin: 03/25/23 18:43 Dose: Not Given Documented By: DEMETRIO Non-Admin Reason: not charted in dialysis Melatonin (Melatonin 3 Mg Tablet) 6 mg PO BEDTIME [facility] Last Admin: 03/25/23 21:28 Dose: 6 mg Documented By: FANNIE Metoprolol Tartrate (Metoprolol Tartrate 25 Mg Tablet) 25 mg PO BID [facility]; Protocol Last Admin: 03/26/23 10:16 Dose: 25 mg Documented By: LACY Midodrine (Midodrine Hcl 2.5 Mg Tablet) 2.5 mg PO TUTHSA [facility] Last Admin: 03/25/23 08:38 Dose: 2.5 mg Documented By: EHSAN Nitroglycerin (Nitroglycerin 0.4 Mg Tab.Subl) 0.4 mg SUBLINGUAL Q5M PRN PRN Reason: Chest Pain Non-Formulary Medication (Lidocaine) 1 appl TOPICAL TUTHSA PRN PRN Reason: PRIOR TO DIALYSIS Ondansetron HCl (Ondansetron Hcl 4 Mg/2 Ml Vial) 4 mg IVPUSH Q8H PRN PRN Reason: Nausea and Vomiting Last Admin: 03/24/23 16:46 Dose: 4 mg Documented By: CHARLES Oxycodone HCl (Oxycodone Hcl Immed Release 5 Mg Tablet) 10 mg PO Q12H PRN PRN Reason: Pain, Severe (Pain Scale 7-10) Oxycodone HCl (Oxycodone Hcl Immed Release 5 Mg Tablet) 10 mg PO TID [facility] Last Admin: 03/26/23 10:16 Dose: 10 mg Documented By: LACY Senna (Sennosides 8.6 Mg Tablet) 8.6 mg PO BEDTIME PRN PRN Reason: Constipation Sertraline HCl (Sertraline Hcl 50 Mg Tablet) 50 mg PO DAILY [facility] Last Admin: 03/26/23 10:17 Dose: 50 mg Documented By: LACY Sodium Chloride (0.9 % Sodium Chloride Flush 3 Ml Syringe) 3 ml IVFLUSH QSHIFT [facility] Last Admin: 03/26/23 10:19 Dose: 3 ml Documented By: LACY Labs 03/26/23 06:16 03/26/23 06:16 Labs: Laboratory Results - last 24 hr 03/25/23 03/26/23 14:35 06:16 MCV 103.7 H MCH 32.5 MCHC 31.3 RDW 15.7 Plt Count 183 MPV 10.8 Absolute Nucleated RBC 0.030 H Nucleated RBC % (auto) 0.3 H Anion Gap 18 Estim Creat Clear Calc 12.1 Estimated GFR 13 Random Glucose 122 H Calcium 8.0 L B-Natriuretic Peptide 1737 H Procalcitonin 1.10 Nasal Screen MRSA (PCR) POSITIVE A Nasal S. aureus Screen POSITIVE A Nasal MRSA/S.aureus Interp SEE NOTE Microbiology Microbiology Results: Microbiology 03/24/23 09:51 Blood Culture - Preliminary Blood - Venous No growth after 48 hours. 03/24/23 Unknown Urine Culture - Final Urine clean catch - Urine che top Enterococcus faecalis 03/24/23 11:41 Blood Culture - Preliminary Blood - Venous No growth after 24 hours. Assessment and Plan (1) Hypoxia: Status: Acute Assessment and Plan: d3 82yo F LTC resident with ESRD on HD TuThSa, HTN, HFpEF, IVC filter, hypothyroidism presenting with abd discomfort radiating to chest found to have hypoxia, bibasilar pleural effusions, left-sided PNA acute/chronic HFpEF - TTE with grade 2 diastolic dysfunction - extra volume removal at HD [facility] HCAP - pip-mary ann d3, follow BCx, trend PCT, MRSA swab positive, Legionella + pneumococcal UAGs pending acute hypoxic resp failure - reslved frequent PACs - does not appear to be AF on EKG or telemetry folate deficiency anemia - replete ESRD on HD - HD [facility] - midodrine for HD HTN - metoprolol hypothyroidism - LT4 Incidental imaging findings - adrenal lesion on L: consider outpt adrenal CT - possible thoracic adenopathy: consider f/u CT as outpt - mid-sigmoid wall thickening: consider outpt evaluation with C-scope VTE ppx - UFH dispo - eventual return to [facility] for LTC likely tomorrow In my clinical judgment, the patient requires continued inpatient hospitalization for the following reasons: IV ABX, Time Spent With Patient Time: Total time managing care of this patient today ____ minutes. Quality Stroke Does the patient have a stroke diagnosis?: No VTE Prior VTE?: No VTE Risk Level:: Medical - moderate - high VTE Device Contraindication: Treatment Not Indicated VTE Drug Contraindication: N/A - Med Ordered
--- NOTE | 2023-03-26 12:55 | P.PNNP_ITS ---
Subjective Subjective Date of Service: 03/26/23 Interval history: Breathing better, off O2;Dialyzed yesterday Physical Exam 2 Vital Signs: Vital Signs: Last Vital Signs Temp 97.7 F 03/26/23 12:00 Pulse 73 03/26/23 12:00 Resp 16 03/26/23 12:00 BP 147/64 H 03/26/23 12:00 Pulse Ox 96 03/26/23 12:00 O2 Del Method Room Air 03/26/23 12:00 O2 Flow Rate 2 03/25/23 16:00 BMI result Body Mass Index 27.2 Const: General: no acute distress Eyes: EOM: EOMs intact bilaterally Resp: Auscultation: diminished lung sounds Cardio: Rate: regular rate GI: Palpation (GI): Soft to palpation Neuro: General: moves all extremities Objective Data Labs 03/26/23 06:16 03/26/23 06:16 Labs: Laboratory Results - last 24 hr 03/25/23 03/26/23 14:35 06:16 WBC 9.9 RBC 3.23 L Hgb 10.5 L Hct 33.5 L MCV 103.7 H MCH 32.5 MCHC 31.3 RDW 15.7 Plt Count 183 MPV 10.8 Absolute Nucleated RBC 0.030 H Nucleated RBC % (auto) 0.3 H Sodium 137 Potassium 4.6 Chloride 99 Carbon Dioxide 25 Anion Gap 18 BUN 18 H Creatinine 3.49 H Estim Creat Clear Calc 12.1 Estimated GFR 13 Random Glucose 122 H Calcium 8.0 L B-Natriuretic Peptide 1737 H Procalcitonin 1.10 Nasal Screen MRSA (PCR) POSITIVE A Nasal S. aureus Screen POSITIVE A Nasal MRSA/S.aureus Interp SEE NOTE Microbiology Microbiology Results: Microbiology 03/24/23 09:51 Blood - Venous Blood Culture - Preliminary No growth after 48 hours. 03/24/23 Unknown Urine clean catch - Urine che top Urine Culture - Final Enterococcus faecalis 03/24/23 11:41 Blood - Venous Blood Culture - Preliminary No growth after 24 hours. Procedures Date of Service Date of Service: 03/26/23 Assessment & Plan Assessment and plan (1) ESRD needing dialysis: Status: Acute Assessment and Plan: Usually gets HD on [facility]( [facility]) Continued volume optimization on HD Needs to bring dry eight down Renal Diet; Phos binders with meals All medication dosed for GFR Concur with rest of current management Shall closely follow up Time Spent With Patient Time: . Progress Note: Quality Stroke Does the patient have a stroke diagnosis?: No
[2023-03-26] MEDS: Heparin Sodium,Porcine 5,000 UNIT/ML VIAL 5000 UNIT SUBCUT (14:29)
[2023-03-26 16:00] VITALS: BP 219/91; PULSE 76; RESP 16; TEMP 36.4; O2SAT 93
[2023-03-26] MEDS: Metoprolol Tartrate 5 MG/5 ML VIAL IVPUSH (16:47)
[2023-03-26] MEDS: HYDROmorphone HCl 0.5 MG/0.5 ML SYRINGE 0.25 MG IVPUSH (18:42)
[2023-03-26] MEDS: Acetaminophen 325 MG TABLET 650 MG PO (19:41)
[2023-03-26] MEDS: Labetalol HCL 100 MG/20 ML VIAL 10 MG IVPUSH (19:46)
[2023-03-26 20:00] VITALS: BP 136/62; PULSE 64; RESP 18; TEMP 36.2; O2SAT 99
[2023-03-26] MEDS: Melatonin 3 MG TABLET 6 MG PO (20:46)
[2023-03-26] MEDS: Latanoprost 0.005 % Ophth Sol 2.5 ML DROPS 1 DROP EYE-BOTH (20:49)
[2023-03-27] VITALS: BP 132/68; PULSE 68; RESP 18; TEMP 37.1; O2SAT 93
[2023-03-27] MEDS: 0.9 % Sodium Chloride Flush 3 ML SYRINGE IVFLUSH ×3 (00:09→18:36)
[2023-03-27] MEDS: Heparin Sodium,Porcine 5,000 UNIT/ML VIAL 5000 UNIT SUBCUT ×2 (00:18→14:20)
[2023-03-27] MEDS: Piperacillin Sodium/Tazobactam 2.25 GM in 0.9 % Sodium Chloride 50 ML IV ×3 (00:19→18:36)
--- NOTE | 2023-03-27 01:57 | PC.NURSE ---
Assumed care at 07:00. Patient oriented to person only. Patient restless at times, tries to jump OOB without assistance, telesitter in use. Patient was apparently sundowning, very labile and tearful at , very hard to redirect, was refusing care, became hypertensive, 219/91, with 10/10 headache, MD aware, IV metoprolol 5 mg with some effect, then repeat BP subsequently higher 240's-110, MD aware, PO metoprolol 25 mg given early per MD, one time 10 mg IV labetolol per MD. TO one time 0.25 mg IV dilaudid per MD with effect, patient initially refused tylenol then accepted with effect, f/u BP 130's/60's, H/A resolved. Patient redirectable and in bed. Patient also low urine outputs with levin. Levin flushed and patent. Patient s/p 40 mg IV lasix with only 100 ccs of concentrated urine, MD notified, second dose of lasix cancelled by MD. Patient daughter updated and in to help console with effect. Patient ate poorly today, refused meals. in Evening also with delusional ideation fixated on a car during emotional distress, unable to clarify needs
[2023-03-27 03:38] VITALS: BP 141/67; PULSE 62; RESP 20; TEMP 36.4; O2SAT 98
[2023-03-27] MEDS: Levothyroxine Sodium 88 MCG TABLET PO (05:56)
[2023-03-27 07:56] VITALS: BP 145/76; PULSE 62; RESP 22; TEMP 36.9; O2SAT 98
--- NOTE | 2023-03-27 10:26 | PM.PNNEP ---
Subjective Subjective Date of Service: 03/28/23 Interval history: Events noted. Complaints of abdominal pain. Had bowel movement. Physical Exam Vital Signs: Vital Signs: Last Vital Signs Temp 98.5 F 03/27/23 07:56 Pulse 62 03/27/23 07:56 Resp 22 H 03/27/23 07:56 BP 145/76 H 03/27/23 07:56 Pulse Ox 98 03/27/23 07:56 O2 Del Method Room Air 03/27/23 07:56 O2 Flow Rate 2 03/27/23 03:38 BMI result Body Mass Index 27.2 Const: General: awake Eyes: General: appearance normal, both eyes and all related structures Resp: Effort & Inspection: normal respiratory effort Auscultation: clear to auscultation bilaterally GI: Palpation (GI): Soft to palpation, no guarding and not rigid : General: Yes no CVA tenderness Back/Spine/Pelvis: Back: no CVA tenderness Objective Data Labs 03/26/23 06:16 03/26/23 06:16 Microbiology Microbiology Results: Microbiology 03/24/23 11:41 Blood - Venous Blood Culture - Preliminary No growth after 48 hours. 03/24/23 09:51 Blood - Venous Blood Culture - Preliminary No growth after 48 hours. 03/24/23 Unknown Urine clean catch - Urine che top Urine Culture - Final Enterococcus faecalis Procedures Date of Service Date of Service: 03/28/23 Assessment & Plan Assessment and plan (1) ESRD needing dialysis: Status: Acute Assessment and Plan: 82yo Woman with ESRD on HD [facility], HTN, HFpEF, IVC filter, hypothyroidism presenting with abd discomfort radiating to chest found to have hypoxia, bibasilar pleural effusions, left-sided PNA acute/chronic HFpEF - TTE with grade 2 diastolic dysfunction - extra volume removal at HD [facility] HCAP - pip-mary ann d3, follow BCx, trend PCT, MRSA swab positive, Legionella + pneumococcal UAGs pending Incidental imaging findings - adrenal lesion on L: consider outpt adrenal CT - possible thoracic adenopathy: consider f/u CT as outpt - mid-sigmoid wall thickening: consider outpt evaluation with C-scope ESRD Usually gets HD on TTS( [facility]) Continued volume optimization on HD Needs to bring dry weight down Renal Diet; Phos binders with meals All medication dosed for GFR Concur with rest of current management Shall closely follow up Time Spent With Patient Time: Total time managing care of this patient today ____ minutes. Progress Note: Quality Stroke Does the patient have a stroke diagnosis?: No
--- NOTE | 2023-03-27 11:06 | PC.NURSE ---
Pt. complaining this morning of severe abd. pain, Refusing all meds saying it hurts too much to eat. was notified and ordered for levin catheter to be removed as that could be the cause of the pain. Levin catheter was removed at 0945 pt. is due to void at 1545. This is a hemodialysis pt. so she voids very little amounts. Will monitor urine output.
[2023-03-27 12:00] VITALS: BP 145/64; PULSE 68; RESP 20; TEMP 36.3; O2SAT 96
[2023-03-27] MEDS: oxyCODONE HCl Immed Release 5 MG TABLET 10 MG PO ×2 (14:18→20:37)
[2023-03-27 15:30] VITALS: BP 125/60; PULSE 64; RESP 18; TEMP 37; O2SAT 93
--- NOTE | 2023-03-27 16:20 | P.PNIM_ITS ---
Subjective Subjective Date of Service: 03/27/23 Interval History: This morning complain of abdominal pain and did not want to be examined, later in the afternoon patient allowed abdominal examination, denies nausea vomiting eating lunch, denies fever, no chills, no urinary symptoms. Denies lightheadedness, no dizziness. Review of Systems All other system reviewed and negative. Physical Exam 2 Vital Signs: Vital Signs: Last Vital Signs Temp 98.6 F 03/27/23 15:30 Pulse 64 03/27/23 15:30 Resp 18 03/27/23 15:30 BP 125/60 03/27/23 15:30 Pulse Ox 93 03/27/23 15:30 O2 Del Method Room Air 03/27/23 15:30 O2 Flow Rate 2 03/27/23 03:38 BMI result Body Mass Index 27.2 Const: Other: Gen: in no acute distress HEENT: sclera anicteric, moist mucus membranes Neck: supple Lungs: diminished at bases bilaterally Heart: regular rate and rhythm, no murmurs Abd: soft, mild mid abdominal discomfort with palpation, non-distended, no guarding, no rigidity bowel sounds audible Ext: LUE swelling [chronic] Skin: warm/well-perfused Neuro: alert, moving all extremities Psych: appropriate affect Objective Data Active Medications Acetaminophen (Acetaminophen 325 Mg Tablet) 650 mg PO Q6H PRN PRN Reason: Pain, Mild (Pain Scale 1-3) Last Admin: 03/26/23 19:41 Dose: 650 mg Documented By: LACY Albuterol Sulfate (Albuterol Sulfate (0.042%) 1.25 Mg/3 Ml Vial.Neb) 1.25 mg INHALE Q4H PRN PRN Reason: Wheezing Bisacodyl (Bisacodyl 10 Mg Supp.Rect) 10 mg GA DAILY PRN PRN Reason: Constipation Docusate Sodium (Docusate Sodium 100 Mg Capsule) 100 mg PO DAILY PRN PRN Reason: Constipation Ergocalciferol (Ergocalciferol (Vitamin D2) 1,250 Mcg Capsule) 1,250 mcg PO Q28D [facility] Ferrous Sulfate (Ferrous Sulfate 324 Mg Tablet.) 324 mg PO BID MAKENZIE Last Admin: 03/27/23 08:49 Dose: Not Given Documented By: JESSICA Non-Admin Reason: Patient Refused Folic Acid (Folic Acid 1 Mg Tablet) 1 mg PO DAILY [facility] Last Admin: 03/27/23 08:49 Dose: Not Given Documented By: JESSICA Non-Admin Reason: Patient Refused Heparin Sodium (Porcine) (Heparin Sodium,Porcine 5,000 Unit/Ml Vial) 5,000 unit SUBCUT Q12H [facility] Last Admin: 03/27/23 14:20 Dose: 5,000 unit Documented By: AZ Piperacillin Sod/Tazobactam (Sod 2.25 gm/ Sodium Chloride) 50 mls @ 100 mls/hr IV Q8H [facility] Last Infusion: 03/27/23 09:16 Dose: Infused Documented By: JESSICA Latanoprost (Latanoprost 0.005 % Ophth Linda 2.5 Ml Drops) 1 drop EYE-BOTH BEDTIME [facility] Last Admin: 03/26/23 20:49 Dose: 1 drop Documented By: LACY Levothyroxine Sodium (Levothyroxine Sodium 88 Mcg Tablet) 88 mcg PO DAILY@0600 [facility] Last Admin: 03/27/23 05:56 Dose: 88 mcg Documented By: KONSTANTIN Lidocaine HCl (Lidocaine Hcl 1 % Mpf 2 Ml Vial) 0.5 ml SUBCUT TUTHSA@1645 [facility] Last Admin: 03/25/23 18:43 Dose: Not Given Documented By: DEMETRIO Non-Admin Reason: not charted in dialysis Melatonin (Melatonin 3 Mg Tablet) 6 mg PO BEDTIME [facility] Last Admin: 03/26/23 20:46 Dose: 6 mg Documented By: LACY Metoprolol Tartrate (Metoprolol Tartrate 25 Mg Tablet) 25 mg PO BID [facility]; Protocol Last Admin: 03/27/23 08:49 Dose: Not Given Documented By: JESSICA Non-Admin Reason: Patient Refused Midodrine (Midodrine Hcl 2.5 Mg Tablet) 2.5 mg PO TUTHSA [facility] Last Admin: 03/25/23 08:38 Dose: 2.5 mg Documented By: EHSAN Nitroglycerin (Nitroglycerin 0.4 Mg Tab.Subl) 0.4 mg SUBLINGUAL Q5M PRN PRN Reason: Chest Pain Non-Formulary Medication (Lidocaine) 1 appl TOPICAL TUTHSA PRN PRN Reason: PRIOR TO DIALYSIS Ondansetron HCl (Ondansetron Hcl 4 Mg/2 Ml Vial) 4 mg IVPUSH Q8H PRN PRN Reason: Nausea and Vomiting Last Admin: 03/24/23 16:46 Dose: 4 mg Documented By: CHARLES Oxycodone HCl (Oxycodone Hcl Immed Release 5 Mg Tablet) 10 mg PO Q12H PRN PRN Reason: Pain, Severe (Pain Scale 7-10) Oxycodone HCl (Oxycodone Hcl Immed Release 5 Mg Tablet) 10 mg PO TID [facility] Last Admin: 03/27/23 14:18 Dose: 10 mg Documented By: AZ Senna (Sennosides 8.6 Mg Tablet) 8.6 mg PO BEDTIME PRN PRN Reason: Constipation Sertraline HCl (Sertraline Hcl 50 Mg Tablet) 50 mg PO DAILY [facility] Last Admin: 03/27/23 08:49 Dose: Not Given Documented By: JESSICA Non-Admin Reason: Patient Refused Sodium Chloride (0.9 % Sodium Chloride Flush 3 Ml Syringe) 3 ml IVFLUSH QSHIFT [facility] Last Admin: 03/27/23 08:37 Dose: 3 ml Documented By: JESSICA Labs 03/26/23 06:16 03/26/23 06:16 Microbiology Microbiology Results: Microbiology 03/24/23 11:41 Blood Culture - Preliminary Blood - Venous No growth after 48 hours. Assessment and Plan (1) Hypoxia: Status: Acute Assessment and Plan: 82yo F LTC resident with ESRD on HD [facility], HTN, HFpEF, IVC filter, hypothyroidism presenting with abd discomfort radiating to chest found to have hypoxia, bibasilar pleural effusions, left-sided PNA acute/chronic HFpEF - TTE with grade 2 diastolic dysfunction, [facility] status post [facility], will DC Alfred catheter, no significant urine output Abdominal pain, complaining of abdominal pain this morning that improved after removal of Alfred catheter now with minimal abdominal pain tolerating diet 75% CT abdomen showed thickening of wall of sigmoid colon recommend outpatient follow- up with GI and question colonoscopy. HCAP - pip-mary ann d4, follow BCx, trend PCT, MRSA swab positive, Legionella + pneumococcal UAGs pending, transition to by mouth antibiotic upon discharge. UTI urine culture grew Enterococcus faecalis 50,000 to 100,000 on Zosyn that will cover urine infection acute hypoxic resp failure - reslved frequent PACs - does not appear to be AF on EKG or telemetry folate deficiency anemia - replete ESRD on HD - HD [facility] - midodrine for HD HTN -stable blood pressure, continue metoprolol hypothyroidism - LT4 Incidental imaging findings - adrenal lesion on L: consider outpt adrenal CT - possible thoracic adenopathy: consider f/u CT as outpt - mid-sigmoid wall thickening: consider outpt evaluation with C-scope VTE ppx - UFH dispo - eventual return to [facility] for LTC likely tomorrow In my clinical judgment, the patient requires continued inpatient hospitalization for the following reasons: IV ABX, Time Spent With Patient Time: Total time managing care of this patient today ____ minutes. Quality Stroke Does the patient have a stroke diagnosis?: No VTE Prior VTE?: No VTE Risk Level:: Medical - moderate - high VTE Device Contraindication: Treatment Not Indicated VTE Drug Contraindication: N/A - Med Ordered
[2023-03-27 20:00] VITALS: BP 130/62; PULSE 63; RESP 18; TEMP 37.1; O2SAT 95
[2023-03-27] MEDS: Ferrous Sulfate 324 MG TABLET.DR PO (20:37)
[2023-03-27] MEDS: Metoprolol Tartrate 25 MG TABLET PO (20:37)
[2023-03-27] MEDS: Melatonin 3 MG TABLET 6 MG PO (20:37)
[2023-03-27] MEDS: Latanoprost 0.005 % Ophth Sol 2.5 ML DROPS 1 DROP EYE-BOTH (22:19)
[2023-03-28] VITALS: BP 149/67; PULSE 67; RESP 16; TEMP 36.2; O2SAT 100
[2023-03-28] MEDS: 0.9 % Sodium Chloride Flush 3 ML SYRINGE IVFLUSH ×2 (00:21→08:29)
[2023-03-28] MEDS: Heparin Sodium,Porcine 5,000 UNIT/ML VIAL 5000 UNIT SUBCUT ×2 (00:21→13:29)
[2023-03-28] MEDS: Piperacillin Sodium/Tazobactam 2.25 GM in 0.9 % Sodium Chloride 50 ML IV ×2 (02:35→08:29)
[2023-03-28 04:00] VITALS: BP 135/73; PULSE 59; RESP 16; TEMP 36.1; O2SAT 98
[2023-03-28] MEDS: Levothyroxine Sodium 88 MCG TABLET PO (05:52)
[2023-03-28 07:16] VITALS: BP 136/71; PULSE 62; RESP 18; TEMP 36.3; O2SAT 97
[2023-03-28] MEDS: Metoprolol Tartrate 25 MG TABLET PO (08:28)
[2023-03-28] MEDS: oxyCODONE HCl Immed Release 5 MG TABLET 10 MG PO (08:28)
[2023-03-28] MEDS: Sertraline HCL 50 MG TABLET PO (08:28)
[2023-03-28] MEDS: Folic Acid 1 MG TABLET PO (08:28)
[2023-03-28] MEDS: Ferrous Sulfate 324 MG TABLET.DR PO (08:28)
[2023-03-28] MEDS: Midodrine HCl 2.5 MG TABLET PO (08:33)
--- NOTE | 2023-03-28 10:23 | PM.PNNEP ---
Subjective Subjective Date of Service: 03/28/23 Interval history: Events noted. Seen during dialysis. Abdominal pain has improved Physical Exam Vital Signs: Vital Signs: Last Vital Signs Temp 97.4 F 03/28/23 07:16 Pulse 62 03/28/23 07:16 Resp 18 03/28/23 07:16 BP 136/71 03/28/23 07:16 Pulse Ox 97 03/28/23 07:16 O2 Del Method Room Air 03/28/23 07:16 O2 Flow Rate 2 03/27/23 03:38 BMI result Body Mass Index 27.2 Const: General: awake Resp: Effort & Inspection: no respiratory distress Cardio: Rate: regular rate GI: Palpation (GI): Soft to palpation and no guarding : General: Yes no CVA tenderness Back/Spine/Pelvis: Back: no CVA tenderness Skin: Rashes: no rashes Objective Data Labs 03/26/23 06:16 03/26/23 06:16 Microbiology Microbiology Results: Microbiology 03/24/23 11:41 Blood - Venous Blood Culture - Preliminary No growth after 48 hours. 03/24/23 09:51 Blood - Venous Blood Culture - Preliminary No growth after 48 hours. 03/24/23 Unknown Urine clean catch - Urine che top Urine Culture - Final Enterococcus faecalis Procedures Date of Service Date of Service: 03/28/23 Assessment & Plan Assessment and plan (1) ESRD needing dialysis: Status: Acute Assessment and Plan: 82yo Woman with ESRD on HD [facility], HTN, HFpEF, IVC filter, hypothyroidism presenting with abd discomfort radiating to chest found to have hypoxia, bibasilar pleural effusions, left-sided PNA acute/chronic HFpEF - TTE with grade 2 diastolic dysfunction - [facility], follow BCx, trend PCT, MRSA swab positive, Legionella + pneumococcal UAGs pending Incidental imaging findings - adrenal lesion on L: consider outpt adrenal CT - possible thoracic adenopathy: consider f/u CT as outpt - mid-sigmoid wall thickening: consider outpt evaluation with C-scope ESRD Usually gets HD on TTS( [facility]) Continued volume optimization on HD Needs to bring dry weight down Renal Diet; Phos binders with meals All medication dosed for GFR Concur with rest of current management Shall closely follow up Time Spent With Patient Time: Total time managing care of this patient today ____ minutes. Progress Note: Quality Stroke Does the patient have a stroke diagnosis?: No
--- NOTE | 2023-03-28 11:16 | PM.DS ---
DS: Providers Provider Date of Service: 03/28/23 Date of admission: 03/24/23 12:34 Primary care physician: James Briones MD Consults: 03/24/23 12:44 Consult to Nephrology Routine Consulting Provider: Hal Perez Reason for consultation: ESRD of HD TTS, BNP 4083 DS: Diagnosis Discharge Diagnosis (1) ESRD needing dialysis: Status: Acute DS: Summary Hospital Course Hospital Course: History of presenting illness: Chief Complaint: Abdominal pain radiating to chest Pt is an 82-year-old female with a PMH significant for ESRD on HD (Tue/An/Sat), HTN, IVC filter, and hypothyroidism?who presents to the ED from [facility] for evaluation of abdominal discomfort radiating to her chest since a.m. this morning. Patient noted to have shallow respirations and satting at 89% room air, which increased to 95% on 2 L NC. She is not on chronic O2, but has an order for p.r.n. O2. Patient is alert and oriented x2 and a poor historian, not aware of either place or her situation. Patient unable to provide meaningful HPI, which is instead obtained from chart and provider review. ?According to SNF staff patient has been noticeably declining physically and mentally since the summer. 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 Fistula was replaced with some improvement to left arm swelling. Patient has also been less alert and oriented. Pt is wheelchair bound at baseline. In the ED patient was afebrile but hypertensive to 202/55, satting at 85% on RA with improvement to 96% on 2L NC. Labs were significant for stable H&H of 11.3/36.0, BUN 21, creatinine 3.53, troponin 28.1, BNP 4083. Coags WNL. Lactic acid WNL 1.2. UA likely negative for UTI. Negative for COVID. CXR showed bilateral basilar opacities left greater than right, atelectasis versus infiltrate. Also found left pleural effusion. CT?of abdomen and pelvis found large bilateral pleural effusions, focal 4 cm segment of wall thickening in the mid sigmoid colon, stable indeterminate left adrenal nodule, ,cholelithiasis and nonobstructive bilateral renal calculi without hydronephrosis. EKG with poor image quality, and read as atrial fibrillation with nonspecific ST and T-wave abnormalities. Echocardiogram on 01/16/2023 found hyperdynamic LV systolic function with LVEF >70% with grade 2 diastolic dysfunction. Pt was treated with Lasix 40 mg IV and Zosyn. Pt will be admitted to the hospital for acute hypoxic respiratory failure in the setting of possible hospital acquired pneumonia and fluid overload. Hospital course: 82yo F LT resident with ESRD on HD [facility], HTN, HFpEF, IVC filter, hypothyroidism presenting with abd. discomfort radiating to chest found to have hypoxia, bibasilar pleural effusions, left-sided PNA and diagnosed to have acute/chronic HFpEF, recent echo from January 2023 showed grade 2 diastolic dysfunction, patient treated in the emergency room with IV Lasix and subsequently extra volume removed at HD [facility], at present appears euvolemic continue hemodialysis as before, patient received IV Zosyn for healthcare associated pneumonia, since afebrile, with no coughing ,no WBC does not need further antibiotics. In regard to Abdominal pain, patient is unable to provide any meaningful history found out from hemodialysis staff that patient has on and off abdominal pain for a long time, patient is tolerating diet with no nausea, no vomiting, no diarrhea, CT abdomen showed thickening of wall of sigmoid colon recommend outpatient follow-up with GI and question colonoscopy. UTI urine culture grew Enterococcus faecalis 50,000 to 100,000 finish 5 day course of IV Zosyn as above acute hypoxic resp failure - reslved was likely due to fluid overload, atelectasis and pneumonia folate deficiency anemia continue folic acid replacement ESRD on HD, continue midodrine as before HTN -stable blood pressure, continue metoprolol Hypothyroidism continue levothyroxine Incidental imaging findings on CT chest and CT abdomen and pelvis - adrenal lesion on Left: consider outpt adrenal CT - possible thoracic adenopathy: consider f/u CT as outpt - mid-sigmoid wall thickening: consider outpt evaluation with C-scope Time Spent with Patient Time attestation: Total time managing care of this patient today ____ minutes. Discharge coordination time: Greater than 30 minutes Quality: Safe Use of Opioids Does Pt have an Active Cancer Diagnosis on the Problem List?: No Quality: Stroke Does the patient have a stroke diagnosis?: No Physical Exam Vital Signs: Vital Signs: Last Vital Signs Temp 97.4 F 03/28/23 07:16 Pulse 62 03/28/23 07:16 Resp 18 03/28/23 07:16 BP 136/71 09/19/23 07:16 Pulse Ox 97 03/28/23 07:16 O2 Del Method Room Air 03/28/23 07:16 O2 Flow Rate 2 03/27/23 03:38 BMI result Body Mass Index 27.2 Const: Other: Gen: Awake alert, in no acute distress HEENT: sclera anicteric, moist mucus membranes Neck: supple Lungs: diminished at bases bilaterally, no respiratory distress Heart: regular rate and rhythm, no murmurs Abd: soft, no abdominal discomfort with palpation, non-distended, no guarding, no rigidity bowel sounds audible, mid abdominal horizontal scar with Palpable ? scar tissue . Ext: LUE swelling [chronic] Skin: warm/well-perfused Neuro: alert, moving all extremities Psych: appropriate affect DS: Data Data Completed and Pending Completed studies during hospitalization [Text1]: Procedures Performance of Urinary Filtration, Intermittent, Less than 6 Hours Per Day (01/14/23) Labs on day of discharge: Preliminary micro results at discharge 03/24/23 11:41 Blood Culture - Preliminary Blood - Venous No growth after 48 hours. 03/24/23 09:51 Blood Culture - Preliminary Blood - Venous No growth after 48 hours. Discharge Plan Discharge Anticipated Discharge Date/Time: 03/28/23 11:33 Patient Disposition: Xfer Other Discharge Diagnosis: Acute hypoxic respiratory failure Healthcare associated pneumonia Folic acid deficiency Referrals: James Briones MD [Primary Care Provider] - 1 Week Discharge Medications: New folic acid 1 mg Tablet 1 mg PO DAILY Qty: 30 0RF Continued levothyroxine 88 mcg tablet 1 tab PO DAILY@0600 sertraline 50 mg tablet 1 tab PO DAILY metoprolol tartrate 25 mg tablet 1 tab PO BID oxycodone 10 mg tablet 1 tab PO Q12H PRN (Reason: pain) ondansetron 4 mg Tablet,Disintegrating 4 mg PO Q6H PRN (Reason: Nausea And Vomiting) latanoprost 0.005 % drops 1 drp ophthalmic (eye) BEDTIME Rx Instructions: both eyes sennosides [senna] 8.6 mg Tablet 8.6 mg PO BEDTIME PRN (Reason: Constipation) melatonin 3 mg Tablet 6 mg PO BEDTIME bisacodyl 10 mg Suppository 10 mg KS DAILY PRN (Reason: Constipation) nitroglycerin 0.4 mg Tablet, Sublingual 0.4 mg SUBLINGUAL Q5M PRN (Reason: Chest Pain) Rx Instructions: do not exceed 3 doses per episode midodrine 2.5 mg tablet 1 tab PO TUTHSA Rx Instructions: PRIOR TO DIAYLSIS nystatin 100,000 unit/gram Powder 1 appl TOPICAL BID Rx Instructions: to groin for rash ferrous fumarate 325 mg (106 mg iron) Tablet 325 mg PO BID albuterol sulfate 1.25 mg/3 mL Solution For Nebulization 1.25 mg INHALATION Q4H PRN (Reason: Wheezing) oxycodone 10 mg tablet 10 mg PO TID lidocaine 3 % Cream 1 appl TOPICAL TUTHSA Rx Instructions: PRIOR TO DIAYLSIS acetaminophen [Tylenol] 325 mg Tablet 650 mg PO TID PRN (Reason: Pain) ergocalciferol (vitamin D2) 1,250 mcg (50,000 unit) Capsule 1,250 mcg PO Q28D acetaminophen 325 mg Tablet 650 mg PO DAILY PRN (Reason: discomfort) Discharge Orders: Discharge Order (Routine); Ordered 03/28/23 Ordered By: Erick Gross Diet: Advance to usual diet Activity on Discharge: As tolerated Stand Alone Forms: Patient Portal Discharge page Care Plan Goals: Hypoxia resolved continue hemodialysis as before, no further Antibiotics Encourage incentive spirometry/out of bed to chair Chronic abdominal pain on and off Incidental imaging findings - adrenal lesion on Lft: consider outpt. adrenal CT - possible thoracic adenopathy: consider f/u CT as outpt - mid-sigmoid wall thickening: consider outpt evaluation with C-scope Health Concerns: Take all medications as before continue hemodialysis Plan of Treatment: Outpatient follow-up with primary care physician Assessment: As above
--- NOTE | 2023-03-28 11:46 | MHC.CM.PN ---
Addendum entered by Liv Mcclure 03/28/23 12:57: Second IMM given 03/28. Original Note: Pt is medically cleared for D/C back to [facility]. Transportation set up via [facility] at 1:30pm. Pts granddaughter/HCP updated.
[2023-03-29 17:42] LABS: Strep Pneumo Ag urine Not Detected (Not Detected)
[2023-03-30 07:29] LABS: Legionella Ag Urine Not Detected (Not Detected)
== END 2023-03-28 14:17 | disposition other institution (70) | DRG 291 ==
LOC: HO.ED 08:33 → HO.EDOVER 12:46 → HO.IMC 19:50
PROVIDERS: Family Medicine; Physician Assistant; Admitting Provider Student in an Organized Health Care Education/Training Program; Emergency Provider Emergency Medicine Emergency Medical Services; PCP Family Medicine; Visit Provider Hospitalist
DX: I13.2 Hypertensive heart and chronic kidney disease with heart failure and with stage 5 chronic kidney disease, or end stage renal disease (principal); I50.33 Acute on chronic diastolic (congestive) heart failure; N18.6 End stage renal disease; J18.9 Pneumonia, unspecified organism; J96.01 Acute respiratory failure with hypoxia; N39.0 Urinary tract infection, site not specified; J98.11 Atelectasis; E03.9 Hypothyroidism, unspecified; D63.1 Anemia in chronic kidney disease; I49.1 Atrial premature depolarization; B95.62 Methicillin resistant Staphylococcus aureus infection as the cause of diseases classified elsewhere; E27.9 Disorder of adrenal gland, unspecified; B95.2 Enterococcus as the cause of diseases classified elsewhere; D52.9 Folate deficiency anemia, unspecified; Z99.2 Dependence on renal dialysis; Z87.891 Personal history of nicotine dependence; Z23 Encounter for immunization; Z20.822 Contact with and (suspected) exposure to COVID-19; Z79.890 Hormone replacement therapy; Z79.899 Other long term (current) drug therapy
CPT/HCPCS: 36415; 71045; 71250; 74176; 80048; 80076; 81001; 81003; 82607; 82746; 83605; 83690; 83735; 83880; 84145; 84484; 85025; 85027; 85610; 87040; 87086; 87088; 87186; 87449; 87635; 87640; 87641; 87899; 90686; 90999; 93005; 99285; J1170; J1643; J1940; J2405; J2543

== ENCOUNTER → 2023-03-24 12:34 | Outpatient (BNV) | payer MEDICARE, MEDICAID, SELFPAY | PROVIDERS: Admitting Provider Student in an Organized Health Care Education/Training Program; Emergency Provider Emergency Medicine Emergency Medical Services; PCP Family Medicine; Visit Provider Student in an Organized Health Care Education/Training Program | DX: N18.6 End stage renal disease (principal); Z99.2 Dependence on renal dialysis | CPT/HCPCS: 99223; 99232; 99233; 99239 ==

== ENCOUNTER 2023-04-24 06:32 | Outpatient (REF) | payer MEDICARE, MEDICAID, SELFPAY ==
[2023-04-24 06:41] LABS: MANUAL DIFF FLAG NO
[2023-04-24 07:29] LABS: Basophils Absolute Auto 0.1 X10*3/uL (0.0-0.2); Basophils Percent Auto 0.4 % (0-2); Eosinophils Absolute Auto 0.4 X10*3/uL (0.0-0.4); Eosinophils Percent Auto 2.5 % (0-4); Hematocrit 31.4 % (37.0-47.0); Hemoglobin 9.8 g/dl (12.0-16.0); Imm Gran Abs Auto 0.23 X10*3/uL (0.00-0.03); Imm Gran Pct Auto 1.6 % (0.0-0.4); Lymphocytes Absolute Auto 0.6 X10*3/uL (1.2-4.9); Mean Corpuscular HGB Conc 31.2 g/dl (31.0-35.0); Mean Corpuscular Hemoglobin 30.7 pg (27.0-33.0); Mean Corpuscular Volume 98.4 fL (80.0-98.0); Mean Platelet Volume 10.4 fL (9.4-12.3); Monocytes Absolute Auto 0.7 X10*3/uL (0.1-1.2); Monocytes Percent Auto 4.8 % (2-11); NRBC Pct Auto 0.1 /100WBC (0.0-0.2); Neutrophils Absolute Auto 12.6 x10*3/uL (2.0-8.3); Neutrophils Percent Auto 86.7 % (45-73); Platelet Count 292 X10*3/uL (160-400); Red Blood Count 3.19 X10*6/uL (4.20-5.50); Red Cell Distribution Width 17.1 % (11.0-16.0); White Blood Count 14.6 X10*3/uL (4.8-10.8)
[2023-04-24 08:39] LABS: Anion Gap 25 (12-20); Blood Urea Nitrogen 65 mg/dL (9-16); Calcium 8.5 mg/dL (8.4-10.2); Carbon Dioxide 25 mmol/L (22-29); Chloride 90 mmol/L (96-108); Estimated Glomerular Filt Rate 7; Glucose Random 93 mg/dL (60-115); Potassium 4.5 mmol/L (3.3-5.1); Sodium 135 mmol/L (135-145)
== END 2023-04-24 06:33 | disposition home or self-care (01) ==
LOC: HO.MMNH2L 06:32
PROVIDERS: Visit Provider Family Medicine
DX: I10 Essential (primary) hypertension (principal)
CPT/HCPCS: 36415; 80048; 85025